=== PATIENT | male | born 1980 | race Caucasian/White ===

== ENCOUNTER 2016-12-14 15:22 | Emergency (ER) | payer OTHER ==
[2016-12-14 15:31] VITALS: BP 107/73; PULSE 65; RESP 18; TEMP 97.3
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
== END 2016-12-14 17:29 | disposition home or self-care (01) ==
LOC: EC 15:22
DX: L02.214 Cutaneous abscess of groin (principal); F17.200 Nicotine dependence, unspecified, uncomplicated; Z79.899 Other long term (current) drug therapy; Z79.891 Long term (current) use of opiate analgesic
CPT/HCPCS: 99282

== ENCOUNTER → 2018-01-09 | Outpatient (CLI) | payer OTHER ==
--- NOTE | 2018-01-09 15:40 | MR ---
EXAMINATION TYPE: MR lumbar spine wo con DATE OF EXAM: 01/09/2018 COMPARISON: NONE HISTORY: Low back pain x2 months TECHNIQUE: T1 and T2 axial and sagittal images of the lumbar spine are submitted. FINDINGS: There is no abnormal signal seen within the visualized spinal cord or paraspinal soft tissu es. Tiny gallstone suspected. Simple appearing tiny left renal cyst noted. At L1-2 there is no disc herniation, canal stenosis, or foraminal encroachment. No degenerative disc disease. At L2-3 there is no disc herniation, canal stenosis, or foraminal encroachment. No degenerative disc disease. At L3-4 there is no disc herniation, canal stenosis, or foraminal encroachment. No degenerative disc disease At L4-5 there is no disc herniation, canal stenosis, or foraminal encroachment. No degenerative disc disease At L5-S1 there is loss of disc signal. There is central disc bulging with mild effacement of thecal s ac. No canal stenosis. Mild hypertrophic change of the facets. Disc bulging greater laterally to the right with mild right foraminal encroachment. IMPRESSION: 1. Central disc bulging with mild effacement L5-S1 with mild right foraminal encroachment but no raj l stenosis.
== END | disposition home or self-care (01) ==
LOC: RADMRIMAIN 14:40
PROVIDERS: ATTEND Physical Medicine & Rehabilitation
DX: M51.17 Intervertebral disc disorders with radiculopathy, lumbosacral region (principal)
CPT/HCPCS: 72148

== ENCOUNTER 2018-02-14 15:56 | Inpatient (IN) | payer MEDICAID, OTHER ==
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
[2018-02-14] MEDS ORDERED: OXcarbazepine 150 MG TAB PO STA (16:51)
[2018-02-14 16:59] LABS: Amphetamine Screen,Urine Not Detected (NotDetected); Barbiturate Screen,Urine Not Detected (NotDetected); Benzodiazepines Screen,Urine Not Detected (NotDetected); Cocaine Screen,Urine Not Detected (NotDetected); Methadone Screen, Urine Not Detected (NotDetected); Opiate Screen,Urine Not Detected (NotDetected); Oxycodone Screen, Urine Not Detected (NotDetected); Phencyclidine Screen,Urine Not Detected (NotDetected); Tricyclic Antidepressant,Urine Not Detected (NotDetected); Urn Cannabinoid Scrn Detected (NotDetected)
[2018-02-14] MEDS ORDERED: ZIPRASIDONE 20 MG VIAL IM STA (17:14)
[2018-02-14 18:15] VITALS: RESP 16
[2018-02-14] MEDS ORDERED: ZIPRASIDONE 20 MG VIAL IM PRN (18:40)
[2018-02-14] MEDS ORDERED: ACETAMINOPHEN TAB 325 MG TAB PO PRN (18:40)
[2018-02-14] MEDS ORDERED: MAGNESIUM HYDROXIDE 2,400 MG/10 ML CUP PO PRN (18:40)
[2018-02-14] MEDS ORDERED: MAG HYDROX/AL HYDROX/SIMETH 30 ML CUP PO PRN (18:40)
[2018-02-14 19:00] LABS: Appearance,Urine Cloudy (Clear); Bilirubin,Urine Negative (Negative); Blood,Urine Negative (Negative); Color,Urine Yellow; Glucose,Urine (UA) Negative (Negative); Ketones,Urine Negative (Negative); Leukocyte Esterase,Urine Negative (Negative); Mucus,Urine Occasional /hpf; Nitrite,Urine Negative (Negative); Protein,Urine Negative (Negative); RBC,Urine 1 /hpf (0-5); Specific Gravity,Urine 1.018 (1.001-1.035); Squamous Epithelial Cell,Urine 1 /hpf (0-4); Urobilinogen,Urine <2.0 mg/dL (<2.0); WBC,Urine <1 /hpf (0-5)
[2018-02-14] MEDS: DIVALPROEX ER 500 MG TAB.ER.24H PO SCH (21:17)
[2018-02-14] MEDS: OXcarbazepine 150 MG TAB PO SCH (21:17)
[2018-02-15] MEDS: OXcarbazepine 150 MG TAB PO SCH ×2 (08:31→20:15)
[2018-02-15] MEDS: ZIPRASIDONE 80 MG CAP PO SCH (08:32)
[2018-02-15] MEDS: NICOTINE 21MG/24HR PATCH TRANSDERM SCH (08:59)
[2018-02-15] MEDS ORDERED: ESCITALOPRAM 10 MG TAB PO SCH (09:00)
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
[2018-02-15 10:23] LABS: ALT 23 U/L (21-72); AST 26 U/L (17-59); Albumin 4.8 g/dL (3.5-5.0); Alkaline Phosphatase 63 U/L (38-126); Anion Gap 15 mmol/L; Blood Urea Nitrogen 18 mg/dL (9-20); Calcium 10.8 mg/dL (8.4-10.2); Carbon Dioxide 24 mmol/L (22-30); Chloride 105 mmol/L (98-107); Cholesterol 223 mg/dL (<200); Glucose 98 mg/dL (74-99); HDL Cholesterol 60 mg/dL (40-60); LDL Cholesterol,Calculated 148 mg/dL (0-99); Potassium 4.7 mmol/L (3.5-5.1); Sodium 144 mmol/L (137-145); Total Bilirubin 2.3 mg/dL (0.2-1.3); Total Protein 7.6 g/dL (6.3-8.2); Triglycerides 77 mg/dL (<150)
[2018-02-15 10:29] LABS: Basophils % (A) 1 %; Eosinophils # (A) 0.2 k/uL (0-0.7); Eosinophils % (A) 3 %; HCT 52.3 % (39.0-53.0); HGB 17.8 gm/dL (13.0-17.5); Lymphocytes # (A) 1.1 k/uL (1.0-4.8); Lymphocytes % (A) 21 %; MCV 91.3 fL (80.0-100.0); Mean Platelet Volume 7.5; Monocytes # (A) 0.4 k/uL (0-1.0); Monocytes % (A) 7 %; Neutrophils # (A) 3.5 k/uL (1.3-7.7); Neutrophils % (A) 65 %; Platelet Count 266 k/uL (150-450); RBC 5.73 m/uL (4.30-5.90); RDW 13.9 % (11.5-15.5); WBC 5.3 k/uL (3.8-10.6)
--- NOTE | 2018-02-15 16:54 | CONS ---
CONSULTATION DATE OF CONSULTATION: 02/15/18. REASON FOR CONSULTATION: Medical management requested by Dr. Cook. CONSULTATION: This is a 37-year-old patient who follows with Dr. Jordan Márquez out of [facility]. The patient has a history of what appears to be bipolar disorder and questionable ADHD. The patient is unemployed, lives his girlfriend and her sister. The patient is brought in because patient is having homicidal ideation and he says he hates his sister's girlfriend and cannot get along with her at all. Apparently she was making fun of him. He really got mad, upset. The patient sometimes has trouble sleeping. The patient does smoke cigarettes. Does marijuana. Does odd jobs including working on roofs. The patient has some chronic low back pain. Otherwise, no trouble with bowel or urine. Occasional cough. REVIEW OF SYSTEMS: CONSTITUTIONAL: None. HEENT: None. RESPIRATORY: As above. CARDIOVASCULAR: None. GASTROINTESTINAL: Occasional heartburn. GENITOURINARY: None. MUSCULOSKELETAL: Chronic low back pain. DERMATOLOGICAL: Questionable right. HEMATOLOGIC, LYMPHATIC: None. PSYCHIATRY: Anxious, depression. NEUROLOGICAL: None. PAST MEDICAL HISTORY: Chronic shoulder pain, neck pain, back pain, possibly depression. PAST SURGICAL HISTORY: Left elbow reconstruction, right arm vascular repair, right rotator cuff repair, right ankle ORIF. History of sacral fracture. PSYCH HISTORY: Include bipolar disorder. SOCIAL HISTORY: Lives with his girlfriend and her sister. Smokes about a quarter pack a day and does smoke marijuana once to twice a day. Denies alcohol. FAMILY HISTORY: Reviewed, noncontributory to presentation. HOME MEDICATIONS: 1. Lexapro 10 mg a day. 2. Flexeril 10 mg b.i.d. 3. Xanax 1 mg p.o. t.i.d. p.r.n. 4. Geodon 80 mg p.o. daily. 5. Percocet 10 1 tab q.i.d. p.r.n. 6. Trileptal 450 mg p.o. b.i.d. 7. Depakote ER 1000 mg p.o. q.h.s. 8. Tylenol 650 mg q.4 p.r.n. ALLERGIES: None. PHYSICAL EXAMINATION: Temperature 98.4, pulse 70, respiration 16, blood pressure 100/60, pulse ox 97% on room air. GENERAL APPEARANCE: Average build, lying in bed, slightly disheveled. EYES: Pupils equal. Conjunctivae normal. HEENT: External nose and ears normal. Oral cavity normal. NECK: JVD not raised. Mass not palpable. RESPIRATORY: Effort slightly decreased, lungs fair entry. CARDIOVASCULAR: 1st and 2nd sounds normal. No edema. ABDOMEN: Soft, nontender. Liver and spleen not palpable. LYMPHATIC: No lymph node palpable in neck or axillae. PSYCHIATRY: Alert and oriented x3. Mood and affect slightly anxious-appearing. INVESTIGATIONS: White count 5.3, potassium 4.7, bilirubin 2.3. TSH 0.419. Urine drug screen positive for marijuana. ASSESSMENT: 1. Chronic nicotine dependence. Patient is a cigarette smoker. 2. Chronic marijuana recreational use. 3. Abnormal TSH. 4. 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 5. Bipolar disorder and antisocial personality disorder. PLAN: Patient given nicotine patch. Advised against use of marijuana. We will recheck patient's free T4 and TSH tomorrow. The patient should follow up with Dr. Jordan Márquez upon discharge. Thank you, Dr. Cook. MMODL / IJN: [id number] /
[2018-02-15 19:30] LABS: Hemoglobin A1C 5.1 % (4.0-6.0)
[2018-02-15] MEDS: DIVALPROEX ER 500 MG TAB.ER.24H PO SCH (20:15)
[2018-02-16] MEDS: OXcarbazepine 150 MG TAB PO SCH ×2 (08:35→20:10)
[2018-02-16] MEDS: ZIPRASIDONE 80 MG CAP PO SCH (08:36)
[2018-02-16] MEDS: NICOTINE 21MG/24HR PATCH TRANSDERM SCH (08:39)
--- NOTE | 2018-02-16 10:23 | P.PN ---
Progress Note - Text Progress Note Date: 02/16/18 Patient was seen for a routine follow-up examination. He said he did not sleep well last night and asked if I can give him something. After discussing his condition it was finally agreed to try him on melatonin. He did not have any adverse effects from Depakote and he agreed to get it increased to 1500 mg at bedtime since he weighs 75 kg. He attends groups, socializes with peers and interacts with staff members. He said he has an appointment with the doctor in pain clinic tomorrow and hopes he can leave tomorrow. It was explained to him that if everything goes well I won't have any problem in discharging him otherwise he may have to postpone his pain clinic appointment. He agreed with this. This is a white ambulatory male with adequate hygiene. But he looks somewhat unkempt with unkempt de anda mustache which cover his lips. He is friendly and cooperative. His speech is spontaneous and mildly pressured. His mood is cheerful and affect is appropriate. He insists that he is not homicidal anymore , never thought about hurting his girlfriend's sister, his girlfriend had talked to her sister not to make him upset and said everything is cool now. He also denies hallucinations and delusional thinking. He is well oriented with good memory concentration etc. Plan: Continue Trileptal Geodon increased Depakote and start on melatonin to help him sleep. Continue groups and other activities.
[2018-02-16] MEDS ORDERED: DIVALPROEX ER 500 MG TAB.ER.24H PO SCH (21:00)
[2018-02-16] MEDS ORDERED: MELATONIN 3 MG TABLET PO SCH (21:00)
[2018-02-17 03:29] VITALS: BP 135/79; PULSE 70; TEMP 97.7
--- NOTE | 2018-02-17 08:35 | P.DS ---
Providers Date of admission: 02/14/18 17:56 Expected date of discharge: 02/17/18 Attending physician: Nikole Cook Consults: 02/14/18 18:40 Consult Physician Routine Consulting Provider: Medardo Robbins Consult Reason/Comments: H&P for mental health admission Do you want consulting provider notified?: Yes Primary care physician: Rodrigo Elmore [facility] Course: Patient had his physical examination psychiatric evaluation and psychosocial evaluation. After physical examination his condition was discussed with him along with recommended treatment plan and his Trileptal Depakote and Geodon were continued Lexapro was discontinued because of his diagnosis. He did well on these without any adverse effects. His Depakote was increased to 1500 mg at night since he weighs 75.296 kg. He tolerated this without any adverse effects. He also was complaining of problems sleeping and was started on melatonin 3 mg at bedtime. He slept about 7 hours on melatonin. He continued to deny homicide and suicide thoughts, was keen on going home and in view of this it was agreed to discharge him. Condition on discharge: This is a white ambulatory male with adequate hygiene. But he looks somewhat unkempt with untrimmed de anda and mustache and poorly combed hair. He does not show any psychomotor agitation or retardation. His speech is spontaneous and goal-directed. His mood is cheerful and affect is appropriate to the thought content. He continues to deny hallucinations, delusional thinking, suicidal and homicidal thoughts. He is well oriented with adequate memory concentration general fund of knowledge etc. his insight and judgment have improved to a certain extent. Diagnosis on discharge: Unspecified bipolar and related disorder F 31.9. Cannabis use disorder severe F 12.20. Antisocial personality disorder F 60.20. Probable malingering Z 76.5. NKDA. History of chronic pain. Patient was advised and agreed to take his medications not to drink alcohol or use drugs, not to use narcotics, muscle relaxants or benzodiazepines on a long- term basis, learn better coping skills through therapy, not to drive or operate missionary if he feels sleepy, to call his psychiatrist or therapist if he develops any thoughts of hurting self or others and if he cannot get hold of them to go to nearest ER. Plan - Discharge Summary Discharge Rx Participant: Yes New Discharge Prescriptions: New Divalproex ER [Depakote ER] 1,500 mg PO HS 30 Days #90 tab.er.24h Melatonin 3 mg PO HS 30 Days #30 tablet Continue OXcarbazepine [Trileptal] 450 mg PO BID #90 tab Ziprasidone [Geodon] 80 mg PO DAILY 30 Days #30 cap Discontinued oxyCODONE-APAP 10-325MG [Percocet 10-325 mg] 1 tab PO QID PRN PRN Reason: Pain Acetaminophen Tab [Tylenol] 650 mg PO Q4HR PRN tab PRN Reason: Pain/Discomfort Divalproex ER [Depakote ER] 1,000 mg PO HS #60 tab.er.24h ALPRAZolam [Xanax] 1 mg PO TID PRN PRN Reason: Anxiety Escitalopram [Lexapro] 10 mg PO DAILY Cyclobenzaprine [Flexeril] 10 mg PO BID Discharge Medication List Divalproex ER [Depakote ER] 1,500 mg PO HS 30 Days #90 tab.er.24h 02/17/18 [Rx] Melatonin 3 mg PO HS 30 Days #30 tablet 02/17/18 [Rx] OXcarbazepine [Trileptal] 450 mg PO BID #90 tab 02/17/18 [Rx] Ziprasidone [Geodon] 80 mg PO DAILY 30 Days #30 cap 02/17/18 [Rx] Follow up Appointment(s)/Referral(s): intake, intake [Other] - 1 Week (02/21/18 at 1:00pm ) Rodrigo Márquez MD [Primary Care Provider] - 1-2 days Patient Instructions/Handouts: Bipolar Disorder (DC) Activity/Diet/Wound Care/Special Instructions: Activity and Diet as tolerated. Avoid the use of street drugs and alcohol. Take all medications as prescribed, when you are in need of refills contact your medical doctor or psychiatrist. Please go to all scheduled outpatient appointments for aftercare treatment. If symptoms return or worsen you can call the crisis line @ and/or return to the nearest emergency room for evaluation.
[2018-02-17] MEDS: NICOTINE 21MG/24HR PATCH TRANSDERM SCH (08:50)
[2018-02-17] MEDS: OXcarbazepine 150 MG TAB PO SCH (08:52)
[2018-02-17] MEDS: ZIPRASIDONE 80 MG CAP PO SCH (08:52)
== END 2018-02-17 09:30 | disposition home or self-care (01) | DRG 885 ==
LOC: EC 15:56 → 3MHU 17:56
PROVIDERS: ADMIT Psychiatry & Neurology Psychiatry; ATTEND Psychiatry & Neurology Psychiatry
DX: F31.9 Bipolar disorder, unspecified (principal); R17 Unspecified jaundice; F60.2 Antisocial personality disorder; F90.9 Attention-deficit hyperactivity disorder, unspecified type; F12.20 Cannabis dependence, uncomplicated; F17.210 Nicotine dependence, cigarettes, uncomplicated; Z76.5 Malingerer [conscious simulation]; G89.29 Other chronic pain; R45.850 Homicidal ideations; Z79.899 Other long term (current) drug therapy; Z80.6 Family history of leukemia; Z79.891 Long term (current) use of opiate analgesic
CPT/HCPCS: 80053; 80061; 80306; 81001; 82075; 83036; 84439; 84443; 85025; 99285

== ENCOUNTER → 2019-06-05 | Outpatient (CLI) | payer OTHER ==
[2019-06-05 12:31] LABS: Basophils % (A) 1 %; Eosinophils # (A) 0.3 k/uL (0-0.7); Eosinophils % (A) 4 %; HCT 46.1 % (39.0-53.0); HGB 15.1 gm/dL (13.0-17.5); Lymphocytes # (A) 1.2 k/uL (1.0-4.8); Lymphocytes % (A) 17 %; MCHC 32.7 g/dL (31.0-37.0); MCV 94.6 fL (80.0-100.0); Mean Platelet Volume 7.7; Monocytes # (A) 0.4 k/uL (0-1.0); Monocytes % (A) 6 %; Neutrophils # (A) 4.8 k/uL (1.3-7.7); Neutrophils % (A) 71 %; Platelet Count 212 k/uL (150-450); RBC 4.87 m/uL (4.30-5.90); RDW 15.6 % (11.5-15.5); WBC 6.8 k/uL (3.8-10.6)
[2019-06-05 13:59] LABS: Erythrocyte Sedimentation Rate 2 mm/hr (0-15)
[2019-06-05 19:18] LABS: Iron Saturation 13.67 (15.00-50.00)
[2019-06-05 19:28] LABS: HIV 1 AB Non-Reactive (Non-Reactive); HIV AB P24 Non-Reactive (Non-Reactive); HIV P24 AG Non-Reactive (Non-Reactive)
[2019-06-05 19:44] LABS: ALT 21 U/L (10-49); AST 35 U/L (14-35); African American GFR (CKD) 128.6 (60.0-200.0); Albumin/Globulin Ratio 2.73 (1.60-3.17); Alkaline Phosphatase 68 U/L (41-126); Amylase 54 U/L (23-121); BUN/Creat Ratio 13.75 Ratio (12.00-20.00); C Reactive Protein <0.4 mg/dL (0.0-0.8); Calcium 9.2 mg/dL (8.7-10.3); Carbon Dioxide 26.7 mmol/L (21.6-31.8); Chloride 113 mmol/L (96-109); Globulin 1.5 g/dL (1.6-3.3); Glucose 85 mg/dL (70-110); Potassium 4.3 mmol/L (3.5-5.5); Sodium 144 mmol/L (135-145); Total Bilirubin 0.6 mg/dL (0.3-1.2); Total Protein 5.6 g/dL (6.2-8.2)
[2019-06-05 21:45] LABS: Hemoglobin A1C 5.3 % (4.0-6.0)
[2019-06-06 12:14] LABS: Herpes simplex IgG I Ab 0.25 (< or = 0.90); Herpes simplex IgG II Ab 0.34 (< or = 0.90)
== END | disposition home or self-care (01) ==
LOC: LABWHC1 12:14
PROVIDERS: ATTEND Nurse Practitioner Family
DX: R63.4 Abnormal weight loss (principal); R10.9 Unspecified abdominal pain; Z11.3 Encounter for screening for infections with a predominantly sexual mode of transmission
CPT/HCPCS: 36415; 80053; 80074; 82150; 82728; 83036; 83540; 83550; 83690; 84439; 84443; 84481; 85025; 85652; 86140; 86694; 86695; 86696; 86780; 87390

== ENCOUNTER → 2019-06-27 | Outpatient (CLI) | payer OTHER ==
--- NOTE | 2019-06-27 11:22 | US ---
EXAMINATION TYPE: US abdomen complete DATE OF EXAM: 06/27/2019 COMPARISON: NONE CLINICAL HISTORY: R10.9 ABD PAIN. Pain. EXAM MEASUREMENTS: Liver Length: 13.7 cm Gallbladder Wall: 0.3 cm CBD: 0.5 cm Spleen: 11.8 cm Right Kidney: 10.1 x 4.7 x 4.3 cm Left Kidney: 10.0 x 5.0 x 4.5 cm Pancreas: wnl Liver: wnl Gallbladder: No stones seen Evidence for sonographic Tinoco's sign: No CBD: wnl Spleen: wnl Right Kidney: wnl Left Kidney: wnl Upper IVC: wnl Abd Aorta: wnl IMPRESSION: 1. Normal abdomen ultrasound
== END | disposition home or self-care (01) ==
LOC: RADUSWWP 09:17
PROVIDERS: ATTEND Family Medicine
DX: R10.9 Unspecified abdominal pain (principal)
CPT/HCPCS: 76700

== ENCOUNTER 2019-11-26 08:04 | Emergency (ER) | payer OTHER ==
[2019-11-26 08:24] VITALS: TEMP 97.4
[2019-11-26] MEDS ORDERED: PANTOPRAZOLE 40 MG/10 ML VIAL IVP STA (08:35)
[2019-11-26] MEDS ORDERED: MORPHINE SULFATE 4 MG/ML SYRINGE IV STA (08:35)
[2019-11-26] MEDS ORDERED: SODIUM CHLORIDE 0.9% 1,000 ML IV STA (08:35)
[2019-11-26] MEDS ORDERED: ONDANSETRON 4 MG/2 ML VIAL IVP STA (08:35)
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
[2019-11-26 08:54] LABS: Basophils % (A) 1 %; Eosinophils # (A) 0.3 k/uL (0-0.7); Eosinophils % (A) 4 %; Lymphocytes % (A) 18 %; MCH 30.4 pg (25.0-35.0); MCHC 32.6 g/dL (31.0-37.0); MCV 93.3 fL (80.0-100.0); Mean Platelet Volume 8.3; Monocytes # (A) 0.4 k/uL (0-1.0); Monocytes % (A) 7 %; Neutrophils # (A) 3.7 k/uL (1.3-7.7); Neutrophils % (A) 66 %; Platelet Count 199 k/uL (150-450); RBC 4.93 m/uL (4.30-5.90); RDW 14.2 % (11.5-15.5); WBC 5.7 k/uL (3.8-10.6)
[2019-11-26 09:06] LABS: Partial Thromboplastin Time 24.8 sec (22.0-30.0); Prothrombin Time 10.3 sec (9.0-12.0)
[2019-11-26 09:09] LABS: Anion Gap 6 mmol/L; Blood Urea Nitrogen 20 mg/dL (9-20); Carbon Dioxide 22 mmol/L (22-30); Chloride 114 mmol/L (98-107); Glucose 84 mg/dL (74-99); Sodium 142 mmol/L (137-145)
[2019-11-26 09:10] LABS: ALT 28 U/L (4-49); AST 64 U/L (17-59); African American GFR (CKD) >90 (>60 ml/min/1.73 sqM); Alkaline Phosphatase 58 U/L (38-126); Amylase 39 U/L (30-110); Calcium 9.6 mg/dL (8.4-10.2); Non-African American GFR(CKD) >90 (>60 ml/min/1.73 sqM); Total Bilirubin 2.7 mg/dL (0.2-1.3); Total Protein 6.6 g/dL (6.3-8.2)
--- NOTE | 2019-11-26 09:34 | CT ---
EXAMINATION TYPE: CT abdomen pelvis w con DATE OF EXAM: 11/26/2019 COMPARISON: Complete abdominal ultrasound June 27, 2019 HISTORY: Abdominal pain, RLQ abdominal pain CT DLP: 713.3 mGycm, Automated Exposure Control for Dose Reduction was Utilized. CONTRAST: CT scan of the abdomen and pelvis is performed without oral but with IV Contrast, patient injected wi th 100 ml mL of Isovue 300. FINDINGS: LUNG BASES: No significant abnormality is appreciated. LIVER/GB: No significant abnormality is appreciated. PANCREAS: No significant abnormality is seen. SPLEEN: Oval low dense 1.2 cm lesion spleen axial image 19 favor simple benign thin-walled cyst. ADRENALS: Calcification in small sized right adrenal gland may be product of old trauma. KIDNEYS: No significant abnormality is seen. BOWEL: Evaluation noted suboptimal secondary to lack of enteric contrast. No suspicious small or larg e bowel dilatation. Stomach poorly distended and is suboptimally evaluated. Few scattered air-fluid l evels small bowel loops right mid to lower abdomen. Mild to moderate wall thickening involving termin al ileum. Normal-appearing appendix seen extending inferiorly and medially from cecum in the right pe lvis. Mild wall thickening distal sigmoid rectal colon. PROSTATE/SEMINAL VESICLES: Mildly enlarged prostate gland especially for patient's age consistent wit h BPH. LYMPH NODES: No greater than 1cm abdominal or pelvic lymph nodes are appreciated. OSSEOUS STRUCTURES: Few scattered sclerotic foci throughout the pelvis favor benign bone islands with few lesions seen in the left proximal femur, left acetabulum, right acetabulum, and left pubic symph ysis noted. Mild facet arthropathy lower lumbar levels. OTHER: No significant additional abnormality is seen. IMPRESSION: Overall nonobstructive bowel gas pattern. Cannot exclude uncommon terminal ileitis and/or distal colitis. Correlate clinically for infectious and/or inflammatory etiologies. Crohn's disease should be considered in patient of this age. No CT evidence for acute appendicitis.
[2019-11-26 11:57] LABS: Appearance,Urine Clear (Clear); Bilirubin,Urine Negative (Negative); Blood,Urine Negative (Negative); Color,Urine Yellow; Glucose,Urine (UA) Negative (Negative); Ketones,Urine 1+ (Negative); Leukocyte Esterase,Urine Negative (Negative); Mucus,Urine Occasional /hpf; Nitrite,Urine Negative (Negative); Protein,Urine 1+ (Negative); RBC,Urine 3 /hpf (0-5); Squamous Epithelial Cell,Urine 2 /hpf (0-4); WBC,Urine 1 /hpf (0-5)
[2019-11-26 12:02] LABS: Specific Gravity,Urine >1.050 (1.001-1.035)
[2019-11-26] MEDS ORDERED: ACET/COD 300 MG/30 MG STARTER PACK 6 TAB BTL PO STA (12:04)
[2019-11-26 12:35] VITALS: BP 115/81; PULSE 82; RESP 20
== END 2019-11-26 12:35 | disposition home or self-care (01) ==
LOC: EC 08:04
DX: K52.9 Noninfective gastroenteritis and colitis, unspecified (principal); F17.200 Nicotine dependence, unspecified, uncomplicated
CPT/HCPCS: 36415; 93005; 86900; 86901; 80053; 82150; 83605; 83690; 85025; 85610; 85730; 86850; 82272; 81001; 74177; 99285; 96374; 96375 ×2; 96361 ×3; J2270; J2405; C9113; Q9967

== ENCOUNTER 2019-12-18 07:13 | Day surgery (SDC) | payer OTHER ==
[2019-12-14 09:04] VITALS: BMI 22.8
[~2019-12-18 07:13] MED LIST: LACTATED RINGERS 1,000 ML IV SCH
[2019-12-18 07:35] VITALS: TEMP 98
[2019-12-18] MEDS ORDERED: LIDOCAINE 1% INJ 10MG/ML (20 ML MDV) ONE (07:53)
[2019-12-18] MEDS ORDERED: PROPOFOL 10 MG/ML 20 ML VIAL IV ONE (07:53)
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
--- NOTE | 2019-12-18 08:20 | P.OP ---
Date of Procedure: 12/18/19 Preoperative Diagnosis: Colitis Postoperative Diagnosis: Sigmoid colon polyp Right colon biopsy pathology pending Procedure(s) Performed: Colonoscopy Anesthesia: MAC Surgeon: John Rodriguez Pathology: other (Sigmoid colon polyp, right colon biopsy) Condition: stable Disposition: PACU Description of Procedure: The patient's placed on the endoscopy table in the lateral position. He received IV sedation. Digital rectal exam was performed. This revealed no abnormalities. The prostate was symmetric without nodules. The flexible colonoscope was then placed patient anus and passed throughout the entire colon. The ileocecal valve sutures. Cecum appeared normal. A random biopsy the right colon was performed: Forcep. The scope was then brought back and the remainder the ascending colon transverse colon and descending colon appeared normal. The sigmoid: There was another polyp seen and this was removed with the snare. The rectum was normal. Scope was removed from the patient.
[2019-12-18 08:46] VITALS: BP 104/69; PULSE 65; RESP 14
== END 2019-12-18 09:22 | disposition home or self-care (01) ==
LOC: ORWHC2ENDO 07:13
PROVIDERS: ATTEND Surgery
DX: D12.5 Benign neoplasm of sigmoid colon (principal); K63.5 Polyp of colon; K52.9 Noninfective gastroenteritis and colitis, unspecified; M19.90 Unspecified osteoarthritis, unspecified site; G89.29 Other chronic pain; M25.519 Pain in unspecified shoulder; M54.2 Cervicalgia; F17.210 Nicotine dependence, cigarettes, uncomplicated; M54.9 Dorsalgia, unspecified; Z87.442 Personal history of urinary calculi; Z86.14 Personal history of Methicillin resistant Staphylococcus aureus infection; Z98.890 Other specified postprocedural states; Z80.6 Family history of leukemia; Z79.891 Long term (current) use of opiate analgesic
CPT/HCPCS: 88305; 45385; 45380; J2001; J2704

== ENCOUNTER 2020-01-04 16:38 | Observation (INO) | payer OTHER ==
[2020-01-04 17:29] LABS: Partial Thromboplastin Time 24.1 sec (22.0-30.0); Prothrombin Time 10.3 sec (9.0-12.0)
[2020-01-04 17:33] LABS: African American GFR (CKD) >90 (>60 ml/min/1.73 sqM); Anion Gap 8 mmol/L; Blood Urea Nitrogen 24 mg/dL (9-20); Calcium 9.9 mg/dL (8.4-10.2); Carbon Dioxide 25 mmol/L (22-30); Chloride 106 mmol/L (98-107); Glucose 97 mg/dL (74-99); Non-African American GFR(CKD) 80 (>60 ml/min/1.73 sqM); Potassium 4.4 mmol/L (3.5-5.1); Sodium 139 mmol/L (137-145)
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
[2020-01-04 17:40] LABS: HCT 47.1 % (39.0-53.0); HGB 15.7 gm/dL (13.0-17.5); MCH 30.8 pg (25.0-35.0); MCHC 33.5 g/dL (31.0-37.0); MCV 92.2 fL (80.0-100.0); Mean Platelet Volume 8.2; Platelet Count 240 k/uL (150-450); RBC 5.11 m/uL (4.30-5.90); RDW 14.2 % (11.5-15.5); WBC 4.2 k/uL (3.8-10.6)
[2020-01-04 18:03] LABS: Band Neutrophils % 1 %; Eosinophils # (M) 0.08 k/uL (0-0.7); Lymphocytes # (M) 1.43 k/uL (1.0-4.8); Monocytes # (M) 0.21 k/uL (0-1.0); Neutrophils % (M) 58 %; Nucleated Red Blood Cells 0 /100 WBC (0-0); Total Cells Counted 100
--- NOTE | 2020-01-04 18:17 | XR ---
EXAMINATION TYPE: XR abdomen 1V DATE OF EXAM: 01/04/2020 COMPARISON: 09/24/2014 HISTORY: 09/24/2014 TECHNIQUE: Right lower quadrant pain FINDINGS: 2 views upright IMPRESSION: There is no sign of intestinal obstruction or pneumoperitoneum. Fecal pattern is normal. There is no evidence of a mass. There are no pathologic calcifications over the kidneys. Lung bases a re clear. IMPRESSION: Nonacute abdomen. No change.
[2020-01-04] MEDS ORDERED: SODIUM CHLORIDE 0.9% 1,000 ML IV STA (18:49)
[2020-01-04] MEDS ORDERED: NALOXONE 0.4 MG/ML 1 ML VIAL IV PRN (19:09)
[2020-01-04] MEDS ORDERED: ACETAMINOPHEN TAB 325 MG TAB PO PRN (19:09)
[2020-01-04] MEDS: SODIUM CHLORIDE 0.9% 1,000 ML IV SCH (19:14)
[2020-01-04] MEDS ORDERED: ALPRAZolam 1 MG TAB PO STA (19:51)
[2020-01-05] MEDS: SODIUM CHLORIDE 0.9% 1,000 ML IV SCH (04:30)
[2020-01-05 06:45] LABS: HCT 44.8 % (39.0-53.0); HGB 14.7 gm/dL (13.0-17.5); MCHC 32.9 g/dL (31.0-37.0); MCV 94.2 fL (80.0-100.0); Mean Platelet Volume 7.8; Platelet Count 227 k/uL (150-450); RBC 4.75 m/uL (4.30-5.90); RDW 14.2 % (11.5-15.5); WBC 3.6 k/uL (3.8-10.6)
[2020-01-05 07:12] LABS: Eosinophils # (M) 0.18 k/uL (0-0.7); Lymphocytes # (M) 1.33 k/uL (1.0-4.8); Monocytes # (M) 0.32 k/uL (0-1.0); Neutrophils # (M) 1.76 k/uL (1.3-7.7); Neutrophils % (M) 49 %; Nucleated Red Blood Cells 0 /100 WBC (0-0); Total Cells Counted 100
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
[2020-01-05 14:43] VITALS: BP 116/76; PULSE 60; RESP 20; TEMP 97.6
== END 2020-01-05 15:00 | disposition home or self-care (01) ==
LOC: EC 16:38 → 3SCARD 19:13
PROVIDERS: ADMIT Surgery Plastic and Reconstructive Surgery; ATTEND Surgery Plastic and Reconstructive Surgery
DX: K92.1 Melena (principal); R10.11 Right upper quadrant pain; G89.4 Chronic pain syndrome; K21.9 Gastro-esophageal reflux disease without esophagitis; F17.210 Nicotine dependence, cigarettes, uncomplicated; M19.90 Unspecified osteoarthritis, unspecified site; M25.519 Pain in unspecified shoulder; M54.2 Cervicalgia; M54.9 Dorsalgia, unspecified; Z86.010 Personal history of colon polyps; F41.9 Anxiety disorder, unspecified; F20.9 Schizophrenia, unspecified; F31.9 Bipolar disorder, unspecified; Z86.14 Personal history of Methicillin resistant Staphylococcus aureus infection; Z87.442 Personal history of urinary calculi; Z80.6 Family history of leukemia; Z83.79 Family history of other diseases of the digestive system
CPT/HCPCS: 96360; 99285; 36415; 86900; 86901; 80048; 85025 ×2; 85610; 85730; 86850; 82272; 74018; G0378 ×2

== ENCOUNTER 2020-01-06 13:35 | Observation (INO) | payer OTHER ==
[2020-01-06] MEDS ORDERED: MORPHINE SULFATE 4 MG/ML SYRINGE IV STA (14:22)
[2020-01-06] MEDS ORDERED: ONDANSETRON 4 MG/2 ML VIAL IVP STA (14:22)
[2020-01-06] MEDS ORDERED: PANTOPRAZOLE 40 MG/10 ML VIAL IVP STA (14:22)
[2020-01-06] MEDS ORDERED: SODIUM CHLORIDE 0.9% 1,000 ML IV STA ×2 (14:22)
[2020-01-06 14:42] LABS: Basophils % (A) 0 %; Eosinophils # (A) 0.1 k/uL (0-0.7); Eosinophils % (A) 3 %; HCT 47.1 % (39.0-53.0); HGB 15.5 gm/dL (13.0-17.5); Lymphocytes % (A) 28 %; MCH 30.8 pg (25.0-35.0); MCHC 32.8 g/dL (31.0-37.0); MCV 93.8 fL (80.0-100.0); Mean Platelet Volume 8.3; Monocytes # (A) 0.2 k/uL (0-1.0); Monocytes % (A) 7 %; Neutrophils # (A) 2.2 k/uL (1.3-7.7); Neutrophils % (A) 58 %; Platelet Count 201 k/uL (150-450); RBC 5.02 m/uL (4.30-5.90); WBC 3.7 k/uL (3.8-10.6)
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
[2020-01-06 14:47] LABS: Prothrombin Time 10.4 sec (9.0-12.0)
[2020-01-06 14:51] LABS: ALT 16 U/L (4-49); AST 27 U/L (17-59); African American GFR (CKD) >90 (>60 ml/min/1.73 sqM); Albumin 4.3 g/dL (3.5-5.0); Alkaline Phosphatase 47 U/L (38-126); Amylase 46 U/L (30-110); Anion Gap 9 mmol/L; Blood Urea Nitrogen 16 mg/dL (9-20); Calcium 9.8 mg/dL (8.4-10.2); Carbon Dioxide 21 mmol/L (22-30); Chloride 108 mmol/L (98-107); Glucose 112 mg/dL (74-99); Non-African American GFR(CKD) >90 (>60 ml/min/1.73 sqM); Potassium 4.2 mmol/L (3.5-5.1); Sodium 138 mmol/L (137-145); Total Bilirubin 2.2 mg/dL (0.2-1.3); Total Protein 6.9 g/dL (6.3-8.2)
[2020-01-06] MEDS ORDERED: ACETAMINOPHEN TAB 325 MG TAB PO PRN (15:37)
[2020-01-06] MEDS ORDERED: KETOROLAC 30 MG/ML 1 ML VIAL IVP PRN (15:37)
[2020-01-06] MEDS ORDERED: ONDANSETRON 4 MG/2 ML VIAL IVP PRN (15:37)
[2020-01-06] MEDS ORDERED: NALOXONE 0.4 MG/ML 1 ML VIAL IV PRN (15:37)
[2020-01-06] MEDS ORDERED: ALPRAZolam 1 MG TAB PO PRN (16:01)
--- NOTE | 2020-01-06 16:03 | US ---
EXAMINATION TYPE: US gallbladder DATE OF EXAM: 01/06/2020 COMPARISON: CLINICAL HISTORY: ruq pain. Patient states his stomach feels like its burning. Rectal bleeding. EXAM MEASUREMENTS: Liver Length: 16.4 cm Gallbladder Wall: 0.2 cm CBD: 0.6 cm Right Kidney: 10.1 x 4.6 x 5.5 cm Pancreas: Appears echogenic in appearance. Main pancreatic duct = 1.9 mm Liver: wnl Gallbladder: wnl Evidence for sonographic Tinoco's sign: neg CBD: wnl Right Kidney: No hydronephrosis or masses seen IMPRESSION: Normal exam. No gallstones or dilated ducts.
[2020-01-06 16:20] LABS: Appearance,Urine Clear (Clear); Bilirubin,Urine Negative (Negative); Blood,Urine Negative (Negative); Color,Urine Light Yellow; Glucose,Urine (UA) Negative (Negative); Ketones,Urine Negative (Negative); Leukocyte Esterase,Urine Negative (Negative); Nitrite,Urine Negative (Negative); Protein,Urine Negative (Negative); Urobilinogen,Urine <2.0 mg/dL (<2.0)
[2020-01-06] MEDS ORDERED: oxyCODONE-APAP 10-325MG 1 EACH TAB PO PRN (19:01)
[2020-01-06] MEDS ORDERED: TEMAZEPAM 15 MG CAP PO PRN (19:02)
[2020-01-06] MEDS ORDERED: LORazepam 1 MG TAB PO PRN (19:03)
[2020-01-06] MEDS: SODIUM CHLORIDE 0.9% 1,000 ML IV SCH (19:13)
[2020-01-06] MEDS: PANTOPRAZOLE 40 MG/10 ML VIAL IV SCH (19:39)
--- NOTE | 2020-01-06 21:23 | HP ---
HISTORY AND PHYSICAL DATE OF SERVICE: 01/06/2020 CHIEF COMPLAINT: Abdominal pain, rectal bleeding. I am covering for Dr. Persaud. HISTORY OF PRESENT ILLNESS: This 39-year-old gentleman with a past medical history of multiple medical problems including GERD, DJD, history of chronic shoulder pain, history of irregular heart beat, anxiety, bipolar depression, schizophrenia, being followed by Dr. Kuldeep Persaud in the outpatient setting was recently admitted to [facility] by Dr. Mayorga for hematochezia. The patient had a history of recent colonoscopy with polypectomy about 3 weeks ago as an outpatient. Currently the patient went home and subsequently patient had recurrence of hematochezia. The patient came back to [facility] and was admitted for further evaluation and evaluation and treatment. The patient also had a burning sensation and occasions sharp stabbing sensations in the stomach also. The hemoglobin is found to be 15.5. WBC 3.7. The patient was admitted to the hospital for further evaluation and treatment. The patient had a pitcher of stool in the toilet There is no history of fever, rigors, chills at this time. PAST MEDICAL HISTORY: History of GERD, DJD, history of chronic shoulder pain, irregular heartbeat, history of DJD, history of anxiety, bipolar depression, history of schizophrenia. MEDICATIONS: Prior to admission include: 1. Narcan p.r.n. 2. Oxycodone 10 mg q.i.d. p.r.n. ALLERGIES: None. FAMILY HISTORY: History of cancer and leukemia in the family. SOCIAL HISTORY: History of smoking, continued ongoing. History of THC. REVIEW OF SYSTEMS: ENT: No diminished vision. No diminished hearing. CARDIOVASCULAR: No angina or palpitations. RESPIRATION: No cough. GI as mentioned earlier. no dysuria or hematuria. Nervous systems: No numbness or weakness. ALLERGY/IMMUNOLOGY: No asthma or hayfever. MUSCULOSKELETAL: As mentioned earlier. Hematology/Oncology: As mentioned earlier. ENDOCRINE: No history of diabetes or hypothyroidism. Constitutional: As mentioned earlier. DERMATOLOGY: Negative. RHEUMATOLOGY negative. PSYCHIATRY as mentioned earlier. PHYSICAL EXAMINATION: Alert and oriented times three. Pulse 82, blood pressure 139/60, respirations 18. Temperature 97.3, pulse ox 99% on room air. HEENT: Conjunctivae normal. NECK: No JVD. CARDIOVASCULAR: S1, S2 muffled. RESPIRATION: Breath sounds diminished in the bases. A few scattered rhonchi. No crackles. ABDOMEN: Soft. No guarding. No rigidity. No mass palpable. Mild diffuse discomfort on palpation. Bowel sounds present. LEGS: No edema. No swelling. Nervous system: Higher functions as mentioned earlier. Moves all 4 limbs. No focal motor or sensory deficits. LYMPHATICS: No lymph nodes palpable in the neck, axillae or groin. SKIN: No ulcers, rashes or bleeding. JOINTS: No active deforming arthropathy. LABS: WBC 3.2, hemoglobin 15.5, sodium 130, potassium 4.2. Glucose 112, total bilirubin is 2.2. ASSESSMENT: 1. Lower gastrointestinal bleeding for evaluation, rule out polypectomy site bleeding or diverticulosis. 2. History of recent colonoscopy and polypectomy. 3. Increased bilirubin. 4. Leukopenia, mild. 5. History of gastroesophageal reflux disease. 6. History of degenerative joint disease. 7. Chronic shoulder pain. 8. History irregular heartbeat. 9. History of degenerative joint disease. 10.History of anxiety, bipolar, depression and schizophrenia. 11.History of continued ongoing nicotine dependence. 12.History of THC. RECOMMENDATIONS AND DISCUSSION: In this 39-year-old gentleman who presented with multiple complex medical issues, we will monitor the patient closely, continue the current medications. Symptomatic treatment. I would recommend to avoid NSAIDs at this time because of history of gastrointestinal bleed. Proton pump inhibitors. Surgical evaluation. Prognosis guarded because of multiple complex medical issues. Further recommendations to follow. A copy of dictation being forwarded to Dr. Kuldeep Persaud who is the primary physician. JIMMIE / SIENNAN: [id number] / MTDD
[2020-01-07] MEDS: SODIUM CHLORIDE 0.9% 1,000 ML IV SCH ×3 (03:38→21:42)
[2020-01-07 08:20] LABS: HCT 45.3 % (39.0-53.0); HGB 14.7 gm/dL (13.0-17.5); MCH 31.1 pg (25.0-35.0); MCHC 32.5 g/dL (31.0-37.0); MCV 95.5 fL (80.0-100.0); Mean Platelet Volume 8.6; Platelet Count 182 k/uL (150-450); RBC 4.75 m/uL (4.30-5.90); RDW 14.1 % (11.5-15.5); WBC 3.6 k/uL (3.8-10.6)
[2020-01-07 08:23] LABS: African American GFR (CKD) >90 (>60 ml/min/1.73 sqM); Anion Gap 4 mmol/L; Blood Urea Nitrogen 14 mg/dL (9-20); Calcium 9.2 mg/dL (8.4-10.2); Carbon Dioxide 23 mmol/L (22-30); Chloride 112 mmol/L (98-107); Glucose 79 mg/dL (74-99); Non-African American GFR(CKD) >90 (>60 ml/min/1.73 sqM); Potassium 4.6 mmol/L (3.5-5.1); Sodium 139 mmol/L (137-145)
[2020-01-07] MEDS: PANTOPRAZOLE 40 MG/10 ML VIAL IV SCH ×2 (08:23→21:41)
[2020-01-07 09:34] LABS: Eosinophils # (M) 0.29 k/uL (0-0.7); Monocytes # (M) 0.32 k/uL (0-1.0); Neutrophils # (M) 1.69 k/uL (1.3-7.7); Neutrophils % (M) 47 %; Nucleated Red Blood Cells 0 /100 WBC (0-0); Total Cells Counted 100
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
--- NOTE | 2020-01-07 12:46 | P.PN ---
Subjective This 39-year-old pleasant male sitting up in bed after shower today he reports that he was seen in the emergency department and was admitted over the weekend for bloody stools and was sent home on Tuesday. He stated that he had had a recent polyp removal in December with Dr. Rodriguez stating that he has not had any side effects of the procedure until this past Tuesday12/31/2019 when he started having bloody stool. He states on Tuesday he started having bloody stools again and also right upper quadrant pain with symptoms of burning. Dr. Rodriguez has been consulted, HIDA scan scheduled for this afternoon. Objective - Vital Signs Vital signs: Vital Signs Temp 98.5 F 01/07/20 07:00 Pulse 57 L 01/07/20 07:00 Resp 16 01/07/20 07:00 BP 123/70 01/07/20 07:00 Pulse Ox 99 01/07/20 07:00 Intake & Output 01/06/20 01/07/20 01/07/20 18:59 06:59 18:59 Intake Total 0 Balance 0 Weight 76.204 kg Intake: Oral 0 Other: Voiding Method Toilet - Constitutional General appearance: Present: mild distress - EENT Eyes: Present: normal appearance - Neck Neck: Present: normal ROM - Respiratory Respiratory: bilateral: CTA - Cardiovascular Rhythm: regular Heart sounds: normal: S1, S2 - Gastrointestinal General gastrointestinal: Present: decreased bowel sounds, soft Localized gastrointestinal: tender: RUQ, guarding: RUQ - Integumentary Integumentary: Present: normal - Neurologic Neurologic: Present: CNII-XII intact - Psychiatric Psychiatric: Present: A&O x's 3, appropriate affect, intact judgment & insight - Labs CBC & Chem 7: 01/07/20 07:26 01/07/20 07:26 Labs: Abnormal Lab Results - Last 24 Hours (Table) 01/06/20 01/06/20 01/07/20 Range/Units 14:06 14:06 07:26 WBC 3.7 L 3.6 L (3.8-10.6) k/uL Chloride 108 H (98-107) mmol/L Carbon Dioxide 21 L (22-30) mmol/L Glucose 112 H (74-99) mg/dL Total Bilirubin 2.2 H (0.2-1.3) mg/dL 01/07/20 Range/Units 07:26 WBC (3.8-10.6) k/uL Chloride 112 H (98-107) mmol/L Carbon Dioxide (22-30) mmol/L Glucose (74-99) mg/dL Total Bilirubin (0.2-1.3) mg/dL - Imaging and Cardiology US - abdomen: report reviewed Assessment and Plan Plan: Assessment: Lower gastrointestinal bleeding after recent colonoscopy and polypectomy History of gastro-esophageal reflux disease History of current nicotine dependence ongoing History of anxiety bipolar, depression, and schizophrenia Mild leukopenia Elevated bilirubin Plan: HIDA scan schedule this afternoon awaiting results Continue Dr. Rodriguez consultation and will follow his recommendations
[2020-01-07 13:53] VITALS: BMI 21.4
--- NOTE | 2020-01-07 15:32 | NM ---
EXAMINATION TYPE: NM hepatobiliary w CCK DATE OF EXAM: 01/07/2020 COMPARISON: Ultrasound gallbladder 01/06/2020, CT 11/26/2019 HISTORY: Right upper quadrant pain and hype rbilirubinemia TECHNIQUE: After the intravenous administration of 4.93 mCi Tc 99m Mebrofenin hepatobiliary scintigra phy is performed. Immediate images post injection. FINDINGS: There is satisfactory initial accumulation of tracer by the liver. The gallbladder is visualized wit hin 24 minutes. The small bowel activity is noted within 26 minutes. At one hour CCK was administer ed, patient was injected with 1.53 mcg of Kinevac, and gallbladder ejection fraction is calculated at 88 %, likely above the upper limit of the normal range. Therefore there is no scintigraphic evidenc e of cystic or common bile duct obstruction to suggest acute cholecystitis or gallbladder dyskinesia. IMPRESSION: Findings could be indicative of hyper dynamic gallbladder.
[2020-01-08 07:44] VITALS: BP 122/74; PULSE 60; RESP 20; TEMP 98.2
[2020-01-08] MEDS: PANTOPRAZOLE 40 MG/10 ML VIAL IV SCH (08:03)
[2020-01-08] MEDS: SODIUM CHLORIDE 0.9% 1,000 ML IV SCH (08:04)
[2020-01-08 08:33] LABS: African American GFR (CKD) >90 (>60 ml/min/1.73 sqM); Anion Gap 5 mmol/L; Blood Urea Nitrogen 9 mg/dL (9-20); Calcium 9.2 mg/dL (8.4-10.2); Carbon Dioxide 26 mmol/L (22-30); Chloride 110 mmol/L (98-107); Glucose 88 mg/dL (74-99); Non-African American GFR(CKD) >90 (>60 ml/min/1.73 sqM); Potassium 4.3 mmol/L (3.5-5.1); Sodium 141 mmol/L (137-145)
[2020-01-08 08:41] LABS: HCT 43.7 % (39.0-53.0); HGB 14.3 gm/dL (13.0-17.5); MCH 30.8 pg (25.0-35.0); MCHC 32.6 g/dL (31.0-37.0); MCV 94.5 fL (80.0-100.0); Mean Platelet Volume 8.4; Platelet Count 166 k/uL (150-450); RBC 4.63 m/uL (4.30-5.90); RDW 13.9 % (11.5-15.5); WBC 3.1 k/uL (3.8-10.6)
[2020-01-08 10:41] LABS: Eosinophils # (M) 0.09 k/uL (0-0.7); Lymphocytes # (M) 0.87 k/uL (1.0-4.8); Monocytes # (M) 0.16 k/uL (0-1.0); Neutrophils # (M) 1.98 k/uL (1.3-7.7); Neutrophils % (M) 64 %; Nucleated Red Blood Cells 0 /100 WBC (0-0); Total Cells Counted 100
--- NOTE | 2020-01-08 11:34 | P.DS ---
Providers Date of admission: 01/06/20 15:29 Expected date of discharge: 01/08/20 Attending physician: Kuldeep Persaud Consults: 01/06/20 15:37 Consult Physician Stat Consulting Provider: John Rodriguez Consult Reason/Comments: gi bleed, ruq pain Do you want consulting provider notified?: Already Contacted Primary care physician: Kuldeep Persaud Hospital Course: He presented to the emergency room after having complaints of bloody stools after having a recent polypectomy, he reported right upper quadrant pain with burning sensation, Dr. Rodriguez was consulted, orders for ultrasound of gallbladder shows no gallstones or dilated ducts and HIDA scan shows indicative of hyperdynamic gallbladder. Clear to go home by Dr. Rodriguez and follow up outpatient, patient requested to go home. Assessment: Lower gastrointestinal bleeding after recent colonoscopy and polypectomy resolved Right upper quadrant pain resolved History of gastroesophageal reflux disease History of current nicotine dependence ongoing History of anxiety, bipolar, depression, and schizophrenia Plan: Discharge home Follow up with Dr. Kuldeep Persaud in the office 1-2 days Follow-up with Dr. Correa in one week Follow-up with Dr. Rodriguez in 1 week Patient Condition at Discharge: Stable Plan - Discharge Summary Discharge Rx Participant: Yes New Discharge Prescriptions: Continue oxyCODONE-APAP 10-325MG [Percocet 10-325 mg] 1 tab PO QID PRN PRN Reason: Pain Naloxone HCl [Narcan] 4 mg NASAL ONCE PRN PRN Reason: overdose Discharge Medication List oxyCODONE-APAP 10-325MG [Percocet 10-325 mg] 1 tab PO QID PRN 09/23/18 [History] Naloxone HCl [Narcan] 4 mg NASAL ONCE PRN 01/06/20 [History] Follow up Appointment(s)/Referral(s): Kuldeep Persaud MD [Primary Care Provider] - 1-2 days John Rodriguez MD [STAFF PHYSICIAN] - 1 Week
--- NOTE | 2020-01-08 13:53 | P.PN ---
Subjective Progress Note Date: 01/08/20 CHIEF COMPLAINT: GI bleed, abdominal pain HISTORY OF PRESENT ILLNESS: Patient examined this point the bedside. He reports improvement in his abdominal pain. Denies further episodes of bleeding from his rectum. Reports a brown bowel movement this morning. HIDA scan completed yesterday reveals ejection fraction of 88%. PHYSICAL EXAM: VITAL SIGNS: Reviewed. GENERAL: Well-developed in no acute distress. HEENT: No sclera icterus. Extraocular movements grossly intact. Moist buccal mucosa. Head is atraumatic, normocephalic. ABDOMEN: Soft. Nondistended. Nontender. NEUROLOGIC: Alert and oriented. Cranial nerves II through XII grossly intact. ASSESSMENT: 1. Bright red blood per rectum 2. Right upper quadrant abdominal pain PLAN: -Continue diet as tolerated -Stable for discharge from a surgical standpoint -Patient to follow-up with Dr. Rodriguez outpatient to discuss possible chol ecystectomy Nurse practitioner note has been reviewed by physician. Signing provider agrees with the documented findings, assessment, and plan of care. Objective - Vital Signs Vital signs: Vital Signs Temp 98.2 F 01/08/20 07:09 Pulse 60 01/08/20 07:09 Resp 20 01/08/20 07:09 BP 122/74 01/08/20 07:09 Pulse Ox 97 01/08/20 07:09 Intake & Output 01/07/20 01/08/20 01/08/20 18:59 06:59 18:59 Intake Total 200 210 Balance 200 210 Weight 71.849 kg Intake: Oral 200 210 Other: Voiding Method Toilet # Voids 1 1 # Bowel Movements 1 - Labs CBC & Chem 7: 01/08/20 07:09 01/08/20 07:09 Labs: Abnormal Lab Results - Last 24 Hours (Table) 01/08/20 01/08/20 Range/Units 07:09 07:09 WBC 3.1 L (3.8-10.6) k/uL Lymphocytes # (Manual) 0.87 L (1.0-4.8) k/uL Chloride 110 H (98-107) mmol/L
== END 2020-01-08 12:06 | disposition home or self-care (01) ==
LOC: EC 13:35 → 4SSUR 15:29
PROVIDERS: ADMIT Family Medicine; ATTEND Family Medicine
DX: K92.1 Melena (principal); R10.11 Right upper quadrant pain; D72.819 Decreased white blood cell count, unspecified; K21.9 Gastro-esophageal reflux disease without esophagitis; M19.90 Unspecified osteoarthritis, unspecified site; G89.29 Other chronic pain; M25.519 Pain in unspecified shoulder; M54.2 Cervicalgia; M54.9 Dorsalgia, unspecified; F41.9 Anxiety disorder, unspecified; F31.9 Bipolar disorder, unspecified; F20.9 Schizophrenia, unspecified; F17.200 Nicotine dependence, unspecified, uncomplicated; E80.6 Other disorders of bilirubin metabolism; Z86.14 Personal history of Methicillin resistant Staphylococcus aureus infection; Z87.442 Personal history of urinary calculi; Z86.010 Personal history of colon polyps; Z98.890 Other specified postprocedural states; Z80.6 Family history of leukemia; Z83.79 Family history of other diseases of the digestive system
CPT/HCPCS: 96361 ×3; 96375 ×2; 96374; 99285; 36415; 93005; 80053; 80048 ×2; 82150; 83690; 85025 ×3; 85610; 85730; 82272; 81003; 76705; 78227; G0378 ×3; A9537; J2270; J2405; J2805; J1885; C9113 ×3

== ENCOUNTER → 2020-03-12 | Day surgery (SDC) | payer OTHER ==
[~2020-03-12] MED LIST changes: +BUPIVACAIN-EPI 0.25%-1:200,000 30 ML VIAL SQ ONE; +DEXAMETHASONE SOD PHOSPHATE 10 MG/ML 1 ML VIAL IV ONE; +GLYCOPYRROLATE 0.2 MG/ML 2 ML VIAL ONE; +HEPARIN SODIUM,PORCINE 5,000 UNIT/ML 1 ML VIAL SQ ONE; +KETAMINE 10 MG/ML 20 ML VIAL ONE; +KETOROLAC 30 MG/ML 1 ML VIAL IVP SCH; +LACTATED RINGERS 1,000 ML IV ONE; +LIDOCAINE 1% (10MG/ML) FOR IV START INTRADERMA PRN; +LIDOCAINE 1% INJ 10MG/ML (20 ML MDV) ONE; +MIDAZOLAM 2 MG/2 ML VIAL ONE; +NEOSTIGMINE 1 MG/ML 10 ML VIAL ONE; +ONDANSETRON 4 MG/2 ML VIAL IVP ONE; +ONDANSETRON 4 MG/2 ML VIAL IVP PRN; +PROPOFOL 10 MG/ML 20 ML VIAL IV ONE; +ROCURONIUM BROMIDE 10 MG/ML 5 ML VIAL IV ONE; +SUCCINYLCHOLINE CHLORIDE 100 MG/5 ML SYR IV ONE; +fentaNYL (PF) 50 MCG/ML 2 ML AMP ONE
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
--- NOTE | 2020-03-12 14:55 | P.OP ---
Date of Procedure: 03/12/20 Preoperative Diagnosis: Chronic cholecystitis Postoperative Diagnosis: Chronic cholecystitis Procedure(s) Performed: Laparoscopic cholecystectomy Anesthesia: BERRY Surgeon: John Rodriguez Estimated Blood Loss (ml): 5 Pathology: other (Gallbladder) Condition: stable Disposition: PACU Description of Procedure: The patient was placed on the operating table. The patient received a general endotracheal tube anesthesia. The patients abdomen was prepped and draped in the usual sterile fashion. Through an infraumbilical stab incision, the fascia of the anterior abdominal wall was grasped with a pair of Kochers and then the Veress needle was placed in the peritoneal cavity. Position of the Veress needle was confirmed with positive drop test. The abdomen was then insufflated. After adequate insufflation, the 10 mm trocar was placed in the peritoneal cavity. Following this the laparoscope was placed in the peritoneal cavity. The patient was placed in the head-up, right side up position and then a 5 mm trocar was placed in the right lateral and right subcostal position under direct visualization. A 8 mm trocar was placed in the epigastric position. The gallbladder was grasped in the fundus and infundibulum. Traction on the gallbladder was placed in the lateral and the cephalad positions. The triangle of Calot was visualized.. The cystic duct was bluntly dissected until the union of the cystic duct and common bile duct was seen. A critical view of safety was achieved. The cystic duct was then divided and sealed with the Harmonic scissors. A PDS Endoloop was then placed throughout the cystic duct stump. The cystic artery divided and sealed with the Harmonic scissors. The gallbladder was then removed from the liver bed using Harmonic scissors. The gallbladder was then extracted through the epigastric port site. Operative field was checked for any bleeding spots and Harmonic scissors was used to coagulate the liver bed. The abdomen was irrigated. The trocars were removed. The skin was closed using interrupted 3-0 Vicryl suture. Dermabond dressing were applied. The patient tolerated the procedure well.
[2020-03-12] MEDS: HYDROmorphone 0.5 MG/0.5 ML SYRINGE IVP PRN ×2 (15:20→15:25)
[2020-03-12 15:23] VITALS: TEMP 97.4
[2020-03-12 16:05] VITALS: BP 148/93; PULSE 95; RESP 17
== END ==
LOC: OR 10:23
PROVIDERS: ATTEND Surgery
DX: K81.1 Chronic cholecystitis (principal); K21.9 Gastro-esophageal reflux disease without esophagitis; M19.90 Unspecified osteoarthritis, unspecified site; F41.9 Anxiety disorder, unspecified; F31.9 Bipolar disorder, unspecified; F20.9 Schizophrenia, unspecified; F17.210 Nicotine dependence, cigarettes, uncomplicated; G89.29 Other chronic pain; M54.2 Cervicalgia; M54.9 Dorsalgia, unspecified; M25.519 Pain in unspecified shoulder; Z86.14 Personal history of Methicillin resistant Staphylococcus aureus infection; Z87.442 Personal history of urinary calculi; Z98.890 Other specified postprocedural states; Z80.6 Family history of leukemia; Z79.899 Other long term (current) drug therapy; Z79.891 Long term (current) use of opiate analgesic
CPT/HCPCS: 47562; 88304; 87635; J2250; J1644; J1100; J2710; J0690; J2405; J2001; J3010; J0330; J2704; J1170

== ENCOUNTER 2020-04-18 10:09 | Emergency (ER) | payer OTHER ==
[2020-04-18 10:15] VITALS: RESP 18
[2020-04-18] MEDS ORDERED: PANTOPRAZOLE 40 MG/10 ML VIAL IVP STA (10:35)
[2020-04-18] MEDS ORDERED: SODIUM CHLORIDE 0.9% 500 ML 500 ML IV STA (10:35)
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
[2020-04-18 11:00] LABS: Basophils % (A) 1 %; Eosinophils # (A) 0.4 k/uL (0-0.7); Eosinophils % (A) 8 %; HCT 49.4 % (39.0-53.0); HGB 15.7 gm/dL (13.0-17.5); Lymphocytes % (A) 22 %; MCH 30.6 pg (25.0-35.0); MCHC 31.9 g/dL (31.0-37.0); MCV 95.9 fL (80.0-100.0); Mean Platelet Volume 7.6; Monocytes # (A) 0.3 k/uL (0-1.0); Monocytes % (A) 7 %; Neutrophils # (A) 2.7 k/uL (1.3-7.7); Neutrophils % (A) 59 %; Platelet Count 245 k/uL (150-450); RBC 5.15 m/uL (4.30-5.90); RDW 14.3 % (11.5-15.5); WBC 4.6 k/uL (3.8-10.6)
[2020-04-18 11:08] LABS: INR 0.9 (<1.2); Prothrombin Time 9.5 sec (9.0-12.0)
[2020-04-18 11:14] LABS: ALT 43 U/L (4-49); AST 49 U/L (17-59); African American GFR (CKD) >90 (>60 ml/min/1.73 sqM); Albumin 4.1 g/dL (3.5-5.0); Alkaline Phosphatase 60 U/L (38-126); Anion Gap 5 mmol/L; Blood Urea Nitrogen 15 mg/dL (9-20); Calcium 9.7 mg/dL (8.4-10.2); Carbon Dioxide 25 mmol/L (22-30); Chloride 111 mmol/L (98-107); Glucose 91 mg/dL (74-99); Non-African American GFR(CKD) >90 (>60 ml/min/1.73 sqM); Potassium 4.9 mmol/L (3.5-5.1); Sodium 141 mmol/L (137-145); Total Bilirubin 0.9 mg/dL (0.2-1.3); Total Protein 6.7 g/dL (6.3-8.2)
[2020-04-18 11:31] LABS: Appearance,Urine Clear (Clear); Bilirubin,Urine Negative (Negative); Blood,Urine Negative (Negative); Color,Urine Yellow; Glucose,Urine (UA) Negative (Negative); Ketones,Urine Negative (Negative); Leukocyte Esterase,Urine Negative (Negative); Nitrite,Urine Negative (Negative); PH, Urine 5.5 (5.0-8.0); Protein,Urine Negative (Negative); Specific Gravity,Urine 1.018 (1.001-1.035); Urobilinogen,Urine <2.0 mg/dL (<2.0)
[2020-04-18 11:59] VITALS: BP 125/78; PULSE 64; TEMP 97.6
== END 2020-04-18 12:09 | disposition home or self-care (01) ==
LOC: EC 10:09
DX: K64.4 Residual hemorrhoidal skin tags (principal); F41.9 Anxiety disorder, unspecified; F31.9 Bipolar disorder, unspecified; F20.9 Schizophrenia, unspecified; F17.200 Nicotine dependence, unspecified, uncomplicated; Z79.899 Other long term (current) drug therapy; Z90.49 Acquired absence of other specified parts of digestive tract; Z86.14 Personal history of Methicillin resistant Staphylococcus aureus infection
CPT/HCPCS: 36415; 80053; 85025; 85610; 85730; 82272; 81003; 99284; 96374; 96361; C9113

== ENCOUNTER → 2020-10-17 | Outpatient (CLI) | payer OTHER ==
[2020-10-17 15:44] LABS: Basophils % (A) 1 %; Eosinophils # (A) 0.3 k/uL (0-0.7); Eosinophils % (A) 5 %; HCT 50.8 % (39.0-53.0); HGB 16.2 gm/dL (13.0-17.5); Lymphocytes % (A) 22 %; Mean Platelet Volume 7.4; Monocytes # (A) 0.4 k/uL (0-1.0); Monocytes % (A) 8 %; Neutrophils # (A) 2.8 k/uL (1.3-7.7); Neutrophils % (A) 60 %; Platelet Count 260 k/uL (150-450); RBC 5.23 m/uL (4.30-5.90); RDW 14.1 % (11.5-15.5); WBC 4.6 k/uL (3.8-10.6)
--- NOTE | 2020-10-17 15:47 | XR ---
EXAMINATION TYPE: XR chest 2V DATE OF EXAM: 10/17/2020 COMPARISON: 09/28/2016 HISTORY: Chest pain TECHNIQUE: Frontal and lateral views of the chest are obtained. FINDINGS: There is no focal air space opacity. No evidence for pneumothorax. No pleural effusion. The cardiac silhouette size is within normal limits. The osseous structures are grossly intact. IMPRESSION: 1. No acute cardiopulmonary process.
[2020-10-18 00:23] LABS: African American GFR (CKD) 121.7 (60.0-200.0); Albumin 4.8 g/dL (3.80-4.90); Albumin/Globulin Ratio 2.67 (1.60-3.17); Anion Gap 5.9 mmol/L (4.00-12.00); BUN/Creat Ratio 18.89 Ratio (12.00-20.00); Carbon Dioxide 23.1 mmol/L (21.6-31.8); Globulin 1.8 g/dL (1.6-3.3); Potassium 4.3 mmol/L (3.5-5.5); Total Bilirubin 1.1 mg/dL (0.3-1.2); Total Protein 6.6 g/dL (6.2-8.2)
[2020-10-18 00:31] LABS: PSA Annual Screen 1.8 ng/mL (0.0-4.0)
== END | disposition home or self-care (01) ==
LOC: LABWHC1 14:41
PROVIDERS: ATTEND Family Medicine
DX: R63.4 Abnormal weight loss (principal); Z12.5 Encounter for screening for malignant neoplasm of prostate; Z11.59 Encounter for screening for other viral diseases
CPT/HCPCS: 86803; 80053; 84443; 85025; 71046; 36415; G0103

== ENCOUNTER 2020-11-03 08:30 | Day surgery (SDC) | payer OTHER ==
[~2020-11-03 08:30] MED LIST changes: -BUPIVACAIN-EPI 0.25%-1:200,000 30 ML VIAL SQ ONE; -DEXAMETHASONE SOD PHOSPHATE 10 MG/ML 1 ML VIAL IV ONE; -GLYCOPYRROLATE 0.2 MG/ML 2 ML VIAL ONE; -HEPARIN SODIUM,PORCINE 5,000 UNIT/ML 1 ML VIAL SQ ONE; -KETAMINE 10 MG/ML 20 ML VIAL ONE; -KETOROLAC 30 MG/ML 1 ML VIAL IVP SCH; -LACTATED RINGERS 1,000 ML IV ONE; -LIDOCAINE 1% INJ 10MG/ML (20 ML MDV) ONE; -MIDAZOLAM 2 MG/2 ML VIAL ONE; -NEOSTIGMINE 1 MG/ML 10 ML VIAL ONE; -ONDANSETRON 4 MG/2 ML VIAL IVP PRN; -PROPOFOL 10 MG/ML 20 ML VIAL IV ONE; -ROCURONIUM BROMIDE 10 MG/ML 5 ML VIAL IV ONE; -SUCCINYLCHOLINE CHLORIDE 100 MG/5 ML SYR IV ONE; -fentaNYL (PF) 50 MCG/ML 2 ML AMP ONE
[2020-11-03 08:59] VITALS: TEMP 99
[2020-11-03] MEDS ORDERED: LIDOCAINE 1% INJ 10MG/ML (20 ML MDV) ONE (10:24)
[2020-11-03] MEDS ORDERED: PROPOFOL 10 MG/ML 20 ML VIAL IV ONE (10:24)
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
--- NOTE | 2020-11-03 10:42 | P.OP ---
Date of Procedure: 11/03/20 Preoperative Diagnosis: GI bleed Postoperative Diagnosis: Constipation Procedure(s) Performed: Colonoscopy Anesthesia: BERRY Surgeon: John Rodriguez Pathology: none sent Condition: stable Disposition: PACU Description of Procedure: The patient's placed on the endoscopy table in the lateral position. He r eceived IV sedation. Digital rectal exam performed which revealed a few external hemorrhoids. Flexible colonoscope was then placed patient anus passed throughout the colon. The colon a large amount of stool within it. The prep was extremely poor. The colonoscope could not be passed beyond the transverse colon due to poor bowel prep. The scope was withdrawn. The transient colon descending colon and sigmoid colon and descending colon appeared normal. Scope was brought back the rectum this appeared normal. Scope withdrawn for patient.
[2020-11-03 11:15] VITALS: BP 125/83; PULSE 50; RESP 20
== END 2020-11-03 12:12 | disposition home or self-care (01) ==
LOC: ORWHC2ENDO 08:30
PROVIDERS: ATTEND Surgery
DX: K92.2 Gastrointestinal hemorrhage, unspecified (principal); K59.00 Constipation, unspecified; K64.4 Residual hemorrhoidal skin tags; K21.9 Gastro-esophageal reflux disease without esophagitis; M19.90 Unspecified osteoarthritis, unspecified site; M54.9 Dorsalgia, unspecified; M54.2 Cervicalgia; M25.519 Pain in unspecified shoulder; G89.29 Other chronic pain; F41.9 Anxiety disorder, unspecified; F31.9 Bipolar disorder, unspecified; F20.9 Schizophrenia, unspecified; F17.210 Nicotine dependence, cigarettes, uncomplicated; Z86.14 Personal history of Methicillin resistant Staphylococcus aureus infection; Z90.49 Acquired absence of other specified parts of digestive tract; Z98.890 Other specified postprocedural states; Z80.6 Family history of leukemia
CPT/HCPCS: 45330; J2001; J2704; 45378

== ENCOUNTER → 2022-05-20 | Outpatient (CLI) | payer OTHER ==
--- NOTE | 2022-05-20 10:11 | US ---
EXAMINATION TYPE: US gallbladder DATE OF EXAM: 05/20/2022 COMPARISON: 01/06/2020 CLINICAL HISTORY: 42-year-old male R10.11 RUQ ABD PAIN FOR 4 YEARS TECHNIQUE: Multiple sonographic images of the right upper quadrant are obtained. FINDINGS: EXAM MEASUREMENTS: Liver Length: 14.6 cm Gallbladder: Surgically absent. CBD: 1.2 cm Right Kidney: 10.6 x 4.6 x 3.9 cm Pancreas: Detail obscured by bowel gas shadowing. The main pancreatic duct measures 2.2mm, upper hui its of normal. Liver: No abnormalities seen Gallbladder: Surgically absent per patient medical record. Evidence for sonographic Tinoco's sign: No CBD: Dilatation noted Right Kidney: No hydronephrosis or masses seen Public Health Inspector notes: Gallbladder pictures attempted by two techs, Per patient's surgical notes from [employer] [facility] [employer] shows cholecystectomy on 11/03/2020. However, the patient is unaware. IMPRESSION: 1. Medical records indicate cholecystectomy on 11/03/2020. However, the patient is unaware. We were not able to visualize a gallbladder. 2. Dilated bile duct at 1.2 cm may be due to postcholecystectomy status. Correlate with alkaline phos phatase and bilirubin levels.
== END | disposition home or self-care (01) ==
LOC: RADUSWWP 08:37
PROVIDERS: ATTEND Surgery
DX: R10.11 Right upper quadrant pain (principal)
CPT/HCPCS: 76705

== ENCOUNTER → 2022-05-24 | Day surgery (SDC) | payer OTHER ==
[2022-05-20 15:44] VITALS: BMI 20.2
[~2022-05-24] MED LIST changes: -LIDOCAINE 1% (10MG/ML) FOR IV START INTRADERMA PRN; -ONDANSETRON 4 MG/2 ML VIAL IVP ONE; +PROPOFOL 10 MG/ML 20 ML VIAL IV ONE
[2022-05-24 11:55] VITALS: TEMP 97.4
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
--- NOTE | 2022-05-24 12:38 | P.OP ---
Date of Procedure: 05/24/22 Preoperative Diagnosis: GI bleed Postoperative Diagnosis: External hemorrhoids Procedure(s) Performed: Colonoscopy Anesthesia: MAC Surgeon: John Rodriguez Pathology: none sent Condition: stable Disposition: PACU Description of Procedure: The patient's placed on the endoscopy table in the lateral position. He received IV sedation. Digital rectal exam was performed. This revealed hemorrhoids. The flexible colonoscope was then placed patient anus and passed throughout the entire colon. Ileocecal valve was visualized. The cecum, ascending and transverse colon appeared normal. The descending and sigmoid colon appeared normal. Scope was withdrawn through the anus internal and external hemorrhoids were seen. Presumed patient had bleeding from hemorrhoids.
[2022-05-24 13:00] VITALS: BP 111/67; PULSE 60; RESP 18
== END | disposition home or self-care (01) ==
LOC: ORWHC2ENDO 11:01
PROVIDERS: ATTEND Surgery
DX: K64.8 Other hemorrhoids (principal); K64.4 Residual hemorrhoidal skin tags; K21.9 Gastro-esophageal reflux disease without esophagitis; M19.90 Unspecified osteoarthritis, unspecified site; G43.909 Migraine, unspecified, not intractable, without status migrainosus; F17.200 Nicotine dependence, unspecified, uncomplicated; Z86.14 Personal history of Methicillin resistant Staphylococcus aureus infection; Z98.890 Other specified postprocedural states; Z80.6 Family history of leukemia
CPT/HCPCS: 45378; J2704

== ENCOUNTER 2022-06-09 07:46 | Day surgery (SDC) | payer OTHER ==
[~2022-06-09 07:46] MED LIST changes: +ACETAMINOPHEN TAB 500 MG TAB PO PRN; +HEPARIN SODIUM,PORCINE/PF 5,000 UNIT/0.5 ML SYRINGE SQ PRN; -LACTATED RINGERS 1,000 ML IV SCH; -PROPOFOL 10 MG/ML 20 ML VIAL IV ONE; +Pre Op ABX Message 1 EACH MISC MISCELLANE ONE
[2022-06-09 08:09] VITALS: TEMP 98.3
[2022-06-09] MEDS ORDERED: LACTATED RINGERS 1,000 ML IV ONE (08:15)
[2022-06-09] MEDS ORDERED: ONDANSETRON 4 MG/2 ML VIAL ONE (08:20)
[2022-06-09] MEDS ORDERED: DEXAMETHASONE SOD PHOSPHATE 4 MG/ML 1 ML VIAL IV ONE (08:25)
[2022-06-09] MEDS ORDERED: NA PHOS,M-B/NA PHOS,DI-BA 133 ML ENEMA RECTAL ONE (08:30)
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
[2022-06-09] MEDS ORDERED: PROPOFOL 10 MG/ML 20 ML VIAL IV ONE (09:00)
[2022-06-09] MEDS ORDERED: LIDOCAINE 2% INJ 20 MG/ML (2 ML VIAL) ONE (09:00)
[2022-06-09] MEDS ORDERED: fentaNYL (PF) 50 MCG/ML 2 ML AMP ONE (09:00)
[2022-06-09] MEDS ORDERED: GLYCOPYRROLATE 0.2 MG/ML 2 ML VIAL ONE (09:00)
[2022-06-09] MEDS ORDERED: MIDAZOLAM 2 MG/2 ML VIAL ONE (09:00)
[2022-06-09] MEDS ORDERED: KETAMINE 10 MG/ML 20 ML VIAL ONE (09:00)
[2022-06-09] MEDS ORDERED: BUPIVACAIN-EPI 0.25%-1:200,000 30 ML VIAL SQ ONE (09:26)
[2022-06-09] MEDS ORDERED: GELATIN SPONGE,ABSORB (LARGE) 1 EACH SPONGE TOPICAL ONE (09:35)
--- NOTE | 2022-06-09 09:48 | P.OP ---
Date of Procedure: 06/09/22 Preoperative Diagnosis: Internal and external hemorrhoids Postoperative Diagnosis: Internal and external hemorrhoids Procedure(s) Performed: Internal and external hemorrhoidectomy Anesthesia: MAC, regional Surgeon: John Rodriguez Estimated Blood Loss (ml): 5 Pathology: other (Internal and external hemorrhoids) Condition: stable Disposition: PACU Description of Procedure: The patient's placed on the operating table in the prone position. She was he received IV sedation. His anus was prepped and draped usual sterile fashion. Patient was jackknifed. The anus was examined. Patient had a large left lateral hemorrhoidal column and right anterior and right posterior hemorrhoid column. The retractors placed in the anus. The anus had been anesthetized 1% local Xylocaine. The left lateral hemorrhoidal column was grasped with a pair of Allis clamps and then using the Harmonic scissors the hemorrhoidectomy is performed. Next the right anterior and right posterior hemorrhoidal columns were dissected in identical fashion. There is no bleeding seen. The wound was packed with Gelfoam. Patient top she will was sent to recovery room in stable condition.
[2022-06-09 10:00] VITALS: RESP 16
[2022-06-09 10:13] VITALS: BP 124/74; PULSE 74
== END 2022-06-09 11:12 | disposition home or self-care (01) ==
LOC: OR 07:46
PROVIDERS: ATTEND Surgery
DX: K64.4 Residual hemorrhoidal skin tags (principal); K64.8 Other hemorrhoids; K21.9 Gastro-esophageal reflux disease without esophagitis; M19.90 Unspecified osteoarthritis, unspecified site; G89.29 Other chronic pain; M25.519 Pain in unspecified shoulder; M54.2 Cervicalgia; M54.9 Dorsalgia, unspecified; I49.9 Cardiac arrhythmia, unspecified; Z86.14 Personal history of Methicillin resistant Staphylococcus aureus infection; Z90.49 Acquired absence of other specified parts of digestive tract; Z98.890 Other specified postprocedural states; F17.210 Nicotine dependence, cigarettes, uncomplicated; Z80.6 Family history of leukemia; Z80.9 Family history of malignant neoplasm, unspecified
CPT/HCPCS: 88304; 46260; J2250; J1100; J0690; J2405; J3010; J2704; J1644; J2001

== ENCOUNTER → 2022-09-20 | Outpatient (CLI) | payer OTHER ==
[2022-09-20 15:30] LABS: Basophils # (A) 0.02 X 10*3/uL (0.00-0.10); Basophils % (A) 0.3 %; Eosinophils # (A) 0.17 X 10*3/uL (0.04-0.35); Eosinophils % (A) 2.2 %; HCT 48.7 % (39.6-50.0); HGB 15.8 g/dL (13.0-17.0); Immature Grans, Automated 0.5 %; Lymphocytes # (A) 1.56 X 10*3/uL (0.90-5.00); Lymphocytes % (A) 20.6 %; MCH 30.5 pg (27.0-32.0); MCHC 32.4 g/dL (32.0-37.0); Mean Platelet Volume 10.5 fL (9.5-12.2); Monocytes # (A) 0.65 X 10*3/uL (0.20-1.00); Monocytes % (A) 8.6 %; NRBC Per 100 WBC 0 /100 WBCS (0.0-0.0); Neutrophils # (A) 5.14 X 10*3/uL (1.80-7.70); Neutrophils % (A) 67.8 %; Platelet Count 387 X 10*3/uL (140-440); RBC 5.18 X 10*6/uL (4.40-5.60); RDW 15.9 % (11.5-14.5); WBC 7.58 X 10*3/uL (4.50-10.00)
[2022-09-20 16:20] LABS: ALT 37 U/L (10-49); AST 34 U/L (14-35); African American GFR (CKD) 119.5 (60.0-200.0); Albumin 4.8 g/dL (3.8-4.9); Albumin/Globulin Ratio 2.03 (1.60-3.17); Alkaline Phosphatase 104 U/L (41-126); BUN/Creat Ratio 19.49 Ratio (12.00-20.00); Blood Urea Nitrogen 17.6 mg/dL (9.0-27.0); Calcium 10.7 mg/dL (8.7-10.3); Carbon Dioxide 24.9 mmol/L (20.0-27.5); Chloride 103 mmol/L (96-109); Chol/HDL Ratio 5.64 Ratio; Globulin 2.4 g/dL (1.6-3.3); Glucose 102 mg/dL (70-110); LDL Cholesterol,Calculated 177.7 mg/dL (0.0-131.0); Non-African American GFR(CKD) 103.1 (60.0-200.0); Potassium 4.7 mmol/L (3.5-5.5); Sodium 140 mmol/L (135-145); Total Protein 7.1 g/dL (6.2-8.2)
== END | disposition home or self-care (01) ==
LOC: LABWHC1 08:55
PROVIDERS: ATTEND Family Medicine
DX: Z00.00 Encounter for general adult medical examination without abnormal findings (principal)
CPT/HCPCS: 36415; 80053; 80061; 84439; 84443; 85025

== ENCOUNTER 2023-10-03 09:35 | Emergency (ER) | payer OTHER ==
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
[2023-10-03 10:27] VITALS: BP 129/87; PULSE 79; RESP 18; TEMP 97.9
== END 2023-10-03 11:44 | disposition home or self-care (01) ==
LOC: EC 09:35
DX: S40.812A Abrasion of left upper arm, initial encounter (principal); Z87.891 Personal history of nicotine dependence; X58.XXXA Exposure to other specified factors, initial encounter
CPT/HCPCS: 99282

== ENCOUNTER 2024-08-07 08:42 | Emergency (ER) | payer SELFPAY ==
[2024-08-07 08:53] VITALS: RESP 18; TEMP 98
[2024-08-07 09:10] LABS: Glucose,Whole Blood 116 mg/dL (70-110)
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
[2024-08-07 09:28] LABS: Basophils % (A) 0 %; Eosinophils # (A) 0.1 k/uL (0-0.7); Eosinophils % (A) 2 %; HCT 46.9 % (39.0-53.0); HGB 15.5 gm/dL (13.0-17.5); Lymphocytes # (A) 0.6 k/uL (1.0-4.8); Lymphocytes % (A) 10 %; MCH 30.6 pg (25.0-35.0); MCHC 33.1 g/dL (31.0-37.0); MCV 92.3 fL (80.0-100.0); Mean Platelet Volume 8.2; Monocytes # (A) 0.3 k/uL (0-1.0); Monocytes % (A) 5 %; Neutrophils # (A) 5.1 k/uL (1.3-7.7); Neutrophils % (A) 81 %; Platelet Count 261 k/uL (150-450); RBC 5.08 m/uL (4.30-5.90); RDW 15.2 % (11.5-15.5); WBC 6.3 k/uL (3.8-10.6)
--- NOTE | 2024-08-07 09:30 | CT ---
EXAMINATION TYPE: CT brain wo con DATE OF EXAM: 08/07/2024 COMPARISON: None HISTORY: AMS CT DLP: 1080.[address] of the brain was performed. The ventricles, basal cisterns and sulci overlying the cerebral convexities demonstrate a normal appe arance. There is no evidence for intracranial hemorrhage or sulcal effacement. No mass effects are seen. Osseous calvarium is intact. If symptoms persist consider MRI as clinically warranted. IMPRESSION: 1. No acute intracranial process is seen at this time. [facility], , 08/07/2024 9:28 AM
[2024-08-07 09:39] LABS: ALT 17 U/L (4-49); AST 28 U/L (17-59); African American GFR (CKD) >90 (>60 ml/min/1.73 sqM); Albumin 3.6 g/dL (3.5-5.0); Alcohol <10 mg/dL; Alkaline Phosphatase 70 U/L (38-126); Anion Gap 1 mmol/L; Blood Urea Nitrogen 10 mg/dL (9-20); Calcium 9.6 mg/dL (8.4-10.2); Carbon Dioxide 30 mmol/L (22-30); Chloride 108 mmol/L (98-107); Glucose 114 mg/dL (74-99); Magnesium 2.1 mg/dL (1.6-2.3); Non-African American GFR(CKD) >90 (>60 ml/min/1.73 sqM); Potassium 4.7 mmol/L (3.5-5.1); Sodium 139 mmol/L (137-145); Total Bilirubin 1.5 mg/dL (0.2-1.3); Total Protein 5.7 g/dL (6.3-8.2)
[2024-08-07] MEDS: SODIUM CHLORIDE 0.9% 1,000 ML IV ONE (09:40)
[2024-08-07 09:43] LABS: INR 0.9 (<1.2); Partial Thromboplastin Time 23.7 sec (22.0-30.0); Prothrombin Time 10.4 sec (10.0-12.5)
--- NOTE | 2024-08-07 10:49 | XR ---
EXAMINATION TYPE: XR chest 2V DATE OF EXAM: 08/07/2024 COMPARISON: 10/17/2020 HISTORY: 44-year-old male confusion, altered mental status TECHNIQUE: PA and lateral views FINDINGS: The cardiomediastinal silhouette, aorta, and pulmonary vasculature are within normal limits. Some mil d strandy atelectasis in the lower lungs. Otherwise, lungs and pleural spaces are clear. IMPRESSION: No acute process seen. [facility], , 08/07/2024 10:47 AM
[2024-08-07 11:34] LABS: Appearance,Urine Clear (Clear); Bilirubin,Urine Negative (Negative); Blood,Urine Negative (Negative); Color,Urine Yellow; Glucose,Urine (UA) Negative (Negative); Ketones,Urine Negative (Negative); Leukocyte Esterase,Urine Negative (Negative); Nitrite,Urine Negative (Negative); PH, Urine 6.5 (5.0-8.0); Protein,Urine Trace (Negative); Specific Gravity,Urine 1.021 (1.001-1.035)
[2024-08-07 11:40] LABS: Amphetamine Screen,Urine Not Detected (NotDetected); Barbiturate Screen,Urine Not Detected (NotDetected); Benzodiazepines Screen,Urine Not Detected (NotDetected); Cocaine Screen,Urine Not Detected (NotDetected); Methadone Screen, Urine Not Detected (NotDetected); Opiate Screen,Urine Not Detected (NotDetected); Oxycodone Screen, Urine Not Detected (NotDetected); Phencyclidine Screen,Urine Not Detected (NotDetected); Tricyclic Antidepressant,Urine Not Detected (NotDetected); Urn Cannabinoid Scrn Detected (NotDetected)
[2024-08-07 14:53] VITALS: BP 117/78; PULSE 65
== END 2024-08-07 14:53 | disposition home or self-care (01) ==
LOC: EC 08:42
CPT/HCPCS: 36415; 70450; 71046; 80053; 80306; 80320; 81003; 82140; 83735; 85025; 85610; 85730; 93005; 96360; 99285

== ENCOUNTER 2024-08-28 21:55 | Inpatient (IN) | payer OTHER ==
[2024-08-28] MEDS: ETOMIDATE 2 MG/ML 10 ML VIAL IVP STA (22:00)
[2024-08-28] MEDS: SUCCINYLCHOLINE CHLORIDE 200 MG/10 ML VIAL IV STA (22:01)
[2024-08-28] MEDS: LORazepam 2 MG/ML INJ IV STA ×3 (22:05→23:00)
[2024-08-28 22:14] LABS: Basophils % (A) 0 %; Eosinophils % (A) 0 %; HCT 48.9 % (39.0-53.0); HGB 15.7 gm/dL (13.0-17.5); Hypochromasia Slight; Lymphocytes % (A) 4 %; MCH 30.2 pg (25.0-35.0); MCHC 32.1 g/dL (31.0-37.0); MCV 94.2 fL (80.0-100.0); Mean Platelet Volume 7.8; Monocytes # (A) 1.3 k/uL (0-1.0); Monocytes % (A) 6 %; Neutrophils # (A) 19.7 k/uL (1.3-7.7); Neutrophils % (A) 89 %; Platelet Count 354 k/uL (150-450); RBC 5.19 m/uL (4.30-5.90); WBC 22.3 k/uL (3.8-10.6)
[2024-08-28 22:18] LABS: Glucose,Whole Blood 181 mg/dL (70-110)
[2024-08-28] MEDS: SODIUM CHLORIDE 0.9% 2,000 ML IV ONE (22:24)
--- NOTE | 2024-08-28 22:28 | ED ---
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 (Not Detectd) VZV DNA (PCR) Not detected (Not detected) Virus Source Enterovirus PCR Not detected (Not detected) Disposition Clinical Impression: Altered mental status, Fever, Leukocytosis, Acute respiratory failure Disposition: ADMITTED IP TO THIS HOSP Condition: Fair Is patient prescribed a controlled substance at d/c from ED?: No
[2024-08-28 22:30] LABS: AST 55 U/L (17-59); African American GFR (CKD) 75 (>60 ml/min/1.73 sqM); Alcohol <10 mg/dL; Alkaline Phosphatase 74 U/L (38-126); Anion Gap 13 mmol/L; Blood Urea Nitrogen 15 mg/dL (9-20); Calcium 9.1 mg/dL (8.4-10.2); Carbon Dioxide 15 mmol/L (22-30); Chloride 112 mmol/L (98-107); Glucose 198 mg/dL (74-99); Non-African American GFR(CKD) 65 (>60 ml/min/1.73 sqM); Potassium 4.3 mmol/L (3.5-5.1); Sodium 140 mmol/L (137-145); Total Protein 6.1 g/dL (6.3-8.2)
[2024-08-28 22:30] LABS: ABG Base Excess -5.9 mmol/L; ABG HCO3 22 mmol/L (21-25); ABG PCO2 49 mmHg (35-45); ABG PH 7.25 (7.35-7.45); ABG PO2 413 mmHg (83-108); ABG TCO2 23 mmol/L (19-24); Allen Test Performed? Yes
[2024-08-28 22:35] LABS: Partial Thromboplastin Time 22.6 sec (22.0-30.0); Prothrombin Time 10.7 sec (10.0-12.5)
--- NOTE | 2024-08-28 22:35 | XR ---
EXAMINATION TYPE: XR chest 1V portable DATE OF EXAM: 08/28/2024 COMPARISON: Chest x-ray August 07, 2024 HISTORY: Altered mental status. ETT and NGT placement. TECHNIQUE: Single frontal view of the chest is obtained. FINDINGS: There is new endotracheal tube terminating at the superior aortic knob level approximately 4 to 5 cm above the narayan. There is new orogastric tube projecting below diaphragm. There is no susp icious new peripheral focal air space opacity, pleural effusion, or pneumothorax seen. The cardiac s ilhouette size is is more prominent measuring upper limits of normal with perhaps mild central vascul ar congestion. The osseous structures are intact. IMPRESSION: 1. New endotracheal tube and orogastric tube are satisfactory in position. 2. More prominent cardiac silhouette with mild central vascular congestion, correlate for fluid overl oad state versus product of supine technique. [facility], , 08/28/2024 10:33 PM
[2024-08-28 22:36] LABS: ALT 32 U/L (4-49)
[2024-08-28 22:42] LABS: Appearance,Urine Clear (Clear); Bilirubin,Urine Negative (Negative); Blood,Urine Large (Negative); Color,Urine Colorless; Glucose,Urine (UA) 1+ (Negative); Hyaline Casts,Urine 38 /lpf (0-2); Ketones,Urine Trace (Negative); Leukocyte Esterase,Urine Negative (Negative); Mucus,Urine Rare /hpf; Nitrite,Urine Negative (Negative); Protein,Urine 1+ (Negative); RBC,Urine 2 /hpf (0-5); Specific Gravity,Urine 1.011 (1.001-1.035); Squamous Epithelial Cell,Urine 2 /hpf (0-4); Urobilinogen,Urine <2.0 mg/dL (<2.0); WBC,Urine 13 /hpf (0-5)
[2024-08-28 22:53] LABS: Amphetamine Screen,Urine Not Detected (NotDetected); Barbiturate Screen,Urine Not Detected (NotDetected); Benzodiazepines Screen,Urine Not Detected (NotDetected); Cocaine Screen,Urine Not Detected (NotDetected); Methadone Screen, Urine Not Detected (NotDetected); Opiate Screen,Urine Not Detected (NotDetected); Oxycodone Screen, Urine Not Detected (NotDetected); Phencyclidine Screen,Urine Not Detected (NotDetected); Tricyclic Antidepressant,Urine Not Detected (NotDetected); Urn Cannabinoid Scrn Detected (NotDetected)
--- NOTE | 2024-08-28 23:08 | CT ---
EXAMINATION TYPE: CT brain wo con DATE OF EXAM: 08/28/2024 COMPARISON: CT brain August 07, 2024 HISTORY: FOUND UNRESPONSIVE, H/O DRUG ABUSE. POSSIBLE SEIZURE. CT DLP: 1234.3 mGycm. Automated Exposure Control for Dose Reduction was Utilized. TECHNIQUE: CT scan of the head is performed without contrast. FINDINGS: Suboptimal study due to patient motion. There is no definitive new acute intracranial hemo rrhage or midline shift identified. Mild ventricular and sulcal prominence redemonstrated. The calvar ium is intact. The globes are intact bilaterally. A mucous retention cyst or polyp in the posterior l eft maxillary sinus is redemonstrated. An endotracheal and orogastric tube are partially imaged on th is study. IMPRESSION: Suboptimal study without acute intracranial hemorrhage or midline shift. [facility], , 08/28/2024 11:06 PM
[2024-08-28] MEDS: SODIUM CHLORIDE 0.9% 1,000 ML IV ONE (23:26)
[2024-08-28] MEDS: SODIUM CHLORIDE 0.9% 500 ML 500 ML IV STA (23:26)
[2024-08-29] MEDS: SODIUM CHLORIDE 0.9% 1,000 ML IV STA (00:17)
[2024-08-29 01:14] LABS: Appearance,CSF Clear; CSF Tube Number 4; Nucleated Cells, CSF 3 u/L (0-5); Red Blood Cell,CSF 15 u/L (0-10)
[2024-08-29 01:15] LABS: Red Blood Cell, CSF Crenated 0 %; Red Blood Cell, CSF Fresh 100 %
[2024-08-29 01:39] LABS: Glucose,CSF 124 mg/dL (40-70); Total Protein,CSF 68 mg/dL (12-60)
[2024-08-29] MEDS ORDERED: ACETAMINOPHEN SUPPOSITORY 650 MG SUPP RECTAL PRN (02:27)
[2024-08-29] MEDS ORDERED: NALOXONE 0.4 MG/ML 1 ML VIAL IV PRN (02:27)
[2024-08-29] MEDS ORDERED: ARTIFICIAL TEARS OINTMENT 3.5 GM TUBE BOTH EYES PRN (02:27)
[2024-08-29] MEDS: ACETAMINOPHEN SUPPOSITORY 650 MG SUPP RECTAL STA (02:38)
[2024-08-29 03:30] LABS: Glucose,Whole Blood 88 mg/dL (70-110)
[2024-08-29 04:43] LABS: ABG Base Excess -3.6 mmol/L; ABG HCO3 21 mmol/L (21-25); ABG PCO2 35 mmHg (35-45); ABG PH 7.39 (7.35-7.45); ABG PO2 83 mmHg (83-108); ABG TCO2 22 mmol/L (19-24); Allen Test Performed? Yes
[2024-08-29 05:04] LABS: Basophils % (A) 0 %; Eosinophils % (A) 0 %; HCT 41.3 % (39.0-53.0); HGB 13.7 gm/dL (13.0-17.5); Lymphocytes # (A) 0.8 k/uL (1.0-4.8); Lymphocytes % (A) 8 %; MCHC 33.2 g/dL (31.0-37.0); MCV 93.4 fL (80.0-100.0); Mean Platelet Volume 7.5; Monocytes # (A) 0.9 k/uL (0-1.0); Monocytes % (A) 8 %; Neutrophils % (A) 82 %; Platelet Count 207 k/uL (150-450); RBC 4.42 m/uL (4.30-5.90); RDW 14.9 % (11.5-15.5)
[2024-08-29 05:31] LABS: African American GFR (CKD) >90 (>60 ml/min/1.73 sqM); Anion Gap 3 mmol/L; Blood Urea Nitrogen 17 mg/dL (9-20); Calcium 7.9 mg/dL (8.4-10.2); Carbon Dioxide 19 mmol/L (22-30); Chloride 116 mmol/L (98-107); Glucose 88 mg/dL (74-99); Magnesium 2.3 mg/dL (1.6-2.3); Non-African American GFR(CKD) 90 (>60 ml/min/1.73 sqM); Sodium 138 mmol/L (137-145)
[2024-08-29] MEDS ORDERED: Potassium Replacement Protocol 1 EACH MISC MISCELLANE PRN (05:43)
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
[2024-08-29] MEDS: HEPARIN SOD,PORK IN 0.45% NACL 25,000 UNIT in 0.45% NACL 1 250ML.BAG IV SCH (06:45)
[2024-08-29] MEDS: POTASSIUM CHLORIDE 10 MEQ in WATER FOR INJECTION 1 100ML.BAG IVPB SCH (06:50)
[2024-08-29] MEDS: HEPARIN SODIUM 1,000 UN/ML (10ML VL) IV ONE (06:50)
[2024-08-29 06:55] LABS: VBG PH 7.36 (7.31-7.41)
[2024-08-29 06:56] LABS: INR 1.1 (<1.2); Partial Thromboplastin Time 24.7 sec (22.0-30.0); Prothrombin Time 12.2 sec (10.0-12.5)
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
--- NOTE | 2024-08-29 08:13 | XR ---
EXAMINATION TYPE: XR chest 1V portable DATE OF EXAM: 08/29/2024 5:13 AM COMPARISON: Chest radiograph from one day prior. CLINICAL INDICATION: Male, 44 years old with history of mechanical ventilation; [facility] TECHNIQUE: XR chest 1V portable Frontal view of the chest. FINDINGS: Lungs/Pleura: There is no evidence of pleural effusion, focal consolidation, or pneumothorax. Pulmonary vascularity: Unremarkable. Heart/mediastinum: Cardiomediastinal silhouette is unremarkable. Musculoskeletal: No acute osseous pathology. Other findings: None Lines/Tubes: Endotracheal tube with distal tip 6.8 cm above the narayan. Nasogastric tube with its distal tip and side-port projecting under the diaphragm. IMPRESSION: No acute cardiopulmonary disease/process. Support tubes in satisfactory position. [facility], , 08/29/2024 8:11 AM
[2024-08-29] MEDS ORDERED: HEPARIN SODIUM,PORCINE 5,000 UNIT/ML 1 ML VIAL SQ SCH (09:00)
[2024-08-29] MEDS: CHLORHEXIDINE GLUCONATE 15 ML CUP MUCOUS MEM SCH (09:20)
[2024-08-29] MEDS: ASPIRIN 81 MG PO SCH (09:20)
[2024-08-29] MEDS: ATORVASTATIN 40 MG TAB PO SCH (09:20)
[2024-08-29] MEDS: FAMOTIDINE 20 MG/2 ML VIAL IV SCH (09:20)
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
[2024-08-29] MEDS: LACTATED RINGERS 1,000 ML IV SCH (09:46)
[2024-08-29 11:59] LABS: Glucose,Whole Blood 81 mg/dL (70-110)
--- NOTE | 2024-08-29 11:59 | CA ---
Transthoracic Echo Report Name: John Romero Age: 44 Gender: M : 1980 Exam Date: 08/29/2024 07:57 Exam Location: [facility] Ht (in): 73 Wt (lb): 175 Ordering Physician: Fam Garcia MD ([id number]) Attending/Referring Phys: Applications Programmer Analyst Charlee Wiggins RDCS Procedure CPT: Indications: elevated troponin Cardiac Hx: Technical Quality: Fair Contrast 1: Total Dose (mL): Contrast 2: Total Dose (mL): MEASUREMENTS (Male / Female) Normal Values 2D ECHO LV Diastolic Diameter PLAX 5.6 cm 4.2 - 5.9 / 3.9 - 5.3 cm LV Systolic Diameter PLAX 4.2 cm IVS Diastolic Thickness 0.8 cm 0.6 - 1.0 / 0.6 - 0.9 cm LVPW Diastolic Thickness 0.8 cm 0.6 - 1.0 / 0.6 - 0.9 cm LV Relative Wall Thickness 0.3 RV Internal Dim ED PLAX 4.1 cm LV Diastolic Volume MOD BP 130.4 cm??? 67 - 155 / 56 - 104 cm??? LV Systolic Volume MOD BP 87.1 cm??? 22 - 58 / 19 - 49 cm??? LV Ejection Fraction MOD BP 33.2 % >= 55 % LV Cardiac Index MOD BP 1714.1 cm???/min???m??? LV Diastolic Volume MOD 4C 145.7 cm??? LV Systolic Volume MOD 4C 89.4 cm??? LV Ejection Fraction MOD 4C 38.7 % LV Cardiac Index MOD 4C 2230.8 cm???/min???m??? LV Diastolic Length 4C 9.4 cm LV Systolic Length 4C 8.7 cm LV Diastolic Volume MOD 2C 117.1 cm??? LV Systolic Volume MOD 2C 84.7 cm??? LV Ejection Fraction MOD 2C 27.6 % LV Cardiac Index MOD 2C 1279.7 cm???/min???m??? LV Diastolic Length 2C 9.3 cm LV Systolic Length 2C 8.5 cm LA Volume 54.4 cm??? 18 - 58 / 22 - 52 cm??? LA Volume Index 26.9 cm???/m??? 16 - 28 cm???/m??? M-MODE Aortic Root Diameter MM 2.8 cm LA Systolic Diameter MM 3.6 cm LA Ao Ratio MM 1.3 AV Cusp Separation MM 2.0 cm DOPPLER AV Peak Velocity 120.9 cm/s AV Peak Gradient 5.8 mmHg AV Mean Velocity 96.5 cm/s AV Mean Gradient 3.9 mmHg AV Velocity Time Integral 21.3 cm LVOT Peak Velocity 84.5 cm/s LVOT Peak Gradient 2.9 mmHg LVOT Velocity Time Integral 14.6 cm MV Area PHT 4.0 cm??? Mitral E Point Velocity 53.6 cm/s Mitral A Point Velocity 51.4 cm/s Mitral E to A Ratio 1.0 MV Deceleration Time 189.3 ms MV E' Velocity 5.8 cm/s Mitral E to MV E' Ratio 9.2 FINDINGS Left Ventricle Severely increased left ventricular systolic volume. Moderately decreased left ventricular ejection fraction. Hypokinetic anterior wall. Hypokinetic septum. Hypokinetic inferior wall. Left ventricular ejection fraction is estimated at 30-35 %. Grade 1 diastolic dysfunction. Right Ventricle Normal right ventricular function. Mild right ventricular dilatation. Right Atrium Normal right atrial size. Left Atrium Normal left atrial size. Mitral Valve Structurally normal mitral valve. No mitral stenosis. [id number] mitral regurgitation. Aortic Valve No aortic valve stenosis or regurgitation. Tricuspid Valve Structurally normal tricuspid valve. Mild tricuspid regurgitation. Pulmonic Valve Structurally normal pulmonic valve. Pericardium No pericardial effusion. Aorta Normal size aortic root and proximal ascending aorta. CONCLUSIONS Ischemic cardiomyopathy with severe LV systolic dysfunction with an ejection fraction of 30 to 35% Mild to moderate mitral regurgitation Previewed by: Dr. Catarino Barlow MD (Electronically Signed) Final Date: 29 August 2024 11:58
[2024-08-29] MEDS: IOPAMIDOL CONTRAST (ORAL USE) VIAL PO PRN (15:08)
[2024-08-29 18:27] LABS: Glucose,Whole Blood 78 mg/dL (70-110)
--- NOTE | 2024-08-29 20:20 | CT ---
EXAMINATION TYPE: CT abdomen pelvis w con DATE OF EXAM: 08/29/2024 COMPARISON: 11/26/2019 INDICATION: sepsis, unknown source DLP: 899.6 mGycm, Automated exposure control for dose reduction was used. CONTRAST: 100 mL of Isovue 370. Study performed with Oral Contrast TECHNIQUE: Axial images were obtained from above the diaphragm to the pubic rami in the axial plane a t 5 mm thick sections. Reconstructed images are reviewed on the computer in the coronal plane. FINDINGS: Limited CT sections are obtained the lung bases. Small bibasilar infiltrates and adjacent pleural fl uid collections are present. Correlate for atelectasis or minimal pneumonia.. CT ABDOMEN: Nasogastric tube is curled within the stomach. This could be pulled back approximately 8 cm. Liver: Normal Spleen: There may be a 1.1 cm cyst measuring 35 Hounsfield units and the spleen. This was present pre viously Pancreas: Normal Adrenal glands: The adrenal glands are normal. Gallbladder: Absent Kidneys: No masses are evident. No hydronephrosis is present. No cysts are present. Delayed images were obtained through the kidneys, which remain unremarkable. Aorta: Vascular calcification is within the aorta. Inferior vena cava: Normal. CT PELVIS: Loops of bowel within the abdomen and pelvis are normal. There are loops of bowel which are incom pletely distended or lack oral contrast limiting their evaluation. Appendix: Normal as visualized. Urinary bladder: Decompressed with Fernandes catheter. Small amount of air is within the urinary bladder Genitourinary structures: Prostate appears normal Osseous structures: No suspicious lytic or sclerotic lesions. IMPRESSION: 1. Small bilateral pleural effusions with adjacent infiltrates could be related to atelectasis. Pneu monia could be considered. 2. No additional suspicious areas for possible sources of sepsis identified within the [id number]. 3. Nasogastric tube coiled within the stomach. This could be pulled back approximately 8 cm. [facility], Workstation: [id number], 08/29/2024 8:18 PM
[2024-08-29] MEDS: levETIRAcetam IV 500 MG/5 ML VIAL IVP SCH (20:24)
--- NOTE | 2024-08-29 20:47 | CT ---
CTA CHEST EXAMINATION TYPE: CT chest angio for PE DATE OF EXAM: 08/29/2024 INDICATION: elevated d dimer CT DLP: 431.2 mGycm, Automated exposure control for dose reduction was used. CONTRAST: Patient injected with 100 mL of Isovue 370. COMPARISON: None TECHNIQUE: CT of the chest is performed on a spiral scan at 2 mm thick sections. Study is performed with intravenous contrast timed for evaluation for pulmonary embolism. This will limit additional po rtions of the evaluation. 3-D MIP images reconstructed by the technologist are reviewed on the compu ter in the coronal and sagittal planes. FINDINGS: Endotracheal tube tip is above the narayan. Nasogastric tube transverses the thorax is coile d within the stomach. Small filling defect is within the posterior tertiary right lower lobe pulmonary artery branch. Examp le image series 401 image 95. Small left lower lobe pulmonary emboli may be present. Report was call ed Jose the patient's nurse by Dr. Del Valle by telephone at the time of interpretation. No mediastinal or hilar adenopathy enlarged by CT criteria is evident. The ascending aorta diameter at the level of the main pulmonary artery is 3.3 cm. The main pulmonary artery diameter at the bifurcation is 3.1 cm. Small bilateral pleural effusions with adjacent infiltrate. Correlate for atelectasis or pneumonia. Limited CT sections were through the upper abdomen. See CT abdomen pelvis report same date. IMPRESSION: 1. Small tertiary branch pulmonary emboli bilateral lung bases. [facility], Workstation: [email or web address], 08/29/2024 8:45 PM
[2024-08-29] MEDS: POTASSIUM BICARBONATE/CIT AC 20 MEQ TABLET.EFF NG-TUBE SCH (22:43)
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
[2024-08-29 23:33] LABS: Glucose,Whole Blood 68 mg/dL (70-110)
--- NOTE | 2024-08-29 23:44 | EEG ---
ELECTROENCEPHALOGRAM REPORT PREAMBLE: This is a 44-year-old male, who was brought to the hospital ER unresponsive and was intubated. CURRENT MEDICATIONS: 1. Propofol. 2. Pepcid. EEG FINDINGS: This is a 21-channel digital EEG recorded with video component, utilizing 10/20 international system with referential and bipolar montages. Background consists of moderately well-developed, poorly regulated, mixed frequencies of low amplitude, 9 to 10 hertz alpha, intermixed with some low amplitude 2 to 3 hertz theta, with some intermittent suppressed background activity as well. Background does not seem to be reactive to manual eye opening or closing. Photic driving response was not clearly seen. Some intermittent low amplitude sharp appearing waves were seen in the right temporal region. No electrographic seizure was recorded. Different stages of sleep were not seen. IMPRESSION: This is an abnormal EEG due to background slowing of moderate to severe degree. This is suggestive of generalized cerebral dysfunction as can be seen with toxic metabolic encephalopathy or related to diffuse structural brain abnormality. The presence of intermittent, low amplitude sharp appearing waves seen over the right temporal region, may suggest underlying cortical irritability. No electrographic seizure was recorded. Followup EEG recommended, as clinically indicated. MMODL / IJN: [id number] / [facility]
[2024-08-30 03:09] LABS: HGB 12.5 gm/dL (13.0-17.5); Hypochromasia Slight; MCHC 32.1 g/dL (31.0-37.0); MCV 96.8 fL (80.0-100.0); Mean Platelet Volume 8.3; Platelet Count 175 k/uL (150-450); RBC 4.03 m/uL (4.30-5.90); RDW 15.5 % (11.5-15.5); WBC 7.8 k/uL (3.8-10.6)
[2024-08-30 04:29] LABS: Glucose,Whole Blood 69 mg/dL (70-110)
[2024-08-30 04:42] LABS: ABG Base Excess -4.9 mmol/L; ABG HCO3 20 mmol/L (21-25); ABG Oxygen Saturation 95.1 % (94-97); ABG PCO2 36 mmHg (35-45); ABG PH 7.36 (7.35-7.45); ABG PO2 71 mmHg (83-108); ABG TCO2 21 mmol/L (19-24); Allen Test Performed? Yes
[2024-08-30 06:45] LABS: Basophils % (A) 0 %; Eosinophils % (A) 0 %; HCT 44.5 % (39.0-53.0); HGB 13.8 gm/dL (13.0-17.5); Hypochromasia Marked; Lymphocytes % (A) 13 %; MCH 30.2 pg (25.0-35.0); MCHC 31.1 g/dL (31.0-37.0); Monocytes # (A) 0.6 k/uL (0-1.0); Monocytes % (A) 8 %; Neutrophils # (A) 5.8 k/uL (1.3-7.7); Neutrophils % (A) 76 %; Platelet Count 169 k/uL (150-450); RBC 4.58 m/uL (4.30-5.90); WBC 7.7 k/uL (3.8-10.6)
[2024-08-30 06:53] LABS: Partial Thromboplastin Time 36.5 sec (22.0-30.0); Prothrombin Time 11.4 sec (10.0-12.5)
[2024-08-30 07:00] LABS: African American GFR (CKD) >90 (>60 ml/min/1.73 sqM); Anion Gap 7 mmol/L; Blood Urea Nitrogen 16 mg/dL (9-20); Calcium 8.4 mg/dL (8.4-10.2); Carbon Dioxide 17 mmol/L (22-30); Chloride 112 mmol/L (98-107); Glucose 51 mg/dL (74-99); Non-African American GFR(CKD) >90 (>60 ml/min/1.73 sqM); Potassium 4.1 mmol/L (3.5-5.1); Sodium 136 mmol/L (137-145)
[2024-08-30 07:05] LABS: Glucose,Whole Blood 57 mg/dL (70-110)
[2024-08-30] MEDS: DEXTROSE 50% SYRINGE 50 ML IVP STA ×2 (07:11→13:33)
[2024-08-30] MEDS: HEPARIN SODIUM 1,000 UN/ML (10ML VL) IV PRN (07:18)
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
--- NOTE | 2024-08-30 08:21 | XR ---
EXAMINATION TYPE: XR chest 1V portable DATE OF EXAM: 08/30/2024 5:29 AM COMPARISON: Chest radiographs from CLINICAL INDICATION: Male, 44 years old with history of mechanical ventilation; [facility] TECHNIQUE: XR chest 1V portable Frontal view of the chest. FINDINGS: EXAMINATION TYPE: XR chest 1V portable DATE OF EXAM: 08/30/2024 5:29 AM COMPARISON: Chest radiograph from one day prior. CLINICAL INDICATION: Male, 44 years old with history of mechanical ventilation; [facility] TECHNIQUE: XR chest 1V portable Frontal view of the chest. FINDINGS: Lungs/Pleura: There is no evidence of pleural effusion, focal consolidation, or pneumothorax. Pulmonary vascularity: Unremarkable. Heart/mediastinum: Cardiomediastinal silhouette is unremarkable. Musculoskeletal: No acute osseous pathology. Other findings: None Lines/Tubes: Endotracheal tube with distal tip 4.5 cm above the narayan. Nasogastric tube with its distal tip and side-port projecting under the diaphragm. IMPRESSION: No acute cardiopulmonary disease/process. Support tubes in satisfactory position. r [facility], , 08/30/2024 8:19 AM
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
[2024-08-30] MEDS: ACYCLOVIR SODIUM 750 MG in SODIUM CHLORIDE 0.9% 100 ML IVPB SCH (11:09)
[2024-08-30] MEDS: HYDROmorphone 0.5 MG/0.5 ML SYRINGE IVP PRN (11:10)
[2024-08-30 12:10] LABS: Glucose,Whole Blood 65 mg/dL (70-110)
--- NOTE | 2024-08-30 12:22 | P.PN ---
Subjective Progress Note Date: 08/30/24 Principal diagnosis: Possible cardiac arrest. Patient is a 44-year-old male brought in by EMS unresponsive, required intubation by ED provider for airway protection. He is not able to provide any information for HPI. Found by EMS, unresponsive, lying on the bathroom floor next to the toilet. Unclear if the patient fell. He does have an abrasion to his right forehead. It looks like patient had a ER visit earlier this month for altered mental status. He was prescribed meclizine and discharged home. Not much for documented medical history. He does reportedly have a significant psychiatric history. Brain CT of the head without contrast did not show any acute intracranial hemorrhage or mass effect. Febrile on arrival with a Tmax of 102.2 F. No reports of aspiration. Postintubation chest x-ray showing endotracheal tube approximately 4.5 cm above the narayan. Orogastric tube coursing below the diaphragm. No obvious focal infiltrates, or evidence of pneumonia. There was mild central vascular congestion, no pleural effusions. Urinalysis unremarkable for UTI. Abdomen is soft and does not appear acute. Patient has acute febrile illness of unknown origin. The ER provider did perform a lumbar puncture. Total nucleated cells 3, glucose 124, total protein 68. CSF culture pending. He was given a dose of Rocephin in the ED, essentially empiric. CBC: WBC count 22.3, hemoglobin 15.7, hematocrit 48.9, platelets 354. CMP: Sodium 140, potassium 4.3, chloride 112, serum bicarb 15, BUN 15, creatinine 1.31, glucose 198. Lactic 1. CK 860. Urine toxicology screen negative except for marijuana. Serum alcohol less than 10. Negative for influenza, RSV, COVID. Troponin 0.633. EKG: Sinus tachycardia, rate 118 bpm, no obvious acute ischemic changes. Patient currently being evaluated in the intensive care unit. Remains intubated to mechanical ventilator with current ventilator settings assist- control, respiratory rate 18, tidal volume 450, FiO2 40%, PEEP of 5. Sedated on propofol which is infusing at 50 mcg/kg/min. Breathing slightly above set rate. Peak pressures low around 15. Some pink-colored secretions were noted in the ET tube and sent for culture. Follow-up ABG showing improvement in the patient's combined respiratory and metabolic acidosis. PaO2 of 83, pCO2 of 35, pH of 7.39. Blood pressure remains normotensive. He did receive a 2 L normal saline bolus in the ED, and continues receiving normal saline at 130 mL/h. Urine output around 30-50 cc/h. Continues to be sedated on propofol, currently unresponsive to even painful stimuli. No clinical seizure activity noted. Prognosis guarded. Progress note dated August 30, 2024. 44-year-old male seen yesterday in consultation. He was found in the bathroom, at home, unresponsive. The patient was intubated in the emergency department, for airway protection. There he also had a lumbar puncture performed by the ER physician. The patient was seen by cardiology. They are concerned about a primary cardiac event. He will eventually need a cardiac catheterization. The patient remains on the ventilator. He is on volume assist-control, rate 18, tidal volume 450, FiO2 40%, PEEP of 5. Blood gases show pO2 71, pCO2 36, pH of 7.36. The patient remains on IV heparin, lactated Ringer's at 100 cc an hour, propofol at 50 mcg/kg/min. The patient's procalcitonin level was 45.8. The patient continues on Rocephin. CT angiogram showed bilateral small pulmonary emboli. The patient will need tube feedings to be started. Eventually he will need a cardiac catheterization. White count is 7.7, hemoglobin 13.8, hematocrit 44.5, platelet count 169,000. PT 11.4. INR 1, PTT is 36.5. Sodium 136, potassium 4.1, chloride 112, CO2 17, BUN 16, creatinine 0.81. Glucose is 65. Calcium 8.4. Troponins were 0.633, 5.610, 4.050, and 2.780. Chest x-ray has been reviewed. Objective - Vital Signs Vital signs: Vital Signs Temp 98.3 F 08/30/24 08:00 Pulse 67 08/30/24 11:00 Resp 18 08/30/24 11:00 BP 100/59 08/30/24 11:00 Pulse Ox 97 08/30/24 11:00 FiO2 40 08/30/24 12:00 Intake & Output 08/29/24 08/30/24 08/30/24 18:59 06:59 18:59 Intake Total 0034.832 5837.475 612.7 Output Total 510 830 80 Balance 675.605 750.475 532.7 Weight 79.379 kg 76.6 kg 76.6 kg Intake: Intake, IV Titration 3684.470 4650.475 612.7 Amount Heparin Sod,Pork in 0.45% 220.663 12.7 NaCl 25,000 unit In 0.45 % NaCl 1 250ml.bag @ 12 UNITS/KG/HR 9.525 mls/hr IV .Q24H GINNA Rx#: [id number] Lactated Ringers 1,000 ml 900 1200 500 @ 100 mls/hr IV .Q10H GINNA Rx#:[id number] Sodium Chloride 0.9% 1, 130 000 ml @ 130 mls/hr IV . Q7H42M STA Rx#:[id number] propofoL 1,000 mg In 155.605 159.812 100 Empty Bag 1 bag @ 15 MCG/ KG/MIN 7.144 mls/hr IV . Q14H GINNA Rx#:[id number] Output: Urine 510 830 80 Other: Voiding Method Indwelling Catheter Indwelling Catheter - Exam No acute distress, sedated, with an orally placed endotracheal tube. HEENT examination is grossly unremarkable. Neck supple. Full range of motion. No adenopathy thyromegaly or neck vein distention. Cardiovascular examination reveals regular rhythm rate. S1-S2 normal. No S3 or S4. No discernible murmur noted. Heart sounds are distant. Lungs reveal mostly clear breath sounds. Scattered rhonchi are noted. No wheezes. No crackles. Breath sounds equal. Abdomen soft bowel sounds are heard. No masses or tenderness. Extremities are intact. No cyanosis clubbing or edema. Skin is without rash or lesion. Neurologic examination not be properly evaluated as the patient is currently on propofol, 50 mcg/kg/min. - Labs CBC & Chem 7: 08/30/24 05:42 08/30/24 05:42 Labs: Abnormal Lab Results - Last 24 Hours (Table) 08/29/24 08/30/24 08/30/24 Range/Units 23:31 02:37 04:28 RBC 4.03 L (4.30-5.90) m/uL Hgb 12.5 L (13.0-17.5) gm/dL APTT (22.0-30.0) sec ABG pO2 (83-108) mmHg ABG HCO3 (21-25) mmol/L Sodium (137-145) mmol/L Chloride (98-107) mmol/L Carbon Dioxide (22-30) mmol/L Glucose (74-99) mg/dL POC Glucose (mg/dL) 68 L 69 L (70-110) mg/dL 08/30/24 08/30/24 08/30/24 Range/Units 04:35 05:42 05:42 RBC (4.30-5.90) m/uL Hgb (13.0-17.5) gm/dL APTT 36.5 H (22.0-30.0) sec ABG pO2 71 L (83-108) mmHg ABG HCO3 20 L (21-25) mmol/L Sodium 136 L (137-145) mmol/L Chloride 112 H (98-107) mmol/L Carbon Dioxide 17 L (22-30) mmol/L Glucose 51 L (74-99) mg/dL POC Glucose (mg/dL) (70-110) mg/dL 08/30/24 08/30/24 Range/Units 07:03 12:08 RBC (4.30-5.90) m/uL Hgb (13.0-17.5) gm/dL APTT (22.0-30.0) sec ABG pO2 (83-108) mmHg ABG HCO3 (21-25) mmol/L Sodium (137-145) mmol/L Chloride (98-107) mmol/L Carbon Dioxide (22-30) mmol/L Glucose (74-99) mg/dL POC Glucose (mg/dL) 57 L 65 L (70-110) mg/dL Microbiology - Last 24 Hours (Table) 08/29/24 00:02 CSF Gram Stain - Preliminary Cerebral Spinal Fluid CSF Culture - Preliminary 08/28/24 22:12 Gram Stain - Preliminary Sputum 08/28/24 23:05 Blood Culture - Preliminary Blood Assessment and Plan Assessment: Routine mechanical ventilator management, patient was intubated for airway protection in the ED. Rule out primary cardiac event. Bilateral small pulmonary emboli. Combined respiratory and metabolic acidosis. Acute febrile illness, of unknown origin. Altered mental status, under investigation. Acute leukocytosis. Poor dentition. Elevated troponin, serial troponins trending. Marijuana use. History of anxiety/depression/bipolar. Plan: Plan dated August 30, 2024. The patient remains on IV heparin. CT angiogram revealed bilateral small pulmonary emboli. In addition, the patient continues on Rocephin. His procalc itonin level was 45.8. The patient will be started on tube feedings. In addition, the patient will eventually need a heart catheterization. He is on lactated Ringer's at 100 cc an hour. He is on propofol at 50 mcg/kg/min. Blood gases show pO2 71, pCO2 36, pH is 7.36. Additional recommendations and suggestions are forthcoming. Labs, x-rays, and all medications are reviewed. Prognosis is guarded. Time with Patient: Greater than 30
--- NOTE | 2024-08-30 13:09 | P.PN ---
Subjective Progress Note Date: 08/30/24 Principal diagnosis: Reason for follow-up is fever and leukocytosis Patient is a 44-year-old male with a past medical history significant for reflux osteoarthritis chronic shoulder pain patient has been brought into the ER by EMS after pending the patient was found to be unresponsive by his brother, patient did have elevated white count and fever prompted this consul tation workup to include CT angiogram of the chest with evidence of PE. On today's evaluation that is 08/30/2024 patient did have resolution of his fever and is afebrile this morning patient remains to be intubated on the vent FiO2 is currently stable at 40% no significant purulent secretion through the ET diarrhea in the change reported by nursing staff. Patient white count normalized to 7.7, creatinine 0.81 blood cultures currently pending sputum culture currently pending Objective - Vital Signs Vital signs: Vital Signs Temp 98.3 F 08/30/24 08:00 Pulse 67 08/30/24 11:00 Resp 18 08/30/24 11:00 BP 100/59 08/30/24 11:00 Pulse Ox 97 08/30/24 11:00 FiO2 40 08/30/24 12:00 Intake & Output 08/29/24 08/30/24 08/30/24 18:59 06:59 18:59 Intake Total 7499.938 7114.475 612.7 Output Total 510 830 80 Balance 675.605 750.475 532.7 Weight 79.379 kg 76.6 kg 76.6 kg Intake: Intake, IV Titration 5720.245 2698.475 612.7 Amount Heparin Sod,Pork in 0.45% 220.663 12.7 NaCl 25,000 unit In 0.45 % NaCl 1 250ml.bag @ 12 UNITS/KG/HR 9.525 mls/hr IV .Q24H [facility] Rx#: [id number] Lactated Ringers 1,000 ml 900 1200 500 @ 100 mls/hr IV .Q10H [facility] Rx#:[id number] Sodium Chloride 0.9% 1, 130 000 ml @ 130 mls/hr IV . Q7H42M [facility] Rx#:[id number] propofoL 1,000 mg In 155.605 159.812 100 Empty Bag 1 bag @ 15 MCG/ KG/MIN 7.144 mls/hr IV . Q14H [facility] Rx#:[id number] Output: Urine 510 830 80 Other: Voiding Method Indwelling Catheter Indwelling Catheter Indwelling Catheter - Exam GENERAL DESCRIPTION: Middle-age male intubated on the vent RESPIRATORY SYSTEM: Unlabored breathing , decreased breath sounds at bases HEART: S1 S2 regular rate and rhythm , ABDOMEN: Soft , no tenderness EXTREMITIES: No edema feet - Labs CBC & Chem 7: 08/30/24 05:42 08/30/24 05:42 Labs: Abnormal Lab Results - Last 24 Hours (Table) 08/29/24 08/30/24 08/30/24 Range/Units 23:31 02:37 04:28 RBC 4.03 L (4.30-5.90) m/uL Hgb 12.5 L (13.0-17.5) gm/dL APTT (22.0-30.0) sec ABG pO2 (83-108) mmHg ABG HCO3 (21-25) mmol/L Sodium (137-145) mmol/L Chloride (98-107) mmol/L Carbon Dioxide (22-30) mmol/L Glucose (74-99) mg/dL POC Glucose (mg/dL) 68 L 69 L (70-110) mg/dL 08/30/24 08/30/24 08/30/24 Range/Units 04:35 05:42 05:42 RBC (4.30-5.90) m/uL Hgb (13.0-17.5) gm/dL APTT 36.5 H (22.0-30.0) sec ABG pO2 71 L (83-108) mmHg ABG HCO3 20 L (21-25) mmol/L Sodium 136 L (137-145) mmol/L Chloride 112 H (98-107) mmol/L Carbon Dioxide 17 L (22-30) mmol/L Glucose 51 L (74-99) mg/dL POC Glucose (mg/dL) (70-110) mg/dL 08/30/24 08/30/24 Range/Units 07:03 12:08 RBC (4.30-5.90) m/uL Hgb (13.0-17.5) gm/dL APTT (22.0-30.0) sec ABG pO2 (83-108) mmHg ABG HCO3 (21-25) mmol/L Sodium (137-145) mmol/L Chloride (98-107) mmol/L Carbon Dioxide (22-30) mmol/L Glucose (74-99) mg/dL POC Glucose (mg/dL) 57 L 65 L (70-110) mg/dL Microbiology - Last 24 Hours (Table) 08/29/24 00:02 CSF Gram Stain - Preliminary Cerebral Spinal Fluid CSF Culture - Preliminary 08/28/24 22:12 Gram Stain - Preliminary Sputum 08/28/24 23:05 Blood Culture - Preliminary Blood Assessment and Plan (1) SIRS (systemic inflammatory response syndrome) Current Visit: Yes Status: Acute Code(s): R65.10 - SIRS OF NON-INFECTIOUS ORIGIN W/O ACUTE ORGAN DYSFUNCTION SNOMED Code(s): 320968653 (2) Fever Current Visit: Yes Status: Acute Code(s): R50.9 - FEVER, UNSPECIFIED SNOMED Code(s): 424478419 (3) Leukocytosis Current Visit: Yes Status: Acute Code(s): D72.829 - ELEVATED WHITE BLOOD CELL COUNT, UNSPECIFIED SNOMED Code(s): 780002040 Plan: 1patient presented to hospital with an episode of unresponsiveness requiring intubation in this patient who did have fever and high white count tachycardia meeting criteria for SIRS however the patient did not have very clear focus of infection on the initial investigation urine is significantly positive chest x- ray was negative for acute infiltrate did have a C7 examination not suggestive of encephalitis or meningitis patient did have elevated D-dimer with a question of possible PE or abdominal source not entirely excluded 2-patient did have a CT angiogram of the chest with evidence of PE patient has been started on heparin 3-patient did have resolution of his fever and white normalized we will continue patient on Rocephin while waiting for the blood and sputum culture to finalize Dictation was produced using [employer] dictation software. please excuse any grammatical, word or spelling errors. Time with Patient: Less than 30
[2024-08-30 13:27] LABS: Glucose,Whole Blood 65 mg/dL (70-110)
--- NOTE | 2024-08-30 14:26 | P.PN ---
Subjective Progress Note Date: 08/30/24 Patient is one 44-year-old male was brought in unresponsive by his friends found in the bathroom. Patient has abrasion on the forehead. Patient is in respiratory failure because of which patient was intubated patient's ABG is showing 7.2 pH and pCO2 of 46 essentially metabolic acidosis with anion gap alt [facility] lactic acid was not obtained. Unknown whether patient is a smoker urine patient's urine drug screen is positive for marijuana. Patient also had a high- grade fever of 102. Other source of infection is not clear patient urine analysis is not consistent with UTI chest x-ray did not show any pneumonic infiltrate chest x-ray also showed mild pulmonary venous congestion. Patient is presently not on any pressor support patient urine output is going down because of which I will start him on lactated Ringer's as his repeat lactic acid came down to 1. Patient serum bicarbonate was low with anion gap probably secondary to lactic acidosis which resolved at this time. Patient's abdomen is soft without any evidence of acute abdomen at this time. Patient had a lumbar puncture which showed mild increase in protein, WBCs only 3. Glucose is elevated. Patient is on empiric antibiotic that is Rocephin infectious disease was consulted along with neurology. Patient also found to have elevated troponin without any significant acute ST-T wave changes in the EKG although there was sinus tachycardia secondary to possible sepsis unknown source which improved at this time. Cardiology evaluate the patient patient was started on IV heparin and considering cardiac catheterization. Patient is presently on propofol sedation. Patient is on ventilator support with FiO2 of 40% PEEP of 4.5 tidal volume of 450 set up respiratory of 18 and patient is breathing over the ventilator. 08/30/2024 Patient eval today in follow-up in the intensive care unit. He is on the mechanical ventilator. Procalcitonin level was significantly elevated at 45. He is continued on IV Rocephin/IV acyclovir. Additionally patient had troponin elevation he is continued on IV heparin with plans for cardiac catheterization. He is undergoing neurological evaluation to rule out an anoxic brain injury he will get an EEG and brain CT today. CT angiography did reveal bilateral small pulmonary embolism in the lung bases as well as small bilateral pleural effusions. His ejection fraction was found to be 30 to 35%. Able to complete a review of systems as patient is currently intubated and sedated in the intensive care unit. PHYSICAL EXAMINATION: GENERAL: Patient is intubated sedated not in any acute distress. Well developed, well nourished. HEENT: Pupils are round and equally reacting to light. EOMI. No scleral icterus. No conjunctival pallor. Normocephalic, atraumatic. No pharyngeal erythema. No thyromegaly. CARDIOVASCULAR: S1 and S2 present. No murmurs, rubs, or gallops. PULMONARY: Chest is clear to auscultation, no wheezing or crackles. ABDOMEN: Soft, nontender, nondistended, normoactive bowel sounds. No palpable organomegaly. MUSCULOSKELETAL: No joint swelling or deformity. EXTREMITIES: No cyanosis, clubbing, or pedal edema. NEUROLOGICAL: Patient is intubated and sedated SKIN: No rashes. Assessment and plan -Decreased responsiveness patient is intubated for airway protection patient is on above-mentioned ventilator settings -Metabolic acidosis anion gap secondary to lactic acidosis which improved at this time -Bilateral pulmonary embolism -Fever and sepsis source of sepsis is not clear at this time -Acute non-ST elevation myocardial infarction type I MS cannot be ruled out, with troponin elevation. -Marijuana use -Bipolar depression and schizophrenia presently these medications are being held as patient is sedated. DVT prophylaxis: On IV heparin Full Code Patient remains in the ICU on the mechanical ventilator. He is on IV heparin. Neurology following and patient will go for EEG and brain CT today. Plans for cardiac catheterization when he is neurologically clear. On empiric antibiotics IV ceftriaxone, as well as IV acyclovir. and blood culture pending. ID following closely. Prognosis remains guarded. Repeat blood work in the AM. The impression and plan of care has been dictated by Danielle Montague, Nurse Practitioner as directed. Dr. Pratibha MD I have performed a history and physical examination and medical decision making of this patient, discussed the same with the dictator, and agree with the dictators assessment and plan as written, documented as a scribe. Based on total visit time, I have performed more than 50% of this visit. Objective - Vital Signs Vital signs: Vital Signs Temp 97.7 F 08/30/24 04:00 Pulse 62 08/30/24 07:00 Resp 21 08/30/24 07:00 BP 108/73 08/30/24 07:00 Pulse Ox 97 08/30/24 07:00 FiO2 40 08/30/24 07:58 Intake & Output 08/29/24 08/30/24 08/30/24 18:59 06:59 18:59 Intake Total 9592.380 2128.475 112.7 Output Total 510 830 20 Balance 675.605 750.475 92.7 Weight 79.379 kg 76.6 kg Intake: Intake, IV Titration 1796.004 5827.475 112.7 Amount Heparin Sod,Pork in 0.45% 220.663 12.7 NaCl 25,000 unit In 0.45 % NaCl 1 250ml.bag @ 12 UNITS/KG/HR 9.525 mls/hr IV .Q24H [facility] Rx#: [id number] Lactated Ringers 1,000 ml 900 1200 100 @ 100 mls/hr IV .Q10H [facility] Rx#:[id number] Sodium Chloride 0.9% 1, 130 000 ml @ 130 mls/hr IV . Q7H42M [facility] Rx#:[id number] propofoL 1,000 mg In 155.605 159.812 Empty Bag 1 bag @ 15 MCG/ KG/MIN 7.144 mls/hr IV . Q14H [facility] Rx#:[id number] Output: Urine 510 830 20 Other: Voiding Method Indwelling Catheter Indwelling Catheter - Labs CBC & Chem 7: 08/30/24 05:42 08/30/24 05:42 Labs: Abnormal Lab Results - Last 24 Hours (Table) 08/29/24 08/29/24 08/29/24 Range/Units 11:10 11:10 23:31 RBC (4.30-5.90) m/uL Hgb (13.0-17.5) gm/dL APTT 45.3 H (22.0-30.0) sec ABG pO2 (83-108) mmHg ABG HCO3 (21-25) mmol/L Sodium (137-145) mmol/L Chloride (98-107) mmol/L Carbon Dioxide (22-30) mmol/L Glucose (74-99) mg/dL POC Glucose (mg/dL) 68 L (70-110) mg/dL Troponin I 2.780 H* (0.000-0.034) ng/mL 08/30/24 08/30/24 08/30/24 Range/Units 02:37 04:28 04:35 RBC 4.03 L (4.30-5.90) m/uL Hgb 12.5 L (13.0-17.5) gm/dL APTT (22.0-30.0) sec ABG pO2 71 L (83-108) mmHg ABG HCO3 20 L (21-25) mmol/L Sodium (137-145) mmol/L Chloride (98-107) mmol/L Carbon Dioxide (22-30) mmol/L Glucose (74-99) mg/dL POC Glucose (mg/dL) 69 L (70-110) mg/dL Troponin I (0.000-0.034) ng/mL 08/30/24 08/30/24 08/30/24 Range/Units 05:42 05:42 07:03 RBC (4.30-5.90) m/uL Hgb (13.0-17.5) gm/dL APTT 36.5 H (22.0-30.0) sec ABG pO2 (83-108) mmHg ABG HCO3 (21-25) mmol/L Sodium 136 L (137-145) mmol/L Chloride 112 H (98-107) mmol/L Carbon Dioxide 17 L (22-30) mmol/L Glucose 51 L (74-99) mg/dL POC Glucose (mg/dL) 57 L (70-110) mg/dL Troponin I (0.000-0.034) ng/mL Microbiology - Last 24 Hours (Table) 08/29/24 00:02 CSF Gram Stain - Preliminary Cerebral Spinal Fluid CSF Culture - Preliminary 08/28/24 22:12 Gram Stain - Preliminary Sputum 08/28/24 23:05 Blood Culture - Preliminary Blood Assessment and Plan Time with Patient: Less than 30
--- NOTE | 2024-08-30 14:30 | CT ---
EXAMINATION TYPE: CT brain wo con CT DLP: 1095.4 mGycm, Automated exposure control for dose reduction was used. DATE OF EXAM: 08/30/2024 2:21 PM COMPARISON: Prior CT Brain from 08/28/2024, 08/07/2024. CLINICAL INDICATION:Male, 44 years old with history of altered mental status, altered mental status TECHNIQUE: Brain: Multiple axial CT images of the brain were obtained without IV contrast. . Coronal and sagitta l reformats reviewed. FINDINGS: Brain: Extra-axial spaces: No abnormal extra-axial fluid collections. Ventricular system: Within normal limits Cerebral parenchyma: Mild similar cerebral atrophy. No acute intraparenchymal hemorrhage or mass effe ct. The stevens-white junction is well differentiated. Cerebellum: Unremarkable. Mass effect: No evidence of midline shift. Intracranial vasculature: unremarkable Soft tissues: Normal. Calvarium/osseous structures: No depressed skull fracture. Paranasal sinuses and mastoid air cells: Clear Visualized orbits: Orbital contents are intact. IMPRESSION: No acute intracranial process. [facility], , 08/30/2024 2:27 PM
[2024-08-30] MEDS ORDERED: ALPRAZolam 0.5 MG TAB PO PRN (14:35)
[2024-08-30] MEDS ORDERED: ALPRAZolam 0.25 MG TAB PO PRN (14:35)
[2024-08-30] MEDS ORDERED: NITROGLYCERIN SL TABS 0.4 MG TAB SUBLINGUAL PRN (14:35)
[2024-08-30 14:40] LABS: Glucose,Whole Blood 114 mg/dL (70-110)
[2024-08-30 17:46] LABS: Glucose,Whole Blood 82 mg/dL (70-110)
[2024-08-30] MEDS: SODIUM CHLORIDE 0.9% 1,000 ML in EMPTY BAG 1 BAG IV SCH (22:40)
--- NOTE | 2024-08-30 23:59 | EEG ---
ELECTROENCEPHALOGRAM REPORT PREAMBLE: This is a 44-year-old male with episode of unresponsiveness and comatose state. This study is performed to evaluate for any epileptiform activity. The patient had a previous abnormal EEG yesterday. CURRENT MEDICATIONS: Keppra. EEG FINDINGS: This is a 21-channel digital EEG recorded with video component, utilizing 10/20 international system with referential and bipolar montages. This is a prolonged study performed for 1 hour. Recording start time 11:21 a.m. on 08/30/2024 and recording end time is 12:29 p.m. on 08/30/2024. The recording starts with presence of diffuse [id number] amplitude 2 to 3 hertz delta slowing seen diffusely in bihemispheric region. Background does not seem to be reactive to eye opening or closing. Photic driving response was not seen. In the middle and later part of the study, there were some periods, in which quite well-formed 8 to 9 hertz of a posterior dominant alpha background was seen, intermixed with some theta and some delta activity. No definitive focal or generalized epileptiform activity was seen. No electrographic seizure was recorded. Different stages of sleep were not clearly seen. IMPRESSION: This is an abnormal EEG due to background slowing, suggestive of [id number] encephalopathy. There were periods of relatively well-formed posterior dominant alpha rhythm seen, which was not seen in the EEG yesterday. No epileptiform activity was seen. Overall, there is improvement in the background on today's EEG as compared to yesterday. Clinical correlation is recommended. No electrographic seizure was seen. MMODL / IJN: [id number] /
[2024-08-31 00:10] LABS: Glucose,Whole Blood 77 mg/dL (70-110)
[2024-08-31] MEDS: ASPIRIN 325 MG TAB OG-TUBE ONE (04:45)
[2024-08-31] MEDS: ATORVASTATIN 80 MG TAB OG-TUBE ONE (04:45)
[2024-08-31 05:33] LABS: ABG Base Excess -2.4 mmol/L; ABG HCO3 22 mmol/L (21-25); ABG Oxygen Saturation 97.9 % (94-97); ABG PCO2 37 mmHg (35-45); ABG PH 7.39 (7.35-7.45); ABG PO2 92 mmHg (83-108); ABG TCO2 23 mmol/L (19-24); Allen Test Performed? Yes
[2024-08-31 05:47] LABS: Basophils % (A) 0 %; Eosinophils # (A) 0.1 k/uL (0-0.7); Eosinophils % (A) 2 %; HCT 39.1 % (39.0-53.0); HGB 12.9 gm/dL (13.0-17.5); Hypochromasia Slight; Lymphocytes # (A) 0.6 k/uL (1.0-4.8); Lymphocytes % (A) 10 %; MCH 31.1 pg (25.0-35.0); MCHC 32.9 g/dL (31.0-37.0); MCV 94.6 fL (80.0-100.0); Mean Platelet Volume 7.6; Monocytes # (A) 0.3 k/uL (0-1.0); Monocytes % (A) 5 %; Neutrophils # (A) 4.8 k/uL (1.3-7.7); Neutrophils % (A) 80 %; Platelet Count 183 k/uL (150-450); RBC 4.14 m/uL (4.30-5.90); RDW 15.2 % (11.5-15.5); WBC 5.9 k/uL (3.8-10.6)
[2024-08-31 06:19] LABS: Glucose,Whole Blood 69 mg/dL (70-110)
[2024-08-31 06:33] LABS: African American GFR (CKD) >90 (>60 ml/min/1.73 sqM); Anion Gap 1 mmol/L; Blood Urea Nitrogen 11 mg/dL (9-20); Calcium 8.1 mg/dL (8.4-10.2); Carbon Dioxide 22 mmol/L (22-30); Chloride 114 mmol/L (98-107); Glucose 77 mg/dL (74-99); Non-African American GFR(CKD) >90 (>60 ml/min/1.73 sqM); Potassium 3.8 mmol/L (3.5-5.1); Sodium 137 mmol/L (137-145)
[2024-08-31] MEDS ORDERED: HEPARIN SODIUM,PORCINE 10,000 UNIT in SODIUM CHLORIDE 0.9% 1,000 ML IRRIGATION PRN (07:00)
[2024-08-31] MEDS ORDERED: HEPARIN SODIUM,PORCINE (1 ML) 2,500 UNIT in SODIUM CHLORIDE 0.9% 250 ML IRRIGATION PRN (07:00)
--- NOTE | 2024-08-31 07:33 | P.PN ---
Subjective Progress Note Date: 08/31/24 The patient is a 44-year-old gentleman who we requested to see in the intensive care unit for further evaluation of abnormal cardiac enzymes. The patient currently is intubated and he is on mechanical ventilation. The history was taken from the chart as well as from the nurse taking care of the patient. Apparently patient was brought to the hospital by friends who found the patient unresponsive at home by the bathroom with some bruises on the right side of the face. No indication that the patient was experiencing any symptoms of chest pain or chest discomfort or any other cardiovascular symptoms. No drug screen was performed. Currently patient is intubated on mechanical ventilation and he is not on any vasopressors at this point. He underwent further evaluation including troponin came in to be elevated at 5 and also EKG showed sinus mechanism and initially sinus tachycardia but subsequently only sinus mechanism with no significant ST or T wave abnormalities. Chest x-ray did not show any acute abnormalities. No prior cardiovascular history of CAD or heart failure or cardiac arrhythmia but the details on the past medical history is not available at this point giving that the patient is intubated on mechanical ventilation. The chest x-ray did not show any acute abnormalities. The rest of the blood work came in to be unremarkable except that there is no drug screen ordered. T he physical examination is remarkable for regular rhythm with a systolic murmur at the right upper sternal border with clear breathing sounds bilaterally and no carotid bruit and no edema was noted. Please note that the CT scan of the brain did not show any acute abnormalities as well. August 29, 2024 The patient was seen and evaluated this morning. He continues to be intubated on mechanical ventilation. Hemodynamically he is stable. His heart rate has been in the 60s. Neurology was consulted and CT scan of the head to be performed later on today to rule out any anoxic encephalopathy. If that ruled out he need to undergo a heart catheterization but the echo showed cardiomyopathy with EF between 30 to 35% with wall motion abnormalities concerning for severe underlying coronary artery disease. Examination is remarkable for regular rhythm with a soft systolic murmur and clear breathing sounds bilaterally and no edema was noted in the lower extremities. CT scan of the chest was performed and showed possible small bilateral pulmonary embolism and elevated patient is on heparin IV Past 2023 The patient was seen and evaluated this morning. He continues to be intubated on mechanical ventilation but he is following commands. He is on aspirin and statin and he continues to be on heparin IV. The examination is remarkable for regular rhythm with a soft systolic murmur and clear breathing sounds bilaterally and no edema was noted in the lower extremities. The plan is to pu rsue with a heart catheterization later on today. Assessment Acute coronary syndrome Cardiomyopathy Acute hypoxic respiratory failure Cardiac arrest Plan Continue the current medical regimen Continue aspirin and statin Proceed with coronary angiogram Objective - Vital Signs Vital signs: Vital Signs Temp 99.3 F 08/31/24 04:00 Pulse 75 08/31/24 07:00 Resp 21 08/31/24 07:00 BP 118/76 08/31/24 07:00 Pulse Ox 98 08/31/24 07:00 FiO2 40 08/31/24 04:15 Intake & Output 08/30/24 08/31/24 08/31/24 18:59 06:59 18:59 Intake Total 1412.7 2430.512 176.6 Output Total 615 785 30 Balance 797.7 1645.512 146.6 Weight 76.6 kg Intake: Intake, IV Titration 1412.7 2320.512 176.6 Amount Acyclovir Sodium 750 mg 100 In Sodium Chloride 0.9% 100 ml @ 115 mls/hr IVPB Q8H [facility] Rx#:[id number] Heparin Sod,Pork in 0.45% 12.7 262.702 NaCl 25,000 unit In 0.45 % NaCl 1 250ml.bag @ 12 UNITS/KG/HR 9.525 mls/hr IV .Q24H [facility] Rx#: [id number] Lactated Ringers 1,000 ml 1200 1200 100 @ 100 mls/hr IV .Q10H [facility] Rx#:[id number] Sodium Chloride 0.9% 1, 536.2 76.6 000 ml In Empty Bag 1 bag @ 1 ML/KG/HR 76.6 mls/hr IV .Q13H4M [facility] Rx#: [id number] propofoL 1,000 mg In 200 221.610 Empty Bag 1 bag @ 15 MCG/ KG/MIN 7.144 mls/hr IV . Q14H [facility] Rx#:[id number] Tube Feeding 80 Other 30 Output: Urine 615 785 30 Other: Voiding Method Indwelling Catheter Indwelling Catheter - Labs CBC & Chem 7: 08/31/24 05:37 08/31/24 05:26 Labs: Abnormal Lab Results - Last 24 Hours (Table) 08/30/24 08/30/24 08/30/24 Range/Units 12:08 13:26 14:37 RBC (4.30-5.90) m/uL Hgb (13.0-17.5) gm/dL Lymphocytes # (1.0-4.8) k/uL APTT (22.0-30.0) sec ABG O2 Saturation (94-97) % Hemoglobin (13.0-17.5) gm/dL Chloride (98-107) mmol/L POC Glucose (mg/dL) 65 L 65 L 114 H (70-110) mg/dL Calcium (8.4-10.2) mg/dL 08/31/24 08/31/24 08/31/24 Range/Units 00:54 05:26 05:30 RBC (4.30-5.90) m/uL Hgb (13.0-17.5) gm/dL Lymphocytes # (1.0-4.8) k/uL APTT 37.8 H (22.0-30.0) sec ABG O2 Saturation 97.9 H (94-97) % Hemoglobin 12.2 L (13.0-17.5) gm/dL Chloride 114 H (98-107) mmol/L POC Glucose (mg/dL) (70-110) mg/dL Calcium 8.1 L (8.4-10.2) mg/dL 08/31/24 08/31/24 08/31/24 Range/Units 05:37 05:37 06:17 RBC 4.14 L (4.30-5.90) m/uL Hgb 12.9 L (13.0-17.5) gm/dL Lymphocytes # 0.6 L (1.0-4.8) k/uL APTT 85.0 H (22.0-30.0) sec ABG O2 Saturation (94-97) % Hemoglobin (13.0-17.5) gm/dL Chloride (98-107) mmol/L POC Glucose (mg/dL) 69 L (70-110) mg/dL Calcium (8.4-10.2) mg/dL Microbiology - Last 24 Hours (Table) 08/28/24 23:05 Blood Culture - Preliminary Blood 08/28/24 22:12 Gram Stain - Preliminary Sputum Sputum Culture - Preliminary 08/29/24 00:02 CSF Gram Stain - Preliminary Cerebral Spinal Fluid CSF Culture - Preliminary
[2024-08-31] MEDS: POTASSIUM BICARBONATE/CIT AC 20 MEQ TABLET.EFF NG-TUBE SCH (08:02)
--- NOTE | 2024-08-31 08:14 | XR ---
EXAMINATION TYPE: XR chest 1V portable DATE OF EXAM: 08/31/2024 5:35 AM COMPARISON: Chest radiograph from one day prior. CLINICAL INDICATION: Male, 44 years old with history of mechanical ventilation; [facility] TECHNIQUE: XR chest 1V portable Frontal view of the chest. FINDINGS: Lungs/Pleura: There is no evidence of pleural effusion, focal consolidation, or pneumothorax. Pulmonary vascularity: Unremarkable. Heart/mediastinum: Cardiomediastinal silhouette is unremarkable. Musculoskeletal: No acute osseous pathology. Other findings: None Lines/Tubes: Endotracheal tube with distal tip 6.7 cm above the narayan. Nasogastric tube with its distal tip and side-port projecting under the diaphragm. IMPRESSION: No acute cardiopulmonary disease/process. Support tubes in satisfactory position. r [facility], , 08/31/2024 8:12 AM
--- NOTE | 2024-08-31 12:02 | P.PN ---
Subjective Progress Note Date: 08/31/24 Principal diagnosis: Possible cardiac arrest. Patient is a 44-year-old male brought in by EMS unresponsive, required intubation by ED provider for airway protection. He is not able to provide any information for HPI. Found by EMS, unresponsive, lying on the bathroom floor next to the toilet. Unclear if the patient fell. He does have an abrasion to his right forehead. It looks like patient had a ER visit earlier this month for altered mental status. He was prescribed meclizine and discharged home. Not much for documented medical history. He does reportedly have a significant psychiatric history. Brain CT of the head without contrast did not show any acute intracranial hemorrhage or mass effect. Febrile on arrival with a Tmax of 102.2 F. No reports of aspiration. Postintubation chest x-ray showing endotracheal tube approximately 4.5 cm above the narayan. Orogastric tube coursing below the diaphragm. No obvious focal infiltrates, or evidence of pneumonia. There was mild central vascular congestion, no pleural effusions. Urinalysis unremarkable for UTI. Abdomen is soft and does not appear acute. Patient has acute febrile illness of unknown origin. The ER provider did perform a lumbar puncture. Total nucleated cells 3, glucose 124, total protein 68. CSF culture pending. He was given a dose of Rocephin in the ED, essentially empiric. CBC: WBC count 22.3, hemoglobin 15.7, hematocrit 48.9, platelets 354. CMP: Sodium 140, potassium 4.3, chloride 112, serum bicarb 15, BUN 15, creatinine 1.31, glucose 198. Lactic 1. CK 860. Urine toxicology screen negative except for marijuana. Serum alcohol less than 10. Negative for influenza, RSV, COVID. Troponin 0.633. EKG: Sinus tachycardia, rate 118 bpm, no obvious acute ischemic changes. Patient currently being evaluated in the intensive care unit. Remains intubated to mechanical ventilator with current ventilator settings assist- control, respiratory rate 18, tidal volume 450, FiO2 40%, PEEP of 5. Sedated on propofol which is infusing at 50 mcg/kg/min. Breathing slightly above set rate. Peak pressures low around 15. Some pink-colored secretions were noted in the ET tube and sent for culture. Follow-up ABG showing improvement in the patient's combined respiratory and metabolic acidosis. PaO2 of 83, pCO2 of 35, pH of 7.39. Blood pressure remains normotensive. He did receive a 2 L normal saline bolus in the ED, and continues receiving normal saline at 130 mL/h. Urine output around 30-50 cc/h. Continues to be sedated on propofol, currently unresponsive to even painful stimuli. No clinical seizure activity noted. Prognosis guarded. Progress note dated August 30, 2024. 44-year-old male seen yesterday in consultation. He was found in the bathroom, at home, unresponsive. The patient was intubated in the emergency department, for airway protection. There he also had a lumbar puncture performed by the ER physician. The patient was seen by cardiology. They are concerned about a primary cardiac event. He will eventually need a cardiac catheterization. The patient remains on the ventilator. He is on volume assist-control, rate 18, tidal volume 450, FiO2 40%, PEEP of 5. Blood gases show pO2 71, pCO2 36, pH of 7.36. The patient remains on IV heparin, lactated Ringer's at 100 cc an hour, propofol at 50 mcg/kg/min. The patient's procalcitonin level was 45.8. The patient continues on Rocephin. CT angiogram showed bilateral small pulmonary emboli. The patient will need tube feedings to be started. Eventually he will need a cardiac catheterization. White count is 7.7, hemoglobin 13.8, hematocrit 44.5, platelet count 169,000. PT 11.4. INR 1, PTT is 36.5. Sodium 136, potassium 4.1, chloride 112, CO2 17, BUN 16, creatinine 0.81. Glucose is 65. Calcium 8.4. Troponins were 0.633, 5.610, 4.050, and 2.780. Chest x-ray has been reviewed. Progress note dated August 31, 2024. 44-year-old male seen in room 256. The patient remains on the mechanical ventilator. He is on volume assist-control, rate 18, tidal volume 450, FiO2 40%, PEEP of 5. Blood gases show pO2 of 92, pCO2 37, pH is 7.39. The patient is scheduled to have a heart catheterization today. The patient is getting propofol at 50 mcg/kg/min, and IV heparin. The patient is also on saline at 76 cc an hour. The patient continues on Rocephin, and acyclovir as per infectious diseases. He was also started on tube feeds with vital AF at 20 cc an hour. White count is 5.9, hemoglobin 12.9, hematocrit 39.1, platelet count is normal. Sodium 137, potassium 3.8, chlorides 114, CO2 22, BUN 11, creatinine 0.74. Glucose of 69. Calcium 8.1. Chest x-ray is unremarkable. Objective - Vital Signs Vital signs: Vital Signs Temp 99.3 F 08/31/24 04:00 Pulse 75 08/31/24 07:00 Resp 21 08/31/24 07:00 BP 118/76 08/31/24 07:00 Pulse Ox 98 08/31/24 07:00 FiO2 40 08/31/24 07:57 Intake & Output 08/30/24 08/31/24 08/31/24 18:59 06:59 18:59 Intake Total 1412.7 2430.512 250.82 Output Total 615 785 30 Balance 797.7 1645.512 220.82 Weight 76.6 kg Intake: Intake, IV Titration 1412.7 2320.512 250.82 Amount Acyclovir Sodium 750 mg 100 In Sodium Chloride 0.9% 100 ml @ 115 mls/hr IVPB Q8H [facility] Rx#:[id number] Heparin Sod,Pork in 0.45% 12.7 262.702 NaCl 25,000 unit In 0.45 % NaCl 1 250ml.bag @ 12 UNITS/KG/HR 9.525 mls/hr IV .Q24H [facility] Rx#: [id number] Lactated Ringers 1,000 ml 1200 1200 100 @ 100 mls/hr IV .Q10H [facility] Rx#:[id number] Sodium Chloride 0.9% 1, 536.2 76.6 000 ml In Empty Bag 1 bag @ 1 ML/KG/HR 76.6 mls/hr IV .Q13H4M [facility] Rx#: [id number] propofoL 1,000 mg In 200 221.610 74.22 Empty Bag 1 bag @ 15 MCG/ KG/MIN 7.144 mls/hr IV . Q14H [facility] Rx#:[id number] Tube Feeding 80 Other 30 Output: Urine 615 785 30 Other: Voiding Method Indwelling Catheter Indwelling Catheter - Exam No acute distress, sedated, with an orally placed endotracheal tube. HEENT examination is grossly unremarkable. Neck supple. Full range of motion. No adenopathy thyromegaly or neck vein distention. Cardiovascular examination reveals regular rhythm rate. S1-S2 normal. No S3 or S4. No discernible murmur noted. Heart sounds are distant. Lungs reveal mostly clear breath sounds. Scattered rhonchi are noted. No wheezes. No crackles. Breath sounds equal. Abdomen soft bowel sounds are heard. No masses or tenderness. Extremities are intact. No cyanosis clubbing or edema. Skin is without rash or lesion. Neurologic examination not be properly evaluated as the patient is currently on propofol, 50 mcg/kg/min. - Labs CBC & Chem 7: 08/31/24 05:37 08/31/24 05:26 Labs: Abnormal Lab Results - Last 24 Hours (Table) 08/30/24 08/30/24 08/30/24 Range/Units 12:08 13:26 14:37 RBC (4.30-5.90) m/uL Hgb (13.0-17.5) gm/dL Lymphocytes # (1.0-4.8) k/uL APTT (22.0-30.0) sec ABG O2 Saturation (94-97) % Hemoglobin (13.0-17.5) gm/dL Chloride (98-107) mmol/L POC Glucose (mg/dL) 65 L 65 L 114 H (70-110) mg/dL Calcium (8.4-10.2) mg/dL 08/31/24 08/31/24 08/31/24 Range/Units 00:54 05:26 05:30 RBC (4.30-5.90) m/uL Hgb (13.0-17.5) gm/dL Lymphocytes # (1.0-4.8) k/uL APTT 37.8 H (22.0-30.0) sec ABG O2 Saturation 97.9 H (94-97) % Hemoglobin 12.2 L (13.0-17.5) gm/dL Chloride 114 H (98-107) mmol/L POC Glucose (mg/dL) (70-110) mg/dL Calcium 8.1 L (8.4-10.2) mg/dL 08/31/24 08/31/24 08/31/24 Range/Units 05:37 05:37 06:17 RBC 4.14 L (4.30-5.90) m/uL Hgb 12.9 L (13.0-17.5) gm/dL Lymphocytes # 0.6 L (1.0-4.8) k/uL APTT 85.0 H (22.0-30.0) sec ABG O2 Saturation (94-97) % Hemoglobin (13.0-17.5) gm/dL Chloride (98-107) mmol/L POC Glucose (mg/dL) 69 L (70-110) mg/dL Calcium (8.4-10.2) mg/dL Microbiology - Last 24 Hours (Table) 08/29/24 00:02 CSF Gram Stain - Preliminary Cerebral Spinal Fluid CSF Culture - Preliminary 08/28/24 22:12 Gram Stain - Final Sputum Sputum Culture - Final 08/28/24 23:05 Blood Culture - Preliminary Blood Assessment and Plan Assessment: Routine mechanical ventilator management, patient was intubated for airway protection in the ED. Rule out anoxic brain injury. Rule out primary cardiac event. Bilateral small pulmonary emboli. Combined respiratory and metabolic acidosis. Acute febrile illness, of unknown origin. Altered mental status, under investigation. Acute leukocytosis. Poor dentition. Elevated troponin, serial troponins trending. Marijuana use. History of anxiety/depression/bipolar. Plan: Plan dated August 30, 2024. The patient remains on IV heparin. CT angiogram revealed bilateral small pulmonary emboli. In addition, the patient continues on Rocephin. His procalcitonin level was 45.8. The patient will be started on tube feedings. In addition, the patient will eventually need a heart catheterization. He is on lactated Ringer's at 100 cc an hour. He is on propofol at 50 mcg/kg/min. Blood gases show pO2 71, pCO2 36, pH is 7.36. Additional recommendations and suggestions are forthcoming. Labs, x-rays, and all medications are reviewed. Prognosis is guarded. Plan dated August 31, 2024. The patient is seen today in the intensive care unit, room 256. He remains on mechanical ventilator. The patient is apparently scheduled to have a cardiac catheterization today. The patient continues on propofol at 50 mcg/kg/min. He is receiving IV heparin. Blood gases show pO2 of 92, pCO2 of 37, pH is 7.39. The patient is getting saline at 76 cc an hour. The patient continues on antibiotics in the form of Rocephin, and acyclovir. The patient is on tube feedings, with vital AF, at 20 cc an hour. Labs, x-rays, and all medications are reviewed. The EEG showed evidence of metabolic encephalopathy. We will continue to follow make recommendations. Time with Patient: Greater than 30
[2024-08-31] MEDS: IV FLUID CONTINUATION 1,000 ML IV ONE (12:54)
[2024-08-31] MEDS: LIDOCAINE 1% INJ 10MG/ML (20 ML MDV) SQ ONE (12:58)
[2024-08-31] MEDS: HEPARIN SODIUM 1,000 UN/ML (10ML VL) IV ONE (13:03)
[2024-08-31] MEDS ORDERED: RX INFO: IV CONTRAST WAS GIVEN 1 EACH MISC MISCELLANE PRN (13:08)
[2024-08-31] MEDS: IOPAMIDOL-370 100ML BTL INJ ONE (13:09)
--- NOTE | 2024-08-31 13:10 | P.PCN ---
Date of Procedure: 08/31/24 Operative Findings: CARDIAC CATHETERIZATION PERFORMING PHYSICIAN: Fam Garcia MD, RPVI PROCEDURE PERFORMED: 1. Selective right and left coronary angiogram 2. Left heart catheterization 3. Ultrasound-guided access of the right radial artery INDICATION: Send COMPLICATION: None APPROACH: Right radial artery LEVEL OF SEDATION: Moderate with a sedation length of 8 minutes PROCEDURE DESCRIPTION: After obtaining an informed consent, the patient was brought to cardiac blood bank laboratory technician. Local anesthesia was performed using lidocaine subcutaneously. The right radial artery was cannulated using Seldinger technique, the guidewire passed easily, following that we advanced a 5-Burkinan sheath dilator assembly, the wire and dilator were removed and sheath was flushed. Following that, 2 mg of verapamil along with 5000 unit heparin were given. Selective right and left coronary angiogram using a 6-Burkinan JR4 and JL 3.5 catheters. Following that we did left heart catheterization using 6-Burkinan pigtail catheter. The procedure was completed there was no complication. SELECTIVE CORONARY ANGIOGRAM: The right coronary artery: Large-caliber vessel and a dominant vessel with mild disease only Left main: Is angiographically normal The left circumflex: Large-caliber vessel nondominant vessel with no evidence of high-grade stenosis The left anterior descending artery: Large-caliber vessel with no evidence of high-grade stenosis and gives rise into a large diagonal branch which seems to be normal HEMODYNAMICS: LVEDP was 24 mmHg with no significant across aortic valve CONCLUSION: 1. Mild CAD 2. Elevated left-sided filling pressure POSTPROCEDURE MANAGEMENT: Medical treatment
[2024-08-31 13:45] LABS: Glucose,Whole Blood 65 mg/dL (70-110)
[2024-08-31 13:58] LABS: Glucose,Whole Blood 66 mg/dL (70-110)
[2024-08-31] MEDS: SODIUM CHLORIDE 0.9% 1,000 ML IV SCH (14:15)
[2024-08-31 14:47] LABS: Glucose,Whole Blood 110 mg/dL (70-110)
--- NOTE | 2024-08-31 15:23 | P.PN ---
Subjective Progress Note Date: 08/31/24 Patient is one 44-year-old male was brought in unresponsive by his friends found in the bathroom. Patient has abrasion on the forehead. Patient is in respiratory failure because of which patient was intubated patient's ABG is showing 7.2 pH and pCO2 of 46 essentially metabolic acidosis with anion gap [facility] lactic acid was not obtained. Unknown whether patient is a smoker urine patient's urine drug screen is positive for marijuana. Patient also had a high- grade fever of 102. Other source of infection is not clear patient urine analysis is not consistent with UTI chest x-ray did not show any pneumonic infiltrate chest x-ray also showed mild pulmonary venous congestion. Patient is presently not on any pressor support patient urine output is going down because of which I will start him on lactated Ringer's as his repeat lactic acid came down to 1. Patient serum bicarbonate was low with anion gap probably secondary to lactic acidosis which resolved at this time. Patient's abdomen is soft without any evidence of acute abdomen at this time. Patient had a lumbar puncture which showed mild increase in protein, WBCs only 3. Glucose is elevated. Patient is on empiric antibiotic that is Rocephin infectious disease was consulted along with neurology. Patient also found to have elevated troponin without any significant acute ST-T wave changes in the EKG although there was sinus tachycardia secondary to possible sepsis unknown source which improved at this time. Cardiology evaluate the patient patient was started on IV heparin and considering cardiac catheterization. Patient is presently on propofol sedation. Patient is on ventilator support with FiO2 of 40% PEEP of 4.5 tidal volume of 450 set up respiratory of 18 and patient is breathing over the ventilator. 08/30/2024 Patient eval today in follow-up in the intensive care unit. He is on the mechanical ventilator. Procalcitonin level was significantly elevated at 45. He is continued on IV Rocephin/IV acyclovir. Additionally patient had troponin elevation he is continued on IV heparin with plans for cardiac catheterization. He is undergoing neurological evaluation to rule out an anoxic brain injury he will get an EEG and brain CT today. CT angiography did reveal bilateral small pulmonary embolism in the lung bases as well as small bilateral pleural effusions. His ejection fraction was found to be 30 to 35%. 08/31/2024 Patient is eval today in the intensive care unit. He remains intubated and sedated on mechanical ventilator he is receiving propofol. He remains on IV heparin with plans to undergo cardiac catheterization today. Patient continues on IV ceftriaxone as well as IV acyclovir. ID and neurology are following closely. Patient had a brain CT completed which shows no acute intracranial process. He was EEG done which shows mild to moderate encephalopathy periods of relatively well-formed posterior dominant alpha rhythm seen which was not seen in the EEG yesterday overall felt there was improvement in the background of today's EEG as compared to yesterday. Reveals a white blood cell count of 5.9, hemoglobin 12.9, level of 137, potassium 3.8, BUN of 11, creatinine of 0.74. Calcium of 8.1. Sputum Culture showing Shante tropicalis. Able to complete a review of systems as patient is currently intubated and sedated in the intensive care unit. PHYSICAL EXAMINATION: GENERAL: Patient is intubated sedated not in any acute distress. Well developed, well nourished. HEENT: Pupils are round and equally reacting to light. EOMI. No scleral icterus. No conjunctival pallor. Normocephalic, atraumatic. No pharyngeal erythema. No thyromegaly. CARDIOVASCULAR: S1 and S2 present. No murmurs, rubs, or gallops. PULMONARY: Chest is clear to auscultation, no wheezing or crackles. ABDOMEN: Soft, nontender, nondistended, normoactive bowel sounds. No palpable organomegaly. MUSCULOSKELETAL: No joint swelling or deformity. EXTREMITIES: No cyanosis, clubbing, or pedal edema. NEUROLOGICAL: Patient is intubated and sedated SKIN: No rashes. Assessment and plan -Decreased responsiveness patient is intubated for airway protection patient is on above-mentioned ventilator settings -Metabolic acidosis anion gap secondary to lactic acidosis which improved at this time -Bilateral pulmonary embolism -Fever and sepsis source of sepsis is not clear at this time -Acute non-ST elevation myocardial infarction type I AL cannot be ruled out, with troponin elevation. -Marijuana use -Bipolar depression and schizophrenia presently these medications are being held as patient is sedated. DVT prophylaxis: On IV heparin Full Code Patient remains in the ICU on the mechanical ventilator. He is on IV heparin. Plans for cardiac catheterization today. On empiric antibiotics IV ceftriaxone, as well as IV acyclovir. and blood culture pending. ID following closely. Prognosis remains guarded. Repeat blood work in the AM. The impression and plan of care has been dictated by Danielle Montague Nurse Practitioner as directed. Dr. Pratibha MD I have performed a history and physical examination and medical decision making of this patient, discussed the same with the dictator, and agree with the dictators assessment and plan as written, documented as a scribe. Based on total visit time, I have performed more than 50% of this visit. Objective - Vital Signs Vital signs: Vital Signs Temp 99.3 F 08/31/24 04:00 Pulse 75 08/31/24 07:00 Resp 21 08/31/24 07:00 BP 118/76 08/31/24 07:00 Pulse Ox 98 08/31/24 07:00 FiO2 30 08/31/24 15:18 Intake & Output 08/30/24 08/31/24 08/31/24 18:59 06:59 18:59 Intake Total 1412.7 2430.512 400.82 Output Total 615 785 30 Balance 797.7 1645.512 370.82 Weight 76.6 kg 76.6 kg Intake: IV 50 Intake, IV Titration 1412.7 2320.512 350.82 Amount Acyclovir Sodium 750 mg 100 In Sodium Chloride 0.9% 100 ml @ 115 mls/hr IVPB Q8H [facility] Rx#:[id number] Heparin Sod,Pork in 0.45% 12.7 262.702 NaCl 25,000 unit In 0.45 % NaCl 1 250ml.bag @ 12 UNITS/KG/HR 9.525 mls/hr IV .Q24H [facility] Rx#: [id number] Lactated Ringers 1,000 ml 1200 1200 100 @ 100 mls/hr IV .Q10H [facility] Rx#:[id number] Sodium Chloride 0.9% 1, 536.2 76.6 000 ml In Empty Bag 1 bag @ 1 ML/KG/HR 76.6 mls/hr IV .Q13H4M [facility] Rx#: [id number] propofoL 1,000 mg In 200 221.610 174.22 Empty Bag 1 bag @ 15 MCG/ KG/MIN 7.144 mls/hr IV . Q14H [facility] Rx#:[id number] Tube Feeding 80 Other 30 Output: Urine 615 785 30 Other: Voiding Method Indwelling Catheter Indwelling Catheter - Labs CBC & Chem 7: 08/31/24 05:37 08/31/24 05:26 Labs: Abnormal Lab Results - Last 24 Hours (Table) 08/31/24 08/31/24 08/31/24 Range/Units 00:54 05:26 05:30 RBC (4.30-5.90) m/uL Hgb (13.0-17.5) gm/dL Lymphocytes # (1.0-4.8) k/uL APTT 37.8 H (22.0-30.0) sec ABG O2 Saturation 97.9 H (94-97) % Hemoglobin 12.2 L (13.0-17.5) gm/dL Chloride 114 H (98-107) mmol/L POC Glucose (mg/dL) (70-110) mg/dL Calcium 8.1 L (8.4-10.2) mg/dL 08/31/24 08/31/24 08/31/24 Range/Units 05:37 05:37 06:17 RBC 4.14 L (4.30-5.90) m/uL Hgb 12.9 L (13.0-17.5) gm/dL Lymphocytes # 0.6 L (1.0-4.8) k/uL APTT 85.0 H (22.0-30.0) sec ABG O2 Saturation (94-97) % Hemoglobin (13.0-17.5) gm/dL Chloride (98-107) mmol/L POC Glucose (mg/dL) 69 L (70-110) mg/dL Calcium (8.4-10.2) mg/dL 08/31/24 08/31/24 Range/Units 13:42 13:56 RBC (4.30-5.90) m/uL Hgb (13.0-17.5) gm/dL Lymphocytes # (1.0-4.8) k/uL APTT (22.0-30.0) sec ABG O2 Saturation (94-97) % Hemoglobin (13.0-17.5) gm/dL Chloride (98-107) mmol/L POC Glucose (mg/dL) 65 L 66 L (70-110) mg/dL Calcium (8.4-10.2) mg/dL Microbiology - Last 24 Hours (Table) 08/30/24 05:54 Gram Stain - Preliminary Sputum Sputum Culture - Preliminary Shante tropicalis 08/29/24 00:02 CSF Gram Stain - Preliminary Cerebral Spinal Fluid CSF Culture - Preliminary 08/28/24 22:12 Gram Stain - Final Sputum Sputum Culture - Final 08/28/24 23:05 Blood Culture - Preliminary Blood Assessment and Plan Time with Patient: Less than 30
--- NOTE | 2024-08-31 15:24 | P.PN ---
Subjective Progress Note Date: 08/31/24 Principal diagnosis: Reason for follow-up is fever and leukocytosis Patient is a 44-year-old male with a past medical history significant for reflux osteoarthritis chronic shoulder pain patient has been brought into the ER by EMS after pending the patient was found to be unresponsive by his brother, patient did have elevated white count and fever prompted this consul tation workup to include CT angiogram of the chest with evidence of PE. On today's evaluation that is 08/31/2024, the patient did have a low-grade fever of 99.8 F at noon patient remains to be intubated on the vent FiO2 is currently stable at 30% is hemodynamically stable not requiring any pressor support no other changes reported by nursing staff. Patient white count is 5.9 creatinine 0.74 sputum is growing Shante tropicalis blood cultures are pending he did have a cardiac cath mild CAD Objective - Vital Signs Vital signs: Vital Signs Temp 99.3 F 08/31/24 04:00 Pulse 75 08/31/24 07:00 Resp 21 08/31/24 07:00 BP 118/76 08/31/24 07:00 Pulse Ox 98 08/31/24 07:00 FiO2 40 08/31/24 07:57 Intake & Output 08/30/24 08/31/24 08/31/24 18:59 06:59 18:59 Intake Total 1412.7 2430.512 250.82 Output Total 615 785 30 Balance 797.7 1645.512 220.82 Weight 76.6 kg Intake: Intake, IV Titration 1412.7 2320.512 250.82 Amount Acyclovir Sodium 750 mg 100 In Sodium Chloride 0.9% 100 ml @ 115 mls/hr IVPB Q8H [facility] Rx#:[id number] Heparin Sod,Pork in 0.45% 12.7 262.702 NaCl 25,000 unit In 0.45 % NaCl 1 250ml.bag @ 12 UNITS/KG/HR 9.525 mls/hr IV .Q24H [facility] Rx#: [id number] Lactated Ringers 1,000 ml 1200 1200 100 @ 100 mls/hr IV .Q10H [facility] Rx#:[id number] Sodium Chloride 0.9% 1, 536.2 76.6 000 ml In Empty Bag 1 bag @ 1 ML/KG/HR 76.6 mls/hr IV .Q13H4M [facility] Rx#: [id number] propofoL 1,000 mg In 200 221.610 74.22 Empty Bag 1 bag @ 15 MCG/ KG/MIN 7.144 mls/hr IV . Q14H [facility] Rx#:[id number] Tube Feeding 80 Other 30 Output: Urine 615 785 30 Other: Voiding Method Indwelling Catheter Indwelling Catheter - Exam GENERAL DESCRIPTION: Middle-age male intubated on the vent RESPIRATORY SYSTEM: Unlabored breathing , decreased breath sounds at bases HEART: S1 S2 regular rate and rhythm , ABDOMEN: Soft , no tenderness EXTREMITIES: No edema feet - Labs CBC & Chem 7: 08/31/24 05:37 08/31/24 05:26 Labs: Abnormal Lab Results - Last 24 Hours (Table) 08/30/24 08/30/24 08/30/24 Range/Units 12:08 13:26 14:37 RBC (4.30-5.90) m/uL Hgb (13.0-17.5) gm/dL Lymphocytes # (1.0-4.8) k/uL APTT (22.0-30.0) sec ABG O2 Saturation (94-97) % Hemoglobin (13.0-17.5) gm/dL Chloride (98-107) mmol/L POC Glucose (mg/dL) 65 L 65 L 114 H (70-110) mg/dL Calcium (8.4-10.2) mg/dL 08/31/24 08/31/24 08/31/24 Range/Units 00:54 05:26 05:30 RBC (4.30-5.90) m/uL Hgb (13.0-17.5) gm/dL Lymphocytes # (1.0-4.8) k/uL APTT 37.8 H (22.0-30.0) sec ABG O2 Saturation 97.9 H (94-97) % Hemoglobin 12.2 L (13.0-17.5) gm/dL Chloride 114 H (98-107) mmol/L POC Glucose (mg/dL) (70-110) mg/dL Calcium 8.1 L (8.4-10.2) mg/dL 08/31/24 08/31/24 08/31/24 Range/Units 05:37 05:37 06:17 RBC 4.14 L (4.30-5.90) m/uL Hgb 12.9 L (13.0-17.5) gm/dL Lymphocytes # 0.6 L (1.0-4.8) k/uL APTT 85.0 H (22.0-30.0) sec ABG O2 Saturation (94-97) % Hemoglobin (13.0-17.5) gm/dL Chloride (98-107) mmol/L POC Glucose (mg/dL) 69 L (70-110) mg/dL Calcium (8.4-10.2) mg/dL Microbiology - Last 24 Hours (Table) 08/29/24 00:02 CSF Gram Stain - Preliminary Cerebral Spinal Fluid CSF Culture - Preliminary 08/28/24 22:12 Gram Stain - Final Sputum Sputum Culture - Final 08/28/24 23:05 Blood Culture - Preliminary Blood Assessment and Plan (1) SIRS (systemic inflammatory response syndrome) Current Visit: Yes Status: Acute Code(s): R65.10 - SIRS OF NON-INFECTIOUS ORIGIN W/O ACUTE ORGAN DYSFUNCTION SNOMED Code(s): 149849221 (2) Fever Current Visit: Yes Status: Acute Code(s): R50.9 - FEVER, UNSPECIFIED SNOMED Code(s): 949998605 (3) Leukocytosis Current Visit: Yes Status: Acute Code(s): D72.829 - ELEVATED WHITE BLOOD CELL COUNT, UNSPECIFIED SNOMED Code(s): 245051509 Plan: 1patient presented to hospital with an episode of unresponsiveness requiring intubation in this patient who did have fever and high white count tachycardia meeting criteria for SIRS however the patient did not have very clear focus of infection on the initial investigation urine is significantly positive chest x- ray was negative for acute infiltrate did have a C7 examination not suggestive of encephalitis or meningitis patient did have elevated D-dimer with a question of possible PE or abdominal source not entirely excluded 2-patient did have a CT angiogram of the chest with evidence of PE patient has been started on heparin patient is status post cardiac cath with mild CAD 3-patient did have resolution of his fever and cultures currently pending, patient to continue Rocephin while waiting for the blood and sputum culture to finalize and monitor clinical course closely Dictation was produced using [employer] software. please excuse any grammatical, word or spelling errors. Time with Patient: Less than 30
[2024-08-31 17:59] LABS: Glucose,Whole Blood 71 mg/dL (70-110)
[2024-09-01 00:22] LABS: Glucose,Whole Blood 85 mg/dL (70-110)
[2024-09-01 05:10] LABS: Basophils % (A) 0 %; Eosinophils # (A) 0.1 k/uL (0-0.7); Eosinophils % (A) 2 %; HCT 34.6 % (39.0-53.0); HGB 11.3 gm/dL (13.0-17.5); Lymphocytes # (A) 0.6 k/uL (1.0-4.8); Lymphocytes % (A) 10 %; MCH 30.4 pg (25.0-35.0); MCHC 32.6 g/dL (31.0-37.0); MCV 93.1 fL (80.0-100.0); Mean Platelet Volume 8.1; Monocytes # (A) 0.4 k/uL (0-1.0); Monocytes % (A) 7 %; Neutrophils # (A) 4.5 k/uL (1.3-7.7); Neutrophils % (A) 78 %; Platelet Count 216 k/uL (150-450); RBC 3.71 m/uL (4.30-5.90); RDW 15.5 % (11.5-15.5); WBC 5.8 k/uL (3.8-10.6)
[2024-09-01 06:17] LABS: ABG Base Excess -1.6 mmol/L; ABG HCO3 23 mmol/L (21-25); ABG Oxygen Saturation 98.3 % (94-97); ABG PCO2 38 mmHg (35-45); ABG PH 7.39 (7.35-7.45); ABG PO2 97 mmHg (83-108); ABG TCO2 24 mmol/L (19-24); Allen Test Performed? Yes
[2024-09-01 06:36] LABS: Glucose,Whole Blood 88 mg/dL (70-110)
[2024-09-01 06:42] LABS: African American GFR (CKD) >90 (>60 ml/min/1.73 sqM); Anion Gap 2 mmol/L; Blood Urea Nitrogen 7 mg/dL (9-20); Carbon Dioxide 20 mmol/L (22-30); Chloride 115 mmol/L (98-107); Glucose 82 mg/dL (74-99); Non-African American GFR(CKD) >90 (>60 ml/min/1.73 sqM); Potassium 3.5 mmol/L (3.5-5.1); Sodium 137 mmol/L (137-145)
--- NOTE | 2024-09-01 07:11 | XR ---
EXAMINATION TYPE: XR chest 1V portable DATE OF EXAM: 09/01/2024 5:27 AM COMPARISON: Chest radiograph from one day prior. CLINICAL INDICATION: Male, 44 years old with history of Pt. intubated; [facility] TECHNIQUE: XR chest 1V portable Frontal view of the chest. FINDINGS: Lungs/Pleura: There may be a small left layering pleural effusion There is no evidence of right pleur al effusion, focal consolidation, or pneumothorax. Pulmonary vascularity: Unremarkable. Heart/mediastinum: Cardiomediastinal silhouette is unremarkable. Musculoskeletal: No acute osseous pathology. Other findings: None Lines/Tubes: Endotracheal tube with distal tip 6.4 cm above the narayan. Nasogastric tube with its distal tip and side-port projecting under the diaphragm. IMPRESSION: * Support tubes in satisfactory position. * There may be a small left layering pleural effusion. [facility], , 09/01/2024 7:09 AM
--- NOTE | 2024-09-01 07:47 | P.PN ---
Subjective Progress Note Date: 09/01/24 The patient is a 44-year-old gentleman who we requested to see in the intensive care unit for further evaluation of abnormal cardiac enzymes. The patient currently is intubated and he is on mechanical ventilation. The history was taken from the chart as well as from the nurse taking care of the patient. Apparently patient was brought to the hospital by friends who found the patient unresponsive at home by the bathroom with some bruises on the right side of the face. No indication that the patient was experiencing any symptoms of chest pain or chest discomfort or any other cardiovascular symptoms. No drug screen was performed. Currently patient is intubated on mechanical ventilation and he is not on any vasopressors at this point. He underwent further evaluation including troponin came in to be elevated at 5 and also EKG showed sinus mechanism and initially sinus tachycardia but subsequently only sinus mechanism with no significant ST or T wave abnormalities. Chest x-ray did not show any acute abnormalities. No prior cardiovascular history of CAD or heart failure or cardiac arrhythmia but the details on the past medical history is not available at this point giving that the patient is intubated on mechanical ventilation. The chest x-ray did not show any acute abnormalities. The rest of the blood work came in to be unremarkable except that there is no drug screen ordered. T he physical examination is remarkable for regular rhythm with a systolic murmur at the right upper sternal border with clear breathing sounds bilaterally and no carotid bruit and no edema was noted. Please note that the CT scan of the brain did not show any acute abnormalities as well. August 29, 2024 The patient was seen and evaluated this morning. He continues to be intubated on mechanical ventilation. Hemodynamically he is stable. His heart rate has been in the 60s. Neurology was consulted and CT scan of the head to be performed later on today to rule out any anoxic encephalopathy. If that ruled out he need to undergo a heart catheterization but the echo showed cardiomyopathy with EF between 30 to 35% with wall motion abnormalities concerning for severe underlying coronary artery disease. Examination is remarkable for regular rhythm with a soft systolic murmur and clear breathing sounds bilaterally and no edema was noted in the lower extremities. CT scan of the chest was performed and showed possible small bilateral pulmonary embolism and elevated patient is on heparin IV August 2024 The patient was seen and evaluated this morning. He continues to be intubated on mechanical ventilation but he is following commands. He is on aspirin and statin and he continues to be on heparin IV. The examination is remarkable for regular rhythm with a soft systolic murmur and clear breathing sounds bilaterally and no edema was noted in the lower extremities. The plan is to pursue with a heart catheterization later on today. September 01, 2024 The patient was seen and evaluated this morning. He underwent a heart catheterization yesterday which showed less of occlusive CAD. He was seen and evaluated this morning. He is hemodynamically stable and he is in normal sinus mechanism. He is slightly agitated. He is on heparin for possible pulmonary embolism and that need to be addressed by the critical care team. From a cardiovascular standpoint of view he does not to be on any IV heparin at this point. He is on beta-jaime and aspirin and statin and I am going to add lisinopril to the current medical regimen. Examination is remarkable for regular rhythm with clear breathing sounds bilaterally and no edema was noted Assessment Acute coronary syndrome Cardiomyopathy Acute hypoxic respiratory failure Cardiac arrest Possible pulmonary embolism Plan Continue the current medical regimen Continue aspirin and statin Add lisinopril to the current medical regimen No need for heparin from the cardiovascular standpoint of view Objective - Vital Signs Vital signs: Vital Signs Temp 98.0 F 09/01/24 04:00 Pulse 82 09/01/24 07:00 Resp 18 09/01/24 07:00 BP 121/76 09/01/24 07:00 Pulse Ox 96 09/01/24 07:00 FiO2 40 09/01/24 04:00 Intake & Output 08/31/24 09/01/24 09/01/24 18:59 06:59 18:59 Intake Total 4748.700 4112.630 130 Output Total 755 1140 75 Balance 772.955 531.630 55 Weight 76.6 kg Intake: IV 50 Intake, IV Titration 0208.376 1297.630 100 Amount Heparin Sod,Pork in 0.45% 55.935 44.082 NaCl 25,000 unit In 0.45 % NaCl 1 250ml.bag @ 12 UNITS/KG/HR 9.525 mls/hr IV .Q24H [facility] Rx#: [id number] Lactated Ringers 1,000 ml 100 800 100 @ 100 mls/hr IV .Q10H [facility] Rx#:[id number] Sodium Chloride 0.9% 1, 375 225 000 ml @ 75 mls/hr IV . [id number] [facility] Rx#:[id number] Sodium Chloride 0.9% 1, 612.8 000 ml In Empty Bag 1 bag @ 1 ML/KG/HR 76.6 mls/hr IV .Q13H4M [facility] Rx#: [id number] propofoL 1,000 mg In 274.22 262.548 Empty Bag 1 bag @ 15 MCG/ KG/MIN 7.144 mls/hr IV . Q14H [facility] Rx#:[id number] Tube Feeding 60 250 30 Other 90 Output: Urine 755 1140 75 Other: Voiding Method Indwelling Catheter Indwelling Catheter - Labs CBC & Chem 7: 09/01/24 04:34 09/01/24 04:34 Labs: Abnormal Lab Results - Last 24 Hours (Table) 08/31/24 08/31/24 08/31/24 Range/Units 13:42 13:56 18:56 RBC (4.30-5.90) m/uL Hgb (13.0-17.5) gm/dL Hct (39.0-53.0) % Lymphocytes # (1.0-4.8) k/uL APTT 33.1 H (22.0-30.0) sec ABG O2 Saturation (94-97) % Hemoglobin (13.0-17.5) gm/dL Chloride (98-107) mmol/L Carbon Dioxide (22-30) mmol/L BUN (9-20) mg/dL Creatinine (0.66-1.25) mg/dL POC Glucose (mg/dL) 65 L 66 L (70-110) mg/dL Calcium (8.4-10.2) mg/dL 09/01/24 09/01/24 09/01/24 Range/Units 04:34 04:34 04:34 RBC 3.71 L (4.30-5.90) m/uL Hgb 11.3 L (13.0-17.5) gm/dL Hct 34.6 L (39.0-53.0) % Lymphocytes # 0.6 L (1.0-4.8) k/uL APTT 46.1 H (22.0-30.0) sec ABG O2 Saturation (94-97) % Hemoglobin (13.0-17.5) gm/dL Chloride 115 H (98-107) mmol/L Carbon Dioxide 20 L (22-30) mmol/L BUN 7 L (9-20) mg/dL Creatinine 0.61 L (0.66-1.25) mg/dL POC Glucose (mg/dL) (70-110) mg/dL Calcium 8.0 L (8.4-10.2) mg/dL 09/01/24 Range/Units 06:16 RBC (4.30-5.90) m/uL Hgb (13.0-17.5) gm/dL Hct (39.0-53.0) % Lymphocytes # (1.0-4.8) k/uL APTT (22.0-30.0) sec ABG O2 Saturation 98.3 H (94-97) % Hemoglobin 12.1 L (13.0-17.5) gm/dL Chloride (98-107) mmol/L Carbon Dioxide (22-30) mmol/L BUN (9-20) mg/dL Creatinine (0.66-1.25) mg/dL POC Glucose (mg/dL) (70-110) mg/dL Calcium (8.4-10.2) mg/dL Microbiology - Last 24 Hours (Table) 08/28/24 23:05 Blood Culture - Preliminary Blood 08/30/24 05:54 Gram Stain - Preliminary Sputum Sputum Culture - Preliminary Shante tropicalis 08/29/24 00:02 CSF Gram Stain - Preliminary Cerebral Spinal Fluid CSF Culture - Preliminary 08/28/24 22:12 Gram Stain - Final Sputum Sputum Culture - Final
[2024-09-01] MEDS: POTASSIUM BICARBONATE/CIT AC 20 MEQ TABLET.EFF NG-TUBE SCH (08:50)
--- NOTE | 2024-09-01 09:44 | P.PN ---
Subjective Progress Note Date: 08/30/24 Patient was seen for a follow-up. Patient currently on propofol 50 mcg/g/min. Patient was slightly hypoglycemic today at 65, but now it is 114. Patient is breathing over the ventilator. No seizure-like activity noted. Objective - Vital Signs Vital signs: Vital Signs Temp 97.4 F L 09/01/24 08:00 Pulse 71 09/01/24 09:00 Resp 24 09/01/24 09:00 BP 144/81 09/01/24 09:00 Pulse Ox 96 09/01/24 09:00 FiO2 40 09/01/24 08:00 Intake & Output 08/31/24 09/01/24 09/01/24 18:59 06:59 18:59 Intake Total 0687.190 6665.630 362.154 Output Total 755 1140 75 Balance 772.955 531.630 287.154 Weight 76.6 kg Intake: IV 50 Intake, IV Titration 5857.253 7374.630 332.154 Amount Heparin Sod,Pork in 0.45% 55.935 44.082 150.908 NaCl 25,000 unit In 0.45 % NaCl 1 250ml.bag @ 12 UNITS/KG/HR 9.525 mls/hr IV .Q24H [facility] Rx#: [id number] Lactated Ringers 1,000 ml 100 800 100 @ 100 mls/hr IV .Q10H [facility] Rx#:[id number] Sodium Chloride 0.9% 1, 375 225 000 ml @ 75 mls/hr IV . [id number] [facility] Rx#:[id number] Sodium Chloride 0.9% 1, 612.8 000 ml In Empty Bag 1 bag @ 1 ML/KG/HR 76.6 mls/hr IV .Q13H4M [facility] Rx#: [id number] propofoL 1,000 mg In 274.22 262.548 81.246 Empty Bag 1 bag @ 15 MCG/ KG/MIN 7.144 mls/hr IV . Q14H [facility] Rx#:[id number] Tube Feeding 60 250 30 Other 90 Output: Urine 755 1140 75 Other: Voiding Method Indwelling Catheter Indwelling Catheter - Exam Patient's pupils are equal, round and reacting, oculocephalics are present. Patient is intubated, sedated with propofol 50 mcg/kg/min. Also has heparin running. Corneals are present. Patient does have a gag and cough reflex. Patient is breathing over the ventilator. Patient does not respond to painful stimuli. Reflexes are diminished and plantars are upgoing bilaterally. No obvious seizure-like activity noted. - Labs CBC & Chem 7: 09/01/24 04:34 09/01/24 04:34 Labs: Abnormal Lab Results - Last 24 Hours (Table) 08/31/24 08/31/24 08/31/24 Range/Units 13:42 13:56 18:56 RBC (4.30-5.90) m/uL Hgb (13.0-17.5) gm/dL Hct (39.0-53.0) % Lymphocytes # (1.0-4.8) k/uL APTT 33.1 H (22.0-30.0) sec ABG O2 Saturation (94-97) % Hemoglobin (13.0-17.5) gm/dL Chloride (98-107) mmol/L Carbon Dioxide (22-30) mmol/L BUN (9-20) mg/dL Creatinine (0.66-1.25) mg/dL POC Glucose (mg/dL) 65 L 66 L (70-110) mg/dL Calcium (8.4-10.2) mg/dL 09/01/24 09/01/24 09/01/24 Range/Units 04:34 04:34 04:34 RBC 3.71 L (4.30-5.90) m/uL Hgb 11.3 L (13.0-17.5) gm/dL Hct 34.6 L (39.0-53.0) % Lymphocytes # 0.6 L (1.0-4.8) k/uL APTT 46.1 H (22.0-30.0) sec ABG O2 Saturation (94-97) % Hemoglobin (13.0-17.5) gm/dL Chloride 115 H (98-107) mmol/L Carbon Dioxide 20 L (22-30) mmol/L BUN 7 L (9-20) mg/dL Creatinine 0.61 L (0.66-1.25) mg/dL POC Glucose (mg/dL) (70-110) mg/dL Calcium 8.0 L (8.4-10.2) mg/dL 09/01/24 Range/Units 06:16 RBC (4.30-5.90) m/uL Hgb (13.0-17.5) gm/dL Hct (39.0-53.0) % Lymphocytes # (1.0-4.8) k/uL APTT (22.0-30.0) sec ABG O2 Saturation 98.3 H (94-97) % Hemoglobin 12.1 L (13.0-17.5) gm/dL Chloride (98-107) mmol/L Carbon Dioxide (22-30) mmol/L BUN (9-20) mg/dL Creatinine (0.66-1.25) mg/dL POC Glucose (mg/dL) (70-110) mg/dL Calcium (8.4-10.2) mg/dL Microbiology - Last 24 Hours (Table) 08/29/24 00:02 CSF Gram Stain - Preliminary Cerebral Spinal Fluid CSF Culture - Preliminary 08/28/24 23:05 Blood Culture - Preliminary Blood 08/30/24 05:54 Gram Stain - Preliminary Sputum Sputum Culture - Preliminary Shante tropicalis 08/28/24 22:12 Gram Stain - Final Sputum Sputum Culture - Final Assessment and Plan Assessment: * Acute episode of unresponsiveness, unclear cause. Rule out seizure, CVA, arrhythmia. Rule out drug overdose. * Altered mental status, possible metabolic encephalopathy. Rule out seizures. * Acute febrile illness * Mechanical ventilation due to respiratory failure * Bilateral small pulmonary emboli * Elevated troponin, on heparin drip * Marijuana use * History of anxiety/depression/bipolar Plan: * Patient continues to be significantly encephalopathic. Exact cause remains uncertain. * Lumbar puncture, with CSF WBCs are 3, RBC 15, glucose 124 and protein 68/60. Gram stain showed no polymorphonuclear leukocytes, no organisms seen. Await comprehensive viral panel to the CSF. * Infectious disease on board, suspecting source. Patient currently on ceftriaxone. We will add acyclovir pending HSV PCR results. * Initial EEG was performed 08/29/2024, which was abnormal due to background slowing of moderate to severe degree. This is suggestive of generalized cerebral dysfunction as can be seen with toxic metabolic encephalopathy r elated to diffuse structural brain abnormality. Clinical correlation is recommended. There is presence of intermittent, low amplitude sharp appearing waves seen over the right temporal region, suggestive of focal cortical neuronal dysfunction with underlying cortical irritability. No electrographic seizure was recorded. Follow-up EEG recommended as clinically indicated. * Continue Keppra 1000 mg IV twice daily * Repeat prolonged EEG for 1 hour 08/30/2024 was abnormal due to background slowing, suggestive of mild to moderate encephalopathy. There were periods of relatively well-formed posterior dominant alpha rhythm seen, which was not seen in the EEG yesterday. No epileptiform activity was seen. Overall there is improvement in the background on today's EEG as compared to yesterday. C linical correlation recommended. No electrographic seizure was recorded. * Repeat CT head 08/30/2024 revealed no acute intracranial process. I personally reviewed CT head, agree with the findings. * Patient has elevated cardiac enzymes, currently on heparin IV drip. * CT chest abdomen pelvis showed small bilateral pleural effusions with adjacent infiltrates could be related to atelectasis versus pneumonia. CT of the chest revealed small tertiary branch pulmonary emboli bilateral lung bases. * Other medical management as per IM, critical care team and other specialties on board. * Discussed with patient's nurse in detail.
--- NOTE | 2024-09-01 09:55 | P.PN ---
Subjective Progress Note Date: 08/31/24 Patient was seen for a follow-up. Patient currently on propofol 50 mcg/g/min. Also on heparin drip. Patient underwent cardiac catheterization today. Patient is breathing over the ventilator. No seizure-like activity noted. Patient is showing some meaningful response as examination below. Objective - Vital Signs Vital signs: Vital Signs Temp 99.8 F H 08/31/24 12:00 Pulse 58 L 08/31/24 15:00 Resp 18 08/31/24 15:00 BP 116/72 08/31/24 15:00 Pulse Ox 96 08/31/24 15:00 FiO2 40 08/31/24 15:18 Intake & Output 08/30/24 08/31/24 08/31/24 18:59 06:59 18:59 Intake Total 1412.7 2430.512 1012.02 Output Total 615 785 605 Balance 797.7 1645.512 407.02 Weight 76.6 kg 76.6 kg Intake: IV 50 Intake, IV Titration 1412.7 2320.512 962.02 Amount Acyclovir Sodium 750 mg 100 In Sodium Chloride 0.9% 100 ml @ 115 mls/hr IVPB Q8H [facility] Rx#:[id number] Heparin Sod,Pork in 0.45% 12.7 262.702 NaCl 25,000 unit In 0.45 % NaCl 1 250ml.bag @ 12 UNITS/KG/HR 9.525 mls/hr IV .Q24H [facility] Rx#: [id number] Lactated Ringers 1,000 ml 1200 1200 100 @ 100 mls/hr IV .Q10H [facility] Rx#:[id number] Sodium Chloride 0.9% 1, 75 000 ml @ 75 mls/hr IV . [id number] [facility] Rx#:[id number] Sodium Chloride 0.9% 1, 536.2 612.8 000 ml In Empty Bag 1 bag @ 1 ML/KG/HR 76.6 mls/hr IV .Q13H4M [facility] Rx#: [id number] propofoL 1,000 mg In 200 221.610 174.22 Empty Bag 1 bag @ 15 MCG/ KG/MIN 7.144 mls/hr IV . Q14H [facility] Rx#:[id number] Tube Feeding 80 Other 30 Output: Urine 615 785 605 Other: Voiding Method Indwelling Catheter Indwelling Catheter Indwelling Catheter - Exam Patient is a middle aged male, who is intubated, sedated with propofol 50 mcg/kg/min. Also on heparin drip. Patient's pupils are equal, round and reacting, oculocephalics are present. Corneals are present. Patient does have a gag and cough reflex. Patient is breathing over the ventilator. Patient is apparently turning his head towards the side of the examiner. He is slightly trying to move his eyes towards the examiner as well. Patient is trying to open eyes, with some painful stimuli. No obvious seizure-like activity noted. Reflexes are trace in the upper limbs, 1 at the knees and plantars are upgoing bilaterally. - Labs CBC & Chem 7: 09/01/24 04:34 09/01/24 04:34 Labs: Abnormal Lab Results - Last 24 Hours (Table) 08/31/24 08/31/24 08/31/24 Range/Units 00:54 05:26 05:30 RBC (4.30-5.90) m/uL Hgb (13.0-17.5) gm/dL Lymphocytes # (1.0-4.8) k/uL APTT 37.8 H (22.0-30.0) sec ABG O2 Saturation 97.9 H (94-97) % Hemoglobin 12.2 L (13.0-17.5) gm/dL Chloride 114 H (98-107) mmol/L POC Glucose (mg/dL) (70-110) mg/dL Calcium 8.1 L (8.4-10.2) mg/dL 08/31/24 08/31/24 08/31/24 Range/Units 05:37 05:37 06:17 RBC 4.14 L (4.30-5.90) m/uL Hgb 12.9 L (13.0-17.5) gm/dL Lymphocytes # 0.6 L (1.0-4.8) k/uL APTT 85.0 H (22.0-30.0) sec ABG O2 Saturation (94-97) % Hemoglobin (13.0-17.5) gm/dL Chloride (98-107) mmol/L POC Glucose (mg/dL) 69 L (70-110) mg/dL Calcium (8.4-10.2) mg/dL 08/31/24 08/31/24 Range/Units 13:42 13:56 RBC (4.30-5.90) m/uL Hgb (13.0-17.5) gm/dL Lymphocytes # (1.0-4.8) k/uL APTT (22.0-30.0) sec ABG O2 Saturation (94-97) % Hemoglobin (13.0-17.5) gm/dL Chloride (98-107) mmol/L POC Glucose (mg/dL) 65 L 66 L (70-110) mg/dL Calcium (8.4-10.2) mg/dL Microbiology - Last 24 Hours (Table) 08/30/24 05:54 Gram Stain - Preliminary Sputum Sputum Culture - Preliminary Shante tropicalis 08/29/24 00:02 CSF Gram Stain - Preliminary Cerebral Spinal Fluid CSF Culture - Preliminary 08/28/24 22:12 Gram Stain - Final Sputum Sputum Culture - Final 08/28/24 23:05 Blood Culture - Preliminary Blood Assessment and Plan Assessment: * Acute episode of unresponsiveness, unclear cause. Rule out hypoxic enceph alopathy. Rule out seizure, versus arrhythmia, rule out drug overdose. CVA less likely, with normal CT head x 2. * Altered mental status, possible metabolic encephalopathy. Rule out seizures. * Acute febrile illness * Mechanical ventilation due to respiratory failure * Bilateral small pulmonary emboli * Elevated troponin, on heparin drip * Marijuana use * History of anxiety/depression/bipolar Plan: * Patient today's examination shows better response. He was trying to move his head to the side of the examiner. He is trying to open his eyes. Still not following commands like squeezing hands. * Lumbar puncture, with CSF WBCs are 3, RBC 15, glucose 124 and protein 68/60. Gram stain showed no polymorphonuclear leukocytes, no organisms seen. Await comprehensive viral panel to the CSF. * Infectious disease on board, suspecting source. Patient currently on ceftriaxone. We will add acyclovir pending HSV PCR results. * Initial EEG was performed 08/29/2024, which was abnormal due to background slowing of moderate to severe degree. This is suggestive of generalized cerebral dysfunction as can be seen with toxic metabolic encephalopathy related to diffuse structural brain abnormality. Clinical correlation is recommended. There is presence of intermittent, low amplitude sharp appearing waves seen over the right temporal region, suggestive of focal cortical ne uronal dysfunction with underlying cortical irritability. No electrographic seizure was recorded. Follow-up EEG recommended as clinically indicated. * Continue Keppra 1000 mg IV twice daily * Repeat prolonged EEG for 1 hour 08/30/2024 was abnormal due to background slowing, suggestive of mild to moderate encephalopathy. There were periods of relatively well-formed posterior dominant alpha rhythm seen, which was not seen in the EEG yesterday. No epileptiform activity was seen. Overall there is improvement in the background on today's EEG as compared to yesterday. Clinical correlation recommended. No electrographic seizure was recorded. * Repeat CT head 08/30/2024 revealed no acute intracranial process. I personally reviewed CT head, agree with the findings. * Patient has elevated cardiac enzymes, currently on heparin IV drip. * CT chest abdomen pelvis showed small bilateral pleural effusions with adjacent infiltrates could be related to atelectasis versus pneumonia. CT of the chest revealed small tertiary branch pulmonary emboli bilateral lung bases. * Other medical management as per IM, critical care team and other specialties on board. * Discussed with patient's nurse in detail.
--- NOTE | 2024-09-01 11:10 | P.PN ---
Subjective Progress Note Date: 09/01/24 Principal diagnosis: Possible cardiac arrest. Patient is a 44-year-old male brought in by EMS unresponsive, required intubation by ED provider for airway protection. He is not able to provide any information for HPI. Found by EMS, unresponsive, lying on the bathroom floor next to the toilet. Unclear if the patient fell. He does have an abrasion to his right forehead. It looks like patient had a ER visit earlier this month for altered mental status. He was prescribed meclizine and discharged home. Not much for documented medical history. He does reportedly have a significant psychiatric history. Brain CT of the head without contrast did not show any acute intracranial hemorrhage or mass effect. Febrile on arrival with a Tmax of 102.2 F. No reports of aspiration. Postintubation chest x-ray showing endotracheal tube approximately 4.5 cm above the narayan. Orogastric tube coursing below the diaphragm. No obvious focal infiltrates, or evidence of pneumonia. There was mild central vascular congestion, no pleural effusions. Urinalysis unremarkable for UTI. Abdomen is soft and does not appear acute. Patient has acute febrile illness of unknown origin. The ER provider did perform a lumbar puncture. Total nucleated cells 3, glucose 124, total protein 68. CSF culture pending. He was given a dose of Rocephin in the ED, essentially empiric. CBC: WBC count 22.3, hemoglobin 15.7, hematocrit 48.9, platelets 354. CMP: Sodium 140, potassium 4.3, chloride 112, serum bicarb 15, BUN 15, creatinine 1.31, glucose 198. Lactic 1. CK 860. Urine toxicology screen negative except for marijuana. Serum alcohol less than 10. Negative for influenza, RSV, COVID. Troponin 0.633. EKG: Sinus tachycardia, rate 118 bpm, no obvious acute ischemic changes. Patient currently being evaluated in the intensive care unit. Remains intubated to mechanical ventilator with current ventilator settings assist- control, respiratory rate 18, tidal volume 450, FiO2 40%, PEEP of 5. Sedated on propofol which is infusing at 50 mcg/kg/min. Breathing slightly above set rate. Peak pressures low around 15. Some pink-colored secretions were noted in the ET tube and sent for culture. Follow-up ABG showing improvement in the patient's combined respiratory and metabolic acidosis. PaO2 of 83, pCO2 of 35, pH of 7.39. Blood pressure remains normotensive. He did receive a 2 L normal saline bolus in the ED, and continues receiving normal saline at 130 mL/h. Urine output around 30-50 cc/h. Continues to be sedated on propofol, currently unresponsive to even painful stimuli. No clinical seizure activity noted. Prognosis guarded. Progress note dated August 30, 2024. 44-year-old male seen yesterday in consultation. He was found in the bathroom, at home, unresponsive. The patient was intubated in the emergency department, for airway protection. There he also had a lumbar puncture performed by the ER physician. The patient was seen by cardiology. They are concerned about a primary cardiac event. He will eventually need a cardiac catheterization. The patient remains on the ventilator. He is on volume assist-control, rate 18, tidal volume 450, FiO2 40%, PEEP of 5. Blood gases show pO2 71, pCO2 36, pH of 7.36. The patient remains on IV heparin, lactated Ringer's at 100 cc an hour, propofol at 50 mcg/kg/min. The patient's procalcitonin level was 45.8. The patient continues on Rocephin. CT angiogram showed bilateral small pulmonary emboli. The patient will need tube feedings to be started. Eventually he will need a cardiac catheterization. White count is 7.7, hemoglobin 13.8, hematocrit 44.5, platelet count 169,000. PT 11.4. INR 1, PTT is 36.5. Sodium 136, potassium 4.1, chloride 112, CO2 17, BUN 16, creatinine 0.81. Glucose is 65. Calcium 8.4. Troponins were 0.633, 5.610, 4.050, and 2.780. Chest x-ray has been reviewed. Progress note dated August 31, 2024. 44-year-old male seen in room 256. The patient remains on the mechanical ventilator. He is on volume assist-control, rate 18, tidal volume 450, FiO2 40%, PEEP of 5. Blood gases show pO2 of 92, pCO2 37, pH is 7.39. The patient is scheduled to have a heart catheterization today. The patient is getting propofol at 50 mcg/kg/min, and IV heparin. The patient is also on saline at 76 cc an hour. The patient continues on Rocephin, and acyclovir as per infectious diseases. He was also started on tube feeds with vital AF at 20 cc an hour. White count is 5.9, hemoglobin 12.9, hematocrit 39.1, platelet count is normal. Sodium 137, potassium 3.8, chlorides 114, CO2 22, BUN 11, creatinine 0.74. Glucose of 69. Calcium 8.1. Chest x-ray is unremarkable. Progress note dated September 01, 2024. 44-year-old male seen in room 256. The patient remains on mechanical ventilator. He is on volume assist-control, rate 18, tidal volume 450, FiO2 40%, PEEP of 5. Blood gases show pO2 of 97, pCO2 of 38, pH of 7.39. The patient had a cardiac catheterization yesterday, and the catheterization was relatively normal. The patient's heparin can be discontinued. He is on lactated Ringer's at 100 cc an hour. He is on propofol at 50 mcg/kg/min. Today, we will do a daily interruption of sedation on a spontaneous breathing trial, with pressure support of 5 and CPAP of 5. The patient is only on Rocephin. Acyclovir was discontinued. White count 5.8, hemoglobin 9.3, hematocrit 34.6, and a normal platelet count. Sodium 137, potassium 3.5, chlorides 115, CO2 20, BUN 7, creatinine 0.61. Calcium is 8. Sputum showed evidence of Shante tropicalis. Chest x-ray looks relatively normal save for a small pleural effusion, on the right. Objective - Vital Signs Vital signs: Vital Signs Temp 97.4 F L 09/01/24 08:00 Pulse 71 09/01/24 10:00 Resp 16 09/01/24 10:00 BP 118/71 09/01/24 10:00 Pulse Ox 97 09/01/24 10:00 FiO2 40 09/01/24 08:00 Intake & Output 08/31/24 09/01/24 09/01/24 18:59 06:59 18:59 Intake Total 3280.821 2181.630 880.908 Output Total 755 1140 575 Balance 772.955 531.630 305.908 Weight 76.6 kg 82.27 kg Intake: IV 50 350 Lactated Ringers 1,000 ml 300 @ 100 mls/hr IV .Q10H [facility] Rx#:[id number] cefTRIAXone 2 gm In 50 Sodium Chloride 0.9% 50 ml @ 100 mls/hr IVPB Q24HR [facility] Rx#:[id number] Intake, IV Titration 5327.415 7624.630 350.908 Amount Heparin Sod,Pork in 0.45% 55.935 44.082 150.908 NaCl 25,000 unit In 0.45 % NaCl 1 250ml.bag @ 12 UNITS/KG/HR 9.525 mls/hr IV .Q24H [facility] Rx#: [id number] Lactated Ringers 1,000 ml 100 800 100 @ 100 mls/hr IV .Q10H [facility] Rx#:[id number] Sodium Chloride 0.9% 1, 375 225 000 ml @ 75 mls/hr IV . [id number] [facility] Rx#:[id number] Sodium Chloride 0.9% 1, 612.8 000 ml In Empty Bag 1 bag @ 1 ML/KG/HR 76.6 mls/hr IV .Q13H4M [facility] Rx#: [id number] propofoL 1,000 mg In 274.22 262.548 100.000 Empty Bag 1 bag @ 15 MCG/ KG/MIN 7.144 mls/hr IV . Q14H [facility] Rx#:[id number] Tube Feeding 60 250 120 Other 90 60 Output: Urine 755 1140 575 Other: Voiding Method Indwelling Catheter Indwelling Catheter Indwelling Catheter - Exam No acute distress, sedated, with an orally placed endotracheal tube. HEENT examination is grossly unremarkable. Neck supple. Full range of motion. No adenopathy thyromegaly or neck vein dist ention. Cardiovascular examination reveals regular rhythm rate. S1-S2 normal. No S3 or S4. No discernible murmur noted. Heart sounds are distant. Lungs reveal mostly clear breath sounds. Scattered rhonchi are noted. No wheezes. No crackles. Breath sounds equal. Abdomen soft bowel sounds are heard. No masses or tenderness. Extremities are intact. No cyanosis clubbing or edema. Skin is without rash or lesion. Neurologic examination not be properly evaluated as the patient is currently on propofol, 50 mcg/kg/min. - Labs CBC & Chem 7: 09/01/24 04:34 09/01/24 04:34 Labs: Abnormal Lab Results - Last 24 Hours (Table) 08/31/24 08/31/24 08/31/24 Range/Units 13:42 13:56 18:56 RBC (4.30-5.90) m/uL Hgb (13.0-17.5) gm/dL Hct (39.0-53.0) % Lymphocytes # (1.0-4.8) k/uL APTT 33.1 H (22.0-30.0) sec ABG O2 Saturation (94-97) % Hemoglobin (13.0-17.5) gm/dL Chloride (98-107) mmol/L Carbon Dioxide (22-30) mmol/L BUN (9-20) mg/dL Creatinine (0.66-1.25) mg/dL POC Glucose (mg/dL) 65 L 66 L (70-110) mg/dL Calcium (8.4-10.2) mg/dL 09/01/24 09/01/24 09/01/24 Range/Units 04:34 04:34 04:34 RBC 3.71 L (4.30-5.90) m/uL Hgb 11.3 L (13.0-17.5) gm/dL Hct 34.6 L (39.0-53.0) % Lymphocytes # 0.6 L (1.0-4.8) k/uL APTT 46.1 H (22.0-30.0) sec ABG O2 Saturation (94-97) % Hemoglobin (13.0-17.5) gm/dL Chloride 115 H (98-107) mmol/L Carbon Dioxide 20 L (22-30) mmol/L BUN 7 L (9-20) mg/dL Creatinine 0.61 L (0.66-1.25) mg/dL POC Glucose (mg/dL) (70-110) mg/dL Calcium 8.0 L (8.4-10.2) mg/dL 09/01/24 Range/Units 06:16 RBC (4.30-5.90) m/uL Hgb (13.0-17.5) gm/dL Hct (39.0-53.0) % Lymphocytes # (1.0-4.8) k/uL APTT (22.0-30.0) sec ABG O2 Saturation 98.3 H (94-97) % Hemoglobin 12.1 L (13.0-17.5) gm/dL Chloride (98-107) mmol/L Carbon Dioxide (22-30) mmol/L BUN (9-20) mg/dL Creatinine (0.66-1.25) mg/dL POC Glucose (mg/dL) (70-110) mg/dL Calcium (8.4-10.2) mg/dL Microbiology - Last 24 Hours (Table) 08/29/24 00:02 CSF Gram Stain - Preliminary Cerebral Spinal Fluid CSF Culture - Preliminary 08/28/24 23:05 Blood Culture - Preliminary Blood 08/30/24 05:54 Gram Stain - Preliminary Sputum Sputum Culture - Preliminary Shante tropicalis 08/28/24 22:12 Gram Stain - Final Sputum Sputum Culture - Final Assessment and Plan Assessment: Routine mechanical ventilator management, patient was intubated for airway protection in the ED. Rule out anoxic brain injury. Cardiac catheterization, August 31, showed only mild CAD. Bilateral small pulmonary emboli. Combined respiratory and metabolic acidosis. Acute febrile illness, of unknown origin. Altered mental status, under investigation. Acute leukocytosis. Poor dentition. Elevated troponin, serial troponins trending. Marijuana use. History of anxiety/depression/bipolar. Plan: Plan dated August 30, 2024. The patient remains on IV heparin. CT angiogram revealed bilateral small pulmonary emboli. In addition, the patient continues on Rocephin. His procalcitonin level was 45.8. The patient will be started on tube feedings. In addition, the patient will eventually need a heart catheterization. He is on lactated Ringer's at 100 cc an hour. He is on propofol at 50 mcg/kg/min. Blood gases show pO2 71, pCO2 36, pH is 7.36. Additional recommendations and suggestions are forthcoming. Labs, x-rays, and all medications are reviewed. Prognosis is guarded. Plan dated August 31, 2024. The patient is seen today in the intensive care unit, room 256. He remains on mechanical ventilator. The patient is apparently scheduled to have a cardiac catheterization today. The patient continues on propofol at 50 mcg/kg/min. He is receiving IV heparin. Blood gases show pO2 of 92, pCO2 of 37, pH is 7.39. The patient is getting saline at 76 cc an hour. The patient continues on antibiotics in the form of Rocephin, and acyclovir. The patient is on tube feedings, with vital AF, at 20 cc an hour. Labs, x-rays, and all medications are reviewed. The EEG showed evidence of metabolic encephalopathy. We will continue to follow make recommendations. Plan dated September 01, 2024. The patient had an uneventful night. The patient does open his eyes. He does seem to respond somewhat. Anyway, the patient will have a daily interruption of sedation, and spontaneous breathing trial today, pressure support of 5, CPAP of 5. His cardiac catheterization, August 31, only showed mild CAD. The patient is getting lactated Ringer's at 100 cc an hour, propofol at 50 mcg/kg/min. He continues on Rocephin. Blood gases show pO2 of 97, pCO2 of 38, pH of 7.39. Labs, x-rays, and all medications are reviewed. Prognosis is guarded. Time with Patient: Greater than 30
[2024-09-01 11:46] LABS: Glucose,Whole Blood 123 mg/dL (70-110)
--- NOTE | 2024-09-01 12:25 | P.PN ---
Subjective Progress Note Date: 09/01/24 Patient is one 44-year-old male was brought in unresponsive by his friends found in the bathroom. Patient has abrasion on the forehead. Patient is in respiratory failure because of which patient was intubated patient's ABG is showing 7.2 pH and pCO2 of 46 essentially metabolic acidosis with anion gap [facility] lactic acid was not obtained. Unknown whether patient is a smoker urine patient's urine drug screen is positive for marijuana. Patient also had a high- grade fever of 102. Other source of infection is not clear patient urine analysis is not consistent with UTI chest x-ray did not show any pneumonic infiltrate chest x-ray also showed mild pulmonary venous congestion. Patient is presently not on any pressor support patient urine output is going down because of which I will start him on lactated Ringer's as his repeat lactic acid came down to 1. Patient serum bicarbonate was low with anion gap probably secondary to lactic acidosis which resolved at this time. Patient's abdomen is soft without any evidence of acute abdomen at this time. Patient had a lumbar puncture which showed mild increase in protein, WBCs only 3. Glucose is elevated. Patient is on empiric antibiotic that is Rocephin infectious disease was consulted along with neurology. Patient also found to have elevated troponin without any significant acute ST-T wave changes in the EKG although there was sinus tachycardia secondary to possible sepsis unknown source which improved at this time. Cardiology evaluate the patient patient was started on IV heparin and considering cardiac catheterization. Patient is presently on propofol sedation. Patient is on ventilator support with FiO2 of 40% PEEP of 4.5 tidal volume of 450 set up respiratory of 18 and patient is breathing over the ventilator. 08/30/2024 Patient eval today in follow-up in the intensive care unit. He is on the mechanical ventilator. Procalcitonin level was significantly elevated at 45. He is continued on IV Rocephin/IV acyclovir. Additionally patient had troponin elevation he is continued on IV heparin with plans for cardiac catheterization. He is undergoing neurological evaluation to rule out an anoxic brain injury he will get an EEG and brain CT today. CT angiography did reveal bilateral small pulmonary embolism in the lung bases as well as small bilateral pleural effusions. His ejection fraction was found to be 30 to 35%. 08/31/2024 Patient is eval today in the intensive care unit. He remains intubated and sedated on mechanical ventilator he is receiving propofol. He remains on IV heparin with plans to undergo cardiac catheterization today. Patient continues on IV ceftriaxone as well as IV acyclovir. ID and neurology are following closely. Patient had a brain CT completed which shows no acute intracranial process. He was EEG done which shows mild to moderate encephalopathy periods of relatively well-formed posterior dominant alpha rhythm seen which was not seen in the EEG yesterday overall felt there was improvement in the background of today's EEG as compared to yesterday. Reveals a white blood cell count of 5.9, hemoglobin 12.9, level of 137, potassium 3.8, BUN of 11, creatinine of 0.74. Calcium of 8.1. Sputum Culture showing Shante tropicalis. 09/01/2024 Patient to the intensive care unit he has been extubated and currently on 5l of oxygen via nasal cannula. Patient is tearful today crying out. He is awake alert he is talking he states that he does not remember what happened leading up to him being hospitalized. He went for cardiac catheterization with no significant obstructive coronary artery disease found. Blood cell count today is 5.8, hemoglobin 11.3, sodium 137, potassium 3.5, BUN of 7, creatinine 0.61, glucose of 123. Sputum culture showing Shante tropicalis. Continues on IV ceftriaxone. IV heparin and IV acyclovir were discontinued. Review of Systems Constitutional: Denied any fatigue denied any fever. Cardio vascular: denied any chest pain, palpitations Gastrointestinal: denied any nausea, vomiting, diarrhea Pulmonary: Denied any shortness of breath cough Neurologic denied any new focal deficits All inpatient medications were reviewed and appropriate changes in these medications as dictated in the interval history and assessment and plan. PHYSICAL EXAMINATION: GENERAL: The patient is alert and oriented x3, not in any acute distress. Well developed, well nourished. HEENT: Pupils are round and equally reacting to light. EOMI. No scleral icterus. No conjunctival pallor. Normocephalic, atraumatic. No pharyngeal erythema. No thyromegaly. CARDIOVASCULAR: S1 and S2 present. No murmurs, rubs, or gallops. PULMONARY: Chest is clear to auscultation, no wheezing or crackles. ABDOMEN: Soft, nontender, nondistended, normoactive bowel sounds. No palpable organomegaly. MUSCULOSKELETAL: No joint swelling or deformity. EXTREMITIES: No cyanosis, clubbing, or pedal edema. NEUROLOGICAL: Gross neurological examination did not reveal any focal deficits. SKIN: No rashes. Assessment and plan -Decreased responsiveness patient was intubated for airway protection he is currently extubated 1045 this am and saturating well on 5L of oxygen. -Metabolic acidosis anion gap secondary to lactic acidosis which improved at this time -Bilateral pulmonary embolism, IV heparin drip was stopped postcardiac catheterizatio. Continue on subcu heparin for now. -Fever and sepsis source of sepsis is not clear at this time -Coronary syndrome and ischemic cardiomyopathy with an EF of 30 to 35% felt due to a cardiac arrest with no significant occlusive coronary artery disease found on cardiac catheterization -Marijuana use -Bipolar depression and schizophrenia psychiatry was consulted. DVT prophylaxis: On subcu heparin Full Code patient remains in ICU he was extubated today. He has been taken off IV heparin. He is tearful today and confused. Psychiatry was consulted. He will continue on IV ceftriaxone. The impression and plan of care has been dictated by Danielle Montague, Nurse Practitioner as directed. Dr. Pratibha MD I have performed a history and physical examination and medical decision making of this patient, discussed the same with the dictator, and agree with the dictators assessment and plan as written, documented as a scribe. Based on total visit time, I have performed more than 50% of this visit. Objective - Vital Signs Vital signs: Vital Signs Temp 97.7 F 09/01/24 12:00 Pulse 78 09/01/24 12:00 Resp 20 09/01/24 12:00 BP 152/92 09/01/24 12:00 Pulse Ox 98 09/01/24 12:00 FiO2 40 09/01/24 08:00 Intake & Output 08/31/24 09/01/24 09/01/24 18:59 06:59 18:59 Intake Total 8129.626 7792.630 1080.908 Output Total 755 1140 845 Balance 772.955 531.630 235.908 Weight 76.6 kg 82.27 kg Intake: IV 50 550 Lactated Ringers 1,000 ml 500 @ 100 mls/hr IV .Q10H [facility] Rx#:[id number] cefTRIAXone 2 gm In 50 Sodium Chloride 0.9% 50 ml @ 100 mls/hr IVPB Q24HR [facility] Rx#:[id number] Intake, IV Titration 4308.338 7966.630 350.908 Amount Heparin Sod,Pork in 0.45% 55.935 44.082 150.908 NaCl 25,000 unit In 0.45 % NaCl 1 250ml.bag @ 12 UNITS/KG/HR 9.525 mls/hr IV .Q24H [facility] Rx#: [id number] Lactated Ringers 1,000 ml 100 800 100 @ 100 mls/hr IV .Q10H [facility] Rx#:[id number] Sodium Chloride 0.9% 1, 375 225 000 ml @ 75 mls/hr IV . [id number] [facility] Rx#:[id number] Sodium Chloride 0.9% 1, 612.8 000 ml In Empty Bag 1 bag @ 1 ML/KG/HR 76.6 mls/hr IV .Q13H4M [facility] Rx#: [id number] propofoL 1,000 mg In 274.22 262.548 100.000 Empty Bag 1 bag @ 15 MCG/ KG/MIN 7.144 mls/hr IV . Q14H [facility] Rx#:[id number] Tube Feeding 60 250 120 Other 90 60 Output: Urine 755 1140 845 Other: Voiding Method Indwelling Catheter Indwelling Catheter Indwelling Catheter - Labs CBC & Chem 7: 09/01/24 04:34 09/01/24 04:34 Labs: Abnormal Lab Results - Last 24 Hours (Table) 08/31/24 08/31/24 08/31/24 Range/Units 13:42 13:56 18:56 RBC (4.30-5.90) m/uL Hgb (13.0-17.5) gm/dL Hct (39.0-53.0) % Lymphocytes # (1.0-4.8) k/uL APTT 33.1 H (22.0-30.0) sec ABG O2 Saturation (94-97) % Hemoglobin (13.0-17.5) gm/dL Chloride (98-107) mmol/L Carbon Dioxide (22-30) mmol/L BUN (9-20) mg/dL Creatinine (0.66-1.25) mg/dL POC Glucose (mg/dL) 65 L 66 L (70-110) mg/dL Calcium (8.4-10.2) mg/dL 09/01/24 09/01/24 09/01/24 Range/Units 04:34 04:34 04:34 RBC 3.71 L (4.30-5.90) m/uL Hgb 11.3 L (13.0-17.5) gm/dL Hct 34.6 L (39.0-53.0) % Lymphocytes # 0.6 L (1.0-4.8) k/uL APTT 46.1 H (22.0-30.0) sec ABG O2 Saturation (94-97) % Hemoglobin (13.0-17.5) gm/dL Chloride 115 H (98-107) mmol/L Carbon Dioxide 20 L (22-30) mmol/L BUN 7 L (9-20) mg/dL Creatinine 0.61 L (0.66-1.25) mg/dL POC Glucose (mg/dL) (70-110) mg/dL Calcium 8.0 L (8.4-10.2) mg/dL 09/01/24 09/01/24 Range/Units 06:16 11:44 RBC (4.30-5.90) m/uL Hgb (13.0-17.5) gm/dL Hct (39.0-53.0) % Lymphocytes # (1.0-4.8) k/uL APTT (22.0-30.0) sec ABG O2 Saturation 98.3 H (94-97) % Hemoglobin 12.1 L (13.0-17.5) gm/dL Chloride (98-107) mmol/L Carbon Dioxide (22-30) mmol/L BUN (9-20) mg/dL Creatinine (0.66-1.25) mg/dL POC Glucose (mg/dL) 123 H (70-110) mg/dL Calcium (8.4-10.2) mg/dL Microbiology - Last 24 Hours (Table) 08/30/24 05:54 Gram Stain - Final Sputum Sputum Culture - Final Shante tropicalis 08/29/24 00:02 CSF Gram Stain - Preliminary Cerebral Spinal Fluid CSF Culture - Preliminary 08/28/24 23:05 Blood Culture - Preliminary Blood 08/28/24 22:12 Gram Stain - Final Sputum Sputum Culture - Final Assessment and Plan Time with Patient: Less than 30
--- NOTE | 2024-09-01 13:09 | P.PN ---
Subjective Progress Note Date: 09/01/24 Principal diagnosis: Reason for follow-up is fever and leukocytosis Patient is a 44-year-old male with a past medical history significant for reflux osteoarthritis chronic shoulder pain patient has been brought into the ER by EMS after pending the patient was found to be unresponsive by his brother, patient did have elevated white count and fever prompted this consul tation workup to include CT angiogram of the chest with evidence of PE. On today's evaluation that is 09/01/2024, Patient is afebrile patient has been extubated and is breathing comfortably on 5 L nasal cannula oxygen P denies having chest pain he did have some cough no nausea no vomiting no abdominal pain or diarrhea. Patient white count is 5.8, creatinine 0.61 chest x-ray last evening on left ef fusion Objective - Vital Signs Vital signs: Vital Signs Temp 97.4 F L 09/01/24 08:00 Pulse 81 09/01/24 11:00 Resp 12 09/01/24 11:00 BP 138/86 09/01/24 11:00 Pulse Ox 95 09/01/24 11:07 FiO2 40 09/01/24 08:00 Intake & Output 08/31/24 09/01/24 09/01/24 18:59 06:59 18:59 Intake Total 2225.546 8051.630 880.908 Output Total 755 1140 575 Balance 772.955 531.630 305.908 Weight 76.6 kg 82.27 kg Intake: IV 50 350 Lactated Ringers 1,000 ml 300 @ 100 mls/hr IV .Q10H [facility] Rx#:[id number] cefTRIAXone 2 gm In 50 Sodium Chloride 0.9% 50 ml @ 100 mls/hr IVPB Q24HR [facility] Rx#:[id number] Intake, IV Titration 5860.061 4533.630 350.908 Amount Heparin Sod,Pork in 0.45% 55.935 44.082 150.908 NaCl 25,000 unit In 0.45 % NaCl 1 250ml.bag @ 12 UNITS/KG/HR 9.525 mls/hr IV .Q24H [facility] Rx#: [id number] Lactated Ringers 1,000 ml 100 800 100 @ 100 mls/hr IV .Q10H [facility] Rx#:[id number] Sodium Chloride 0.9% 1, 375 225 000 ml @ 75 mls/hr IV . Q98C28H [facility] Rx#:[id number] Sodium Chloride 0.9% 1, 612.8 000 ml In Empty Bag 1 bag @ 1 ML/KG/HR 76.6 mls/hr IV .Q13H4M [facility] Rx#: [id number] propofoL 1,000 mg In 274.22 262.548 100.000 Empty Bag 1 bag @ 15 MCG/ KG/MIN 7.144 mls/hr IV . Q14H [facility] Rx#:[id number] Tube Feeding 60 250 120 Other 90 60 Output: Urine 755 1140 575 Other: Voiding Method Indwelling Catheter Indwelling Catheter Indwelling Catheter - Exam GENERAL DESCRIPTION: Middle-age male lying in bed in no distress RESPIRATORY SYSTEM: Unlabored breathing , decreased breath sounds at bases HEART: S1 S2 regular rate and rhythm , ABDOMEN: Soft , no tenderness EXTREMITIES: No edema feet - Labs CBC & Chem 7: 09/01/24 04:34 09/01/24 04:34 Labs: Abnormal Lab Results - Last 24 Hours (Table) 08/31/24 08/31/24 08/31/24 Range/Units 13:42 13:56 18:56 RBC (4.30-5.90) m/uL Hgb (13.0-17.5) gm/dL Hct (39.0-53.0) % Lymphocytes # (1.0-4.8) k/uL APTT 33.1 H (22.0-30.0) sec ABG O2 Saturation (94-97) % Hemoglobin (13.0-17.5) gm/dL Chloride (98-107) mmol/L Carbon Dioxide (22-30) mmol/L BUN (9-20) mg/dL Creatinine (0.66-1.25) mg/dL POC Glucose (mg/dL) 65 L 66 L (70-110) mg/dL Calcium (8.4-10.2) mg/dL 09/01/24 09/01/24 09/01/24 Range/Units 04:34 04:34 04:34 RBC 3.71 L (4.30-5.90) m/uL Hgb 11.3 L (13.0-17.5) gm/dL Hct 34.6 L (39.0-53.0) % Lymphocytes # 0.6 L (1.0-4.8) k/uL APTT 46.1 H (22.0-30.0) sec ABG O2 Saturation (94-97) % Hemoglobin (13.0-17.5) gm/dL Chloride 115 H (98-107) mmol/L Carbon Dioxide 20 L (22-30) mmol/L BUN 7 L (9-20) mg/dL Creatinine 0.61 L (0.66-1.25) mg/dL POC Glucose (mg/dL) (70-110) mg/dL Calcium 8.0 L (8.4-10.2) mg/dL 09/01/24 Range/Units 06:16 RBC (4.30-5.90) m/uL Hgb (13.0-17.5) gm/dL Hct (39.0-53.0) % Lymphocytes # (1.0-4.8) k/uL APTT (22.0-30.0) sec ABG O2 Saturation 98.3 H (94-97) % Hemoglobin 12.1 L (13.0-17.5) gm/dL Chloride (98-107) mmol/L Carbon Dioxide (22-30) mmol/L BUN (9-20) mg/dL Creatinine (0.66-1.25) mg/dL POC Glucose (mg/dL) (70-110) mg/dL Calcium (8.4-10.2) mg/dL Microbiology - Last 24 Hours (Table) 08/29/24 00:02 CSF Gram Stain - Preliminary Cerebral Spinal Fluid CSF Culture - Preliminary 08/28/24 23:05 Blood Culture - Preliminary Blood 08/30/24 05:54 Gram Stain - Preliminary Sputum Sputum Culture - Preliminary Shante tropicalis 08/28/24 22:12 Gram Stain - Final Sputum Sputum Culture - Final Assessment and Plan (1) SIRS (systemic inflammatory response syndrome) Current Visit: Yes Status: Acute Code(s): R65.10 - SIRS OF NON-INFECTIOUS ORIGIN W/O ACUTE ORGAN DYSFUNCTION SNOMED Code(s): 971071307 (2) Fever Current Visit: Yes Status: Acute Code(s): R50.9 - FEVER, UNSPECIFIED SNOMED Code(s): 821374692 (3) Leukocytosis Current Visit: Yes Status: Acute Code(s): D72.829 - ELEVATED WHITE BLOOD CELL COUNT, UNSPECIFIED SNOMED Code(s): 919377317 Plan: 1patient presented to hospital with an episode of unresponsiveness requiring intubation in this patient who did have fever and high white count tachycardia meeting criteria for SIRS however the patient did not have very clear focus of infection on the initial investigation urine is significantly positive chest x- ray was negative for acute infiltrate did have a C7 examination not suggestive of encephalitis or meningitis patient did have elevated D-dimer with a question of possible PE or abdominal source not entirely excluded 2-patient did have a CT angiogram of the chest with evidence of PE patient has been started on heparin patient is status post cardiac cath with mild CAD 3-patient did have resolution of his fever and patient has been extubated continue with Rocephin to complete a short course as he did have significant elevated procalcitonin antibiotic and course closely Dictation was produced using [employer]. dictation software. please excuse any grammatical, word or spelling errors. Time with Patient: Less than 30
[2024-09-01] MEDS ORDERED: HALOPERIDOL LACTATE 5 MG/ML 1 ML VIAL IVP PRN (14:54)
[2024-09-01] MEDS: VALPROIC ACID ORAL SOLN 250 MG/5 ML CUP PO SCH (17:50)
[2024-09-01 17:56] LABS: Glucose,Whole Blood 99 mg/dL (70-110)
[2024-09-01] MEDS: HEPARIN SODIUM,PORCINE 5,000 UNIT/ML 1 ML VIAL SQ SCH (21:13)
[2024-09-01] MEDS: levETIRAcetam IV 500 MG/5 ML VIAL IVP SCH (21:13)
[2024-09-02 05:57] LABS: Basophils % (A) 0 %; Eosinophils # (A) 0.1 k/uL (0-0.7); Eosinophils % (A) 2 %; HCT 38.5 % (39.0-53.0); HGB 12.9 gm/dL (13.0-17.5); Lymphocytes # (A) 0.6 k/uL (1.0-4.8); Lymphocytes % (A) 11 %; MCH 30.1 pg (25.0-35.0); MCHC 33.4 g/dL (31.0-37.0); MCV 90.1 fL (80.0-100.0); Mean Platelet Volume 8.3; Monocytes # (A) 0.3 k/uL (0-1.0); Monocytes % (A) 6 %; Neutrophils # (A) 4.1 k/uL (1.3-7.7); Neutrophils % (A) 78 %; Platelet Count 221 k/uL (150-450); RBC 4.27 m/uL (4.30-5.90); RDW 15.1 % (11.5-15.5); WBC 5.3 k/uL (3.8-10.6)
[2024-09-02 06:12] LABS: African American GFR (CKD) >90 (>60 ml/min/1.73 sqM); Anion Gap 3 mmol/L; Blood Urea Nitrogen 7 mg/dL (9-20); Calcium 8.7 mg/dL (8.4-10.2); Carbon Dioxide 24 mmol/L (22-30); Chloride 108 mmol/L (98-107); Glucose 91 mg/dL (74-99); Non-African American GFR(CKD) >90 (>60 ml/min/1.73 sqM); Sodium 135 mmol/L (137-145)
--- NOTE | 2024-09-02 09:08 | P.PN ---
Subjective Progress Note Date: 09/02/24 The patient is a 44-year-old gentleman who we requested to see in the intensive care unit for further evaluation of abnormal cardiac enzymes. The patient currently is intubated and he is on mechanical ventilation. The history was taken from the chart as well as from the nurse taking care of the patient. Apparently patient was brought to the hospital by friends who found the patient unresponsive at home by the bathroom with some bruises on the right side of the face. No indication that the patient was experiencing any symptoms of chest pain or chest discomfort or any other cardiovascular symptoms. No drug screen was performed. Currently patient is intubated on mechanical ventilation and he is not on any vasopressors at this point. He underwent further evaluation including troponin came in to be elevated at 5 and also EKG showed sinus mechanism and initially sinus tachycardia but subsequently only sinus mechanism with no significant ST or T wave abnormalities. Chest x-ray did not show any acute abnormalities. No prior cardiovascular history of CAD or heart failure or cardiac arrhythmia but the details on the past medical history is not available at this point giving that the patient is intubated on mechanical ventilation. The chest x-ray did not show any acute abnormalities. The rest of the blood work came in to be unremarkable except that there is no drug screen ordered. T he physical examination is remarkable for regular rhythm with a systolic murmur at the right upper sternal border with clear breathing sounds bilaterally and no carotid bruit and no edema was noted. Please note that the CT scan of the brain did not show any acute abnormalities as well. August 29, 2024 The patient was seen and evaluated this morning. He continues to be intubated on mechanical ventilation. Hemodynamically he is stable. His heart rate has been in the 60s. Neurology was consulted and CT scan of the head to be performed later on today to rule out any anoxic encephalopathy. If that ruled out he need to undergo a heart catheterization but the echo showed cardiomyopathy with EF between 30 to 35% with wall motion abnormalities concerning for severe underlying coronary artery disease. Examination is remarkable for regular rhythm with a soft systolic murmur and clear breathing sounds bilaterally and no edema was noted in the lower extremities. CT scan of the chest was performed and showed possible small bilateral pulmonary embolism and elevated patient is on heparin IV August 2024 The patient was seen and evaluated this morning. He continues to be intubated on mechanical ventilation but he is following commands. He is on aspirin and statin and he continues to be on heparin IV. The examination is remarkable for regular rhythm with a soft systolic murmur and clear breathing sounds bilaterally and no edema was noted in the lower extremities. The plan is to pursue with a heart catheterization later on today. September 01, 2024 The patient was seen and evaluated this morning. He underwent a heart catheterization yesterday which showed less of occlusive CAD. He was seen and evaluated this morning. He is hemodynamically stable and he is in normal sinus mechanism. He is slightly agitated. He is on heparin for possible pulmonary embolism and that need to be addressed by the critical care team. From a cardiovascular standpoint of view he does not to be on any IV heparin at this point. He is on beta-jaime and aspirin and statin and I am going to add lisinopril to the current medical regimen. Examination is remarkable for regular rhythm with clear breathing sounds bilaterally and no edema was noted September 29, 2024 The patient was seen and evaluated this morning. He was extubated. The pressure remains elevated and consistent with stage II hypertension. I am going to increase the dose of lisinopril and also add Aldactone to the current medical regimen. Also I am going to add P2 Y12 inhibitor including Plavix to current medical regimen since he was diagnosed with non-STEMI. We are going to obtain a limited echo tomorrow morning to assess for improvement in the ejection fraction. The physical examination is remarkable for regular rhythm with a clear breathing sounds bilaterally and no edema was noted in the lower extremiti es Assessment Acute coronary syndrome Cardiomyopathy likely stress related cardiomyopathy in the light of absence of any obstructive CAD Acute hypoxic respiratory failure Cardiac arrest Plan Continue current medical regimen Increase dose of lisinopril for better blood pressure control Add Aldactone to the current medical regimen in the light of cardiomyopathy Add P2-Y12 inhibitor including Plavix in the diagnosis of non-STEMI Obtain limited echo tomorrow morning The patient can be transferred out of the ICU Objective - Vital Signs Vital signs: Vital Signs Temp 98 F 09/02/24 08:00 Pulse 57 L 09/02/24 09:00 Resp 23 09/02/24 09:00 BP 159/91 09/02/24 09:00 Pulse Ox 95 09/02/24 09:00 FiO2 40 09/01/24 08:00 Intake & Output 11/02/24 11/03/24 11/03/24 19:59 06:59 18:59 Intake Total 200 Output Total 150 Balance 50 Weight Intake: IV 200 Lactated Ringers 1,000 ml 200 @ 100 mls/hr IV .Q10H [facility] Rx#:[id number] cefTRIAXone 2 gm In Sodium Chloride 0.9% 50 ml @ 100 mls/hr IVPB Q24HR [facility] Rx#:[id number] Intake, IV Titration Amount Heparin Sod,Pork in 0.45% NaCl 25,000 unit In 0.45 % NaCl 1 250ml.bag @ 12 UNITS/KG/HR 9.525 mls/hr IV .Q24H [facility] Rx#: [id number] propofoL 1,000 mg In Empty Bag 1 bag @ 15 MCG/ KG/MIN 7.144 mls/hr IV . Q14H [facility] Rx#:[id number] Oral Tube Feeding Other Output: Urine 150 Other: Voiding Method # Bowel Movements 1 - Labs CBC & Chem 7: 09/02/24 05:48 09/02/24 05:48 Labs: Abnormal Lab Results - Last 24 Hours (Table) 09/01/24 09/02/24 09/02/24 Range/Units 11:44 05:48 05:48 RBC 4.27 L (4.30-5.90) m/uL Hgb 12.9 L (13.0-17.5) gm/dL Hct 38.5 L (39.0-53.0) % Lymphocytes # 0.6 L (1.0-4.8) k/uL Sodium 135 L (137-145) mmol/L Chloride 108 H (98-107) mmol/L BUN 7 L (9-20) mg/dL Creatinine 0.54 L (0.66-1.25) mg/dL POC Glucose (mg/dL) 123 H (70-110) mg/dL Microbiology - Last 24 Hours (Table) 08/29/24 00:02 CSF Gram Stain - Final Cerebral Spinal Fluid CSF Culture - Final 08/30/24 05:54 Gram Stain - Final Sputum Sputum Culture - Final Shante tropicalis
[2024-09-02] MEDS: CLOPIDOGREL 75 MG TAB PO SCH (10:06)
[2024-09-02] MEDS: SPIRONOLACTONE 25 MG TAB PO SCH (10:07)
--- NOTE | 2024-09-02 11:08 | P.PN ---
Subjective Progress Note Date: 09/02/24 Principal diagnosis: Possible cardiac arrest. Patient is a 44-year-old male brought in by EMS unresponsive, required intubation by ED provider for airway protection. He is not able to provide any information for HPI. Found by EMS, unresponsive, lying on the bathroom floor next to the toilet. Unclear if the patient fell. He does have an abrasion to his right forehead. It looks like patient had a ER visit earlier this month for altered mental status. He was prescribed meclizine and discharged home. Not much for documented medical history. He does reportedly have a significant psychiatric history. Brain CT of the head without contrast did not show any acute intracranial hemorrhage or mass effect. Febrile on arrival with a Tmax of 102.2 F. No reports of aspiration. Postintubation chest x-ray showing endotracheal tube approximately 4.5 cm above the narayan. Orogastric tube coursing below the diaphragm. No obvious focal infiltrates, or evidence of pneumonia. There was mild central vascular congestion, no pleural effusions. Urinalysis unremarkable for UTI. Abdomen is soft and does not appear acute. Patient has acute febrile illness of unknown origin. The ER provider did perform a lumbar puncture. Total nucleated cells 3, glucose 124, total protein 68. CSF culture pending. He was given a dose of Rocephin in the ED, essentially empiric. CBC: WBC count 22.3, hemoglobin 15.7, hematocrit 48.9, platelets 354. CMP: Sodium 140, potassium 4.3, chloride 112, serum bicarb 15, BUN 15, creatinine 1.31, glucose 198. Lactic 1. CK 860. Urine toxicology screen negative except for marijuana. Serum alcohol less than 10. Negative for influenza, RSV, COVID. Troponin 0.633. EKG: Sinus tachycardia, rate 118 bpm, no obvious acute ischemic changes. Patient currently being evaluated in the intensive care unit. Remains intubated to mechanical ventilator with current ventilator settings assist- control, respiratory rate 18, tidal volume 450, FiO2 40%, PEEP of 5. Sedated on propofol which is infusing at 50 mcg/kg/min. Breathing slightly above set rate. Peak pressures low around 15. Some pink-colored secretions were noted in the ET tube and sent for culture. Follow-up ABG showing improvement in the patient's combined respiratory and metabolic acidosis. PaO2 of 83, pCO2 of 35, pH of 7.39. Blood pressure remains normotensive. He did receive a 2 L normal saline bolus in the ED, and continues receiving normal saline at 130 mL/h. Urine output around 30-50 cc/h. Continues to be sedated on propofol, currently unresponsive to even painful stimuli. No clinical seizure activity noted. Prognosis guarded. Progress note dated August 30, 2024. 44-year-old male seen yesterday in consultation. He was found in the bathroom, at home, unresponsive. The patient was intubated in the emergency department, for airway protection. There he also had a lumbar puncture performed by the ER physician. The patient was seen by cardiology. They are concerned about a primary cardiac event. He will eventually need a cardiac catheterization. The patient remains on the ventilator. He is on volume assist-control, rate 18, tidal volume 450, FiO2 40%, PEEP of 5. Blood gases show pO2 71, pCO2 36, pH of 7.36. The patient remains on IV heparin, lactated Ringer's at 100 cc an hour, propofol at 50 mcg/kg/min. The patient's procalcitonin level was 45.8. The patient continues on Rocephin. CT angiogram showed bilateral small pulmonary emboli. The patient will need tube feedings to be started. Eventually he will need a cardiac catheterization. White count is 7.7, hemoglobin 13.8, hematocrit 44.5, platelet count 169,000. PT 11.4. INR 1, PTT is 36.5. Sodium 136, potassium 4.1, chloride 112, CO2 17, BUN 16, creatinine 0.81. Glucose is 65. Calcium 8.4. Troponins were 0.633, 5.610, 4.050, and 2.780. Chest x-ray has been reviewed. Progress note dated August 31, 2024. 44-year-old male seen in room 256. The patient remains on the mechanical ventilator. He is on volume assist-control, rate 18, tidal volume 450, FiO2 40%, PEEP of 5. Blood gases show pO2 of 92, pCO2 37, pH is 7.39. The patient is scheduled to have a heart catheterization today. The patient is getting propofol at 50 mcg/kg/min, and IV heparin. The patient is also on saline at 76 cc an hour. The patient continues on Rocephin, and acyclovir as per infectious diseases. He was also started on tube feeds with vital AF at 20 cc an hour. White count is 5.9, hemoglobin 12.9, hematocrit 39.1, platelet count is normal. Sodium 137, potassium 3.8, chlorides 114, CO2 22, BUN 11, creatinine 0.74. Glucose of 69. Calcium 8.1. Chest x-ray is unremarkable. Progress note dated September 01, 2024. 44-year-old male seen in room 256. The patient remains on mechanical ventilator. He is on volume assist-control, rate 18, tidal volume 450, FiO2 40%, PEEP of 5. Blood gases show pO2 of 97, pCO2 of 38, pH of 7.39. The patient had a cardiac catheterization yesterday, and the catheterization was relatively normal. The patient's heparin can be discontinued. He is on lactated Ringer's at 100 cc an hour. He is on propofol at 50 mcg/kg/min. Today, we will do a daily interruption of sedation on a spontaneous breathing trial, with pressure support of 5 and CPAP of 5. The patient is only on Rocephin. Acyclovir was discontinued. White count 5.8, hemoglobin 9.3, hematocrit 34.6, and a normal platelet count. Sodium 137, potassium 3.5, chlorides 115, CO2 20, BUN 7, creatinine 0.61. Calcium is 8. Sputum showed evidence of Shante tropicalis. Chest x-ray looks relatively normal save for a small pleural effusion, on the right. Progress note dated September 02, 2024. 44-year-old male seen again in room 256. I am happy to report that the patient was successfully extubated yesterday. The patient continues on room air. He is getting LR to 100 cc an hour. He has no memory of what happened before being found unresponsive, on the bathroom floor. White count 5.3, hemoglobin 12.9, hematocrit 38.5, platelet count 221,000. Sodium 135, potassium 4, chlorides 108, CO2 24, anion gap 3, BUN 7, creatinine 0.54. Glucose is 91. Objective - Vital Signs Vital signs: Vital Signs Temp 98 F 09/02/24 08:00 Pulse 50 L 09/02/24 10:00 Resp 19 09/02/24 10:00 BP 158/105 09/02/24 10:00 Pulse Ox 97 09/02/24 10:00 FiO2 40 09/01/24 08:00 Intake & Output 09/01/24 09/02/24 09/02/24 19:59 06:59 18:59 Intake Total 250 Output Total 230 Balance 20 Weight Intake: IV 250 Lactated Ringers 1,000 ml 200 @ 100 mls/hr IV .Q10H [facility] Rx#:[id number] cefTRIAXone 2 gm In 50 Sodium Chloride 0.9% 50 ml @ 100 mls/hr IVPB Q24HR [facility] Rx#:[id number] Intake, IV Titration Amount Heparin Sod,Pork in 0.45% NaCl 25,000 unit In 0.45 % NaCl 1 250ml.bag @ 12 UNITS/KG/HR 9.525 mls/hr IV .Q24H [facility] Rx#: [id number] propofoL 1,000 mg In Empty Bag 1 bag @ 15 MCG/ KG/MIN 7.144 mls/hr IV . Q14H [facility] Rx#:[id number] Oral Tube Feeding Other Output: Urine 230 Other: Voiding Method Indwelling Catheter # Bowel Movements 1 - Exam No acute distress, awake and alert, currently on room air. HEENT examination is grossly unremarkable. Neck supple. Full range of motion. No adenopathy thyromegaly or neck vein distention. Cardiovascular examination reveals regular rhythm rate. S1-S2 normal. No S3 or S4. No discernible murmur noted. Heart sounds are distant. Lungs reveal mostly clear breath sounds. Scattered rhonchi are noted. No wheezes. No crackles. Breath sounds equal. Abdomen soft bowel sounds are heard. No masses or tenderness. Extremities are intact. No cyanosis clubbing or edema. Skin is without rash or lesion. Neurologic examination is brief but nonfocal. - Labs CBC & Chem 7: 09/02/24 05:48 09/02/24 05:48 Labs: Abnormal Lab Results - Last 24 Hours (Table) 09/02/24 09/02/24 Range/Units 05:48 05:48 RBC 4.27 L (4.30-5.90) m/uL Hgb 12.9 L (13.0-17.5) gm/dL Hct 38.5 L (39.0-53.0) % Lymphocytes # 0.6 L (1.0-4.8) k/uL Sodium 135 L (137-145) mmol/L Chloride 108 H (98-107) mmol/L BUN 7 L (9-20) mg/dL Creatinine 0.54 L (0.66-1.25) mg/dL Microbiology - Last 24 Hours (Table) 08/29/24 00:02 CSF Gram Stain - Final Cerebral Spinal Fluid CSF Culture - Final 08/30/24 05:54 Gram Stain - Final Sputum Sputum Culture - Final Shante tropicalis Assessment and Plan Assessment: Acute unresponsiveness, of unclear etiology. Routine mechanical ventilator management, patient was intubated for airway protection in the ED, and extubated on September 01, 2024. Rule out anoxic brain injury. Cardiac catheterization, August 31, showed only mild CAD. Bilateral small pulmonary emboli. Combined respiratory and metabolic acidosis. Acute febrile illness, of unknown origin. Altered mental status, under investigation. Acute leukocytosis. Poor dentition. Elevated troponin, serial troponins trending. Marijuana use. History of anxiety/depression/bipolar. Plan: Plan dated August 30, 2024. The patient remains on IV heparin. CT angiogram revealed bilateral small pulmonary emboli. In addition, the patient continues on Rocephin. His procalcitonin level was 45.8. The patient will be started on tube feedings. In addition, the patient will eventually need a heart catheterization. He is on lactated Ringer's at 100 cc an hour. He is on propofol at 50 mcg/kg/min. Blood gases show pO2 71, pCO2 36, pH is 7.36. Additional recommendations and suggestions are forthcoming. Labs, x-rays, and all medications are reviewed. Prognosis is guarded. Plan dated August 31, 2024. The patient is seen today in the intensive care unit, room 256. He remains on mechanical ventilator. The patient is apparently scheduled to have a cardiac catheterization today. The patient continues on propofol at 50 mcg/kg/min. He is receiving IV heparin. Blood gases show pO2 of 92, pCO2 of 37, pH is 7.39. The patient is getting saline at 76 cc an hour. The patient continues on antibiotics in the form of Rocephin, and acyclovir. The patient is on tube feedings, with vital AF, at 20 cc an hour. Labs, x-rays, and all medications are reviewed. The EEG showed evidence of metabolic encephalopathy. We will continue to follow make recommendations. Plan dated September 01, 2024. The patient had an uneventful night. The patient does open his eyes. He does seem to respond somewhat. Anyway, the patient will have a daily interruption of sedation, and spontaneous breathing trial today, pressure support of 5, CPAP of 5. His cardiac catheterization, August 31, only showed mild CAD. The patient is getting lactated Ringer's at 100 cc an hour, propofol at 50 mcg/kg/min. He continues on Rocephin. Blood gases show pO2 of 97, pCO2 of 38, pH of 7.39. Labs, x-rays, and all medications are reviewed. Prognosis is guarded. Plan dated September 02, 2024. The patient appears to be doing relatively well. He is currently on room air. He is not having any shortness of breath, cough, wheezing, chest tightness, or phlegm production. He is getting LR at 100 cc an hour. He was successfully extubated yesterday, September 01. The patient could be transferred to the general medical floor, with telemetry. Cardiac catheterization showed only mild disease. Labs, x-rays, and all medications are reviewed. We will continue to follow make recommendations along the way. Time with Patient: Less than 30
--- NOTE | 2024-09-02 11:10 | P.PN ---
Subjective Progress Note Date: 09/01/24 Patient was seen for a follow-up. Patient now has been extubated today at 10:45 AM. Patient is alert and awake in no acute distress. Please refer to examination below. Patient on asking if he overdose, states "maybe". He denies any history of head injury. No history of seizures. Nurse reports that she spoke to the patient's brother, who mentioned that patient is slightly slow, but he is interactive, has full orientation, and engaging conversation very well. Objective - Vital Signs Vital signs: Vital Signs Temp 97.7 F 09/01/24 12:00 Pulse 60 09/01/24 14:00 Resp 12 09/01/24 14:00 BP 150/94 09/01/24 14:00 Pulse Ox 100 09/01/24 14:00 FiO2 40 09/01/24 08:00 Intake & Output 08/31/24 09/01/24 09/01/24 18:59 06:59 18:59 Intake Total 7166.094 4766.630 1330.908 Output Total 755 1140 1290 Balance 772.955 531.630 40.908 Weight 76.6 kg 82.27 kg Intake: IV 50 800 Lactated Ringers 1,000 ml 700 @ 100 mls/hr IV .Q10H [facility] Rx#:[id number] cefTRIAXone 2 gm In 100 Sodium Chloride 0.9% 50 ml @ 100 mls/hr IVPB Q24HR [facility] Rx#:[id number] Intake, IV Titration 1681.546 7181.630 350.908 Amount Heparin Sod,Pork in 0.45% 55.935 44.082 150.908 NaCl 25,000 unit In 0.45 % NaCl 1 250ml.bag @ 12 UNITS/KG/HR 9.525 mls/hr IV .Q24H [facility] Rx#: [id number] Lactated Ringers 1,000 ml 100 800 100 @ 100 mls/hr IV .Q10H [facility] Rx#:[id number] Sodium Chloride 0.9% 1, 375 225 000 ml @ 75 mls/hr IV . [id number] [facility] Rx#:[id number] Sodium Chloride 0.9% 1, 612.8 000 ml In Empty Bag 1 bag @ 1 ML/KG/HR 76.6 mls/hr IV .Q13H4M [facility] Rx#: [id number] propofoL 1,000 mg In 274.22 262.548 100.000 Empty Bag 1 bag @ 15 MCG/ KG/MIN 7.144 mls/hr IV . Q14H [facility] Rx#:[id number] Tube Feeding 60 250 120 Other 90 60 Output: Urine 755 1140 1290 Other: Voiding Method Indwelling Catheter Indwelling Catheter Indwelling Catheter - Exam Patient is a middle aged male, is now extubated. Patient is quite alert and awake. Speech is somewhat slurred, slightly hoarse. He knows that he is in [place] in [place], but could not tell the month but says it is 1993. He has slow mentation, prolonged latency time to answer questions. Patient's pupils are equal, round and reacting. Visual monroe are full with no neglect. Extraocular muscles are intact. Face is symmetric and tongue protrudes to midline. On muscle strength testing, there is no pronator drift. The strength appears normal in the arms and legs distally and proximally. Patient is ataxic in the upper extremities bilaterally. Reflexes are trace in the upper limbs, 1 at the knees and plantars are possible upgoing bilaterally. - Labs CBC & Chem 7: 09/02/24 05:48 09/02/24 05:48 Labs: Abnormal Lab Results - Last 24 Hours (Table) 08/31/24 09/01/24 09/01/24 Range/Units 18:56 04:34 04:34 RBC 3.71 L (4.30-5.90) m/uL Hgb 11.3 L (13.0-17.5) gm/dL Hct 34.6 L (39.0-53.0) % Lymphocytes # 0.6 L (1.0-4.8) k/uL APTT 33.1 H (22.0-30.0) sec ABG O2 Saturation (94-97) % Hemoglobin (13.0-17.5) gm/dL Chloride 115 H (98-107) mmol/L Carbon Dioxide 20 L (22-30) mmol/L BUN 7 L (9-20) mg/dL Creatinine 0.61 L (0.66-1.25) mg/dL POC Glucose (mg/dL) (70-110) mg/dL Calcium 8.0 L (8.4-10.2) mg/dL 09/01/24 09/01/24 09/01/24 Range/Units 04:34 06:16 11:44 RBC (4.30-5.90) m/uL Hgb (13.0-17.5) gm/dL Hct (39.0-53.0) % Lymphocytes # (1.0-4.8) k/uL APTT 46.1 H (22.0-30.0) sec ABG O2 Saturation 98.3 H (94-97) % Hemoglobin 12.1 L (13.0-17.5) gm/dL Chloride (98-107) mmol/L Carbon Dioxide (22-30) mmol/L BUN (9-20) mg/dL Creatinine (0.66-1.25) mg/dL POC Glucose (mg/dL) 123 H (70-110) mg/dL Calcium (8.4-10.2) mg/dL Microbiology - Last 24 Hours (Table) 08/30/24 05:54 Gram Stain - Final Sputum Sputum Culture - Final Shante tropicalis 08/29/24 00:02 CSF Gram Stain - Preliminary Cerebral Spinal Fluid CSF Culture - Preliminary 08/28/24 23:05 Blood Culture - Preliminary Blood Assessment and Plan Assessment: * Acute episode of unresponsiveness, unclear cause. Rule out hypoxic encephalopathy. Rule out seizure, versus arrhythmia, rule out drug overdose. CVA less likely, with normal CT head x 2. Current examination is nonfocal * Status post extubation 09/01/2024 * Altered mental status, possible metabolic encephalopathy. Rule out seizures. * Acute febrile illness * Bilateral small pulmonary emboli * Elevated troponin, on heparin drip * Marijuana use * History of anxiety/depression/bipolar Plan: * Patient has been extubated, doing much better. Examination is nonfocal. Patient's speech is slightly slurred, which could be from recent extubation. We will follow clinically. * Lumbar puncture, with CSF WBCs are 3, RBC 15, glucose 124 and protein 68/60. Gram stain showed no polymorphonuclear leukocytes, no organisms seen. Comprehensive viral panel came negative for HSV-1, HSV-2 and other viruses check. We will discontinue acyclovir. * Infectious disease on board suspecting SIRS. Patient currently on ceftriaxone. ID following. * Initial EEG was performed 08/29/2024, which was abnormal due to background slowing of moderate to severe degree. This is suggestive of generalized cerebral dysfunction as can be seen with toxic metabolic encephalopathy related to diffuse structural brain abnormality. Clinical correlation is recommended. There is presence of intermittent, low amplitude sharp appearing waves seen over the right temporal region, suggestive of focal cortical neuronal dysfunction with underlying cortical irritability. No electrographic seizure was recorded. Follow-up EEG recommended as clinically indicated. * Repeat prolonged EEG for 1 hour 08/30/2024 was abnormal due to background slowing, suggestive of mild to moderate encephalopathy. There were periods of relatively well-formed posterior dominant alpha rhythm seen, which was not seen in the EEG yesterday. No epileptiform activity was seen. Overall there is improvement in the background on today's EEG as compared to yesterday. Clinical correlation recommended. No electrographic seizure was recorded. * As patient is extubated, never had any history of seizures, we will decrease Keppra to 500 mg twice daily. * Repeat CT head 08/30/2024 revealed no acute intracranial process. I personally reviewed CT head, agree with the findings. * Patient has elevated cardiac enzymes. Patient underwent cardiac cath, which revealed mild CAD. Recommend medical management. Patient off heparin and to be started on aspirin and Plavix. * CT chest abdomen pelvis showed small bilateral pleural effusions with adjacent infiltrates could be related to atelectasis versus pneumonia. CT of the chest revealed small tertiary branch pulmonary emboli bilateral lung bases. * Other medical management as per IM, critical care team and other specialties on board. * Discussed with patient's nurse in detail.
[2024-09-02 11:55] LABS: Glucose,Whole Blood 101 mg/dL (70-110)
--- NOTE | 2024-09-02 13:28 | P.PN ---
Subjective Progress Note Date: 09/02/24 Patient is one 44-year-old male was brought in unresponsive by his friends found in the bathroom. Patient has abrasion on the forehead. Patient is in respiratory failure because of which patient was intubated patient's ABG is showing 7.2 pH and pCO2 of 46 essentially metabolic acidosis with anion gap [facility] lactic acid was not obtained. Unknown whether patient is a smoker urine patient's urine drug screen is positive for marijuana. Patient also had a high- grade fever of 102. Other source of infection is not clear patient urine analysis is not consistent with UTI chest x-ray did not show any pneumonic infiltrate chest x-ray also showed mild pulmonary venous congestion. Patient is presently not on any pressor support patient urine output is going down because of which I will start him on lactated Ringer's as his repeat lactic acid came down to 1. Patient serum bicarbonate was low with anion gap probably secondary to lactic acidosis which resolved at this time. Patient's abdomen is soft without any evidence of acute abdomen at this time. Patient had a lumbar puncture which showed mild increase in protein, WBCs only 3. Glucose is elevated. Patient is on empiric antibiotic that is Rocephin infectious disease was consulted along with neurology. Patient also found to have elevated troponin without any significant acute ST-T wave changes in the EKG although there was sinus tachycardia secondary to possible sepsis unknown source which improved at this time. Cardiology evaluate the patient patient was started on IV heparin and considering cardiac catheterization. Patient is presently on propofol sedation. Patient is on ventilator support with FiO2 of 40% PEEP of 4.5 tidal volume of 450 set up respiratory of 18 and patient is breathing over the ventilator. 08/30/2024 Patient eval today in follow-up in the intensive care unit. He is on the mechanical ventilator. Procalcitonin level was significantly elevated at 45. He is continued on IV Rocephin/IV acyclovir. Additionally patient had troponin elevation he is continued on IV heparin with plans for cardiac catheterization. He is undergoing neurological evaluation to rule out an anoxic brain injury he will get an EEG and brain CT today. CT angiography did reveal bilateral small pulmonary embolism in the lung bases as well as small bilateral pleural effusions. His ejection fraction was found to be 30 to 35%. 08/31/2024 Patient is eval today in the intensive care unit. He remains intubated and sedated on mechanical ventilator he is receiving propofol. He remains on IV heparin with plans to undergo cardiac catheterization today. Patient continues on IV ceftriaxone as well as IV acyclovir. ID and neurology are following closely. Patient had a brain CT completed which shows no acute intracranial process. He was EEG done which shows mild to moderate encephalopathy periods of relatively well-formed posterior dominant alpha rhythm seen which was not seen in the EEG yesterday overall felt there was improvement in the background of today's EEG as compared to yesterday. Reveals a white blood cell count of 5.9, hemoglobin 12.9, level of 137, potassium 3.8, BUN of 11, creatinine of 0.74. Calcium of 8.1. Sputum Culture showing Shante tropicalis. 09/01/2024 Patient to the intensive care unit he has been extubated and currently on 5l of oxygen via nasal cannula. Patient is tearful today crying out. He is awake alert he is talking he states that he does not remember what happened leading up to him being hospitalized. He went for cardiac catheterization with no significant obstructive coronary artery disease found. Blood cell count today is 5.8, hemoglobin 11.3, sodium 137, potassium 3.5, BUN of 7, creatinine 0.61, glucose of 123. Sputum culture showing Shante tropicalis. Continues on IV ceftriaxone. IV heparin and IV acyclovir were discontinued. 09/02/2024 Patient is evaluated in follow-up in the intensive care unit. Patient was extubated yesterday and his been weaned to room air. He is awake alert oriented. He is off IV heparin at this time. Is also off of IV antibiotics. He was resumed on his valproic acid which is a home medication. His blood work today reveals a white blood cell count of 5.3, hemoglobin 12.9, sodium 135, chloride 108, BUN of 7, creatinine of 0.54, calcium of 8.7. He is afebrile, heart rate of 49, blood pressure 163/89 and he is 94% on room air. Review of Systems Constitutional: Denied any fatigue denied any fever. Cardio vascular: denied any chest pain, palpitations Gastrointestinal: denied any nausea, vomiting, diarrhea Pulmonary: Denied any shortness of breath cough Neurologic denied any new focal deficits All inpatient medications were reviewed and appropriate changes in these medications as dictated in the interval history and assessment and plan. PHYSICAL EXAMINATION: GENERAL: The patient is alert and oriented x3, not in any acute distress. Well developed, well nourished. HEENT: Pupils are round and equally reacting to light. EOMI. No scleral icterus. No conjunctival pallor. Normocephalic, atraumatic. No pharyngeal erythema. No thyromegaly. CARDIOVASCULAR: S1 and S2 present. No murmurs, rubs, or gallops. PULMONARY: Chest is clear to auscultation, no wheezing or crackles. ABDOMEN: Soft, nontender, nondistended, normoactive bowel sounds. No palpable organomegaly. MUSCULOSKELETAL: No joint swelling or deformity. EXTREMITIES: No cyanosis, clubbing, or pedal edema. NEUROLOGICAL: Gross neurological examination did not reveal any focal deficits. SKIN: No rashes. Assessment and plan -Decreased responsiveness patient was intubated for airway protection he is currently extubated -Metabolic acidosis anion gap secondary to lactic acidosis which improved at this time -Bilateral pulmonary embolism, IV heparin drip was stopped postcardiac catheterization. Continue on subcu heparin for now. -Fever and sepsis source of sepsis is not clear at this time -Acute coronary syndrome and ischemic cardiomyopathy with an EF of 30 to 35% felt due to a cardiac arrest with no significant occlusive coronary artery disease found on cardiac catheterization -Marijuana use -Bipolar depression and schizophrenia psychiatry was consulted. Resumed on valproic acid. DVT prophylaxis: On subcu heparin Full Code patient remains in ICU he was extubated and weaned to room air. He has been taken off IV heparin. He has been taken off IV ceftriaxone. He is awake alert and oriented. Repeat labs tommorrow and PT/OT evaluation. The impression and plan of care has been dictated by Danielle Montague, Nurse Practitioner as directed. Dr. Pratibha MD I have performed a history and physical examination and medical decision making of this patient, discussed the same with the dictator, and agree with the dictators assessment and plan as written, documented as a scribe. Based on total visit time, I have performed more than 50% of this visit. Objective - Vital Signs Vital signs: Vital Signs Temp 97.4 F L 09/02/24 12:00 Pulse 49 L 09/02/24 12:00 Resp 15 09/02/24 12:00 BP 163/89 09/02/24 12:00 Pulse Ox 94 L 09/02/24 12:00 FiO2 40 09/01/24 08:00 Intake & Output 09/01/24 09/02/24 09/02/24 19:59 06:59 18:59 Intake Total 250 Output Total 230 Balance 20 Weight Intake: IV 250 Lactated Ringers 1,000 ml 200 @ 100 mls/hr IV .Q10H G[facility] Rx#:[id number] cefTRIAXone 2 gm In 50 Sodium Chloride 0.9% 50 ml @ 100 mls/hr IVPB Q24HR G[facility]NA Rx#:[id number] Intake, IV Titration Amount Heparin Sod,Pork in 0.45% NaCl 25,000 unit In 0.45 % NaCl 1 250ml.bag @ 12 UNITS/KG/HR 9.525 mls/hr IV .Q24H GINNA Rx#: [id number] propofoL 1,000 mg In Empty Bag 1 bag @ 15 MCG/ KG/MIN 7.144 mls/hr IV . Q14H GINNA Rx#:[id number] Oral Tube Feeding Other Output: Urine 230 Other: Voiding Method Indwelling Catheter # Bowel Movements 1 - Labs CBC & Chem 7: 09/02/24 05:48 09/02/24 05:48 Labs: Abnormal Lab Results - Last 24 Hours (Table) 09/02/24 09/02/24 Range/Units 05:48 05:48 RBC 4.27 L (4.30-5.90) m/uL Hgb 12.9 L (13.0-17.5) gm/dL Hct 38.5 L (39.0-53.0) % Lymphocytes # 0.6 L (1.0-4.8) k/uL Sodium 135 L (137-145) mmol/L Chloride 108 H (98-107) mmol/L BUN 7 L (9-20) mg/dL Creatinine 0.54 L (0.66-1.25) mg/dL Microbiology - Last 24 Hours (Table) 08/29/24 00:02 CSF Gram Stain - Final Cerebral Spinal Fluid CSF Culture - Final 08/30/24 05:54 Gram Stain - Final Sputum Sputum Culture - Final Shante tropicalis Assessment and Plan Time with Patient: Less than 30
--- NOTE | 2024-09-02 15:16 | P.PN ---
Subjective Progress Note Date: 09/02/24 Principal diagnosis: Reason for follow-up is fever and leukocytosis Patient is a 44-year-old male with a past medical history significant for reflux osteoarthritis chronic shoulder pain patient has been brought into the ER by EMS after pending the patient was found to be unresponsive by his brother, patient did have elevated white count and fever prompted this consul tation workup to include CT angiogram of the chest with evidence of PE. On today's evaluation that is 09/02/2024, patient has been afebrile, patient is breathing comfortably and is currently on room air, patient denies having any significant cough no chest pain, patient denies nausea vomiting or diarrhea and no abdominal pain. White count is 5.3, creatinine 0.54 culture have been negative so far Objective - Vital Signs Vital signs: Vital Signs Temp 97.4 F L 09/02/24 12:00 Pulse 49 L 09/02/24 12:00 Resp 15 09/02/24 12:00 BP 163/89 09/02/24 12:00 Pulse Ox 94 L 09/02/24 12:00 FiO2 40 09/01/24 08:00 Intake & Output 09/01/24 09/02/24 09/02/24 19:59 06:59 18:59 Intake Total 250 Output Total 230 Balance 20 Weight Intake: IV 250 Lactated Ringers 1,000 ml 200 @ 100 mls/hr IV .Q10H GINNA Rx#:[id number] cefTRIAXone 2 gm In 50 Sodium Chloride 0.9% 50 ml @ 100 mls/hr IVPB Q24HR GINNA Rx#:[id number] Intake, IV Titration Amount Heparin Sod,Pork in 0.45% NaCl 25,000 unit In 0.45 % NaCl 1 250ml.bag @ 12 UNITS/KG/HR 9.525 mls/hr IV .Q24H GINNA Rx#: [id number] propofoL 1,000 mg In Empty Bag 1 bag @ 15 MCG/ KG/MIN 7.144 mls/hr IV . Q14H GINNA Rx#:[id number] Oral Tube Feeding Other Output: Urine 230 Other: Voiding Method Indwelling Catheter # Bowel Movements 1 - Exam GENERAL DESCRIPTION: Middle-age male lying in bed in no distress RESPIRATORY SYSTEM: Unlabored breathing , decreased breath sounds at bases HEART: S1 S2 regular rate and rhythm , ABDOMEN: Soft , no tenderness EXTREMITIES: No edema feet - Labs CBC & Chem 7: 09/02/24 05:48 09/02/24 05:48 Labs: Abnormal Lab Results - Last 24 Hours (Table) 09/02/24 09/02/24 Range/Units 05:48 05:48 RBC 4.27 L (4.30-5.90) m/uL Hgb 12.9 L (13.0-17.5) gm/dL Hct 38.5 L (39.0-53.0) % Lymphocytes # 0.6 L (1.0-4.8) k/uL Sodium 135 L (137-145) mmol/L Chloride 108 H (98-107) mmol/L BUN 7 L (9-20) mg/dL Creatinine 0.54 L (0.66-1.25) mg/dL Microbiology - Last 24 Hours (Table) 08/29/24 00:02 CSF Gram Stain - Final Cerebral Spinal Fluid CSF Culture - Final Assessment and Plan (1) SIRS (systemic inflammatory response syndrome) Current Visit: Yes Status: Acute Code(s): R65.10 - SIRS OF NON-INFECTIOUS ORIGIN W/O ACUTE ORGAN DYSFUNCTION SNOMED Code(s): 454072879 (2) Fever Current Visit: Yes Status: Acute Code(s): R50.9 - FEVER, UNSPECIFIED SNOMED Code(s): 213777299 (3) Leukocytosis Current Visit: Yes Status: Acute Code(s): D72.829 - ELEVATED WHITE BLOOD CELL COUNT, UNSPECIFIED SNOMED Code(s): 371496283 Plan: 1patient presented to hospital with an episode of unresponsiveness requiring intubation in this patient who did have fever and high white count tachycardia meeting criteria for SIRS however the patient did not have very clear focus of infection on the initial investigation urine is significantly positive chest x- ray was negative for acute infiltrate did have a C7 examination not suggestive of encephalitis or meningitis patient did have elevated D-dimer with a question of possible PE or abdominal source not entirely excluded 2-patient did have a CT angiogram of the chest with evidence of PE patient has been started on heparin patient is status post cardiac cath with mild CAD 3-patient did have resolution of his fever, has received 6 doses of Rocephin and has been discontinued by pulm this morning patient will monitor closely off antibiotic therapy Dictation was produced using Peek[employer] dictation software. please excuse any grammatical, word or spelling errors. Time with Patient: Less than 30
[2024-09-02] MEDS: LOPERAMIDE 2 MG CAP PO PRN (16:29)
[2024-09-02] MEDS: QUEtiapine 50 MG TAB PO SCH (21:30)
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
--- NOTE | 2024-09-03 01:35 | P.PN ---
Subjective Progress Note Date: 09/02/24 Patient was seen for a follow-up. Patient was seen in [facility] room #481. He states he is doing much better. Patient is alert and awake in no acute distress. Please refer to examination below. Patient on asking if he overdose, states "maybe". He denies any history of head injury. No history of seizures. Nurse reports that she spoke to the patient's brother, who mentioned that patient is slightly slow, but he is interactive, has full orientation, and engaging conversation very well. Objective - Vital Signs Vital signs: Vital Signs Temp 98.2 F 09/02/24 16:00 Pulse 50 L 09/02/24 16:00 Resp 10 L 09/02/24 16:00 BP 138/91 09/02/24 16:00 Pulse Ox 94 L 09/02/24 16:00 FiO2 40 09/01/24 08:00 Intake & Output 09/01/24 09/02/24 09/02/24 19:59 06:59 18:59 Intake Total 250 Output Total 1230 Balance -980 Weight Intake: IV 250 Lactated Ringers 1,000 ml 200 @ 100 mls/hr IV .Q10H GINNA Rx#:[id number] cefTRIAXone 2 gm In 50 Sodium Chloride 0.9% 50 ml @ 100 mls/hr IVPB Q24HR GINNA Rx#:[id number] Intake, IV Titration Amount Heparin Sod,Pork in 0.45% NaCl 25,000 unit In 0.45 % NaCl 1 250ml.bag @ 12 UNITS/KG/HR 9.525 mls/hr IV .Q24H GINNA Rx#: [id number] propofoL 1,000 mg In Empty Bag 1 bag @ 15 MCG/ KG/MIN 7.144 mls/hr IV . Q14H GINNA Rx#:[id number] Oral Tube Feeding Other Output: Urine 1230 Uretheral (Fernandes) 350 Other: Voiding Method Indwelling Catheter # Bowel Movements 1 - Exam Patient is a middle aged male, and is fully alert and awake. He knows that he is in [place] in [place]. He could not tell the month, although he says the year is 2424 and then said was 2525. His latency time to answer questions have improved. Patient's pupils are equal, round and reacting. Visual monroe are full with no neglect. Extraocular muscles are intact. Face is symmetric and tongue protrudes to midline. On muscle strength testing, there is no pronator drift. The strength appears normal in the arms and legs distally and proximally. Patient is still ataxic in the upper extremities bilaterally. Reflexes are trace in the upper limbs, 1 at the knees and plantars are possible upgoing bilaterally. - Labs CBC & Chem 7: 09/02/24 05:48 09/02/24 05:48 Labs: Abnormal Lab Results - Last 24 Hours (Table) 09/02/24 09/02/24 Range/Units 05:48 05:48 RBC 4.27 L (4.30-5.90) m/uL Hgb 12.9 L (13.0-17.5) gm/dL Hct 38.5 L (39.0-53.0) % Lymphocytes # 0.6 L (1.0-4.8) k/uL Sodium 135 L (137-145) mmol/L Chloride 108 H (98-107) mmol/L BUN 7 L (9-20) mg/dL Creatinine 0.54 L (0.66-1.25) mg/dL Microbiology - Last 24 Hours (Table) 08/29/24 00:02 CSF Gram Stain - Final Cerebral Spinal Fluid CSF Culture - Final Assessment and Plan Assessment: * Acute episode of unresponsiveness, unclear cause. Rule out hypoxic encephalopathy. Rule out seizure, versus arrhythmia, rule out drug overdose. CVA less likely, with normal CT head x 2. Current examination is nonfocal * Status post extubation 09/01/2024 * Altered mental status, possible metabolic encephalopathy. Rule out seizures. * Acute febrile illness * Bilateral small pulmonary emboli * Elevated troponin, on heparin drip * Marijuana use * History of anxiety/depression/bipolar Plan: * Patient has been extubated, doing much better. Examination is nonfocal. Patient's speech is slightly slurred, which could be from recent extubation. We will follow clinically. * Repeat EEG in the morning. Consider weaning off Keppra. Patient currently on Keppra 500 mg twice a day. (Previously was on 1000 mg twice a day). * Check MRI of the brain, rule out any structural abnormality. * Lumbar puncture, with CSF WBCs are 3, RBC 15, glucose 124 and protein 68/60. Gram stain showed no polymorphonuclear leukocytes, no organisms seen. Comprehensive viral panel came negative for HSV-1, HSV-2 and other viruses checked. We will discontinue acyclovir. * Infectious disease on board suspecting SIRS. Patient currently on ceftriaxone. ID following. * Initial EEG was performed 08/29/2024, which was abnormal due to background slowing of moderate to severe degree. This is suggestive of generalized cerebral dysfunction as can be seen with toxic metabolic encephalopathy related to diffuse structural brain abnormality. Clinical correlation is recommended. There is presence of intermittent, low amplitude sharp appearing waves seen over the right temporal region, suggestive of focal cortical neuronal dysfunction with underlying cortical irritability. No electrographic seizure was recorded. Follow-up EEG recommended as clinically indicated. * Repeat prolonged EEG for 1 hour 08/30/2024 was abnormal due to background slowing, suggestive of mild to moderate encephalopathy. There were periods of relatively well-formed posterior dominant alpha rhythm seen, which was not seen in the EEG yesterday. No epileptiform activity was seen. Overall there is improvement in the background on today's EEG as compared to yesterday. Clinical correlation recommended. No electrographic seizure was recorded. * Repeat CT head 08/30/2024 revealed no acute intracranial process. I personally reviewed CT head, agree with the findings. * Patient has elevated cardiac enzymes. Patient underwent cardiac cath, which revealed mild CAD. Recommend medical management. Patient off heparin and to be started on aspirin and Plavix. * CT chest abdomen pelvis showed small bilateral pleural effusions with adjacent infiltrates could be related to atelectasis versus pneumonia. CT of the chest revealed small tertiary branch pulmonary emboli bilateral lung bases. * 2-D echo revealed ischemic cardiomyopathy with severe LV systolic dysfunction with EF 30-35%. Mild to moderate MR. Normal left atrial size. * Other medical management as per IM, critical care team and other specialties on board. * Dr. Humberto Antunez to resume neurology service in the morning.
[2024-09-03] MEDS: lisinopriL 10 MG TAB PO SCH (08:04)
[2024-09-03 08:27] LABS: Basophils # (A) 0.02 X 10*3/uL (0.00-0.10); Basophils % (A) 0.4 %; Eosinophils # (A) 0.15 X 10*3/uL (0.04-0.35); Eosinophils % (A) 2.8 %; HCT 37.3 % (39.6-50.0); HGB 12.3 g/dL (13.0-17.0); Lymphocytes # (A) 0.85 X 10*3/uL (0.90-5.00); Lymphocytes % (A) 15.7 %; MCH 30.1 pg (27.0-32.0); MCV 91.2 FL (80.0-97.0); Monocytes # (A) 0.48 X 10*3/uL (0.20-1.00); Monocytes % (A) 8.9 %; NRBC Per 100 WBC 0 X 10*3/uL (0.00-0.01); Neutrophils # (A) 3.87 X 10*3/uL (1.80-7.70); Neutrophils % (A) 71.5 %; Platelet Count 246 X 10*3/uL (140-440); RBC 4.09 X 10*6/uL (4.40-5.60); RDW 14.7 % (11.5-14.5); WBC 5.41 X 10*3/uL (4.50-10.00)
[2024-09-03 08:38] LABS: Blood Urea Nitrogen 8.4 mg/dL (9.0-27.0); Calcium 9.2 mg/dL (8.7-10.3); Carbon Dioxide 25.6 mmol/L (21.6-31.8); Chloride 108 mmol/L (96-109); Glucose 89 mg/dL (70-110); Potassium 4.1 mmol/L (3.5-5.5); Sodium 143 mmol/L (135-145)
--- NOTE | 2024-09-03 11:59 | P.PN ---
Subjective Progress Note Date: 09/03/24 Principal diagnosis: Reason for follow-up is fever and leukocytosis Patient is a 44-year-old male with a past medical history significant for reflux osteoarthritis chronic shoulder pain patient has been brought into the ER by EMS after pending the patient was found to be unresponsive by his brother, patient did have elevated white count and fever prompted this consul tation workup to include CT angiogram of the chest with evidence of PE. On today's evaluation that is 09/03/2024, Patient is afebrile this morning patient denies having any chest pain shortness of breath or cough, the patient is currently on room air, patient denies any abdominal pain, nausea vomiting has been complaining of diarrhea. Patient white count is 5.41, creatinine 0.6 Objective - Vital Signs Vital signs: Vital Signs Temp 97.5 F L 09/03/24 07:13 Pulse 71 09/03/24 07:13 Resp 16 09/03/24 07:13 BP 124/69 09/03/24 07:13 Pulse Ox 96 09/03/24 07:13 FiO2 40 09/01/24 08:00 Intake & Output 09/02/24 09/03/24 09/03/24 18:59 06:59 18:59 Intake Total 250 2160 Output Total 1230 950 Balance -980 1210 Intake: IV 250 Lactated Ringers 1,000 ml 200 @ 100 mls/hr IV .Q10H GINNA Rx#:[id number] cefTRIAXone 2 gm In 50 Sodium Chloride 0.9% 50 ml @ 100 mls/hr IVPB Q24HR GINNA Rx#:[id number] Oral 2160 Output: Urine 1230 950 Uretheral (Fernandes) 350 Other: Voiding Method Indwelling Catheter Toilet Toilet # Voids 3 3 # Bowel Movements 2 6 - Exam Middle-age male up in the chair In no distress Unlabored breathing - Labs CBC & Chem 7: 09/03/24 02:44 09/03/24 02:44 Labs: Abnormal Lab Results - Last 24 Hours (Table) 09/03/24 09/03/24 Range/Units 02:44 02:44 RBC 4.09 L (4.40-5.60) X 10*6/uL Hgb 12.3 L (13.0-17.0) g/dL Hct 37.3 L (39.6-50.0) % RDW 14.7 H (11.5-14.5) % Lymphocytes # 0.85 L (0.90-5.00) X 10*3/uL BUN 8.4 L (9.0-27.0) mg/dL C-Reactive Protein 3.90 H (0.00-0.80) mg/dL Microbiology - Last 24 Hours (Table) 08/28/24 23:05 Blood Culture - Final Blood 08/29/24 00:02 CSF Gram Stain - Final Cerebral Spinal Fluid CSF Culture - Final Assessment and Plan (1) SIRS (systemic inflammatory response syndrome) Current Visit: Yes Status: Acute Code(s): R65.10 - SIRS OF NON-INFECTIOUS ORIGIN W/O ACUTE ORGAN DYSFUNCTION SNOMED Code(s): 718525297 (2) Fever Current Visit: Yes Status: Acute Code(s): R50.9 - FEVER, UNSPECIFIED SNOMED Code(s): 165483521 (3) Leukocytosis Current Visit: Yes Status: Acute Code(s): D72.829 - ELEVATED WHITE BLOOD CELL COUNT, UNSPECIFIED SNOMED Code(s): 114011509 Plan: 1patient presented to hospital with an episode of unresponsiveness requiring intubation in this patient who did have fever and high white count tachycardia meeting criteria for SIRS however the patient did not have very clear focus of infection on the initial investigation urine is significantly positive chest x- ray was negative for acute infiltrate did have a C7 examination not suggestive of encephalitis or meningitis patient did have elevated D-dimer with a question of possible PE or abdominal source not entirely excluded 2-patient did have a CT angiogram of the chest with evidence of PE patient has been started on heparin patient is status post cardiac cath with mild CAD 3-patient did have resolution of his fever, has received 6 doses of Rocephin subsequently Rocephin has been discontinued as of 09/02/2024 4patient has been complaining of diarrhea possible antibiotic associated hopefully will improve with discontinuation of antibiotic will add Questran for symptomatic relief Dictation was produced using Partender[employer] software. please excuse any grammatical, word or spelling errors.
--- NOTE | 2024-09-03 12:03 | P.PN ---
Subjective HISTORY OF PRESENT ILLNESS: The patient is a 44-year-old gentleman who we requested to see in the intensive care unit for further evaluation of abnormal cardiac enzymes. The patient currently is intubated and he is on mechanical ventilation. The history was taken from the chart as well as from the nurse taking care of the patient. Apparently patient was brought to the hospital by friends who found the patient unresponsive at home by the bathroom with some bruises on the right side of the face. No indication that the patient was experiencing any symptoms of chest pain or chest discomfort or any other cardiovascular symptoms. No drug screen was performed. Currently patient is intubated on mechanical ventilation and he is not on any vasopressors at this point. He underwent further evaluation including troponin came in to be elevated at 5 and also EKG showed sinus mechanism and initially sinus tachycardia but subsequently only sinus mechanism with no significant ST or T wave abnormalities. Chest x-ray did not show any acute abnormalities. No prior cardiovascular history of CAD or heart failure or cardiac arrhythmia but the details on the past medical history is not available at this point giving that the patient is intubated on mechanical ventilation. The chest x-ray did not show any acute abnormalities. The rest of the blood work came in to be unremarkable except that there is no drug screen ordered. The physical examination is remarkable for regular rhythm with a systolic murmur at the right upper sternal border with clear breathing sounds bilaterally and no carotid bruit and no edema was noted. Please note that the CT scan of the brain did not show any acute abnormalities as well. August 29, 2024 The patient was seen and evaluated this morning. He continues to be intubated on mechanical ventilation. Hemodynamically he is stable. His heart rate has been in the 60s. Neurology was consulted and CT scan of the head to be performed later on today to rule out any anoxic encephalopathy. If that ruled out he need to undergo a heart catheterization but the echo showed cardiomyopathy with EF between 30 to 35% with wall motion abnormalities concerning for severe underlying coronary artery disease. Examination is remarkable for regular rhythm with a soft systolic murmur and clear breathing sounds bilaterally and no edema was noted in the lower extremities. CT scan of the chest was performed and showed possible small bilateral pulmonary embolism and elevated patient is on heparin IV August 2024 The patient was seen and evaluated this morning. He continues to be intubated on mechanical ventilation but he is following commands. He is on aspirin and statin and he continues to be on heparin IV. The examination is remarkable for regular rhythm with a soft systolic murmur and clear breathing sounds bilaterally and no edema was noted in the lower extremities. The plan is to pursue with a heart catheterization later on today. September 01, 2024 The patient was seen and evaluated this morning. He underwent a heart catheterization yesterday which showed less of occlusive CAD. He was seen and evaluated this morning. He is hemodynamically stable and he is in normal sinus mechanism. He is slightly agitated. He is on heparin for possible pulmonary embolism and that need to be addressed by the critical care team. From a cardiovascular standpoint of view he does not to be on any IV heparin at this point. He is on beta-jaime and aspirin and statin and I am going to add lisin opril to the current medical regimen. Examination is remarkable for regular rhythm with clear breathing sounds bilaterally and no edema was noted September 02, 2024 The patient was seen and evaluated this morning. He was extubated. The pressure remains elevated and consistent with stage II hypertension. I am going to increase the dose of lisinopril and also add Aldactone to the current medical regimen. Also I am going to add P2 Y12 inhibitor including Plavix to current medical regimen since he was diagnosed with non-STEMI. We are going to obtain a limited echo tomorrow morning to assess for improvement in the ejection fraction. The physical examination is remarkable for regular rhythm with a clear breathing sounds bilaterally and no edema was noted in the lower extremities 09/03/2024 Patient examined this morning at the bedside. Patient currently denies chest pain or pressure. He denies shortness of breath. Patient has been up ambulating and took a shower this morning. Vital signs are stable. PHYSICAL EXAM: VITAL SIGNS: Reviewed. GENERAL: Well-developed in no acute distress. NECK: Supple. No JVD or thyromegaly LUNGS: Respirations even and unlabored. Lungs essentially clear to auscultation bilaterally. HEART: Regular rate and rhythm. S1 and S2 heard. EXTREMITIES: Normal range of motion. No clubbing or cyanosis. Peripheral pulses intact. No lower extremity edema ASSESSMENT: Episode of unresponsiveness Acute coronary syndrome, status post cardiac catheterization revealing mild CAD Cardiomyopathy, likely stress related/nonischemic Acute hypoxic respiratory failure requiring mechanical ventilation, since extubated Small bilateral pulmonary embolism Hypertension PLAN: Continue current cardiac medications Continue telemetry monitoring Limited echo ordered. Await results Defer need for anticoagulation for small bilateral PE to pulmonary service Increase activity as tolerated Further recommendations pending patient course Nurse practitioner note has been reviewed by physician. Signing provider agrees with the documented findings, assessment, and plan of care documented by ELECTRONIC DATA PROCESSING [employer]UDITOR as a scribe. Objective - Vital Signs Vital signs: Vital Signs Temp 97.5 F L 09/03/24 07:13 Pulse 71 09/03/24 07:13 Resp 16 09/03/24 07:13 BP 124/69 09/03/24 07:13 Pulse Ox 96 09/03/24 07:13 FiO2 40 09/01/24 08:00 Intake & Output 09/02/24 09/03/24 09/03/24 18:59 06:59 18:59 Intake Total 250 2160 Output Total 1230 950 Balance -980 1210 Intake: IV 250 Lactated Ringers 1,000 ml 200 @ 100 mls/hr IV .Q10H [facility]NA Rx#:[id number] cefTRIAXone 2 gm In 50 Sodium Chloride 0.9% 50 ml @ 100 mls/hr IVPB Q24HR [facility]INNA Rx#:[id number] Oral 2160 Output: Urine 1230 950 Uretheral (Fernandes) 350 Other: Voiding Method Indwelling Catheter Toilet Toilet # Voids 3 3 # Bowel Movements 2 6 - Labs CBC & Chem 7: 09/03/24 02:44 09/03/24 02:44 Labs: Abnormal Lab Results - Last 24 Hours (Table) 09/03/24 09/03/24 Range/Units 02:44 02:44 RBC 4.09 L (4.40-5.60) X 10*6/uL Hgb 12.3 L (13.0-17.0) g/dL Hct 37.3 L (39.6-50.0) % RDW 14.7 H (11.5-14.5) % Lymphocytes # 0.85 L (0.90-5.00) X 10*3/uL BUN 8.4 L (9.0-27.0) mg/dL C-Reactive Protein 3.90 H (0.00-0.80) mg/dL Microbiology - Last 24 Hours (Table) 08/28/24 23:05 Blood Culture - Final Blood 08/29/24 00:02 CSF Gram Stain - Final Cerebral Spinal Fluid CSF Culture - Final
[2024-09-03] MEDS: CHOLESTYRAMINE (WITH SUGAR) 4 GM PACKET PO SCH (13:07)
--- NOTE | 2024-09-03 13:18 | US ---
EXAMINATION TYPE: US venous doppler duplex LE BI DATE OF EXAM: 09/03/2024 1:12 PM COMPARISON: NONE CLINICAL INDICATION: Male, 44 years old with history of ruke out blood clot; r/o DVT, Pain, Swelling TECHNIQUE: The lower extremity deep venous system is examined utilizing real time linear array sonog brenda with graded compression, color doppler sonography, and spectral doppler. SIDE PERFORMED: Bilateral FINDINGS: VESSELS IMAGED: Common Femoral Vein Deep Femoral Vein Greater Saphenous Vein * Femoral Vein Popliteal Vein Small Saphenous Vein * Proximal Calf Veins (* superficial vessels) Right Leg: Negative for DVT Left Leg: Negative for DVT IMPRESSION: No ultrasound evidence for deep venous thrombosis. [facility], , 09/03/2024 1:16 PM
--- NOTE | 2024-09-03 16:18 | P.PN ---
Subjective Progress Note Date: 09/03/24 I am seeing the patient for the first time during this admission. Please refer to Dr. Pompa's note for further details. It seems to the patient had episode of unresponsiveness of unclear cause. Patient had an EEG there were negative for any seizure or discharges. Patient was started on Keppra by Dr. Pompa. Objective - Vital Signs Vital signs: Vital Signs Temp 97.9 F 09/03/24 14:00 Pulse 68 09/03/24 14:00 Resp 16 09/03/24 14:00 BP 139/77 09/03/24 14:00 Pulse Ox 95 09/03/24 14:00 FiO2 40 09/01/24 08:00 Intake & Output 09/02/24 09/03/24 09/03/24 18:59 06:59 18:59 Intake Total 250 2160 Output Total 1230 950 Balance -980 1210 Weight 74.5 kg Intake: IV 250 Lactated Ringers 1,000 ml 200 @ 100 mls/hr IV .Q10H GINNA Rx#:[id number] cefTRIAXone 2 gm In 50 Sodium Chloride 0.9% 50 ml @ 100 mls/hr IVPB Q24HR GINNA Rx#:[id number] Oral 2160 Output: Urine 1230 950 Uretheral (Fernandes) 350 Other: Voiding Method Indwelling Catheter Toilet Toilet # Voids 3 3 # Bowel Movements 2 6 - Exam General: Lying in bed and is not in acute distress. Neuro: Awake alert oriented to self place and time. Is following simple commands. No aphasia no neglect. Pupils are round equal reactive to light. Visual monroe are full to confrontation. No facial weakness no dysarthria Motor: Lifting all extremities above gravity equally. - Labs CBC & Chem 7: 09/03/24 02:44 09/03/24 02:44 Labs: Abnormal Lab Results - Last 24 Hours (Table) 09/03/24 09/03/24 Range/Units 02:44 02:44 RBC 4.09 L (4.40-5.60) X 10*6/uL Hgb 12.3 L (13.0-17.0) g/dL Hct 37.3 L (39.6-50.0) % RDW 14.7 H (11.5-14.5) % Lymphocytes # 0.85 L (0.90-5.00) X 10*3/uL BUN 8.4 L (9.0-27.0) mg/dL C-Reactive Protein 3.90 H (0.00-0.80) mg/dL Microbiology - Last 24 Hours (Table) 08/28/24 23:05 Blood Culture - Final Blood Assessment and Plan Assessment: * Acute episode of unresponsiveness, unclear cause. Rule out hypoxic encephalopathy. Rule out seizure, versus arrhythmia, rule out drug overdose. Had two EEG which were negative for seizures CVA less likely, with normal CT head x 2. Current examination is nonfocal * Status post extubation 09/01/2024 * Altered mental status, possible metabolic encephalopathy. Rule out seizures. * Acute febrile illness * Bilateral small pulmonary emboli * Elevated troponin, on heparin drip * Marijuana use * History of anxiety/depression/bipolar Plan: * Repeat EEG preliminary read: Is negative for seizure. Per Dr. Pompa Consider weaning off Keppra. Patient currently on Keppra 500 mg twice a day. (Previously was on 1000 mg twice a day). * Check MRI of the brain, rule out any structural abnormality. * Lumbar puncture, with CSF WBCs are 3, RBC 15, glucose 124 and protein 68/60. Gram stain showed no polymorphonuclear leukocytes, no organisms seen. Comprehensive viral panel came negative for HSV-1, HSV-2 and other viruses checked. We will discontinue acyclovir. * Infectious disease on board suspecting SIRS. Patient currently on c eftriaxone. ID following. * Initial EEG was performed 08/29/2024, which was abnormal due to background slowing of moderate to severe degree. This is suggestive of generalized cerebral dysfunction as can be seen with toxic metabolic encephalopathy related to diffuse structural brain abnormality. Clinical correlation is recommended. There is presence of intermittent, low amplitude sharp appearing waves seen over the right temporal region, suggestive of focal cortical neuronal dysfunction with underlying cortical irritability. No electrographic seizure was recorded. Follow-up EEG recommended as clinically indicated. * Repeat prolonged EEG for 1 hour 08/30/2024 was abnormal due to background slowing, suggestive of mild to moderate encephalopathy. There were periods of relatively well-formed posterior dominant alpha rhythm seen, which was not seen in the EEG yesterday. No epileptiform activity was seen. Overall there is improvement in the background on today's EEG as compared to yesterday. Clinical correlation recommended. No electrographic seizure was recorded. * Repeat CT head 08/30/2024 revealed no acute intracranial process. I personally reviewed CT head, agree with the findings. * Patient has elevated cardiac enzymes. Patient underwent cardiac cath, which revealed mild CAD. Recommend medical management. Patient off heparin and to be started on aspirin and Plavix. * CT chest abdomen pelvis showed small bilateral pleural effusions with adjacent infiltrates could be related to atelectasis versus pneumonia. CT of the chest revealed small tertiary branch pulmonary emboli bilateral lung bases. * 2-D echo revealed ischemic cardiomyopathy with severe LV systolic dysfunction with EF 30-35%. Mild to moderate MR. Normal left atrial size. * Other medical management as per IM, critical care team and other specialties on board. Time with Patient: Less than 30
[2024-09-03 16:22] VITALS: BMI 21.7
--- NOTE | 2024-09-03 16:51 | P.PN ---
Subjective Progress Note Date: 09/03/24 Patient is a 44-year-old male brought in by EMS unresponsive, required intubation by ED provider for airway protection. He is not able to provide any information for HPI. Found by EMS, unresponsive, lying on the bathroom floor next to the toilet. Unclear if the patient fell. He does have an abrasion to his right forehead. It looks like patient had a ER visit earlier this month for altered mental status. He was prescribed meclizine and discharged home. Not much for documented medical history. He does reportedly have a significant psychiatric history. Brain CT of the head without contrast did not show any acute intracranial hemorrhage or mass effect. Febrile on arrival with a Tmax of 102.2 F. No reports of aspiration. Postintubation chest x-ray showing endotracheal tube approximately 4.5 cm above the narayan. Orogastric tube coursing below the diaphragm. No obvious focal infiltrates, or evidence of pneumonia. There was mild central vascular congestion, no pleural effusions. Urinalysis unremarkable for UTI. Abdomen is soft and does not appear acute. Patient has acute febrile illness of unknown origin. The ER provider did perform a lumbar puncture. Total nucleated cells 3, glucose 124, total protein 68. CSF culture pending. He was given a dose of Rocephin in the ED, essentially empiric. CBC: WBC count 22.3, hemoglobin 15.7, hematocrit 48.9, platelets 354. CMP: Sodium 140, potassium 4.3, chloride 112, serum bicarb 15, BUN 15, creatinine 1.31, glucose 198. Lactic 1. CK 860. Urine toxicology screen negative except for marijuana. Serum alcohol less than 10. Negative for influenza, RSV, COVID. Troponin 0.633. EKG: Sinus tachycardia, rate 118 bpm, no obvious acute ischemic changes. Patient currently being evaluated in the intensive care unit. Remains intubated to mechanical ventilator with current ventilator settings assist- control, respiratory rate 18, tidal volume 450, FiO2 40%, PEEP of 5. Sedated on propofol which is infusing at 50 mcg/kg/min. Breathing slightly above set rate. Peak pressures low around 15. Some pink-colored secretions were noted in the ET tube and sent for culture. Follow-up ABG showing improvement in the patient's combined respiratory and metabolic acidosis. PaO2 of 83, pCO2 of 35, pH of 7.39. Blood pressure remains normotensive. He did receive a 2 L normal saline bolus in the ED, and continues receiving normal saline at 130 mL/h. Urine output around 30-50 cc/h. Continues to be sedated on propofol, currently unresponsive to even painful stimuli. No clinical seizure activity noted. Prognosis guarded. Progress note dated August 30, 2024. 44-year-old male seen yesterday in consultation. He was found in the bathroom, at home, unresponsive. The patient was intubated in the emergency department, for airway protection. There he also had a lumbar puncture performed by the ER physician. The patient was seen by cardiology. They are concerned about a primary cardiac event. He will eventually need a cardiac catheterization. The patient remains on the ventilator. He is on volume assist-control, rate 18, tidal volume 450, FiO2 40%, PEEP of 5. Blood gases show pO2 71, pCO2 36, pH of 7.36. The patient remains on IV heparin, lactated Ringer's at 100 cc an hour, propofol at 50 mcg/kg/min. The patient's procalcitonin level was 45.8. The patient continues on Rocephin. CT angiogram showed bilateral small pulmonary emboli. The patient will need tube feedings to be started. Eventually he will need a cardiac catheterization. White count is 7.7, hemoglobin 13.8, hematocrit 44.5, platelet count 169,000. PT 11.4. INR 1, PTT is 36.5. Sodium 136, potassium 4.1, chloride 112, CO2 17, BUN 16, creatinine 0.81. Glucose is 65. Calcium 8.4. Troponins were 0.633, 5.610, 4.050, and 2.780. Chest x-ray has been reviewed. Progress note dated August 31, 2024. 44-year-old male seen in room 256. The patient remains on the mechanical ventilator. He is on volume assist-control, rate 18, tidal volume 450, FiO2 40%, PEEP of 5. Blood gases show pO2 of 92, pCO2 37, pH is 7.39. The patient is scheduled to have a heart catheterization today. The patient is getting propofol at 50 mcg/kg/min, and IV heparin. The patient is also on saline at 76 cc an hour. The patient continues on Rocephin, and acyclovir as per infectious diseases. He was also started on tube feeds with vital AF at 20 cc an hour. White count is 5.9, hemoglobin 12.9, hematocrit 39.1, platelet count is normal. Sodium 137, potassium 3.8, chlorides 114, CO2 22, BUN 11, creatinine 0.74. Glucose of 69. Calcium 8.1. Chest x-ray is unremarkable. Progress note dated September 01, 2024. 44-year-old male seen in room 256. The patient remains on mechanical ventilator. He is on volume assist-control, rate 18, tidal volume 450, FiO2 40%, PEEP of 5. Blood gases show pO2 of 97, pCO2 of 38, pH of 7.39. The patient had a cardiac catheterization yesterday, and the catheterization was relatively normal. The patient's heparin can be discontinued. He is on lactated Ringer's at 100 cc an hour. He is on propofol at 50 mcg/kg/min. Today, we will do a daily interruption of sedation on a spontaneous breathing trial, with pressure support of 5 and CPAP of 5. The patient is only on Rocephin. Acyclovir was discontinued. White count 5.8, hemoglobin 9.3, hematocrit 34.6, and a normal platelet count. Sodium 137, potassium 3.5, chlorides 115, CO2 20, BUN 7, creatinine 0.61. Calcium is 8. Sputum showed evidence of Shante tropicalis. Chest x-ray looks relatively normal save for a small pleural effusion, on the right. Progress note dated September 02, 2024. 44-year-old male seen again in room 256. I am happy to report that the patient was successfully extubated yesterday. The patient continues on room air. He is getting LR to 100 cc an hour. He has no memory of what happened before being found unresponsive, on the bathroom floor. White count 5.3, hemoglobin 12.9, hematocrit 38.5, platelet count 221,000. Sodium 135, potassium 4, chlorides 108, CO2 24, anion gap 3, BUN 7, creatinine 0.54. Glucose is 91. On 09/13/2024, the patient is being seen for a follow-up. The patient is awake and alert and communicating. He is status post respiratory failure and the patient was extubated on 09/01/2024. He presented to us unresponsive and his cardiac catheterization that was done on 08/31/2024 showed mild nonocclusive disease. Subsequently patient underwent a CT of the chest and the patient was found to have subsegmental pulmonary emboli in the tertiary branches of pulmonary arteries in the lung bases bilaterally. Based on that, the patient was started on anticoagulation and the patient is currently on Eliquis 5 mg p.o. twice a day. Doppler of the lower extremity was also done today that showed no evidence of any DVT in lower extremities. D-dimer was elevated at 2.55 at the time of admission. In any rate, the patient is doing well. The patient is currently on room air oxygen with a pulse ox of 95%. The hemoglobin is currently at 12.3 with a white cell count of 5.4 and a platelet count of 246. Sodium is at 143, bicarb is at 25, BUN is 8.4 with a creatinine of 0.6. The patient's sputum sample was positive for Shante. Rest of the medications were reviewed. Remains on aspirin. Remains on Keppra. Seen by neurology. EEG showed no evidence of any seizure activity. Objective - Vital Signs Vital signs: Vital Signs Temp 97.5 F L 09/03/24 07:13 Pulse 71 09/03/24 07:13 Resp 16 09/03/24 07:13 BP 124/69 09/03/24 07:13 Pulse Ox 96 09/03/24 07:13 FiO2 40 09/01/24 08:00 Intake & Output 09/02/24 09/03/24 09/03/24 18:59 06:59 18:59 Intake Total 250 2160 Output Total 1230 950 Balance -980 1210 Intake: IV 250 Lactated Ringers 1,000 ml 200 @ 100 mls/hr IV .Q10H GINNA Rx#:[id number] cefTRIAXone 2 gm In 50 Sodium Chloride 0.9% 50 ml @ 100 mls/hr IVPB Q24HR GINNA Rx#:[id number] Oral 2160 Output: Urine 1230 950 Uretheral (Fernandes) 350 Other: Voiding Method Indwelling Catheter Toilet Toilet # Voids 3 3 # Bowel Movements 2 6 - Exam No acute distress, awake and alert, currently on room air. HEENT examination is grossly unremarkable. Neck supple. Full range of motion. No adenopathy thyromegaly or neck vein distention. Cardiovascular examination reveals regular rhythm rate. S1-S2 normal. No S3 or S4. No discernible murmur noted. Heart sounds are distant. Lungs reveal mostly clear breath sounds. Scattered rhonchi are noted. No wheezes. No crackles. Breath sounds equal. Abdomen soft bowel sounds are heard. No masses or tenderness. Extremities are intact. No cyanosis clubbing or edema. Skin is without rash or lesion. Neurologic examination is brief but nonfocal. - Labs CBC & Chem 7: 09/03/24 02:44 09/03/24 02:44 Labs: Abnormal Lab Results - Last 24 Hours (Table) 09/03/24 09/03/24 Range/Units 02:44 02:44 RBC 4.09 L (4.40-5.60) X 10*6/uL Hgb 12.3 L (13.0-17.0) g/dL Hct 37.3 L (39.6-50.0) % RDW 14.7 H (11.5-14.5) % Lymphocytes # 0.85 L (0.90-5.00) X 10*3/uL BUN 8.4 L (9.0-27.0) mg/dL C-Reactive Protein 3.90 H (0.00-0.80) mg/dL Microbiology - Last 24 Hours (Table) 08/28/24 23:05 Blood Culture - Final Blood 08/29/24 00:02 CSF Gram Stain - Final Cerebral Spinal Fluid CSF Culture - Final Assessment and Plan Plan: Acute unresponsiveness, of unclear etiology. Routine mechanical ventilator management, patient was intubated for airway protection in the ED, and extubated on September 01, 2024. Rule out anoxic brain injury. Cardiac catheterization, August 31, showed only mild CAD. Bilateral small pulmonary emboli. Combined respiratory and metabolic acidosis. Acute febrile illness, of unknown origin. Altered mental status, under investigation. Acute leukocytosis. Poor dentition. Elevated troponin, serial troponins trending. Marijuana use. History of anxiety/depression/bipolar. Plan: Patient on room air oxygen Doppler of the lower extremities were negative Recommend 6 months of anticoagulation with Eliquis. I am not sure if the pulmonary embolism was the main reason for his unresponsiveness or respiratory failure. I believe this was an incidental finding and we will treat this patient with 6 months of anticoagulation with Eliquis. Hemodynamically stable Neurology follow-up Medication reviewed Labs are stable Will follow
--- NOTE | 2024-09-03 18:33 | P.PN ---
Subjective Progress Note Date: 09/03/24 Patient is one 44-year-old male was brought in unresponsive by his friends found in the bathroom. Patient has abrasion on the forehead. Patient is in respiratory failure because of which patient was intubated patient's ABG is showing 7.2 pH and pCO2 of 46 essentially metabolic acidosis with anion gap [facility] lactic acid was not obtained. Unknown whether patient is a smoker urine patient's urine drug screen is positive for marijuana. Patient also had a high- grade fever of 102. Other source of infection is not clear patient urine analysis is not consistent with UTI chest x-ray did not show any pneumonic infiltrate chest x-ray also showed mild pulmonary venous congestion. Patient is presently not on any pressor support patient urine output is going down because of which I will start him on lactated Ringer's as his repeat lactic acid came down to 1. Patient serum bicarbonate was low with anion gap probably secondary to lactic acidosis which resolved at this time. Patient's abdomen is soft without any evidence of acute abdomen at this time. Patient had a lumbar puncture which showed mild increase in protein, WBCs only 3. Glucose is elevated. Patient is on empiric antibiotic that is Rocephin infectious disease was consulted along with neurology. Patient also found to have elevated troponin without any significant acute ST-T wave changes in the EKG although there was sinus tachycardia secondary to possible sepsis unknown source which improved at this time. Cardiology evaluate the patient patient was started on IV heparin and considering cardiac catheterization. Patient is presently on propofol sedation. Patient is on ventilator support with FiO2 of 40% PEEP of 4.5 tidal volume of 450 set up respiratory of 18 and patient is breathing over the ventilator. 08/30/2024 Patient eval today in follow-up in the intensive care unit. He is on the mechanical ventilator. Procalcitonin level was significantly elevated at 45. He is continued on IV Rocephin/IV acyclovir. Additionally patient had troponin elevation he is continued on IV heparin with plans for cardiac catheterization. He is undergoing neurological evaluation to rule out an anoxic brain injury he will get an EEG and brain CT today. CT angiography did reveal bilateral small pulmonary embolism in the lung bases as well as small bilateral pleural effusions. His ejection fraction was found to be 30 to 35%. 08/31/2024 Patient is eval today in the intensive care unit. He remains intubated and sedated on mechanical ventilator he is receiving propofol. He remains on IV heparin with plans to undergo cardiac catheterization today. Patient continues on IV ceftriaxone as well as IV acyclovir. ID and neurology are following closely. Patient had a brain CT completed which shows no acute intracranial process. He was EEG done which shows mild to moderate encephalopathy periods of relatively well-formed posterior dominant alpha rhythm seen which was not seen in the EEG yesterday overall felt there was improvement in the background of today's EEG as compared to yesterday. Reveals a white blood cell count of 5.9, hemoglobin 12.9, level of 137, potassium 3.8, BUN of 11, creatinine of 0.74. Calcium of 8.1. Sputum Culture showing Shante tropicalis. 09/01/2024 Patient to the intensive care unit he has been extubated and currently on 5l of oxygen via nasal cannula. Patient is tearful today crying out. He is awake alert he is talking he states that he does not remember what happened leading up to him being hospitalized. He went for cardiac catheterization with no significant obstructive coronary artery disease found. Blood cell count today is 5.8, hemoglobin 11.3, sodium 137, potassium 3.5, BUN of 7, creatinine 0.61, glucose of 123. Sputum culture showing Shante tropicalis. Continues on IV ceftriaxone. IV heparin and IV acyclovir were discontinued. 09/02/2024 Patient is evaluated in follow-up in the intensive care unit. Patient was extubated yesterday and his been weaned to room air. He is awake alert oriented. He is off IV heparin at this time. Is also off of IV antibiotics. He was resumed on his valproic acid which is a home medication. His blood work today reveals a white blood cell count of 5.3, hemoglobin 12.9, sodium 135, chloride 108, BUN of 7, creatinine of 0.54, calcium of 8.7. He is afebrile, heart rate of 49, blood pressure 163/89 and he is 94% on room air. 09/03/2024 Patient is evaluated today in follow up on the medical floor. Patient remains on room air. Not having any shortness of breath today. Started on eliquis for the bilateral pulmonary embolism. venous doppler is negative. He is monitored off antibiotics. Got up and ambulated with physical therapy. Review of Systems Constitutional: Denied any fatigue denied any fever. Cardio vascular: denied any chest pain, palpitations Gastrointestinal: denied any nausea, vomiting, diarrhea Pulmonary: Denied any shortness of breath cough Neurologic denied any new focal deficits All inpatient medications were reviewed and appropriate changes in these medications as dictated in the interval history and assessment and plan. PHYSICAL EXAMINATION: GENERAL: The patient is alert and oriented x3, not in any acute distress. Well developed, well nourished. HEENT: Pupils are round and equally reacting to light. EOMI. No scleral icterus. No conjunctival pallor. Normocephalic, atraumatic. No pharyngeal erythema. No thyromegaly. CARDIOVASCULAR: S1 and S2 present. No murmurs, rubs, or gallops. PULMONARY: Chest is clear to auscultation, no wheezing or crackles. ABDOMEN: Soft, nontender, nondistended, normoactive bowel sounds. No palpable organomegaly. MUSCULOSKELETAL: No joint swelling or deformity. EXTREMITIES: No cyanosis, clubbing, or pedal edema. NEUROLOGICAL: Gross neurological examination did not reveal any focal deficits. SKIN: No rashes. Assessment and plan -Decreased responsiveness patient was intubated for airway protection he is currently extubated -Metabolic acidosis anion gap secondary to lactic acidosis which improved at this time -Bilateral pulmonary embolism, IV heparin drip was stopped postcardiac catheterization. Started on oral eliquis. -Fever and sepsis source of sepsis is not clear at this time -Acute coronary syndrome and ischemic cardiomyopathy with an EF of 30 to 35% felt due to a cardiac arrest with no significant occlusive coronary artery disease found on cardiac catheterization -Marijuana use -Bipolar depression and schizophrenia psychiatry was consulted. Resumed on valproic acid. DVT prophylaxis: On subcu heparin Full Code patient remains in ICU he was extubated and weaned to room air. He has been taken off IV heparin. He has been taken off IV ceftriaxone. He is awake alert and oriented. Repeat labs tommorrow and PT/OT evaluation. The impression and plan of care has been dictated by Danielle Montague, Nurse Practitioner as directed. Dr. Pratibha MD I have performed a history and physical examination and medical decision making of this patient, discussed the same with the dictator, and agree with the dictators assessment and plan as written, documented as a scribe. Based on total visit time, I have performed more than 50% of this visit. Objective - Vital Signs Vital signs: Vital Signs Temp 97.9 F 09/03/24 14:00 Pulse 68 09/03/24 14:00 Resp 16 09/03/24 14:00 BP 139/77 09/03/24 14:00 Pulse Ox 95 09/03/24 14:00 FiO2 40 09/01/24 08:00 Intake & Output 09/02/24 09/03/24 09/03/24 18:59 06:59 18:59 Intake Total 250 2160 Output Total 1230 950 Balance -980 1210 Weight 74.5 kg Intake: IV 250 Lactated Ringers 1,000 ml 200 @ 100 mls/hr IV .Q10H [facility]NA Rx#:[id number] cefTRIAXone 2 gm In 50 Sodium Chloride 0.9% 50 ml @ 100 mls/hr IVPB Q24HR [facility]INNA Rx#:[id number] Oral 2160 Output: Urine 1230 950 Uretheral (Fernandes) 350 Other: Voiding Method Indwelling Catheter Toilet Toilet # Voids 3 3 6 # Bowel Movements 2 6 4 - Labs CBC & Chem 7: 09/03/24 02:44 09/03/24 02:44 Labs: Abnormal Lab Results - Last 24 Hours (Table) 09/03/24 09/03/24 Range/Units 02:44 02:44 RBC 4.09 L (4.40-5.60) X 10*6/uL Hgb 12.3 L (13.0-17.0) g/dL Hct 37.3 L (39.6-50.0) % RDW 14.7 H (11.5-14.5) % Lymphocytes # 0.85 L (0.90-5.00) X 10*3/uL BUN 8.4 L (9.0-27.0) mg/dL C-Reactive Protein 3.90 H (0.00-0.80) mg/dL Microbiology - Last 24 Hours (Table) 08/28/24 23:05 Blood Culture - Final Blood Assessment and Plan Time with Patient: Less than 30
[2024-09-03] MEDS: APIXABAN 5 MG TAB PO SCH (20:54)
--- NOTE | 2024-09-03 23:53 | EEG ---
ELECTROENCEPHALOGRAM REPORT CLINICAL HISTORY: This is a 44-year-old gentleman with episode of unresponsiveness. The video EEG is obtained to evaluate for seizure epileptiform activity. RELEVANT MEDICATION: Keppra. EEG TYPE: This is a routine 21-channel EEG with video using the 10/20 electrode placement system. DESCRIPTION: Wakefulness is only obtained. During awake state, it was hard to assess the background because of the low voltage, even with going down on the sensitivity, it was hard to assess, especially with decreasing the sensitivity, there was a lot of myogenic artifact. There is no physiological stage 2 sleep architecture. There is no focal slowing that is appreciable. Interictal and ictal is none. ACTIVATION PROCEDURE: No photic stimulation was noted and no abnormality noted during photic stimulation. Hyperventilation is not performed. CLINICAL INTERPRETATION: It was hard to assess the background, but otherwise the study was normal. There is no epileptiform discharges or seizure noted during the study. Clinical correlation is recommended. JIMMIE / MICHELLE: [id number] / [id number]
--- NOTE | 2024-09-04 12:17 | P.PN ---
Subjective Progress Note Date: 09/04/24 Patient is one 44-year-old male was brought in unresponsive by his friends found in the bathroom. Patient has abrasion on the forehead. Patient is in respiratory failure because of which patient was intubated patient's ABG is showing 7.2 pH and pCO2 of 46 essentially metabolic acidosis with anion gap [facility] lactic acid was not obtained. Unknown whether patient is a smoker urine patient's urine drug screen is positive for marijuana. Patient also had a high- grade fever of 102. Other source of infection is not clear patient urine analysis is not consistent with UTI chest x-ray did not show any pneumonic infiltrate chest x-ray also showed mild pulmonary venous congestion. Patient is presently not on any pressor support patient urine output is going down because of which I will start him on lactated Ringer's as his repeat lactic acid came down to 1. Patient serum bicarbonate was low with anion gap probably secondary to lactic acidosis which resolved at this time. Patient's abdomen is soft without any evidence of acute abdomen at this time. Patient had a lumbar puncture which showed mild increase in protein, WBCs only 3. Glucose is elevated. Patient is on empiric antibiotic that is Rocephin infectious disease was consulted along with neurology. Patient also found to have elevated troponin without any significant acute ST-T wave changes in the EKG although there was sinus tachycardia secondary to possible sepsis unknown source which improved at this time. Cardiology evaluate the patient patient was started on IV heparin and considering cardiac catheterization. Patient is presently on propofol sedation. Patient is on ventilator support with FiO2 of 40% PEEP of 4.5 tidal volume of 450 set up respiratory of 18 and patient is breathing over the ventilator. 08/30/2024 Patient eval today in follow-up in the intensive care unit. He is on the mechanical ventilator. Procalcitonin level was significantly elevated at 45. He is continued on IV Rocephin/IV acyclovir. Additionally patient had troponin elevation he is continued on IV heparin with plans for cardiac catheterization. He is undergoing neurological evaluation to rule out an anoxic brain injury he will get an EEG and brain CT today. CT angiography did reveal bilateral small pulmonary embolism in the lung bases as well as small bilateral pleural effusions. His ejection fraction was found to be 30 to 35%. 08/31/2024 Patient is eval today in the intensive care unit. He remains intubated and sedated on mechanical ventilator he is receiving propofol. He remains on IV heparin with plans to undergo cardiac catheterization today. Patient continues on IV ceftriaxone as well as IV acyclovir. ID and neurology are following closely. Patient had a brain CT completed which shows no acute intracranial process. He was EEG done which shows mild to moderate encephalopathy periods of relatively well-formed posterior dominant alpha rhythm seen which was not seen in the EEG yesterday overall felt there was improvement in the background of today's EEG as compared to yesterday. Reveals a white blood cell count of 5.9, hemoglobin 12.9, level of 137, potassium 3.8, BUN of 11, creatinine of 0.74. Calcium of 8.1. Sputum Culture showing Shante tropicalis. 09/01/2024 Patient to the intensive care unit he has been extubated and currently on 5l of oxygen via nasal cannula. Patient is tearful today crying out. He is awake alert he is talking he states that he does not remember what happened leading up to him being hospitalized. He went for cardiac catheterization with no significant obstructive coronary artery disease found. Blood cell count today is 5.8, hemoglobin 11.3, sodium 137, potassium 3.5, BUN of 7, creatinine 0.61, glucose of 123. Sputum culture showing Shante tropicalis. Continues on IV ceftriaxone. IV heparin and IV acyclovir were discontinued. 09/02/2024 Patient is evaluated in follow-up in the intensive care unit. Patient was extubated yesterday and his been weaned to room air. He is awake alert oriented. He is off IV heparin at this time. Is also off of IV antibiotics. He was resumed on his valproic acid which is a home medication. His blood work today reveals a white blood cell count of 5.3, hemoglobin 12.9, sodium 135, chloride 108, BUN of 7, creatinine of 0.54, calcium of 8.7. He is afebrile, heart rate of 49, blood pressure 163/89 and he is 94% on room air. 09/03/2024 Patient is evaluated today in follow up on the medical floor. Patient remains on room air. Not having any shortness of breath today. Started on eliquis for the bilateral pulmonary embolism. venous doppler is negative. He is monitored off antibiotics. Got up and ambulated with physical therapy. 09/04/2024 Patient is evaluated in follow-up on the medical floor he is currently sitting up in the chair with no acute complaints overnight. He is not having any shortness of breath. His venous Doppler was negative for acute DVT and he has been started on Eliquis. His repeat echocardiogram is currently pending at this time. Cardiology to discuss a LifeVest with this patient secondary to his decreased ejection fraction. Will continue to advance diet as tolerated. Review of Systems Constitutional: Denied any fatigue denied any fever. Cardio vascular: denied any chest pain, palpitations Gastrointestinal: denied any nausea, vomiting, diarrhea Pulmonary: Denied any shortness of breath cough Neurologic denied any new focal deficits All inpatient medications were reviewed and appropriate changes in these medications as dictated in the interval history and assessment and plan. PHYSICAL EXAMINATION: GENERAL: The patient is alert and oriented x3, not in any acute distress. Well developed, well nourished. HEENT: Pupils are round and equally reacting to light. EOMI. No scleral icterus. No conjunctival pallor. Normocephalic, atraumatic. No pharyngeal erythema. No thyromegaly. CARDIOVASCULAR: S1 and S2 present. No murmurs, rubs, or gallops. PULMONARY: Chest is clear to auscultation, no wheezing or crackles. ABDOMEN: Soft, nontender, nondistended, normoactive bowel sounds. No palpable organomegaly. MUSCULOSKELETAL: No joint swelling or deformity. EXTREMITIES: No cyanosis, clubbing, or pedal edema. NEUROLOGICAL: Gross neurological examination did not reveal any focal deficits. SKIN: No rashes. Assessment and plan -Decreased responsiveness patient was intubated for airway protection he is currently extubated -Metabolic acidosis anion gap secondary to lactic acidosis which improved at this time -Bilateral pulmonary embolism, IV heparin drip was stopped postcardiac catheterization. Started on oral eliquis. -Fever and sepsis source of sepsis is not clear at this time -Acute coronary syndrome and ischemic cardiomyopathy with an EF of 30 to 35% felt due to a cardiac arrest with no significant occlusive coronary artery disease found on cardiac catheterization -Marijuana use -Bipolar depression and schizophrenia psychiatry was consulted. Resumed on valproic acid. DVT prophylaxis: On subcu heparin Full Code Was monitored closely in the medical floor. He is currently pending brain MRI to complete a neurological evaluation. Additionally he will have a repeat echocardiogram completed to monitor for improvement in his ejection fraction. Cardiology to discuss LifeVest with this patient. Plan is for discharge home with home care services and home PT when medically clear. Possibly in the next 24 hours. The impression and plan of care has been dictated by Danielle Montague, Nurse Practitioner as directed. Dr. Pratibha MD I have performed a history and physical examination and medical decision making of this patient, discussed the same with the dictator, and agree with the dictators assessment and plan as written, documented as a scribe. Based on total visit time, I have performed more than 50% of this visit. Objective - Vital Signs Vital signs: Vital Signs Temp 98.1 F 09/04/24 07:09 Pulse 70 09/04/24 07:09 Resp 16 09/04/24 08:55 BP 161/81 09/04/24 07:09 Pulse Ox 96 09/04/24 07:09 FiO2 40 09/01/24 08:00 Intake & Output 09/03/24 09/04/24 09/04/24 18:59 06:59 18:59 Intake Total 300 Balance 300 Weight 74.5 kg 60.5 kg Intake: Oral 300 Other: Voiding Method Toilet Toilet Toilet # Voids 6 4 # Bowel Movements 4 1 - Labs CBC & Chem 7: 09/03/24 02:44 09/03/24 02:44 Assessment and Plan Time with Patient: Less than 30
--- NOTE | 2024-09-04 12:17 | CA ---
Transthoracic Echo Report Name: John Romero Age: 44 Gender: M : 1980 Exam Date: 09/04/2024 10:26 Exam Location: [place] [facility] Ht (in): 73 Wt (lb): 181 Ordering Physician: Fam Garcia MD ([id number]) Attending/Referring Phys: Shutdown Coordinator Nicole Lo RDCS Procedure CPT: Indications: EF Cardiac Hx: EF only Technical Quality: Good Contrast 1: Total Dose (mL): Contrast 2: Total Dose (mL): MEASUREMENTS (Male / Female) Normal Values 2D ECHO LV Diastolic Diameter PLAX 5.4 cm 4.2 - 5.9 / 3.9 - 5.3 cm LV Systolic Diameter PLAX 4.5 cm IVS Diastolic Thickness 1.0 cm 0.6 - 1.0 / 0.6 - 0.9 cm LVPW Diastolic Thickness 0.9 cm 0.6 - 1.0 / 0.6 - 0.9 cm LV Relative Wall Thickness 0.4 LV Diastolic Volume MOD BP 160.3 cm??? 67 - 155 / 56 - 104 cm??? LV Systolic Volume MOD BP 105.0 cm??? 22 - 58 / 19 - 49 cm??? LV Ejection Fraction MOD BP 34.5 % >= 55 % LV Cardiac Index MOD BP 2040.6 cm???/min???m??? LV Diastolic Volume MOD 4C 159.1 cm??? LV Systolic Volume MOD 4C 99.0 cm??? LV Ejection Fraction MOD 4C 37.8 % LV Cardiac Index MOD 4C 2219.9 cm???/min???m??? LV Diastolic Length 4C 9.8 cm LV Systolic Length 4C 8.1 cm LV Diastolic Volume MOD 2C 153.7 cm??? LV Systolic Volume MOD 2C 106.3 cm??? LV Ejection Fraction MOD 2C 30.8 % LV Cardiac Index MOD 2C 1749.3 cm???/min???m??? LV Diastolic Length 2C 9.2 cm LV Systolic Length 2C 8.5 cm FINDINGS Left Ventricle Left ventricular ejection fraction is estimated at 30-35 %. Mildly increased left ventricular diastolic volume. Severely increased left ventricular systolic volume. Moderately decreased left ventricular ejection fraction. Right Ventricle Right Atrium Left Atrium Mitral Valve Aortic Valve Tricuspid Valve Pulmonic Valve Pericardium No pericardial effusion. Aorta CONCLUSIONS Ischemic cardiomyopathy with an ejection fraction of 30-35% Previewed by: Dr. Catarino Barlow MD (Electronically Signed) Final Date: 04 September 2024 12:16
--- NOTE | 2024-09-04 12:20 | P.PN ---
Subjective Progress Note Date: 09/04/24 Principal diagnosis: Reason for follow-up is fever and leukocytosis Patient is a 44-year-old male with a past medical history significant for reflux osteoarthritis chronic shoulder pain patient has been brought into the ER by EMS after pending the patient was found to be unresponsive by his brother, patient did have elevated white count and fever prompted this consul tation workup to include CT angiogram of the chest with evidence of PE. On today's evaluation that is 09/04/2024,the patient denies any fever or any chills, patient is breathing comfortably on room air, the patient denies chest pain shortness of breath and no significant cough, patient denies abdominal pain, no nausea vomiting still complaining of some diarrhea but thought it may be just a gas. Patient white count is 5.41, creatinine 0.6 Objective - Vital Signs Vital signs: Vital Signs Temp 98.1 F 09/04/24 07:09 Pulse 70 09/04/24 07:09 Resp 16 09/04/24 08:55 BP 161/81 09/04/24 07:09 Pulse Ox 96 09/04/24 07:09 FiO2 40 09/01/24 08:00 Intake & Output 09/03/24 09/04/24 09/04/24 18:59 06:59 18:59 Intake Total 300 Balance 300 Weight 74.5 kg 60.5 kg Intake: Oral 300 Other: Voiding Method Toilet Toilet Toilet # Voids 6 4 # Bowel Movements 4 1 - Exam GENERAL DESCRIPTION: Middle-age male up in the chair in no distress RESPIRATORY SYSTEM: Unlabored breathing , decreased breath sounds at bases HEART: S1 S2 regular rate and rhythm , ABDOMEN: Soft , no tenderness - Labs CBC & Chem 7: 09/03/24 02:44 09/03/24 02:44 Assessment and Plan (1) SIRS (systemic inflammatory response syndrome) Current Visit: Yes Status: Acute Code(s): R65.10 - SIRS OF NON-INFECTIOUS ORIGIN W/O ACUTE ORGAN DYSFUNCTION SNOMED Code(s): 242486249 (2) Fever Current Visit: Yes Status: Acute Code(s): R50.9 - FEVER, UNSPECIFIED SNOMED Code(s): 712248541 (3) Leukocytosis Current Visit: Yes Status: Acute Code(s): D72.829 - ELEVATED WHITE BLOOD CELL COUNT, UNSPECIFIED SNOMED Code(s): 025355971 Plan: 1patient presented to hospital with an episode of unresponsiveness requiring intubation in this patient who did have fever and high white count tachycardia meeting criteria for SIRS however the patient did not have very clear focus of infection on the initial investigation urine is significantly positive chest x- ray was negative for acute infiltrate did have a C7 examination not suggestive of encephalitis or meningitis patient did have elevated D-dimer with a question of possible PE or abdominal source not entirely excluded 2-patient did have a CT angiogram of the chest with evidence of PE patient is status post cardiac cath with mild CAD 3-patient did have resolution of his fever, has received 6 doses of Rocephin subsequently Rocephin has been discontinued as of 09/02/2024 and seems to be doing well off antibiotics 4patient has been complaining of diarrhea possible antibiotic associated mention some improvement continue with the Questran for symptomatic relief Dictation was produced using [employer] dictation software. please excuse any grammatical, word or spelling errors. Time with Patient: Less than 30
--- NOTE | 2024-09-04 13:08 | P.PN ---
Subjective HISTORY OF PRESENT ILLNESS: The patient is a 44-year-old gentleman who we requested to see in the intensive care unit for further evaluation of abnormal cardiac enzymes. The patient currently is intubated and he is on mechanical ventilation. The history was taken from the chart as well as from the nurse taking care of the patient. Apparently patient was brought to the hospital by friends who found the patient unresponsive at home by the bathroom with some bruises on the right side of the face. No indication that the patient was experiencing any symptoms of chest pain or chest discomfort or any other cardiovascular symptoms. No drug screen was performed. Currently patient is intubated on mechanical ventilation and he is not on any vasopressors at this point. He underwent further evaluation including troponin came in to be elevated at 5 and also EKG showed sinus mechanism and initially sinus tachycardia but subsequently only sinus mechanism with no significant ST or T wave abnormalities. Chest x-ray did not show any acute abnormalities. No prior cardiovascular history of CAD or heart failure or cardiac arrhythmia but the details on the past medical history is not available at this point giving that the patient is intubated on mechanical ventilation. The chest x-ray did not show any acute abnormalities. The rest of the blood work came in to be unremarkable except that there is no drug screen ordered. The physical examination is remarkable for regular rhythm with a systolic murmur at the right upper sternal border with clear breathing sounds bilaterally and no carotid bruit and no edema was noted. Please note that the CT scan of the brain did not show any acute abnormalities as well. August 29, 2024 The patient was seen and evaluated this morning. He continues to be intubated on mechanical ventilation. Hemodynamically he is stable. His heart rate has been in the 60s. Neurology was consulted and CT scan of the head to be performed later on today to rule out any anoxic encephalopathy. If that ruled out he need to undergo a heart catheterization but the echo showed cardiomyopathy with EF between 30 to 35% with wall motion abnormalities concerning for severe underlying coronary artery disease. Examination is remarkable for regular rhythm with a soft systolic murmur and clear breathing sounds bilaterally and no edema was noted in the lower extremities. CT scan of the chest was performed and showed possible small bilateral pulmonary embolism and elevated patient is on heparin IV August 2024 The patient was seen and evaluated this morning. He continues to be intubated on mechanical ventilation but he is following commands. He is on aspirin and statin and he continues to be on heparin IV. The examination is remarkable for regular rhythm with a soft systolic murmur and clear breathing sounds bilaterally and no edema was noted in the lower extremities. The plan is to pursue with a heart catheterization later on today. September 01, 2024 The patient was seen and evaluated this morning. He underwent a heart catheterization yesterday which showed less of occlusive CAD. He was seen and evaluated this morning. He is hemodynamically stable and he is in normal sinus mechanism. He is slightly agitated. He is on heparin for possible pulmonary embolism and that need to be addressed by the critical care team. From a cardiovascular standpoint of view he does not to be on any IV heparin at this point. He is on beta-jaime and aspirin and statin and I am going to add lisin opril to the current medical regimen. Examination is remarkable for regular rhythm with clear breathing sounds bilaterally and no edema was noted September 02, 2024 The patient was seen and evaluated this morning. He was extubated. The pressure remains elevated and consistent with stage II hypertension. I am going to increase the dose of lisinopril and also add Aldactone to the current medical regimen. Also I am going to add P2 Y12 inhibitor including Plavix to current medical regimen since he was diagnosed with non-STEMI. We are going to obtain a limited echo tomorrow morning to assess for improvement in the ejection fraction. The physical examination is remarkable for regular rhythm with a clear breathing sounds bilaterally and no edema was noted in the lower extremities 09/03/2024 Patient examined this morning at the bedside. Patient currently denies chest pain or pressure. He denies shortness of breath. Patient has been up ambulating and took a shower this morning. Vital signs are stable. 09/04/2024 Patient examined this morning at the bedside. He is sitting up in the chair. He denies chest pain or pressure. He denies shortness of breath. He is scheduled for MRI today. Vital signs are stable. Most recent blood pressures on the higher side with systolics in the [id number]. Repeat echocardiogram continues to reveal ejection fraction 3035%. PHYSICAL EXAM: VITAL SIGNS: Reviewed. GENERAL: Well-developed in no acute distress. NECK: Supple. No JVD or thyromegaly LUNGS: Respirations even and unlabored. Lungs essentially clear to auscultation bilaterally. HEART: Regular rate and rhythm. S1 and S2 heard. EXTREMITIES: Normal range of motion. No clubbing or cyanosis. Peripheral pulses intact. No lower extremity edema ASSESSMENT: Episode of unresponsiveness Acute coronary syndrome, status post cardiac catheterization revealing mild CAD Cardiomyopathy, likely stress related/nonischemic Acute hypoxic respiratory failure requiring mechanical ventilation, since extubated Small bilateral pulmonary embolism Hypertension PLAN: Continue current cardiac medications No beta-jaime at this time secondary to bradycardia with heart rates down into the 50s Patient has been started on Eliquis for PE. Continue Plavix. Discontinue aspirin Increase lisinopril to 10 mg twice a day Continue telemetry monitoring Recommend LifeVest at the time of discharge secondary to cardiomyopathy to prevent sudden cardiac Stable for discharge from a cardiac standpoint Further recommendations pending patient course Nurse practitioner note has been reviewed by physician. Signing provider agrees with the documented findings, assessment, and plan of care documented by SPECIAL CERTIFICATE DICTATOR as a scribe. Objective - Vital Signs Vital signs: Vital Signs Temp 98.1 F 09/04/24 07:09 Pulse 70 09/04/24 07:09 Resp 16 09/04/24 08:55 BP 161/81 09/04/24 07:09 Pulse Ox 96 09/04/24 07:09 FiO2 40 09/01/24 08:00 Intake & Output 09/03/24 09/04/24 09/04/24 18:59 06:59 18:59 Intake Total 300 Balance 300 Weight 74.5 kg 60.5 kg Intake: Oral 300 Other: Voiding Method Toilet Toilet Toilet # Voids 6 4 # Bowel Movements 4 1 - Labs CBC & Chem 7: 09/03/24 02:44 09/03/24 02:44
--- NOTE | 2024-09-04 14:08 | P.PN ---
Subjective Progress Note Date: 09/04/24 Patient is a 44-year-old male brought in by EMS unresponsive, required intubation by ED provider for airway protection. He is not able to provide any information for HPI. Found by EMS, unresponsive, lying on the bathroom floor next to the toilet. Unclear if the patient fell. He does have an abrasion to his right forehead. It looks like patient had a ER visit earlier this month for altered mental status. He was prescribed meclizine and discharged home. Not much for documented medical history. He does reportedly have a significant psychiatric history. Brain CT of the head without contrast did not show any acute intracranial hemorrhage or mass effect. Febrile on arrival with a Tmax of 102.2 F. No reports of aspiration. Postintubation chest x-ray showing endotracheal tube approximately 4.5 cm above the narayan. Orogastric tube coursing below the diaphragm. No obvious focal infiltrates, or evidence of pneumonia. There was mild central vascular congestion, no pleural effusions. Urinalysis unremarkable for UTI. Abdomen is soft and does not appear acute. Patient has acute febrile illness of unknown origin. The ER provider did perform a lumbar puncture. Total nucleated cells 3, glucose 124, total protein 68. CSF culture pending. He was given a dose of Rocephin in the ED, essentially empiric. CBC: WBC count 22.3, hemoglobin 15.7, hematocrit 48.9, platelets 354. CMP: Sodium 140, potassium 4.3, chloride 112, serum bicarb 15, BUN 15, creatinine 1.31, glucose 198. Lactic 1. CK 860. Urine toxicology screen negative except for marijuana. Serum alcohol less than 10. Negative for influenza, RSV, COVID. Troponin 0.633. EKG: Sinus tachycardia, rate 118 bpm, no obvious acute ischemic changes. Patient currently being evaluated in the intensive care unit. Remains intubated to mechanical ventilator with current ventilator settings assist- control, respiratory rate 18, tidal volume 450, FiO2 40%, PEEP of 5. Sedated on propofol which is infusing at 50 mcg/kg/min. Breathing slightly above set rate. Peak pressures low around 15. Some pink-colored secretions were noted in the ET tube and sent for culture. Follow-up ABG showing improvement in the patient's combined respiratory and metabolic acidosis. PaO2 of 83, pCO2 of 35, pH of 7.39. Blood pressure remains normotensive. He did receive a 2 L normal saline bolus in the ED, and continues receiving normal saline at 130 mL/h. Urine output around 30-50 cc/h. Continues to be sedated on propofol, currently unresponsive to even painful stimuli. No clinical seizure activity noted. Prognosis guarded. Progress note dated August 30, 2024. 44-year-old male seen yesterday in consultation. He was found in the bathroom, at home, unresponsive. The patient was intubated in the emergency department, for airway protection. There he also had a lumbar puncture performed by the ER physician. The patient was seen by cardiology. They are concerned about a primary cardiac event. He will eventually need a cardiac catheterization. The patient remains on the ventilator. He is on volume assist-control, rate 18, tidal volume 450, FiO2 40%, PEEP of 5. Blood gases show pO2 71, pCO2 36, pH of 7.36. The patient remains on IV heparin, lactated Ringer's at 100 cc an hour, propofol at 50 mcg/kg/min. The patient's procalcitonin level was 45.8. The patient continues on Rocephin. CT angiogram showed bilateral small pulmonary emboli. The patient will need tube feedings to be started. Eventually he will need a cardiac catheterization. White count is 7.7, hemoglobin 13.8, hematocrit 44.5, platelet count 169,000. PT 11.4. INR 1, PTT is 36.5. Sodium 136, potassium 4.1, chloride 112, CO2 17, BUN 16, creatinine 0.81. Glucose is 65. Calcium 8.4. Troponins were 0.633, 5.610, 4.050, and 2.780. Chest x-ray has been reviewed. Progress note dated August 31, 2024. 44-year-old male seen in room 256. The patient remains on the mechanical ventilator. He is on volume assist-control, rate 18, tidal volume 450, FiO2 40%, PEEP of 5. Blood gases show pO2 of 92, pCO2 37, pH is 7.39. The patient is scheduled to have a heart catheterization today. The patient is getting propofol at 50 mcg/kg/min, and IV heparin. The patient is also on saline at 76 cc an hour. The patient continues on Rocephin, and acyclovir as per infectious diseases. He was also started on tube feeds with vital AF at 20 cc an hour. White count is 5.9, hemoglobin 12.9, hematocrit 39.1, platelet count is normal. Sodium 137, potassium 3.8, chlorides 114, CO2 22, BUN 11, creatinine 0.74. Glucose of 69. Calcium 8.1. Chest x-ray is unremarkable. Progress note dated September 01, 2024. 44-year-old male seen in room 256. The patient remains on mechanical ventilator. He is on volume assist-control, rate 18, tidal volume 450, FiO2 40%, PEEP of 5. Blood gases show pO2 of 97, pCO2 of 38, pH of 7.39. The patient had a cardiac catheterization yesterday, and the catheterization was relatively normal. The patient's heparin can be discontinued. He is on lactated Ringer's at 100 cc an hour. He is on propofol at 50 mcg/kg/min. Today, we will do a daily interruption of sedation on a spontaneous breathing trial, with pressure support of 5 and CPAP of 5. The patient is only on Rocephin. Acyclovir was discontinued. White count 5.8, hemoglobin 9.3, hematocrit 34.6, and a normal platelet count. Sodium 137, potassium 3.5, chlorides 115, CO2 20, BUN 7, creatinine 0.61. Calcium is 8. Sputum showed evidence of Shante tropicalis. Chest x-ray looks relatively normal save for a small pleural effusion, on the right. Progress note dated September 02, 2024. 44-year-old male seen again in room 256. I am happy to report that the patient was successfully extubated yesterday. The patient continues on room air. He is getting LR to 100 cc an hour. He has no memory of what happened before being found unresponsive, on the bathroom floor. White count 5.3, hemoglobin 12.9, hematocrit 38.5, platelet count 221,000. Sodium 135, potassium 4, chlorides 108, CO2 24, anion gap 3, BUN 7, creatinine 0.54. Glucose is 91. On 09/13/2024, the patient is being seen for a follow-up. The patient is awake and alert and communicating. He is status post respiratory failure and the patient was extubated on 09/01/2024. He presented to us unresponsive and his cardiac catheterization that was done on 08/31/2024 showed mild nonocclusive disease. Subsequently patient underwent a CT of the chest and the patient was found to have subsegmental pulmonary emboli in the tertiary branches of pulmonary arteries in the lung bases bilaterally. Based on that, the patient was started on anticoagulation and the patient is currently on Eliquis 5 mg p.o. twice a day. Doppler of the lower extremity was also done today that showed no evidence of any DVT in lower extremities. D-dimer was elevated at 2.55 at the time of admission. In any rate, the patient is doing well. The patient is currently on room air oxygen with a pulse ox of 95%. The hemoglobin is currently at 12.3 with a white cell count of 5.4 and a platelet count of 246. Sodium is at 143, bicarb is at 25, BUN is 8.4 with a creatinine of 0.6. The patient's sputum sample was positive for Shante. Rest of the medications were reviewed. Remains on aspirin. Remains on Keppra. Seen by neurology. EEG showed no evidence of any seizure activity. 09/04/2024, patient is being seen for a follow-up. He is, comfortable and the patient remains on room air oxygen with a pulse ox of 96%. No new labs are available from today. Remains on anticoagulation with Eliquis that was started yesterday and Doppler lower extremities were essentially negative. Rest of the medications remain unchanged. The patient has no specific complaints. No fever. No chills. No nausea vomiting or abdominal pain. The white cell count is at 5.4 with a creatinine of 0.6. Cardiology is considering the possibility of a LifeVest due to his reduced left-ventricular ejection fraction as the patient has an ejection fraction of 30 to 35% postcardiac arrest. He was not found to have any significant abnormalities on his cardiac catheterization. Objective - Vital Signs Vital signs: Vital Signs Temp 98.1 F 09/04/24 07:09 Pulse 70 09/04/24 07:09 Resp 16 09/04/24 08:55 BP 161/81 09/04/24 07:09 Pulse Ox 96 09/04/24 07:09 FiO2 40 09/01/24 08:00 Intake & Output 09/03/24 09/04/24 09/04/24 18:59 06:59 18:59 Intake Total 300 Balance 300 Weight 74.5 kg 60.5 kg Intake: Oral 300 Other: Voiding Method Toilet Toilet Toilet # Voids 6 4 # Bowel Movements 4 1 - Exam No acute distress, awake and alert, currently on room air. HEENT examination is grossly unremarkable. Neck supple. Full range of motion. No adenopathy thyromegaly or neck vein distention. Cardiovascular examination reveals regular rhythm rate. S1-S2 normal. No S3 or S4. No discernible murmur noted. Heart sounds are distant. Lungs reveal mostly clear breath sounds. Scattered rhonchi are noted. No wheezes. No crackles. Breath sounds equal. Abdomen soft bowel sounds are heard. No masses or tenderness. Extremities are intact. No cyanosis clubbing or edema. Skin is without rash or lesion. Neurologic examination is brief but nonfocal. - Labs CBC & Chem 7: 09/03/24 02:44 09/03/24 02:44 Assessment and Plan Plan: Acute unresponsiveness, of unclear etiology. Consider possibility of cardiac arrest. The patient has impaired LV function with an ejection fraction of 30 to 35%. No cardiac arrhythmias have been noted. Routine mechanical ventilator management, patient was intubated for airway protection in the ED, and extubated on September 01, 2024. Cardiac catheterization, August 31, showed only mild CAD. Bilateral small pulmonary emboli, unlikely to be cause of his unresponsiveness or arrest. Patient is currently on anticoagulation with Eliquis. Doppler of lower extremities been negative. Combined respiratory and metabolic acidosis. Acute febrile illness, of unknown origin. Altered mental status, under investigation. Acute leukocytosis. Poor dentition. Elevated troponin, serial troponins trending. Marijuana use. History of anxiety/depression/bipolar. Plan: Patient on room air oxygen Doppler of the lower extremities were negative Recommend 6 months of anticoagulation with Eliquis. I am not sure if the pulmonary embolism was the main reason for his unresponsiveness or respiratory failure. I believe this was an incidental finding and we will treat this patient with 6 months of anticoagulation with Eliquis. Hemodynamically stable consider LifeVest, awaiting final recommendations from cardiology Neurology follow-up Medication reviewed Labs are stable Will follow
--- NOTE | 2024-09-04 16:04 | P.PN ---
Subjective Progress Note Date: 09/04/24 I am following-up with patient and he feels he is doing better. Denies any further episodes of unresponsiveness/syncopal spells. Objective - Vital Signs Vital signs: Vital Signs Temp 97.6 F 09/04/24 14:14 Pulse 99 09/04/24 14:14 Resp 16 09/04/24 14:14 BP 150/93 09/04/24 14:14 Pulse Ox 97 09/04/24 14:14 FiO2 40 09/01/24 08:00 Intake & Output 09/03/24 09/04/24 09/04/24 18:59 06:59 18:59 Intake Total 550 Balance 550 Weight 74.5 kg 60.5 kg Intake: Oral 550 Other: Voiding Method Toilet Toilet Toilet # Voids 6 4 # Bowel Movements 4 1 - Exam General: Sitting up in a recliner chair and is not in acute distress. Neuro: Awake alert oriented to self place and time. Is following simple commands. No aphasia no neglect. Pupils are round equal reactive to light. Visual monroe are full to confrontation. No facial weakness no dysarthria Motor: Lifting all extremities above gravity equally. - Labs CBC & Chem 7: 09/03/24 02:44 09/03/24 02:44 Assessment and Plan Assessment: * Acute episode of unresponsiveness, probable due hypoxic encephalopathy from pulmonary embolism and ischemic cardiomyopathy. Rule out seizure, versus arrhythmia, rule out drug overdose. Had three EEG which were negative for seizures CVA less likely, with normal CT head x 2. Current examination is nonfocal * Status post extubation 09/01/2024 * Acute febrile illness * Bilateral small pulmonary emboli * Elevated troponin, on heparin drip * Marijuana use * History of anxiety/depression/bipolar Plan: * Repeat EEG on 09/03/2024 is negative for seizure or discharges. Patient currently on Keppra 500 mg twice a day (Previously was on 1000 mg twice a day during this admission). I agree with Dr. Pompa of weaning the Keppra to 250mg bid since no clear seizure and by tomorrow stope. * MRI of the brain: Pending * Lumbar puncture, with CSF WBCs are 3, RBC 15, glucose 124 and protein 68/60. Gram stain showed no polymorphonuclear leukocytes, no organisms seen. Comprehensive viral panel came negative for HSV-1, HSV-2 and other viruses checked. We will discontinue acyclovir. * Infectious disease on board suspecting SIRS. Patient currently on ceftriaxone. ID following. * Initial EEG was performed 08/29/2024, which was abnormal due to background slowing of moderate to severe degree. This is suggestive of generalized cerebral dysfunction as can be seen with toxic metabolic encephalopathy related to diffuse structural brain abnormality. Clinical correlation is recommended. There is presence of intermittent, low amplitude sharp appearing waves seen over the right temporal region, suggestive of focal cortical neuronal dysfunction with underlying cortical irritability. No electrographic seizure was recorded. Follow-up EEG recommended as clinically indicated. * Repeat prolonged EEG for 1 hour 08/30/2024 was abnormal due to background slowing, suggestive of mild to moderate encephalopathy. There were periods of relatively well-formed posterior dominant alpha rhythm seen, which was not seen in the EEG yesterday. No epileptiform activity was seen. Overall there is improvement in the background on today's EEG as compared to yesterday. Clinical correlation recommended. No electrographic seizure was recorded. * Repeat CT head 08/30/2024 revealed no acute intracranial process. I personally reviewed CT head, agree with the findings. * Patient has elevated cardiac enzymes. Patient underwent cardiac cath, which revealed mild CAD. Recommend medical management. Patient off heparin and to be started on aspirin and Plavix. * CT chest abdomen pelvis showed small bilateral pleural effusions with adjacent infiltrates could be related to atelectasis versus pneumonia. CT of the chest revealed small tertiary branch pulmonary emboli bilateral lung bases. * 2-D echo revealed ischemic cardiomyopathy with severe LV systolic dysfunction with EF 30-35%. Mild to moderate MR. Normal left atrial size. * Other medical management as per IM, critical care team and other specialties on board. * Recommend the patient to follow-up with neurologist as outpatient within 2 weeks. The plan is discussed with patient and primary team N.P. If MRI Brain is negative and further neurological issues then clear from neurological perspective. Time with Patient: Less than 30
--- NOTE | 2024-09-04 17:23 | MR ---
EXAMINATION TYPE: MR brain wo con DATE OF EXAM: 09/04/2024 COMPARISON: CT brain 08/30/2024 HISTORY: ams, seizure. CONTRAST: Performed utilizing 0 mL intravenous Gadavist gadolinium contrast. TECHNIQUE: Multiplanar, multiecho imaging on a 3.0 Shelli magnet is performed through the brain. Stud y is performed within 24 hours of arrival to the hospital. The craniovertebral junction is normal. The pituitary is normal. Optic chiasm as visualized is norm al. Diffusion-weighted imaging is performed. No abnormal hyperintensity is present to suggest an acute i ntracranial infarct or acute ischemic change. No signal abnormality within the visualized brain Ventricles and sulci are appropriate for the patient age. Retention cysts are within the maxillary sinuses. Paranasal sinuses and mastoid air cells are otherwi se clear IMPRESSION: 1. No acute intracranial process. Follow-up can be performed as clinically indicated. [facility], Workstation: [facility], 09/04/2024 5:21 PM
[2024-09-04] MEDS: levETIRAcetam 250 MG TAB PO SCH (21:11)
[2024-09-04] MEDS: lisinopriL 10 MG TAB PO SCH (21:11)
[2024-09-05 08:37] LABS: BUN/Creat Ratio 12.14 Ratio (12.00-20.00); Blood Urea Nitrogen 8.5 mg/dL (9.0-27.0); Calcium 9.4 mg/dL (8.7-10.3); Carbon Dioxide 24.7 mmol/L (21.6-31.8); Chloride 106 mmol/L (96-109); Glucose 95 mg/dL (70-110); Potassium 3.4 mmol/L (3.5-5.5); Sodium 143 mmol/L (135-145)
[2024-09-05] MEDS: POTASSIUM CHLORIDE ER 20 MEQ TAB.ER PO SCH (11:10)
--- NOTE | 2024-09-05 11:13 | P.PN ---
Subjective Progress Note Date: 09/05/24 Principal diagnosis: Reason for follow-up is fever and leukocytosis Patient is a 44-year-old male with a past medical history significant for reflux osteoarthritis chronic shoulder pain patient has been brought into the ER by EMS after pending the patient was found to be unresponsive by his brother, patient did have elevated white count and fever prompted this consul tation workup to include CT angiogram of the chest with evidence of PE. On today's evaluation that is 09/05/2024,the patient remains to be afebrile, patient is on room air not requiring supplemental oxygen and denies any shortness of breath no chest pain or cough.Patient denies having any nausea or vomiting, no abdominal pain and mention improvement in diarrhea stools are forming up. Patient did have a creatinine 0.7 no CBC was done today Objective - Vital Signs Vital signs: Vital Signs Temp 97.5 F L 09/05/24 08:00 Pulse 98 09/05/24 08:00 Resp 17 09/05/24 01:25 BP 148/88 09/05/24 08:00 Pulse Ox 99 09/05/24 08:00 FiO2 40 09/01/24 08:00 Intake & Output 09/04/24 09/05/24 09/05/24 18:59 06:59 18:59 Intake Total 850 Output Total 3 Balance 847 Weight 60 kg Intake: Oral 850 Output: Stool 3 Other: Voiding Method Toilet Toilet # Voids 3 - Exam GENERAL DESCRIPTION: Middle-age male up in the chair in no distress RESPIRATORY SYSTEM: Unlabored breathing , decreased breath sounds at bases HEART: S1 S2 regular rate and rhythm , ABDOMEN: Soft , no tenderness - Labs CBC & Chem 7: 09/03/24 02:44 09/05/24 03:00 Labs: Abnormal Lab Results - Last 24 Hours (Table) 09/05/24 Range/Units 03:00 Potassium 3.4 L (3.5-5.5) mmol/L Anion Gap 12.30 H (4.00-12.00) mmol/L BUN 8.5 L (9.0-27.0) mg/dL Assessment and Plan (1) SIRS (systemic inflammatory response syndrome) Current Visit: Yes Status: Acute Code(s): R65.10 - SIRS OF NON-INFECTIOUS ORIGIN W/O ACUTE ORGAN DYSFUNCTION SNOMED Code(s): 769691749 (2) Fever Current Visit: Yes Status: Acute Code(s): R50.9 - FEVER, UNSPECIFIED SNOMED Code(s): 595693897 (3) Leukocytosis Current Visit: Yes Status: Acute Code(s): D72.829 - ELEVATED WHITE BLOOD CELL COUNT, UNSPECIFIED SNOMED Code(s): 633051183 Plan: 1patient presented to hospital with an episode of unresponsiveness requiring intubation in this patient who did have fever and high white count tachycardia meeting criteria for SIRS however the patient did not have very clear focus of infection on the initial investigation urine is significantly positive chest x- ray was negative for acute infiltrate did have a C7 examination not suggestive of encephalitis or meningitis patient did have elevated D-dimer with a question of possible PE or abdominal source not entirely excluded 2-patient did have a CT angiogram of the chest with evidence of PE patient is status post cardiac cath with mild CAD 3-patient did have resolution of his fever, has received 6 doses of Rocephin subsequently Rocephin has been discontinued as of 09/02/2024 and seems to be doing well off antibiotics, no need for antibiotic on discharge 4patient did have improvement in diarrhea with the Questran to continue as needed and hold if no bowel movement for more than 24 hours Dictation was produced using [employer] dictation software. please excuse any grammatical, word or spelling errors. Time with Patient: Less than 30
--- NOTE | 2024-09-05 12:01 | P.PN ---
Subjective HISTORY OF PRESENT ILLNESS: The patient is a 44-year-old gentleman who we requested to see in the intensive care unit for further evaluation of abnormal cardiac enzymes. The patient currently is intubated and he is on mechanical ventilation. The history was taken from the chart as well as from the nurse taking care of the patient. Apparently patient was brought to the hospital by friends who found the patient unresponsive at home by the bathroom with some bruises on the right side of the face. No indication that the patient was experiencing any symptoms of chest pain or chest discomfort or any other cardiovascular symptoms. No drug screen was performed. Currently patient is intubated on mechanical ventilation and he is not on any vasopressors at this point. He underwent further evaluation including troponin came in to be elevated at 5 and also EKG showed sinus mechanism and initially sinus tachycardia but subsequently only sinus mechanism with no significant ST or T wave abnormalities. Chest x-ray did not show any acute abnormalities. No prior cardiovascular history of CAD or heart failure or cardiac arrhythmia but the details on the past medical history is not available at this point giving that the patient is intubated on mechanical ventilation. The chest x-ray did not show any acute abnormalities. The rest of the blood work came in to be unremarkable except that there is no drug screen ordered. The physical examination is remarkable for regular rhythm with a systolic murmur at the right upper sternal border with clear breathing sounds bilaterally and no carotid bruit and no edema was noted. Please note that the CT scan of the brain did not show any acute abnormalities as well. August 29, 2024 The patient was seen and evaluated this morning. He continues to be intubated on mechanical ventilation. Hemodynamically he is stable. His heart rate has been in the 60s. Neurology was consulted and CT scan of the head to be performed later on today to rule out any anoxic encephalopathy. If that ruled out he need to undergo a heart catheterization but the echo showed cardiomyopathy with EF between 30 to 35% with wall motion abnormalities concerning for severe underlying coronary artery disease. Examination is remarkable for regular rhythm with a soft systolic murmur and clear breathing sounds bilaterally and no edema was noted in the lower extremities. CT scan of the chest was performed and showed possible small bilateral pulmonary embolism and elevated patient is on heparin IV August 2024 The patient was seen and evaluated this morning. He continues to be intubated on mechanical ventilation but he is following commands. He is on aspirin and statin and he continues to be on heparin IV. The examination is remarkable for regular rhythm with a soft systolic murmur and clear breathing sounds bilaterally and no edema was noted in the lower extremities. The plan is to pursue with a heart catheterization later on today. September 01, 2024 The patient was seen and evaluated this morning. He underwent a heart catheterization yesterday which showed less of occlusive CAD. He was seen and evaluated this morning. He is hemodynamically stable and he is in normal sinus mechanism. He is slightly agitated. He is on heparin for possible pulmonary embolism and that need to be addressed by the critical care team. From a cardiovascular standpoint of view he does not to be on any IV heparin at this point. He is on beta-jaime and aspirin and statin and I am going to add lisin opril to the current medical regimen. Examination is remarkable for regular rhythm with clear breathing sounds bilaterally and no edema was noted September 02, 2024 The patient was seen and evaluated this morning. He was extubated. The pressure remains elevated and consistent with stage II hypertension. I am going to increase the dose of lisinopril and also add Aldactone to the current medical regimen. Also I am going to add P2 Y12 inhibitor including Plavix to current medical regimen since he was diagnosed with non-STEMI. We are going to obtain a limited echo tomorrow morning to assess for improvement in the ejection fraction. The physical examination is remarkable for regular rhythm with a clear breathing sounds bilaterally and no edema was noted in the lower extremities 09/03/2024 Patient examined this morning at the bedside. Patient currently denies chest pain or pressure. He denies shortness of breath. Patient has been up ambulating and took a shower this morning. Vital signs are stable. 09/04/2024 Patient examined this morning at the bedside. He is sitting up in the chair. He denies chest pain or pressure. He denies shortness of breath. He is scheduled for MRI today. Vital signs are stable. Most recent blood pressures on the higher side with systolics in the [id number]. Repeat echocardiogram continues to reveal ejection fraction 3035%. 09/05/2024 Patient examined this morning at the bedside. Patient had his LifeVest delivered yesterday. Patient is very anxious this morning. He began to cry upon examination and states that he cannot take off his LifeVest to take a shower because he will . Explained to patient that he cannot shower with the LifeVest and that it needs to come off when showering and he can wear it at all other times during the day. Patient also expressing concerns that he does not know what to do with the LifeVest despite having the rep out yesterday who did a training session with the patient when his LifeVest was delivered. [employer] was contacted this morning and a entry level marketing representative came out this morning to do another training session with the patient. The patient is hallucinating and seeing water or Gel coming out of the LifeVest and apparently keeps telling the [employer] rep, "Its coming out of the vest. Cant you see it?". However, nothing is coming out of his Lifevest and is working appropriately. Patient was not having hallucinations yesterday. Additionally, patient's anxiety appears to be significantly increased today compared to yesterday. PHYSICAL EXAM: VITAL SIGNS: Reviewed. GENERAL: Well-developed in no acute distress. NECK: Supple. No JVD or thyromegaly LUNGS: Respirations even and unlabored. Lungs essentially clear to auscultation bilaterally. HEART: Regular rate and rhythm. S1 and S2 heard. EXTREMITIES: Normal range of motion. No clubbing or cyanosis. Peripheral pulses intact. No lower extremity edema ASSESSMENT: Episode of unresponsiveness Acute coronary syndrome, status post cardiac catheterization revealing mild CAD Cardiomyopathy, likely stress related/nonischemic Acute hypoxic respiratory failure requiring mechanical ventilation, since extubated Small bilateral pulmonary embolism Hypertension Hallucinations Anxiety PLAN: Continue current cardiac medications No beta-jaime at this time secondary to bradycardia with heart rates down into the 50s Continue Eliquis and Plavix Yesterday, patient was lucid and unable to comprehend need for LifeVest and was agreeable to wearing it. This morning the patient is extremely anxious and having hallucinations of water/gel coming out of the lifevest. However, lifevest is functioning appropiarely Recommend having psychiatry reevaluate patient. If patient's anxiety can be improved and hallucinations resolved, will recommend to continue with LifeVest. However if patient's symptoms continue, patient may not be able to proceed with LifeVest. Further recommendations pending patient course Nurse practitioner note has been reviewed by physician. Signing provider agrees with the documented findings, assessment, and plan of care documented by PROCESS SAFETY MANAGEMENT ENGINEER as a scribe. Objective - Vital Signs Vital signs: Vital Signs Temp 97.5 F L 09/05/24 08:00 Pulse 98 09/05/24 08:00 Resp 17 09/05/24 01:25 BP 148/88 09/05/24 08:00 Pulse Ox 99 09/05/24 08:00 FiO2 40 09/01/24 08:00 Intake & Output 09/04/24 09/05/24 09/05/24 18:59 06:59 18:59 Intake Total 850 Output Total 3 Balance 847 Weight 60 kg Intake: Oral 850 Output: Stool 3 Other: Voiding Method Toilet Toilet Toilet # Voids 3 - Labs CBC & Chem 7: 09/03/24 02:44 09/05/24 03:00 Labs: Abnormal Lab Results - Last 24 Hours (Table) 09/05/24 Range/Units 03:00 Potassium 3.4 L (3.5-5.5) mmol/L Anion Gap 12.30 H (4.00-12.00) mmol/L BUN 8.5 L (9.0-27.0) mg/dL
--- NOTE | 2024-09-05 12:18 | PN ---
PROGRESS NOTE SUBJECTIVE: A 44-year-old gentleman, has ischemic cardiomyopathy with an ejection fraction of 30% to 35% and had recent cardiac arrest. Repeat echocardiogram showed an ejection fraction of 30% to 35%. He had a LifeVest done and is ready to go home. This morning, he is free of symptoms. OBJECTIVE: VITAL SIGNS: Afebrile, heart rate is 90 beats per minute, blood pressure is 148/88, respiratory rate is 18. CHEST: Reveals good air entry bilaterally. HEART: Reveals first and second heart sounds. No gallop. EXTREMITIES: Did not reveal any edema. Peripheral pulses are palpable. ASSESSMENT: 1. Cardiomyopathy. 2. Respiratory failure. 3. Status post cardiac arrest. 4. Small bilateral pulmonary embolism. PLAN: The patient will continue current medications and will be discharged home on LifeVest. He will follow up with Dr. Garcia. JIMMIE / MICHELLE: [id number] /
--- NOTE | 2024-09-05 13:39 | P.PN ---
Subjective Progress Note Date: 09/05/24 Patient is a 44-year-old male brought in by EMS unresponsive, required intubation by ED provider for airway protection. He is not able to provide any information for HPI. Found by EMS, unresponsive, lying on the bathroom floor next to the toilet. Unclear if the patient fell. He does have an abrasion to his right forehead. It looks like patient had a ER visit earlier this month for altered mental status. He was prescribed meclizine and discharged home. Not much for documented medical history. He does reportedly have a significant psychiatric history. Brain CT of the head without contrast did not show any acute intracranial hemorrhage or mass effect. Febrile on arrival with a Tmax of 102.2 F. No reports of aspiration. Postintubation chest x-ray showing endotracheal tube approximately 4.5 cm above the narayan. Orogastric tube coursing below the diaphragm. No obvious focal infiltrates, or evidence of pneumonia. There was mild central vascular congestion, no pleural effusions. Urinalysis unremarkable for UTI. Abdomen is soft and does not appear acute. Patient has acute febrile illness of unknown origin. The ER provider did perform a lumbar puncture. Total nucleated cells 3, glucose 124, total protein 68. CSF culture pending. He was given a dose of Rocephin in the ED, essentially empiric. CBC: WBC count 22.3, hemoglobin 15.7, hematocrit 48.9, platelets 354. CMP: Sodium 140, potassium 4.3, chloride 112, serum bicarb 15, BUN 15, creatinine 1.31, glucose 198. Lactic 1. CK 860. Urine toxicology screen negative except for marijuana. Serum alcohol less than 10. Negative for influenza, RSV, COVID. Troponin 0.633. EKG: Sinus tachycardia, rate 118 bpm, no obvious acute ischemic changes. Patient currently being evaluated in the intensive care unit. Remains intubated to mechanical ventilator with current ventilator settings assist- control, respiratory rate 18, tidal volume 450, FiO2 40%, PEEP of 5. Sedated on propofol which is infusing at 50 mcg/kg/min. Breathing slightly above set rate. Peak pressures low around 15. Some pink-colored secretions were noted in the ET tube and sent for culture. Follow-up ABG showing improvement in the patient's combined respiratory and metabolic acidosis. PaO2 of 83, pCO2 of 35, pH of 7.39. Blood pressure remains normotensive. He did receive a 2 L normal saline bolus in the ED, and continues receiving normal saline at 130 mL/h. Urine output around 30-50 cc/h. Continues to be sedated on propofol, currently unresponsive to even painful stimuli. No clinical seizure activity noted. Prognosis guarded. Progress note dated August 30, 2024. 44-year-old male seen yesterday in consultation. He was found in the bathroom, at home, unresponsive. The patient was intubated in the emergency department, for airway protection. There he also had a lumbar puncture performed by the ER physician. The patient was seen by cardiology. They are concerned about a primary cardiac event. He will eventually need a cardiac catheterization. The patient remains on the ventilator. He is on volume assist-control, rate 18, tidal volume 450, FiO2 40%, PEEP of 5. Blood gases show pO2 71, pCO2 36, pH of 7.36. The patient remains on IV heparin, lactated Ringer's at 100 cc an hour, propofol at 50 mcg/kg/min. The patient's procalcitonin level was 45.8. The patient continues on Rocephin. CT angiogram showed bilateral small pulmonary emboli. The patient will need tube feedings to be started. Eventually he will need a cardiac catheterization. White count is 7.7, hemoglobin 13.8, hematocrit 44.5, platelet count 169,000. PT 11.4. INR 1, PTT is 36.5. Sodium 136, potassium 4.1, chloride 112, CO2 17, BUN 16, creatinine 0.81. Glucose is 65. Calcium 8.4. Troponins were 0.633, 5.610, 4.050, and 2.780. Chest x-ray has been reviewed. Progress note dated August 31, 2024. 44-year-old male seen in room 256. The patient remains on the mechanical ventilator. He is on volume assist-control, rate 18, tidal volume 450, FiO2 40%, PEEP of 5. Blood gases show pO2 of 92, pCO2 37, pH is 7.39. The patient is scheduled to have a heart catheterization today. The patient is getting propofol at 50 mcg/kg/min, and IV heparin. The patient is also on saline at 76 cc an hour. The patient continues on Rocephin, and acyclovir as per infectious diseases. He was also started on tube feeds with vital AF at 20 cc an hour. White count is 5.9, hemoglobin 12.9, hematocrit 39.1, platelet count is normal. Sodium 137, potassium 3.8, chlorides 114, CO2 22, BUN 11, creatinine 0.74. Glucose of 69. Calcium 8.1. Chest x-ray is unremarkable. Progress note dated September 01, 2024. 44-year-old male seen in room 256. The patient remains on mechanical ventilator. He is on volume assist-control, rate 18, tidal volume 450, FiO2 40%, PEEP of 5. Blood gases show pO2 of 97, pCO2 of 38, pH of 7.39. The patient had a cardiac catheterization yesterday, and the catheterization was relatively normal. The patient's heparin can be discontinued. He is on lactated Ringer's at 100 cc an hour. He is on propofol at 50 mcg/kg/min. Today, we will do a daily interruption of sedation on a spontaneous breathing trial, with pressure support of 5 and CPAP of 5. The patient is only on Rocephin. Acyclovir was discontinued. White count 5.8, hemoglobin 9.3, hematocrit 34.6, and a normal platelet count. Sodium 137, potassium 3.5, chlorides 115, CO2 20, BUN 7, creatinine 0.61. Calcium is 8. Sputum showed evidence of Shante tropicalis. Chest x-ray looks relatively normal save for a small pleural effusion, on the right. Progress note dated September 02, 2024. 44-year-old male seen again in room 256. I am happy to report that the patient was successfully extubated yesterday. The patient continues on room air. He is getting LR to 100 cc an hour. He has no memory of what happened before being found unresponsive, on the bathroom floor. White count 5.3, hemoglobin 12.9, hematocrit 38.5, platelet count 221,000. Sodium 135, potassium 4, chlorides 108, CO2 24, anion gap 3, BUN 7, creatinine 0.54. Glucose is 91. On 09/13/2024, the patient is being seen for a follow-up. The patient is awake and alert and communicating. He is status post respiratory failure and the patient was extubated on 09/01/2024. He presented to us unresponsive and his cardiac catheterization that was done on 08/31/2024 showed mild nonocclusive disease. Subsequently patient underwent a CT of the chest and the patient was found to have subsegmental pulmonary emboli in the tertiary branches of pulmonary arteries in the lung bases bilaterally. Based on that, the patient was started on anticoagulation and the patient is currently on Eliquis 5 mg p.o. twice a day. Doppler of the lower extremity was also done today that showed no evidence of any DVT in lower extremities. D-dimer was elevated at 2.55 at the time of admission. In any rate, the patient is doing well. The patient is currently on room air oxygen with a pulse ox of 95%. The hemoglobin is currently at 12.3 with a white cell count of 5.4 and a platelet count of 246. Sodium is at 143, bicarb is at 25, BUN is 8.4 with a creatinine of 0.6. The patient's sputum sample was positive for Shante. Rest of the medications were reviewed. Remains on aspirin. Remains on Keppra. Seen by neurology. EEG showed no evidence of any seizure activity. 09/04/2024, patient is being seen for a follow-up. He is, comfortable and the patient remains on room air oxygen with a pulse ox of 96%. No new labs are available from today. Remains on anticoagulation with Eliquis that was started yesterday and Doppler lower extremities were essentially negative. Rest of the medications remain unchanged. The patient has no specific complaints. No fever. No chills. No nausea vomiting or abdominal pain. The white cell count is at 5.4 with a creatinine of 0.6. Cardiology is considering the possibility of a LifeVest due to his reduced left-ventricular ejection fraction as the patient has an ejection fraction of 30 to 35% postcardiac arrest. He was not found to have any significant abnormalities on his cardiac catheterization. On 09/05/2024, the patient is being seen for a follow-up. The patient currently has a LifeVest. No chest pain. No syncope. No respite difficulties. He is on anticoagulation with Eliquis 5 mg p.o. twice a day. He is also on a combination of aspirin 75 mg p.o. daily, Aldactone 25 mg p.o. daily, lisinopril 10 mg p.o. twice daily. Cardiology is on the case. The LifeVest was provided to this patient yesterday. He is slightly anxious. Appropriate education will be done regarding the use of the LifeVest. The BUN is 8.5 with a creatinine of 0.7. Sodium levels at 143, potassium level is at 3.4. No respiratory difficulties for now. Objective - Vital Signs Vital signs: Vital Signs Temp 97.5 F L 09/05/24 08:00 Pulse 98 09/05/24 08:00 Resp 17 09/05/24 01:25 BP 148/88 09/05/24 08:00 Pulse Ox 99 09/05/24 08:00 FiO2 40 09/01/24 08:00 Intake & Output 09/04/24 09/05/24 09/05/24 18:59 06:59 18:59 Intake Total 850 Output Total 3 Balance 847 Weight 60 kg Intake: Oral 850 Output: Stool 3 Other: Voiding Method Toilet Toilet # Voids 3 - Exam No acute distress, awake and alert, currently on room air. HEENT examination is grossly unremarkable. Neck supple. Full range of motion. No adenopathy thyromegaly or neck vein distention. Cardiovascular examination reveals regular rhythm rate. S1-S2 normal. No S3 or S4. No discernible murmur noted. Heart sounds are distant. Lungs reveal mostly clear breath sounds. Scattered rhonchi are noted. No wheezes. No crackles. Breath sounds equal. Abdomen soft bowel sounds are heard. No masses or tenderness. Extremities are intact. No cyanosis clubbing or edema. Skin is without rash or lesion. Neurologic examination is brief but nonfocal. - Labs CBC & Chem 7: 09/03/24 02:44 09/05/24 03:00 Labs: Abnormal Lab Results - Last 24 Hours (Table) 09/05/24 Range/Units 03:00 Potassium 3.4 L (3.5-5.5) mmol/L Anion Gap 12.30 H (4.00-12.00) mmol/L BUN 8.5 L (9.0-27.0) mg/dL Assessment and Plan Plan: Acute unresponsiveness, of unclear etiology. Consider possibility of cardiac arrest. The patient has impaired LV function with an ejection fraction of 30 to 35%. No cardiac arrhythmias have been noted. Routine mechanical ventilator management, patient was intubated for airway protection in the ED, and extubated on September 01, 2024. Cardiac catheterization, August 31, showed only mild CAD. Bilateral small pulmonary emboli, unlikely to be cause of his unresponsiveness or arrest. Patient is currently on anticoagulation with Eliquis. Doppler of lower extremities been negative. Combined respiratory and metabolic acidosis. Acute febrile illness, of unknown origin. Altered mental status, under investigation. Acute leukocytosis. Poor dentition. Elevated troponin, serial troponins trending. Marijuana use. History of anxiety/depression/bipolar. Plan: Patient on room air oxygen Doppler of the lower extremities were negative Recommend 6 months of anticoagulation with Eliquis. I am not sure if the pulmonary embolism was the main reason for his unresponsiveness or respiratory failure. I believe this was an incidental finding and we will treat this patient with 6 months of anticoagulation with Eliquis. Hemodynamically stable LifeVest was offered Neurology follow-up Medication reviewed Labs are stable Will follow
--- NOTE | 2024-09-05 13:48 | P.PN ---
Progress Note - Text Progress Note Date: 09/05/24 IDENTIFYING DATA: Patient is a 44-year-old single male with history of mental illness, living with brother REASON FOR CONSULT: Delirium, hallucinations INTERVAL HISTORY: Patient seen and evaluated. Patient was standing next to his bed and appeared in distress. Patient was tearful and expresses his inability to control his urine and that he has been leaking urine onto his clothing in the bed. He states having a surgery for this months ago however he continues to have difficulties with urinating. He states that this is causing him to be more stressed with high anxiety however he vehemently denied any suicidal or homicidal ideations. He expresses never having suicidal thoughts however he does report a remote history of homicidal thoughts and aggression that led him to being hospitalized. He states he no longer sees a psychiatrist. He states being on Seroquel in the past however he is unable to notice any effects from it at the current dose. He reports no support system as his significant other of 20+ years and he has been having difficulties accepting this. Staff noted that patient has been exhibiting visual hallucinations described as seeing fluid leaking from his LifeVest and patient corroborated this. He was not internally preoccupied during interview however did appear anxious. MENTAL STATUS EXAM: General Appearance: Patient appears to be stated age. Patient appears to have fair hygiene and grooming wearing hospital gown with fair eye contact. Behavior: Patient is standing next to his bed, tearful and appeared anxious Speech: Normal rate, rhythm and volume Mood/Affect: Mood is "anxious" and affect is flat, tearful and mood congruent Suicidality/Homicidality: Patient denies any suicidal or homicidal ideations Perceptions: Patient reportedly had visual hallucinations however he denied any auditory hallucinations did not appear internally preoccupied during encounter Though content/process: Thought process is linear and logical, thought content devoid of any delusions or paranoia Judgment and insight: Poor IMPRESSIONS: Delirium, secondary to medical comorbidities including PE and SIRS History of bipolar disorder Cannabis use disorder PLAN: -At this time patient DOES NOT meet criteria for inpatient psychiatric admission. -Delirium precautions recommended with patient including - avoiding use of narcotics and STACKING MACHINE OPERATOR sedatives, limit anticholinergic medications when possible, frequent re-orientation, minimize use of restraints, open window shades during the day and close them at night -Would recommend the following medication changes/additions: Increase Seroquel to 50 mg twice daily and continue Depakene 250 mg 3 times daily. Valproic acid level ordered for tomorrow for monitoring -car worker helper to provide patient with outpatient mental health/psychiatry resources for appropriate follow up upon discharge -Communicated plan to patient's nurse -Will continue to follow along -Please contact with any questions.
[2024-09-05] MEDS: QUEtiapine 50 MG TAB PO SCH (13:53)
[2024-09-05 13:56] LABS: Appearance,Urine Cloudy (Clear); Bilirubin,Urine Negative (Negative); Blood,Urine Trace (Negative); Color,Urine Yellow; Glucose,Urine (UA) Negative (Negative); Ketones,Urine 1+ (Negative); Leukocyte Esterase,Urine Negative (Negative); Mucus,Urine Many /hpf; Nitrite,Urine Negative (Negative); Protein,Urine 1+ (Negative); RBC,Urine 16 /hpf (0-5); Specific Gravity,Urine 1.027 (1.001-1.035); Squamous Epithelial Cell,Urine <1 /hpf (0-4); Urobilinogen,Urine <2.0 mg/dL (<2.0); WBC,Urine 1 /hpf (0-5)
--- NOTE | 2024-09-05 17:08 | P.PN ---
Subjective Progress Note Date: 09/05/24 I am following-up with patient and he has life vest and he feels it continues to fire and he feels it is leaking. Then states he is having urinary incontinence. Per the nurse he is severely anxious. Objective - Vital Signs Vital signs: Vital Signs Temp 97.7 F 09/05/24 13:40 Pulse 107 H 09/05/24 13:40 Resp 17 09/05/24 01:25 BP 141/93 09/05/24 13:40 Pulse Ox 98 09/05/24 13:40 FiO2 40 09/01/24 08:00 Intake & Output 09/04/24 09/05/24 09/05/24 18:59 06:59 18:59 Intake Total 850 Output Total 3 16 Balance 847 -16 Weight 60 kg Intake: Oral 850 Output: Post Void Residual 16 Stool 3 Other: Voiding Method Toilet Toilet Toilet # Voids 3 - Exam General: Sitting up in a recliner chair and is not in acute distress. Neuro: Awake alert oriented to self place and time. Is following simple commands. No aphasia no neglect. Pupils are round equal reactive to light. Visual monroe are full to confrontation. No facial weakness no dysarthria Motor: Gait is not swaying one side or other side. Lifting all extremities above gravity equally. Reflex: 2+ throughout. - Labs CBC & Chem 7: 09/03/24 02:44 09/05/24 03:00 Labs: Abnormal Lab Results - Last 24 Hours (Table) 09/05/24 09/05/24 Range/Units 03:00 13:00 Potassium 3.4 L (3.5-5.5) mmol/L Anion Gap 12.30 H (4.00-12.00) mmol/L BUN 8.5 L (9.0-27.0) mg/dL Urine Protein 1+ H (Negative) Urine Ketones 1+ H (Negative) Urine Blood Trace H (Negative) Urine RBC 16 H (0-5) /hpf Urine Mucus Many H (None) /hpf Assessment and Plan Assessment: * Acute episode of unresponsiveness, probable due hypoxic encephalopathy from pulmonary embolism and ischemic cardiomyopathy. Rule out seizure, versus ar rhythmia, rule out drug overdose. Had three EEG which were negative for seizures CVA less likely, with normal CT head x 2. Current examination is nonfocal * Anxiety: Feels his life vest is firing and leaking then urinary incontinence. No focal deficit and has normal reflex. * Status post extubation 09/01/2024 * Acute febrile illness * Bilateral small pulmonary emboli * Elevated troponin, on heparin drip * Marijuana use * History of anxiety/depression/bipolar Plan: * Repeat EEG on 09/03/2024 is negative for seizure or discharges. Patient currently on Keppra 500 mg twice a day (Previously was on 1000 mg twice a day during this admission). I agree with Dr. Pompa of weaning the Keppra to 250mg bid since no clear seizure and by end of today will discontinue. * MRI of the brain: No acute intracranial process. * Lumbar puncture, with CSF WBCs are 3, RBC 15, glucose 124 and protein 68/60. Gram stain showed no polymorphonuclear leukocytes, no organisms seen. Comprehensive viral panel came negative for HSV-1, HSV-2 and other viruses checked. We will discontinue acyclovir. * Infectious disease on board suspecting SIRS. Patient currently on ceftriaxone. ID following. * Initial EEG was performed 08/29/2024, which was abnormal due to background slowing of moderate to severe degree. This is suggestive of generalized cerebral dysfunction as can be seen with toxic metabolic encephalopathy related to diffuse structural brain abnormality. Clinical correlation is rec ommended. There is presence of intermittent, low amplitude sharp appearing waves seen over the right temporal region, suggestive of focal cortical neuronal dysfunction with underlying cortical irritability. No electrographic seizure was recorded. Follow-up EEG recommended as clinically indicated. * Repeat prolonged EEG for 1 hour 08/30/2024 was abnormal due to background slowing, suggestive of mild to moderate encephalopathy. There were periods of relatively well-formed posterior dominant alpha rhythm seen, which was not seen in the EEG yesterday. No epileptiform activity was seen. Overall there is improvement in the background on today's EEG as compared to yesterday. Clinical correlation recommended. No electrographic seizure was recorded. * Repeat CT head 08/30/2024 revealed no acute intracranial process. I personally reviewed CT head, agree with the findings. * Patient has elevated cardiac enzymes. Patient underwent cardiac cath, which revealed mild CAD. Recommend medical management. Patient off heparin and to be started on aspirin and Plavix. * CT chest abdomen pelvis showed small bilateral pleural effusions with adjacent infiltrates could be related to atelectasis versus pneumonia. CT of the chest revealed small tertiary branch pulmonary emboli bilateral lung bases. * 2-D echo revealed ischemic cardiomyopathy with severe LV systolic dysfunction with EF 30-35%. Mild to moderate MR. Normal left atrial size. * Psychiatry is consulted and Seroquel was increased by them. * Other medical management as per IM, critical care team and other specialties on board. * Recommend the patient to follow-up with neurologist as outpatient within 2 weeks. The plan is discussed with patient, his nurse and primary team N.P. If MRI Brain is negative and further neurological issues then clear from neurological perspective. Time with Patient: Less than 30
--- NOTE | 2024-09-06 06:57 | P.PN ---
Subjective Progress Note Date: 09/05/24 Patient is one 44-year-old male was brought in unresponsive by his friends found in the bathroom. Patient has abrasion on the forehead. Patient is in respiratory failure because of which patient was intubated patient's ABG is showing 7.2 pH and pCO2 of 46 essentially metabolic acidosis with anion gap [facility] lactic acid was not obtained. Unknown whether patient is a smoker urine patient's urine drug screen is positive for marijuana. Patient also had a high- grade fever of 102. Other source of infection is not clear patient urine analysis is not consistent with UTI chest x-ray did not show any pneumonic infiltrate chest x-ray also showed mild pulmonary venous congestion. Patient is presently not on any pressor support patient urine output is going down because of which I will start him on lactated Ringer's as his repeat lactic acid came down to 1. Patient serum bicarbonate was low with anion gap probably secondary to lactic acidosis which resolved at this time. Patient's abdomen is soft without any evidence of acute abdomen at this time. Patient had a lumbar puncture which showed mild increase in protein, WBCs only 3. Glucose is elevated. Patient is on empiric antibiotic that is Rocephin infectious disease was consulted along with neurology. Patient also found to have elevated troponin without any significant acute ST-T wave changes in the EKG although there was sinus tachycardia secondary to possible sepsis unknown source which improved at this time. Cardiology evaluate the patient patient was started on IV heparin and considering cardiac catheterization. Patient is presently on propofol sedation. Patient is on ventilator support with FiO2 of 40% PEEP of 4.5 tidal volume of 450 set up respiratory of 18 and patient is breathing over the ventilator. 08/30/2024 Patient eval today in follow-up in the intensive care unit. He is on the mechanical ventilator. Procalcitonin level was significantly elevated at 45. He is continued on IV Rocephin/IV acyclovir. Additionally patient had troponin elevation he is continued on IV heparin with plans for cardiac catheterization. He is undergoing neurological evaluation to rule out an anoxic brain injury he will get an EEG and brain CT today. CT angiography did reveal bilateral small pulmonary embolism in the lung bases as well as small bilateral pleural effusions. His ejection fraction was found to be 30 to 35%. 08/31/2024 Patient is eval today in the intensive care unit. He remains intubated and sedated on mechanical ventilator he is receiving propofol. He remains on IV heparin with plans to undergo cardiac catheterization today. Patient continues on IV ceftriaxone as well as IV acyclovir. ID and neurology are following closely. Patient had a brain CT completed which shows no acute intracranial process. He was EEG done which shows mild to moderate encephalopathy periods of relatively well-formed posterior dominant alpha rhythm seen which was not seen in the EEG yesterday overall felt there was improvement in the background of today's EEG as compared to yesterday. Reveals a white blood cell count of 5.9, hemoglobin 12.9, level of 137, potassium 3.8, BUN of 11, creatinine of 0.74. Calcium of 8.1. Sputum Culture showing Shante tropicalis. 09/01/2024 Patient to the intensive care unit he has been extubated and currently on 5l of oxygen via nasal cannula. Patient is tearful today crying out. He is awake alert he is talking he states that he does not remember what happened leading up to him being hospitalized. He went for cardiac catheterization with no significant obstructive coronary artery disease found. Blood cell count today is 5.8, hemoglobin 11.3, sodium 137, potassium 3.5, BUN of 7, creatinine 0.61, glucose of 123. Sputum culture showing Shante tropicalis. Continues on IV ceftriaxone. IV heparin and IV acyclovir were discontinued. 09/02/2024 Patient is evaluated in follow-up in the intensive care unit. Patient was extubated yesterday and his been weaned to room air. He is awake alert oriented. He is off IV heparin at this time. Is also off of IV antibiotics. He was resumed on his valproic acid which is a home medication. His blood work today reveals a white blood cell count of 5.3, hemoglobin 12.9, sodium 135, chloride 108, BUN of 7, creatinine of 0.54, calcium of 8.7. He is afebrile, heart rate of 49, blood pressure 163/89 and he is 94% on room air. 09/03/2024 Patient is evaluated today in follow up on the medical floor. Patient remains on room air. Not having any shortness of breath today. Started on eliquis for the bilateral pulmonary embolism. venous doppler is negative. He is monitored off antibiotics. Got up and ambulated with physical therapy. 09/04/2024 Patient is evaluated in follow-up on the medical floor he is currently sitting up in the chair with no acute complaints overnight. He is not having any shortness of breath. His venous Doppler was negative for acute DVT and he has been started on Eliquis. His repeat echocardiogram is currently pending at this time. Cardiology to discuss a LifeVest with this patient secondary to his decreased ejection fraction. Will continue to advance diet as tolerated. 09/05/2024 Patient evaluted today sitting up in the chair. He has been frequently up to the bathroom. He is anxious about the lifevest and concerned he will be "shocked" if he gets up to the bathroom. He has been tearful today and anxious. Not having any chest pain or shortness of breath. The lifevest rep is coming back to speak with the patient. Brain MRI showing no acute/subacute stroke. Review of Systems Constitutional: Denied any fatigue denied any fever. Cardio vascular: denied any chest pain, palpitations Gastrointestinal: denied any nausea, vomiting, diarrhea Pulmonary: Denied any shortness of breath cough Neurologic denied any new focal deficits All inpatient medications were reviewed and appropriate changes in these medications as dictated in the interval history and assessment and plan. PHYSICAL EXAMINATION: GENERAL: The patient is alert and oriented x3, not in any acute distress. Well developed, well nourished. HEENT: Pupils are round and equally reacting to light. EOMI. No scleral icterus. No conjunctival pallor. Normocephalic, atraumatic. No pharyngeal erythema. No thyromegaly. CARDIOVASCULAR: S1 and S2 present. No murmurs, rubs, or gallops. PULMONARY: Chest is clear to auscultation, no wheezing or crackles. ABDOMEN: Soft, nontender, nondistended, normoactive bowel sounds. No palpable organomegaly. MUSCULOSKELETAL: No joint swelling or deformity. EXTREMITIES: No cyanosis, clubbing, or pedal edema. NEUROLOGICAL: Gross neurological examination did not reveal any focal deficits. SKIN: No rashes. Assessment and plan -Decreased responsiveness patient was intubated for airway protection he is currently extubated -Metabolic acidosis anion gap secondary to lactic acidosis which improved at this time -Bilateral pulmonary embolism, IV heparin drip was stopped postcardiac catheterization. Started on oral eliquis. -Fever and sepsis source of sepsis is not clear at this time -Acute coronary syndrome and ischemic cardiomyopathy with an EF of 30 to 35% felt due to a cardiac arrest with no significant occlusive coronary artery disease found on cardiac catheterization -Marijuana use -Bipolar depression and schizophrenia psychiatry was consulted. Resumed on valproic acid. DVT prophylaxis: On subcu heparin Full Code Requested reconsultation with psychiatry due to the increased anxiety agitation. He has been started on valproic acid already. Lifevest rep to come back in and speak with patient. Recommend to keep the patient one more night for close mo nitoring of his mood. If stable he can discharge home tomorrow. The impression and plan of care has been dictated by Danielle Montague, Nurse Practitioner as directed. Dr. Pratibha MD I have performed a history and physical examination and medical decision making of this patient, discussed the same with the dictator, and agree with the dictators assessment and plan as written, documented as a scribe. Based on total visit time, I have performed more than 50% of this visit. Objective - Vital Signs Vital signs: Vital Signs Temp 97.8 F 09/06/24 03:47 Pulse 79 09/06/24 03:47 Resp 20 09/06/24 03:47 BP 115/80 09/06/24 03:47 Pulse Ox 97 09/06/24 03:47 FiO2 40 09/01/24 08:00 Intake & Output 09/05/24 09/05/24 09/06/24 06:59 18:59 06:59 Intake Total 240 Output Total 16 Balance 224 Weight 60 kg 70.4 kg Intake: Oral 240 Output: Post Void Residual 16 Other: Voiding Method Toilet Toilet # Voids 3 2 - Labs CBC & Chem 7: 09/03/24 02:44 09/05/24 03:00 Labs: Abnormal Lab Results - Last 24 Hours (Table) 09/05/24 09/05/24 Range/Units 03:00 13:00 Potassium 3.4 L (3.5-5.5) mmol/L Anion Gap 12.30 H (4.00-12.00) mmol/L BUN 8.5 L (9.0-27.0) mg/dL Urine Protein 1+ H (Negative) Urine Ketones 1+ H (Negative) Urine Blood Trace H (Negative) Urine RBC 16 H (0-5) /hpf Urine Mucus Many H (None) /hpf Assessment and Plan Time with Patient: Less than 30
[2024-09-06 08:40] VITALS: BP 147/89; PULSE 101; RESP 16; TEMP 97.7
--- NOTE | 2024-09-06 12:19 | P.PN ---
Subjective HISTORY OF PRESENT ILLNESS: The patient is a 44-year-old gentleman who we requested to see in the intensive care unit for further evaluation of abnormal cardiac enzymes. The patient currently is intubated and he is on mechanical ventilation. The history was taken from the chart as well as from the nurse taking care of the patient. Apparently patient was brought to the hospital by friends who found the patient unresponsive at home by the bathroom with some bruises on the right side of the face. No indication that the patient was experiencing any symptoms of chest pain or chest discomfort or any other cardiovascular symptoms. No drug screen was performed. Currently patient is intubated on mechanical ventilation and he is not on any vasopressors at this point. He underwent further evaluation including troponin came in to be elevated at 5 and also EKG showed sinus mechanism and initially sinus tachycardia but subsequently only sinus mechanism with no significant ST or T wave abnormalities. Chest x-ray did not show any acute abnormalities. No prior cardiovascular history of CAD or heart failure or cardiac arrhythmia but the details on the past medical history is not available at this point giving that the patient is intubated on mechanical ventilation. The chest x-ray did not show any acute abnormalities. The rest of the blood work came in to be unremarkable except that there is no drug screen ordered. The physical examination is remarkable for regular rhythm with a systolic murmur at the right upper sternal border with clear breathing sounds bilaterally and no carotid bruit and no edema was noted. Please note that the CT scan of the brain did not show any acute abnormalities as well. August 29, 2024 The patient was seen and evaluated this morning. He continues to be intubated on mechanical ventilation. Hemodynamically he is stable. His heart rate has been in the 60s. Neurology was consulted and CT scan of the head to be performed later on today to rule out any anoxic encephalopathy. If that ruled out he need to undergo a heart catheterization but the echo showed cardiomyopathy with EF between 30 to 35% with wall motion abnormalities concerning for severe underlying coronary artery disease. Examination is remarkable for regular rhythm with a soft systolic murmur and clear breathing sounds bilaterally and no edema was noted in the lower extremities. CT scan of the chest was performed and showed possible small bilateral pulmonary embolism and elevated patient is on heparin IV August 2024 The patient was seen and evaluated this morning. He continues to be intubated on mechanical ventilation but he is following commands. He is on aspirin and statin and he continues to be on heparin IV. The examination is remarkable for regular rhythm with a soft systolic murmur and clear breathing sounds bilaterally and no edema was noted in the lower extremities. The plan is to pursue with a heart catheterization later on today. September 01, 2024 The patient was seen and evaluated this morning. He underwent a heart catheterization yesterday which showed less of occlusive CAD. He was seen and evaluated this morning. He is hemodynamically stable and he is in normal sinus mechanism. He is slightly agitated. He is on heparin for possible pulmonary embolism and that need to be addressed by the critical care team. From a cardiovascular standpoint of view he does not to be on any IV heparin at this point. He is on beta-jaime and aspirin and statin and I am going to add lisin opril to the current medical regimen. Examination is remarkable for regular rhythm with clear breathing sounds bilaterally and no edema was noted September 02, 2024 The patient was seen and evaluated this morning. He was extubated. The pressure remains elevated and consistent with stage II hypertension. I am going to increase the dose of lisinopril and also add Aldactone to the current medical regimen. Also I am going to add P2 Y12 inhibitor including Plavix to current medical regimen since he was diagnosed with non-STEMI. We are going to obtain a limited echo tomorrow morning to assess for improvement in the ejection fraction. The physical examination is remarkable for regular rhythm with a clear breathing sounds bilaterally and no edema was noted in the lower extremities 09/03/2024 Patient examined this morning at the bedside. Patient currently denies chest pain or pressure. He denies shortness of breath. Patient has been up ambulating and took a shower this morning. Vital signs are stable. 09/04/2024 Patient examined this morning at the bedside. He is sitting up in the chair. He denies chest pain or pressure. He denies shortness of breath. He is scheduled for MRI today. Vital signs are stable. Most recent blood pressures on the higher side with systolics in the [id number]. Repeat echocardiogram continues to reveal ejection fraction 3035%. 09/05/2024 Patient examined this morning at the bedside. Patient had his LifeVest delivered yesterday. Patient is very anxious this morning. He began to cry upon examination and states that he cannot take off his LifeVest to take a shower because he will . Explained to patient that he cannot shower with the LifeVest and that it needs to come off when showering and he can wear it at all other times during the day. Patient also expressing concerns that he does not know what to do with the LifeVest despite having the rep out yesterday who did a training session with the patient when his LifeVest was delivered. [employer] was contacted this morning and a healthcare representative came out this morning to do another training session with the patient. The patient is hallucinating and seeing water or Gel coming out of the LifeVest and apparently keeps telling the [employer] rep, "Its coming out of the vest. Cant you see it?". However, nothing is coming out of his Lifevest and is working appropriately. Patient was not having hallucinations yesterday. Additionally, patient's anxiety appears to be significantly increased today compared to yesterday. 09/06/2024 Patient examined this morning the bedside. Patient currently denies chest pain or pressure. He denies shortness of breath. Patient's mentation has improved today. His anxiety has significantly improved. He denies having any further hallucinations. Patient is currently wearing LifeVest and feels comfortable being discharged home with it. He has no concerns or questions regarding his LifeVest at this time. PHYSICAL EXAM: VITAL SIGNS: Reviewed. GENERAL: Well-developed in no acute distress. NECK: Supple. No JVD or thyromegaly LUNGS: Respirations even and unlabored. Lungs essentially clear to auscultation bilaterally. HEART: Regular rate and rhythm. S1 and S2 heard. EXTREMITIES: Normal range of motion. No clubbing or cyanosis. Peripheral pulses intact. No lower extremity edema ASSESSMENT: Episode of unresponsiveness Acute coronary syndrome, status post cardiac catheterization revealing mild CAD Cardiomyopathy, likely stress related/nonischemic Acute hypoxic respiratory failure requiring mechanical ventilation, since extubated Small bilateral pulmonary embolism Hypertension Hallucinations Anxiety PLAN: Continue current cardiac medications No beta-jaime at this time secondary to bradycardia with heart rates down into the 50s Continue Eliquis and Plavix. Aspirin discontinued Patient is stable for discharge home today from a cardiac standpoint He is to follow-up postdischarge on an outpatient basis Nurse practitioner note has been reviewed by physician. Signing provider agrees with the documented findings, assessment, and plan of care documented by [employer]ST[employer] as a scribe. Objective - Vital Signs Vital signs: Vital Signs Temp 97.7 F 09/06/24 08:02 Pulse 101 H 09/06/24 08:02 Resp 16 09/06/24 08:02 BP 147/89 09/06/24 08:02 Pulse Ox 96 09/06/24 08:02 FiO2 40 09/01/24 08:00 Intake & Output 09/05/24 09/06/24 09/06/24 18:59 06:59 18:59 Intake Total 240 Output Total 16 Balance 224 Weight 70.4 kg Intake: Oral 240 Output: Post Void Residual 16 Other: Voiding Method Toilet Toilet # Voids 2 - Labs CBC & Chem 7: 09/03/24 02:44 09/05/24 03:00 Labs: Abnormal Lab Results - Last 24 Hours (Table) 09/05/24 Range/Units 13:00 Urine Protein 1+ H (Negative) Urine Ketones 1+ H (Negative) Urine Blood Trace H (Negative) Urine RBC 16 H (0-5) /hpf Urine Mucus Many H (None) /hpf
--- NOTE | 2024-09-11 09:12 | P.DS ---
Providers Date of admission: 08/29/24 02:31 Attending physician: Lisbeth Crocker Consults: 08/29/24 02:27 Consult Physician Stat Consulting Provider: Shreyas Antunez Consult Reason/Comments: altered mental status Do you want consulting provider notified?: Yes Consult Physician Urgent Consulting Provider: Urbano Pompa Consult Reason/Comments: altered mental status Do you want consulting provider notified?: Yes 08/29/24 04:41 Consult Physician Urgent Consulting Provider: Lizzeth Barba Consult Reason/Comments: acute febrile illness Do you want consulting provider notified?: Yes 08/29/24 05:51 Consult Physician Stat Consulting Provider: Fam Garcia Consult Reason/Comments: ACS Do you want consulting provider notified?: Yes 09/01/24 11:43 Consult Physician Stat Consulting Provider: Marko Malloy Consult Reason/Comments: hx of bipolar/schizophrenia Do you want consulting provider notified?: Already Contacted 09/05/24 11:53 Consult Physician Urgent Consulting Provider: Marko Malloy Consult Reason/Comments: Delirium, hallucinations Do you want consulting provider notified?: Yes Primary care physician: Stated None Hospital Course: Final Diagnosis -Decreased responsiveness patient was intubated for airway protection he is currently extubated -Metabolic acidosis anion gap on admission. -Bilateral pulmonary embolism acute -Fever and sepsis source of sepsis is not clear at this time -Acute coronary syndrome and ischemic cardiomyopathy with an EF of 30 to 35% felt due to a cardiac arrest with no significant occlusive coronary artery disease found on cardiac catheterization -Marijuana use -Bipolar depression and schizophrenia psychiatry was consulted. Resumed on valproic acid. Discharge Disposition Patient is stable for discharge home. He will be staying with family. Has a lifevest and [facility] He will not require antibiotics on discharge. Started on eliquis for the acute pulmonary embolism; he will need to follow up with pulmonary in the office on discharge. Patient was also evaluated by psychiatry was started on valproic acid and seroquel. He is referred to [facility] mental health on discharge. On optimized medical therapy for the cardiomyopathy. Hospital Course Patient is a 44-year-old male was brought in unresponsive by his friends found in the bathroom, EMS was called and patient brought to the hospital. Suspected cardiac arrest. Patient was in respiratory failure because of which patient was intubated and admitted to the intensive care unit. Unknown whether patient is a smoker urine patient's urine drug screen is positive for marijuana. Patient also had a high-grade fever of 102. Other source of infection is not clear patient urine analysis is not consistent with UTI chest x-ray did not show any pneumonic infiltrate chest x-ray also showed mild pulmonary venous congestion. Patient had a lumbar puncture which showed mild increase in protein, WBCs only 3. Glucose is elevated. Patient is on empiric antibiotic that is Rocephin infectious disease was consulted along with neurology. Patient also found to have elevated troponin without any significant acute ST-T wave changes in the EKG although there was sinus tachycardia secondary to possible sepsis unknown source which improved at this time. Cardiology evaluate the patient patient was started on IV heparin and considering cardiac catheterization. Patient is presently on propofol sedation. He was started empirically on IV ceftriaxone and IV acyclovir. Procalcitonin was significant elevated. CT angiography did reveal bilateral small pulmonary embolism in the lung bases as well as small bilateral pleural effusions. His ejection fraction was found to be 30 to 35%. He went for cardiac catheterization with no significant obstructive coronary artery disease found. Blood cell count today is 5.8, hemoglobin 11.3, sodium 137, potassium 3.5, BUN of 7, creatinine 0.61, glucose of 123. Sputum culture showing Shante tropicalis. Continues on IV ceftriaxone. IV heparin and IV acyclovir were discontinued. He was moved out of the intensive care unit. He is now awake alert oriented x 3. white blood cell count normalized and antibiotics were discontinued. Received a lifevest due to his decreased ejection fraction. Optimized on medical therapy. Has been started on eliquis for the pulmonary embolisms. He has been up ambulating with physical therapy. No chest pain, no shortness of breath. He has been cleared by all consultations for discharge home. Please see medication reconciliation for a list of current medications. Thank alvaro prescott for allowing us to participate in the care of this patient. The impression and plan of care has been dictated by Danielle Montague, Nurse Practitioner as directed. Dr. Prtaibha MD I have performed a history and physical examination and medical decision making of this patient, discussed the same with the dictator, and agree with the dictators assessment and plan as written, documented as a scribe. Based on total visit time, I have performed more than 50% of this visit. Patient Condition at Discharge: Fair Plan - Discharge Summary Discharge Rx Participant: No New Discharge Prescriptions: New Valproic Acid Oral Soln [Depakene Syrup] 250 mg PO TID #450 ml Atorvastatin [Lipitor] 40 mg PO DAILY #30 tab Clopidogrel [Plavix] 75 mg PO DAILY #30 tab Spironolactone [Aldactone] 25 mg PO DAILY #30 tab Apixaban [Eliquis] 5 mg PO BID #30 tab Famotidine [Pepcid] 20 mg PO DAILY #30 tablet Cholestyramine (with Sugar) [Questran Packet] 4 gm PO BID@1000,1800 4 Days #8 packet lisinopriL [Zestril] 10 mg PO BID #60 tab QUEtiapine [SEROquel] 25 mg PO HS 30 Days #15 tab Continue Meclizine HCl [Dramamine] 25 mg PO QID PRN #30 tab PRN Reason: Vertigo Discharge Medication List Meclizine HCl [Dramamine] 25 mg PO QID PRN #30 tab 08/07/24 [Rx] Apixaban [Eliquis] 5 mg PO BID #30 tab 09/04/24 [Rx] Atorvastatin [Lipitor] 40 mg PO DAILY #30 tab 09/04/24 [Rx] Cholestyramine (with Sugar) [Questran Packet] 4 gm PO BID@1000,1800 4 Days #8 packet 09/04/24 [Rx] Clopidogrel [Plavix] 75 mg PO DAILY #30 tab 09/04/24 [Rx] Famotidine [Pepcid] 20 mg PO DAILY #30 tablet 09/04/24 [Rx] Spironolactone [Aldactone] 25 mg PO DAILY #30 tab 09/04/24 [Rx] Valproic Acid Oral Soln [Depakene Syrup] 250 mg PO TID #450 ml 09/04/24 [Rx] lisinopriL [Zestril] 10 mg PO BID #60 tab 09/04/24 [Rx] QUEtiapine [SEROquel] 25 mg PO HS 30 Days #15 tab 09/06/24 [Rx] Follow up Appointment(s)/Referral(s): Fam Garcia MD [STAFF PHYSICIAN] - 1 Week (Cardiology ) [facility], [NON-STAFF] - As Needed ([facility] care can not follow until you have been seen by the physician at the resident clinic. Please notify [facility] once you have your first appointment.) [facility] [NON-STAFF] - 1-2 Days Humberto Gant MD [STAFF PHYSICIAN] - 1 Week (Neurology ) [facility] [NON-STAFF] - 1 Week Samm Gonzalez MD [STAFF PHYSICIAN] - 1 Week (Pulmonary) Ambulatory/Diagnostic Orders: Basic Metabolic Panel [LAB.AMB] Time Frame: 3 Days, Location: None Selected Complete Blood Count w/diff [LAB.AMB] Location: None Selected Activity/Diet/Wound Care/Special Instructions: Sinew oral Eliquis 5 mg twice a day for the next 3 months at minimum for the pulmonary embolism and follow-up with your PCP Dr. Kuldeep Persaud as well as dry drug worker Dr. Quintana for further recommendations regarding this. You have been seen by psychiatry who did start you on Depakene syrup (valproic acid) mood stabilizer. Continue on the seroquel. Would recommend to continue to follow-up with psychiatric services at [facility] on discharge. Follow-up with Dr. Garcia in the cardiology office in 1 week on discharge. Important to maintain compliance with your cardiac medications on discharge. Discharge Disposition: HOME SELF-CARE
== END 2024-09-06 11:05 | disposition home or self-care (01) | DRG 720 ==
LOC: EC 21:55 → 2SICU 08-29 02:31 → 4SSUR 09-02 16:47
PROVIDERS: ADMIT Internal Medicine; ATTEND Internal Medicine
PROC: 0BH17EZ Insertion of Endotracheal Airway into Trachea, Via Natural or Artificial Opening (ICD-10-PCS; 2024-08-28)
PROC: 5A1945Z Respiratory Ventilation, 24-96 Consecutive Hours (ICD-10-PCS; 2024-08-28)
PROC: 009U3ZX Drainage of Spinal Canal, Percutaneous Approach, Diagnostic (ICD-10-PCS; 2024-08-28)
PROC: 0DH67UZ Insertion of Feeding Device into Stomach, Via Natural or Artificial Opening (ICD-10-PCS; 2024-08-29)
PROC: 3E0G76Z Introduction of Nutritional Substance into Upper GI, Via Natural or Artificial Opening (ICD-10-PCS; 2024-08-30)
PROC: 4A023N7 Measurement of Cardiac Sampling and Pressure, Left Heart, Percutaneous Approach (ICD-10-PCS; principal; 2024-08-31 07:30)
PROC: B2111ZZ Fluoroscopy of Multiple Coronary Arteries using Low Osmolar Contrast (ICD-10-PCS; principal; 2024-08-31 07:30)
DX: A41.9 Sepsis, unspecified organism (principal); E87.4 Mixed disorder of acid-base balance; F05 Delirium due to known physiological condition; F12.10 Cannabis abuse, uncomplicated; F17.200 Nicotine dependence, unspecified, uncomplicated; F20.9 Schizophrenia, unspecified; F31.9 Bipolar disorder, unspecified; F41.9 Anxiety disorder, unspecified; F60.89 Other specific personality disorders; G89.29 Other chronic pain; M54.9 Dorsalgia, unspecified; J96.01 Acute respiratory failure with hypoxia; I46.9 Cardiac arrest, cause unspecified; I26.93 Single subsegmental thrombotic pulmonary embolism without acute cor pulmonale; G93.1 Anoxic brain damage, not elsewhere classified; R40.20 Unspecified coma; R45.850 Homicidal ideations; R73.9 Hyperglycemia, unspecified; M19.90 Unspecified osteoarthritis, unspecified site; M25.519 Pain in unspecified shoulder; K21.9 Gastro-esophageal reflux disease without esophagitis; M54.2 Cervicalgia; I21.4 Non-ST elevation (NSTEMI) myocardial infarction; I10 Essential (primary) hypertension; K08.9 Disorder of teeth and supporting structures, unspecified; I25.10 Atherosclerotic heart disease of native coronary artery without angina pectoris; I25.5 Ischemic cardiomyopathy; T43.96XA Underdosing of unspecified psychotropic drug, initial encounter; R32 Unspecified urinary incontinence; S00.81XA Abrasion of other part of head, initial encounter; Z20.822 Contact with and (suspected) exposure to COVID-19; Z65.3 Problems related to other legal circumstances; Z79.82 Long term (current) use of aspirin; Z79.899 Other long term (current) drug therapy; Z91.128 Patient's intentional underdosing of medication regimen for other reason
CPT/HCPCS: 31500; 36415; 36600; 62328; 70450; 70551; 71045; 71275; 74177; 80048; 80053; 80164; 80306; 80320; 81001; 82272; 82550; 82803; 82805; 82945; 83605; 83735; 83880; 84132; 84145; 84157; 84484; 85025; 85027; 85379; 85610; 85730; 86140; 87040; 87070; 87205; 87496; 87498; 87529; 87636; 87798; 89050; 93005; 93306; 93308; 93458; 93970; 94002; 94003; 94760; 95813; 95816; 95822; 96365; 96366; 96367; 96375; 96376; 99291

== ENCOUNTER 2024-10-08 23:54 | Emergency (ER) | payer OTHER ==
[2024-10-09 00:02] VITALS: TEMP 98.7
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
[2024-10-09 00:34] VITALS: RESP 18
[2024-10-09 00:57] LABS: Basophils % (A) 0 %; Eosinophils # (A) 0.1 k/uL (0-0.7); Eosinophils % (A) 2 %; HCT 35.5 % (39.0-53.0); HGB 11.8 gm/dL (13.0-17.5); Lymphocytes # (A) 0.8 k/uL (1.0-4.8); Lymphocytes % (A) 18 %; MCH 30.6 pg (25.0-35.0); MCHC 33.2 g/dL (31.0-37.0); Mean Platelet Volume 7.5; Monocytes # (A) 0.3 k/uL (0-1.0); Monocytes % (A) 8 %; Neutrophils % (A) 68 %; Platelet Count 161 k/uL (150-450); RBC 3.85 m/uL (4.30-5.90); RDW 15.4 % (11.5-15.5); WBC 4.4 k/uL (3.8-10.6)
[2024-10-09 01:15] LABS: ALT 23 U/L (4-49); AST 27 U/L (17-59); African American GFR (CKD) >90 (>60 ml/min/1.73 sqM); Albumin 3.7 g/dL (3.5-5.0); Alkaline Phosphatase 57 U/L (38-126); Anion Gap 4 mmol/L; Blood Urea Nitrogen 20 mg/dL (9-20); Calcium 8.8 mg/dL (8.4-10.2); Carbon Dioxide 24 mmol/L (22-30); Chloride 106 mmol/L (98-107); Glucose 101 mg/dL (74-99); Magnesium 2.1 mg/dL (1.6-2.3); Non-African American GFR(CKD) >90 (>60 ml/min/1.73 sqM); Potassium 4.1 mmol/L (3.5-5.1); Sodium 134 mmol/L (137-145); Total Bilirubin 0.6 mg/dL (0.2-1.3)
[2024-10-09 01:26] VITALS: BP 116/67; PULSE 81
[2024-10-09 01:37] LABS: INR 0.9 (<1.2); Partial Thromboplastin Time 30.4 sec (22.0-30.0); Prothrombin Time 10.4 sec (10.0-12.5)
--- NOTE | 2024-10-09 02:06 | XR ---
EXAM: XR Chest, 2 Views CLINICAL HISTORY: ITS.REASON XR Reason: Chest Pain TECHNIQUE: Frontal and lateral views of the chest. COMPARISON: X-ray chest: 09/01/2024 FINDINGS: Endotracheal tube and a NG tube is removed. Wearable cardiac defibrillator with adhesive sensing electrodes/electronic battery packs. Lungs: Underexpanded lungs. In the upper lobes towards the apices patchy symmetrical groundglass opacities are seen. No consolidation. Bilateral mild bronchial wall thickening. Pleural space: No pleural effusion. No pneumothorax. Heart: No cardiomegaly. Mediastinum: Normal mediastinal contour. Bones/joints: Unremarkable. No acute fracture. IMPRESSION: In the upper lung lobes towards the apices paratracheal symmetrical groundglass opacities are seen. No consolidation. Bilateral bronchial wall and perihilar mild interstitial thickening. .
[2024-10-09] MEDS: KETOROLAC 15 MG/ML 1 ML VIAL IVP STA (02:24)
== END 2024-10-09 03:05 | disposition home or self-care (01) ==
LOC: EC 23:54
DX: U07.1 COVID-19 (principal); I42.9 Cardiomyopathy, unspecified; F17.200 Nicotine dependence, unspecified, uncomplicated
CPT/HCPCS: 36415; 93005; 80053; 83735; 84484; 85025; 85610; 85730; 87636; 71046; 99284; 96374; J1885

== ENCOUNTER 2024-12-27 11:40 | Observation (INO) | payer OTHER ==
[2024-12-27] MEDS: LORazepam 2 MG/ML INJ IV STA (12:15)
[2024-12-27 13:09] LABS: ALT 18 U/L (4-49); AST 26 U/L (17-59); African American GFR (CKD) >90 (>60 ml/min/1.73 sqM); Albumin 4.6 g/dL (3.5-5.0); Alcohol <10 mg/dL; Alkaline Phosphatase 81 U/L (38-126); Anion Gap 12 mmol/L; Blood Urea Nitrogen 20 mg/dL (9-20); Calcium 10.1 mg/dL (8.4-10.2); Carbon Dioxide 21 mmol/L (22-30); Chloride 105 mmol/L (98-107); Glucose 104 mg/dL (74-99); Magnesium 2.1 mg/dL (1.6-2.3); Non-African American GFR(CKD) >90 (>60 ml/min/1.73 sqM); Potassium 4.9 mmol/L (3.5-5.1); Sodium 138 mmol/L (137-145); Total Bilirubin 1.2 mg/dL (0.2-1.3); Total Protein 7.4 g/dL (6.3-8.2)
[2024-12-27 13:14] LABS: Valproic Acid (Depakene) <10.0 ug/mL
[2024-12-27 13:19] LABS: NT-Pro-B-Type Natriuretic Pept 181 pg/mL
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
--- NOTE | 2024-12-27 13:42 | XR ---
EXAMINATION TYPE: XR chest 2V DATE OF EXAM: 12/27/2024 1:34 PM COMPARISON: Chest x-ray October 09, 2024 CLINICAL INDICATION: Male, 44 years old with history of ams, TECHNIQUE: Frontal and lateral views of the chest are obtained. FINDINGS: There is no focal air space opacity, pleural effusion, or pneumothorax seen. The cardiac silhouette size is upper limits of normal. The osseous structures are intact. IMPRESSION: No acute process. [facility], , 12/27/2024 1:39 PM
[2024-12-27 13:46] LABS: Basophils % (A) 0 %; Eosinophils # (A) 0.1 k/uL (0-0.7); Eosinophils % (A) 1 %; HCT 52.8 % (39.0-53.0); HGB 16.4 gm/dL (13.0-17.5); Lymphocytes # (A) 0.7 k/uL (1.0-4.8); Lymphocytes % (A) 10 %; MCH 30.1 pg (25.0-35.0); MCHC 31.1 g/dL (31.0-37.0); MCV 96.9 fL (80.0-100.0); Mean Platelet Volume 8.8; Monocytes # (A) 0.3 k/uL (0-1.0); Monocytes % (A) 5 %; Neutrophils # (A) 5.7 k/uL (1.3-7.7); Neutrophils % (A) 82 %; Platelet Count 282 k/uL (150-450); RBC 5.45 m/uL (4.30-5.90)
--- NOTE | 2024-12-27 14:00 | CT ---
EXAMINATION TYPE: CT brain liv wo con DATE OF EXAM: 12/27/2024 COMPARISON: CT brain dated 08/30/2024 CLINICAL INDICATION: Male, 44 years old with history of ams; PHH, AMS, seizure TECHNIQUE: CT scan of the head and cervical spine are performed without contrast. CT DLP: 1542.[address] CTDI: mGy Automated exposure control for dose reduction was used. Findings: Head CT: Ventricles, basal cisterns and sulci over convexities within normal limits and there is no mass, mass effect or shift of midline structures. No abnormal density is seen throughout the brain parenchyma and there is no acute intra or extra-axia l hemorrhage. Posterior fossa including the brainstem, fourth ventricle and cerebellar pontine angles are grossly n ormal. The intraorbital contents appear normal and symmetric. There are mucous retention cysts or polyps in the maxillary sinuses maxillary sinusitis. CT cervical spine: Craniovertebral junction relationships and prevertebral soft tissues are normal. The cervical vertebral segments are normal in height and alignment and there is no fracture subluxati on. There is mild disc space narrowing and hypertrophic spurring at the C4-5 level. A posterior hypertro phic spur causes [id number] mass effect on the ventral aspect of thecal sac at the C4-5 level. There is mild to moderate osteoarthritis of the uncovertebral joints at C4-5. There is mild bony neural foraminal encroachment C4-5 bilaterally. The paraspinal soft tissues unremarkable. IMPRESSION: 1. Head CT: No acute bleed or mass effect. Chronic maxillary sinusitis. 2. CT cervical spine: No acute trauma. Degenerative disc disease and osteoarthritis at the C4-5 level as described above. [facility], , 12/27/2024 1:57 PM
[2024-12-27] MEDS: VALPROATE SODIUM 250 MG in SODIUM CHLORIDE 0.9% 100 ML IVPB ONE (14:46)
[2024-12-27] MEDS ORDERED: NALOXONE 0.4 MG/ML 1 ML VIAL IV PRN (14:56)
[2024-12-27] MEDS: VALPROATE SODIUM 250 MG in SODIUM CHLORIDE 0.9% 100 ML IVPB SCH (16:17)
[2024-12-27 17:20] LABS: Appearance,Urine Clear (Clear); Bilirubin,Urine Negative (Negative); Blood,Urine Negative (Negative); Color,Urine Light Yellow; Glucose,Urine (UA) Negative (Negative); Ketones,Urine Trace (Negative); Leukocyte Esterase,Urine Negative (Negative); Nitrite,Urine Negative (Negative); PH, Urine 6.5 (5.0-8.0); Protein,Urine Negative (Negative); Specific Gravity,Urine 1.026 (1.001-1.035); Urobilinogen,Urine <2.0 mg/dL (<2.0)
[2024-12-27 17:34] LABS: Amphetamine Screen,Urine Not Detected (NotDetected); Benzodiazepines Screen,Urine Detected (NotDetected); Cocaine Screen,Urine Not Detected (NotDetected); Methadone Screen, Urine Not Detected (NotDetected); Opiate Screen,Urine Not Detected (NotDetected); Phencyclidine Screen,Urine Not Detected (NotDetected); Tricyclic Antidepressant,Urine Not Detected (NotDetected); Urn Cannabinoid Scrn Detected (NotDetected)
[2024-12-27 17:35] LABS: Barbiturate Screen,Urine Not Detected (NotDetected); Oxycodone Screen, Urine Not Detected (NotDetected)
[2024-12-27] MEDS ORDERED: LORazepam 2 MG/ML INJ IV PRN (17:43)
[2024-12-27] MEDS: Lacosamide IV (ages 17+ yrs) 200 MG/20 ML ML IVP STA (18:16)
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
[2024-12-27] MEDS ORDERED: LACOSAMIDE 50 MG TABLET PO SCH (21:00)
[2024-12-27] MEDS: VALPROIC ACID ORAL SOLN 250 MG/5 ML CUP PO SCH (21:22)
[2024-12-28 03:02] LABS: Basophils % (A) 0 %; Eosinophils % (A) 0 %; HCT 46.7 % (39.0-53.0); HGB 14.4 gm/dL (13.0-17.5); Hypochromasia Slight; Lymphocytes # (A) 0.8 k/uL (1.0-4.8); Lymphocytes % (A) 11 %; MCH 29.7 pg (25.0-35.0); MCHC 30.9 g/dL (31.0-37.0); MCV 96.1 fL (80.0-100.0); Mean Platelet Volume 7.8; Monocytes # (A) 0.5 k/uL (0-1.0); Monocytes % (A) 7 %; Neutrophils # (A) 5.5 k/uL (1.3-7.7); Neutrophils % (A) 79 %; Platelet Count 281 k/uL (150-450); RBC 4.86 m/uL (4.30-5.90); RDW 14.9 % (11.5-15.5); WBC 6.9 k/uL (3.8-10.6)
[2024-12-28 03:20] LABS: African American GFR (CKD) >90 (>60 ml/min/1.73 sqM); Anion Gap 10 mmol/L; Blood Urea Nitrogen 20 mg/dL (9-20); Calcium 9.5 mg/dL (8.4-10.2); Carbon Dioxide 22 mmol/L (22-30); Chloride 102 mmol/L (98-107); Glucose 97 mg/dL (74-99); Non-African American GFR(CKD) >90 (>60 ml/min/1.73 sqM); Potassium 4.3 mmol/L (3.5-5.1); Sodium 134 mmol/L (137-145)
[2024-12-28 07:50] VITALS: BP 129/70; PULSE 59; RESP 17; TEMP 98
[2024-12-28] MEDS: LACOSAMIDE 50 MG TABLET PO SCH (08:13)
[2024-12-28] MEDS ORDERED: MECLIZINE 25 MG TAB PO PRN (09:25)
[2024-12-28] MEDS ORDERED: METOPROLOL TARTRATE 25 MG TAB PO SCH (09:30)
[2024-12-28] MEDS: CLOPIDOGREL 75 MG TAB PO SCH (10:03)
[2024-12-28] MEDS: hydrOXYzine pamoate 25 MG CAP PO PRN (10:04)
[2024-12-28] MEDS: APIXABAN 5 MG TAB PO SCH (10:04)
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
[2024-12-29] MEDS ORDERED: SPIRONOLACTONE 25 MG TAB PO SCH (09:00)
[2024-12-29] MEDS ORDERED: ATORVASTATIN 40 MG TAB PO SCH (09:00)
[2024-12-29] MEDS ORDERED: DAPAGLIFLOZIN PROPANEDIOL 5 MG TABLET PO SCH (09:00)
[2025-01-07] MEDS ORDERED: ARIPiprazole IM SYRINGE 400 MG (NO CHARGE) PHARMACY STOCK IM SCH (09:30)
== END 2024-12-28 13:51 | disposition home or self-care (01) ==
LOC: EC 11:40 → 1SOBS 14:59
PROVIDERS: ADMIT Internal Medicine; ATTEND Internal Medicine
DX: G40.909 Epilepsy, unspecified, not intractable, without status epilepticus (principal); F17.210 Nicotine dependence, cigarettes, uncomplicated; F12.10 Cannabis abuse, uncomplicated; F31.9 Bipolar disorder, unspecified; F20.9 Schizophrenia, unspecified; F41.9 Anxiety disorder, unspecified; I25.10 Atherosclerotic heart disease of native coronary artery without angina pectoris; I25.2 Old myocardial infarction; J32.0 Chronic maxillary sinusitis; M19.90 Unspecified osteoarthritis, unspecified site; M50.321 Other cervical disc degeneration at C4-C5 level; G89.29 Other chronic pain; K21.9 Gastro-esophageal reflux disease without esophagitis; Z79.01 Long term (current) use of anticoagulants; Z79.02 Long term (current) use of antithrombotics/antiplatelets; Z79.84 Long term (current) use of oral hypoglycemic drugs; Z79.899 Other long term (current) drug therapy; Z86.711 Personal history of pulmonary embolism; Z91.148 Patient's other noncompliance with medication regimen for other reason; Z87.19 Personal history of other diseases of the digestive system
CPT/HCPCS: 96365; 96366; 96375; 99285; 36415; 93005; 80164; 83880; 80053; 80048; 83735; 84484; 85025 ×2; 81003; 80306; 80320; 71046; 72125; 70450; G0378 ×2; J2060; C9254

== ENCOUNTER 2025-03-18 17:11 | Observation (INO) | payer OTHER ==
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
[2025-03-18 17:36] LABS: Basophils # (A) 0.02 10*3/uL (0.00-0.10); Basophils % (A) 0.4 %; Eosinophils # (A) 0.15 10*3/uL (0.04-0.35); Eosinophils % (A) 2.7 %; HCT 41.8 % (39.6-50.0); HGB 14.1 g/dL (13.0-17.0); Lymphocytes # (A) 1.19 10*3/uL (0.90-5.00); Lymphocytes % (A) 21.3 %; MCH 31.2 pg (27.0-32.0); MCHC 33.7 g/dL (32.0-37.0); MCV 92.5 fL (80.0-97.0); Monocytes # (A) 0.51 10*3/uL (0.20-1.00); Monocytes % (A) 9.1 %; Neutrophils # (A) 3.67 10*3/uL (1.80-7.70); Neutrophils % (A) 65.8 %; Platelet Count 241 10*3/uL (140-440); RBC 4.52 10*6/uL (4.40-5.60); RDW 16.1 % (11.5-14.5); WBC 5.58 10*3/uL (4.50-10.00)
[2025-03-18 17:46] LABS: Partial Thromboplastin Time 24.9 sec (22.0-30.0); Prothrombin Time 10.9 sec (10.0-12.5)
[2025-03-18 17:50] LABS: ALT 18 U/L (4-49); African American GFR (CKD) >90 (>60 ml/min/1.73 sqM); Albumin 3.9 g/dL (3.5-5.0); Anion Gap 8 mmol/L; Blood Urea Nitrogen 21 mg/dL (9-20); Calcium 9.6 mg/dL (8.4-10.2); Carbon Dioxide 21 mmol/L (22-30); Chloride 112 mmol/L (98-107); Glucose 104 mg/dL (74-99); Lipase 52 U/L (23-300); Non-African American GFR(CKD) >90 (>60 ml/min/1.73 sqM); Sodium 141 mmol/L (137-145); Total Protein 6.1 g/dL (6.3-8.2)
[2025-03-18 17:51] LABS: Potassium 4.1 mmol/L (3.5-5.1)
[2025-03-18 17:52] LABS: AST 26 U/L (17-59); Alkaline Phosphatase 50 U/L (38-126)
[2025-03-18 17:59] LABS: NT-Pro-B-Type Natriuretic Pept 196 pg/mL
[2025-03-18] MEDS: LORazepam 1 MG/0.5 ML VIAL IV STA (18:01)
--- NOTE | 2025-03-18 18:38 | XR ---
EXAMINATION TYPE: XR chest 2V DATE OF EXAM: 03/18/2025 6:34 PM COMPARISON: Chest radiographs from 12/27/2024 CLINICAL INDICATION: Male, 44 years old with history of Chest Pain; TECHNIQUE: XR chest 2V Frontal and lateral views of the chest. FINDINGS: Lungs/Pleura: There is no evidence of pleural effusion, focal consolidation, or pneumothorax. Pulmonary vascularity: Unremarkable. Heart/mediastinum: Cardiomediastinal silhouette is unremarkable. Musculoskeletal: No acute osseous pathology. IMPRESSION: No acute cardiopulmonary disease/process. [facility], , 03/18/2025 6:36 PM
[2025-03-18] MEDS ORDERED: NALOXONE 0.4 MG/ML 1 ML VIAL IV PRN (19:18)
[2025-03-18] MEDS ORDERED: HYDROmorphone 1 MG/ML 1 ML SYRINGE IVP PRN (19:18)
[2025-03-18] MEDS ORDERED: ONDANSETRON 4 MG/2 ML VIAL IVP PRN (19:18)
[2025-03-18] MEDS: SODIUM CHLORIDE 0.9% 1,000 ML IV SCH (20:24)
[2025-03-19 07:20] LABS: Basophils # (A) 0.03 10*3/uL (0.00-0.10); Basophils % (A) 0.7 %; Eosinophils % (A) 4.4 %; HCT 41.8 % (39.6-50.0); HGB 13.8 g/dL (13.0-17.0); Lymphocytes # (A) 1.05 10*3/uL (0.90-5.00); Lymphocytes % (A) 23.1 %; MCH 30.8 pg (27.0-32.0); MCV 93.3 fL (80.0-97.0); Mean Platelet Volume 10.5 fL (9.5-12.2); Monocytes # (A) 0.35 10*3/uL (0.20-1.00); Monocytes % (A) 7.7 %; Neutrophils % (A) 63.7 %; Platelet Count 248 10*3/uL (140-440); RBC 4.48 10*6/uL (4.40-5.60); RDW 16.2 % (11.5-14.5); WBC 4.55 10*3/uL (4.50-10.00)
[2025-03-19 07:36] LABS: ALT 17 U/L (4-49); AST 22 U/L (17-59); African American GFR (CKD) >90 (>60 ml/min/1.73 sqM); Albumin 3.4 g/dL (3.5-5.0); Alkaline Phosphatase 58 U/L (38-126); Anion Gap 6 mmol/L; Blood Urea Nitrogen 16 mg/dL (9-20); Calcium 9.4 mg/dL (8.4-10.2); Carbon Dioxide 23 mmol/L (22-30); Chloride 112 mmol/L (98-107); Glucose 93 mg/dL (74-99); Magnesium 2.1 mg/dL (1.6-2.3); Non-African American GFR(CKD) >90 (>60 ml/min/1.73 sqM); Phosphorus 3.7 mg/dL (2.5-4.5); Potassium 4.3 mmol/L (3.5-5.1); Sodium 141 mmol/L (137-145); Total Bilirubin 1.3 mg/dL (0.2-1.3); Total Protein 5.5 g/dL (6.3-8.2)
[2025-03-19] MEDS ORDERED: hydrOXYzine pamoate 25 MG CAP PO PRN (07:47)
[2025-03-19] MEDS ORDERED: MECLIZINE 25 MG TAB PO PRN (07:47)
[2025-03-19 09:22] VITALS: BP 113/69; PULSE 73; RESP 17; TEMP 99.1
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
[2025-03-19] MEDS: CLOPIDOGREL 75 MG TAB PO SCH (10:54)
[2025-03-19] MEDS: FAMOTIDINE 20 MG TAB PO SCH (10:54)
[2025-03-19] MEDS: DAPAGLIFLOZIN PROPANEDIOL 5 MG TABLET PO SCH (10:55)
[2025-03-19] MEDS: METOPROLOL SUCCINATE (ER) 50 MG TAB.ER.24H PO SCH (10:55)
[2025-03-19] MEDS: CHOLESTYRAMINE (WITH SUGAR) 4 GM PACKET PO SCH (10:55)
[2025-03-19] MEDS: APIXABAN 5 MG TAB PO SCH (10:55)
[2025-03-19] MEDS: ATORVASTATIN 40 MG TAB PO SCH (10:55)
[2025-03-19] MEDS: SPIRONOLACTONE 25 MG TAB PO SCH (10:55)
[2025-03-19] MEDS: VALPROIC ACID ORAL SOLN 250 MG/5 ML CUP PO SCH (11:00)
[2025-03-19] MEDS: NICOTINE 21MG/24HR PATCH TRANSDERM SCH (11:01)
--- NOTE | 2025-03-19 12:04 | CT ---
EXAMINATION TYPE: CT chest angio for PE DATE OF EXAM: 03/19/2025 COMPARISON: CTA chest August 29, 2024 CLINICAL INDICATION: Male, 44 years old with history of chest pain, SOB reports missed dosed of eliqu is, Chest pain, SOB reports missed dose of Eliquis, TECHNIQUE: CTA scan of the thorax is performed without and with IV Contrast, patient injected with 100 ml mL of Isovue 370, pulmonary embolism protocol. MIP Images are created on CT scanner and reviewed. CT DLP: 267.6 mGycm. Automated Exposure Control for Dose Reduction was Utilized. FINDINGS: LUNGS: The lungs are grossly clear, there is no concerning parenchymal mass or nodule identified. No focal consolidation. There is no pleural effusion or pneumothorax seen. The tracheobronchial tree i s patent. HEART: Size within normal limits. No significant coronary artery calcifications. MEDIASTINUM: There is satisfactory enhancement of the pulmonary artery and its branches, there is no CT evidence for pulmonary embolism. There are no greater than 1 cm hilar or mediastinal lymph nodes. No pericardial effusion is seen. There is a four-vessel aortic arch which is normal. OTHER: Calcification of right adrenal gland could reflect product of old trauma. IMPRESSION: No CTA evidence for acute pulmonary embolism. No suspicious acute pulmonary process. [facility], , 03/19/2025 12:02 PM
--- NOTE | 2025-03-19 15:06 | P.DS ---
Providers Date of admission: 03/18/25 19:19 Expected date of discharge: 03/19/25 Attending physician: Candace Yang MD Primary care physician: Stated None Hospital Course: Discharge Diagnosis: Atypical Chest pain, acute coronary event ruled out. Continue cardiac medication regimen with Eliquis 5 mg twice daily, atorvastatin 40 mg daily, cholestyramine 4 g twice daily, Farxiga 5 mg daily, metoprolol 50 mg twice daily, and Aldactone 25 mg daily. Nonocclusive CAD Ischemic cardiomyopathy with previously known EF of 30 to 35%. Paroxysmal atrial fibrillation. Continue Eliquis 5 mg twice daily and metopr olol 50 mg twice daily. Hypertension. Continue daily medication regimen with metoprolol 50 mg twice daily and Aldactone 25 mg daily. Hyperlipidemia. Continue atorvastatin 40 mg daily and cholestyramine 4 g twice daily. Seizure disorder. Continue Depakote 250 mg 3 times daily. Depakote level subtherapeutic at less than 10. Nicotine dependence. Recommend smoking cessation. Anxiety with depression. Continue to follow-up outpatient with [facility]. Continue medication regimen with Abilify 400 mg IM q. 28 days with next dose due 03/21/2025. Bipolar disorder. Continue to follow-up outpatient with [facility]. Continue medication regimen with Abilify 400 mg IM q. 28 days with next dose due 03/21/2025. Schizophrenia. Continue to follow-up outpatient with [facility]. Continue medication regimen with Abilify 400 mg IM q. 28 days with next dose due 03/21/2025 Hospital Course: Patient is a 44-year-old male with a past medical history of mild nonocclusive CAD, ischemic cardiomyopathy with previous EF of 30 to 35%, atrial fibrillation on anticoagulation with Eliquis 5 mg twice daily, hypertension, hyperlipidemia, seizure disorder on Depakote, anxiety with depression, bipolar disorder, schizophrenia, nicotine dependence, and cannabinoid use disorder with daily use. He presented to the emergency department with a chief complaint of chest pain. Patient reports pain to midsternal chest accompanied by shortness of breath and diaphoresis. He reports initially thought this was anxiety or smoking marijuana, but states pain has been persistent and accompanied by palpitations. He denies having any dizziness, lightheadedness, cough or congestion, abdominal pain, nausea, vomiting, or experiencing any numbness/tingling/weakness/swelling in his extremities. He reports that he takes his medication as prescribed and his heart doctor is Dr. Barlow. Patient reports he did have a LifeVest on for 11 months but his heart doctor removed this a couple months ago. Noted history of atrial fibrillation in the chart, states he has a history of atrial fibrillation the patient states, " yes that sounds familiar and I think that's why they put me on that blood thinner.". Upon arrival to our facility, patient underwent evaluation in the emergency department. Vital signs upon arrival show blood pressure 122/73, heart rate 95, respiratory rate 18, temp 98.7 F, and SpO2 of 97% on room air. EKG with mild interference but revealing sinus rhyrthm at 98 bpm with frequent PVCs. Chest x-ray negative for acute cardiopulmonary process. Labs completed and reviewed. CBC unremarkable. Coagulation profile normal findings. BMP showing non-anion gap metabolic acidosis with chloride of 112, bicarb of 21, and anion gap of 8. Blood glucose was 104. Calcium 9.6. Magnesium 2.0. Liver profile unremarkable. Troponin was negative at less than 0.012 and serum alcohol level was less than 10. Patient admitted for cardiac observation. Troponins were trended overnight all negative at less than 0.012 x 3 draws. Patient admitted to being noncompliant with some of his medications including Eliquis. Secondary to reports of chest pain and shortness of breath Wells score would be elevated for PE and order placed for CTA chest to rule out pulmonary emboli. CTA chest negative for acute process negative for pulmonary emboli. Patient has been cleared from cardiac perspective for discharge recommending outpatient follow-up in office with Dr. Garcia in 1-2 weeks. Patient medically optimized for discharge at this time. Physical exam: Vital signs reviewed and stable. General: Nontoxic, no distress and appears stated age. Derm: Skin warm and dry, normal coloration for ethnicity. Head: Atraumatic, normocephalic and symmetric. Eyes: EOM's intact, no lid lag, and anicteric sclera Mouth: no lip lesions, mucus membranes moist Cardiovascular: regular rate and rhythm with normal S1S2, nsoft systolic murmur, positive posterior tibial pulses bilaterally, and cap refill < 2 seconds. Lungs: Respirations even, regular, and unlabored on room air. Lungs CTA bilaterally, no rhonchi, no rales, no wheezing, and no accessory muscle usage. Abdominal: soft, nontender to palpation, no guarding, no appreciable organomegaly Ext: ROM intact. No gross muscle atrophy, no edema, no contractures Neuro: Speech clear, face symmetrical and CN II-XII grossly intact with no noted focal neuro deficits Psych: Alert and oriented to person, place, time, and situation. Appropriate and pleasant affect. A total of 35 minutes of time were spent preparing this complex discharge summary. Pt was discharged on 03/19/2025 at 2:57 PM. Patient was seen independently by Nurse Practitioner. This document was prepared using [employer] dictation software. Please allow for e rrors in tinner automatic while rare they do occur. Jarred Diane NP rendered care for this patient independently, reviewed the findings and plan as documented in the note above. I did not physically speak with or examine the patient on this date. Patient Condition at Discharge: Stable Plan - Discharge Summary Discharge Rx Participant: No New Discharge Prescriptions: Continue Atorvastatin [Lipitor] 40 mg PO DAILY #30 tab Clopidogrel [Plavix] 75 mg PO DAILY #30 tab Empagliflozin [Jardiance] 10 mg PO DAILY Famotidine [Pepcid] 20 mg PO BID Metoprolol Succinate (ER) [Toprol XL] 50 mg PO BID Meclizine HCl [Dramamine] 25 mg PO QID PRN PRN Reason: Dizziness Spironolactone [Aldactone] 25 mg PO DAILY #30 tab Apixaban [Eliquis] 5 mg PO BID #30 tab hydrOXYzine pamoate [Vistaril] 25 mg PO TID PRN PRN Reason: Anxiety ARIPiprazole IM SYRINGE [Abilify Maintena Syringe] 400 mg IM Q28D Valproic Acid Oral Soln [Depakene Syrup] 250 mg PO TID #450 ml Cholestyramine (with Sugar) [Questran Packet] 4 gm PO BID Discharge Medication List Apixaban [Eliquis] 5 mg PO BID #30 tab 09/04/24 [Rx] Atorvastatin [Lipitor] 40 mg PO DAILY #30 tab 09/04/24 [Rx] Clopidogrel [Plavix] 75 mg PO DAILY #30 tab 09/04/24 [Rx] Spironolactone [Aldactone] 25 mg PO DAILY #30 tab 09/04/24 [Rx] ARIPiprazole IM SYRINGE [Abilify Maintena Syringe] 400 mg IM Q28D 12/27/24 [History] Empagliflozin [Jardiance] 10 mg PO DAILY 12/27/24 [History] Famotidine [Pepcid] 20 mg PO BID 12/27/24 [History] hydrOXYzine pamoate [Vistaril] 25 mg PO TID PRN 12/27/24 [History] Valproic Acid Oral Soln [Depakene Syrup] 250 mg PO TID #450 ml 12/28/24 [Rx] Cholestyramine (with Sugar) [Questran Packet] 4 gm PO BID 03/18/25 [History] Meclizine HCl [Dramamine] 25 mg PO QID PRN 03/18/25 [History] Metoprolol Succinate (ER) [Toprol XL] 50 mg PO BID 03/18/25 [History] Follow up Appointment(s)/Referral(s): Fam Garcia MD [STAFF PHYSICIAN] - 1 Week [facility] [NON-STAFF] - 1 Week Patient Instructions/Handouts: Chest Pain (DC) Activity/Diet/Wound Care/Special Instructions: Activity: As tolerated. Take breaks as needed. Diet: Heart healthy and carb consistent diet. Special Instructions: Take all of your medications as directed and remember to keep all of your doctor's appointments and follow-up as needed. Thank you for allowing us to participate in your care, it was truly a pleasure having you for our patient!!! Discharge Disposition: HOME SELF-CARE
[2025-03-19] MEDS: DIVALPROEX 250 MG TABLET.DR PO SCH (16:02)
== END 2025-03-19 18:45 | disposition home or self-care (01) ==
LOC: EC 17:11 → 1SOBS 19:19
PROVIDERS: ADMIT Internal Medicine; ATTEND Internal Medicine
DX: R07.89 Other chest pain (principal); I10 Essential (primary) hypertension; I25.10 Atherosclerotic heart disease of native coronary artery without angina pectoris; I25.2 Old myocardial infarction; I25.5 Ischemic cardiomyopathy; I34.0 Nonrheumatic mitral (valve) insufficiency; I49.3 Ventricular premature depolarization; I48.0 Paroxysmal atrial fibrillation; E78.5 Hyperlipidemia, unspecified; E87.20 Acidosis, unspecified; F17.210 Nicotine dependence, cigarettes, uncomplicated; F20.9 Schizophrenia, unspecified; F31.9 Bipolar disorder, unspecified; F41.9 Anxiety disorder, unspecified; K21.9 Gastro-esophageal reflux disease without esophagitis; G40.909 Epilepsy, unspecified, not intractable, without status epilepticus; Z79.01 Long term (current) use of anticoagulants; Z79.02 Long term (current) use of antithrombotics/antiplatelets; Z79.84 Long term (current) use of oral hypoglycemic drugs; Z79.899 Other long term (current) drug therapy; Z86.711 Personal history of pulmonary embolism; Z91.148 Patient's other noncompliance with medication regimen for other reason
CPT/HCPCS: 96374; 99291; 36415; 93005; 80164; 83880; 80053 ×2; 83690; 83735 ×2; 84100; 84484 ×2; 85025 ×2; 85610; 85730; 80320; 71046; 71275; G0378 ×2; S4990; J2060; Q9967

== ENCOUNTER 2025-04-06 10:44 | Observation (INO) | payer OTHER ==
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
[2025-04-06] MEDS: NITROGLYCERIN SL TABS 0.4 MG TAB SUBLINGUAL STA ×3 (10:54→12:18)
[2025-04-06] MEDS: ASPIRIN 81 MG PO STA (10:54)
[2025-04-06 11:03] LABS: Basophils # (A) 0.02 10*3/uL (0.00-0.10); Basophils % (A) 0.5 %; Eosinophils # (A) 0.18 10*3/uL (0.04-0.35); Eosinophils % (A) 4.1 %; HCT 41.2 % (39.6-50.0); HGB 13.8 g/dL (13.0-17.0); Lymphocytes # (A) 0.75 10*3/uL (0.90-5.00); Lymphocytes % (A) 17.2 %; MCH 31.6 pg (27.0-32.0); MCHC 33.5 g/dL (32.0-37.0); MCV 94.3 fL (80.0-97.0); Mean Platelet Volume 9.6 fL (9.5-12.2); Monocytes # (A) 0.44 10*3/uL (0.20-1.00); Monocytes % (A) 10.1 %; Neutrophils # (A) 2.93 10*3/uL (1.80-7.70); Neutrophils % (A) 67.4 %; Platelet Count 219 10*3/uL (140-440); RBC 4.37 10*6/uL (4.40-5.60); RDW 16.2 % (11.5-14.5); WBC 4.35 10*3/uL (4.50-10.00)
[2025-04-06 11:15] LABS: ALT 48 U/L (4-49); AST 58 U/L (17-59); African American GFR (CKD) >90 (>60 ml/min/1.73 sqM); Albumin 3.9 g/dL (3.5-5.0); Alkaline Phosphatase 62 U/L (38-126); Amylase 52 U/L (30-110); Anion Gap 7 mmol/L; Blood Urea Nitrogen 21 mg/dL (9-20); Calcium 9.4 mg/dL (8.4-10.2); Carbon Dioxide 23 mmol/L (22-30); Chloride 109 mmol/L (98-107); Glucose 108 mg/dL (74-99); Lipase 45 U/L (23-300); Magnesium 2.1 mg/dL (1.6-2.3); Non-African American GFR(CKD) >90 (>60 ml/min/1.73 sqM); Potassium 4.5 mmol/L (3.5-5.1); Sodium 139 mmol/L (137-145); Total Protein 6.2 g/dL (6.3-8.2)
[2025-04-06 11:17] LABS: Partial Thromboplastin Time 24.1 sec (22.0-30.0); Prothrombin Time 10.7 sec (10.0-12.5)
--- NOTE | 2025-04-06 11:39 | XR ---
EXAMINATION TYPE: XR chest 2V DATE OF EXAM: 04/06/2025 11:29 AM COMPARISON: 03/18/2025 CLINICAL INDICATION: Male, 44 years old with history of Chest Pain, TECHNIQUE: XR chest 2V view(s) obtained. FINDINGS: The heart size is normal. The pulmonary vasculature is normal. The lungs are clear. IMPRESSION: 1. No acute pulmonary process. [facility], , 04/06/2025 11:37 AM
[2025-04-06] MEDS ORDERED: NITROGLYCERIN SL TABS 0.4 MG TAB SUBLINGUAL PRN (11:53)
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
[2025-04-06] MEDS ORDERED: MECLIZINE 25 MG TAB PO PRN (12:23)
[2025-04-06] MEDS ORDERED: hydrOXYzine HCL 25 MG TAB PO PRN (12:23)
[2025-04-06] MEDS: APIXABAN 5 MG TAB PO SCH (13:10)
[2025-04-06] MEDS: DAPAGLIFLOZIN PROPANEDIOL 5 MG TABLET PO SCH (13:11)
[2025-04-06] MEDS: NITROGLYCERIN OINT 1 INCH/GM PACKET TOPICAL SCH (13:11)
[2025-04-06] MEDS: METOPROLOL SUCCINATE (ER) 50 MG TAB.ER.24H PO SCH (13:11)
[2025-04-06] MEDS: CLOPIDOGREL 75 MG TAB PO SCH (13:11)
[2025-04-06] MEDS: ATORVASTATIN 40 MG TAB PO SCH (13:11)
[2025-04-06] MEDS: VALPROIC ACID ORAL SOLN 250 MG/5 ML CUP PO SCH (13:14)
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
[2025-04-06 17:43] LABS: C Reactive Protein <0.5 mg/dL (<1.0)
[2025-04-06 17:48] LABS: NT-Pro-B-Type Natriuretic Pept 126 pg/mL
[2025-04-06] MEDS: NICOTINE 21MG/24HR PATCH TRANSDERM SCH (18:23)
[2025-04-06] MEDS: LOSARTAN 25 MG TAB PO SCH (18:23)
[2025-04-06] MEDS: LIDOCAINE 4% PATCH TOPICAL SCH (18:26)
[2025-04-06] MEDS: FAMOTIDINE 20 MG TAB PO SCH (21:27)
[2025-04-06] MEDS: CHOLESTYRAMINE (WITH SUGAR) 4 GM PACKET PO SCH (21:28)
[2025-04-07 00:39] LABS: LDL Cholesterol,Calculated 85.1 mg/dL (0.0-131.0); VLDL Calculation 11.48 mg/dL (5.00-40.00)
[2025-04-07 07:21] VITALS: BP 106/64; PULSE 56; RESP 15; TEMP 98.8
--- NOTE | 2025-04-07 08:13 | P.PN ---
Subjective Progress Note Date: 04/07/25 HISTORY OF PRESENTING ILLNESS: 44-year-old presented to the ER because of substernal chest pressure. He d escribes it somewhat reproducible on palpation. Sharp in nature. Denies any relationship to activity or rest. He is still reporting to use marijuana on and off. Reports that he been compliant to all of his medication. Admission Labs: Hb 13.8 BUN 21, creatinine 0.7, troponin negative, Admission EKG: Normal sinus rhythm with no significant ST-T wave changes concerning for ischemia Imaging: Chest x-ray does not show any signs of significant pulmonary congestion or consolidation Echo from July 2024 shows an EF of 30 to 35%, mild to moderate MR, cath from August 2024 shows minimal CAD Progress note 04/07/2025 At the time of evaluation patient was sleeping comfortably. At this time he d enies any cardiovascular symptoms. He denies any substernal chest pressure symptoms PHYSICAL EXAMINATION: Neck: Brisk carotid upstroke, no jugular venous distention. Lungs: Clear to auscultation. Heart: Regular rate and rhythm, S1-S2, , no murmur or rub. Abdomen: Soft nontender, positive bowel sounds. Extremities: No edema, intact distal pulses. Neuro: Alert, oritented, no focal deficits. Detailed neuro exam was not performed. ASSESSMENT: # Atypical chest pain, less likely cardiogenic as per patient's description as it is reproducible. Rule out of ACS # History of nonischemic cardiomyopathy EF of 30 to 35% # Valvular heart disease moderate mitral regurgitation # Minimal CAD as per heart cath from 2023 # Essential hypertension, dyslipidemia # Anxiety and depression # Medication noncompliance # Currently in drug rehabilitation program Pertinent cardiac testing CRP levels were normal. TSH 1.1, LDL 85, TG 57, NT-proBNP 126, D-dimer was normal. PLAN: Consider urine drug screen Continue home medications Eliquis 5 twice daily, Lipitor 40, Plavix 75, Jardiance 10, metoprolol succinate 50, Aldactone 25 mg daily. It is unclear while patient is on Plavix. Will discontinue Plavix and add aspirin 81 mg. He is not on losartan for GDMT. Will start losartan 12.5 mg daily Patient had a second hospital admission with similar complaint in last 2 weeks. His symptoms less likely appears to be cardiogenic. His cardiac testing has been nonrevealing. Would recommend primary team to evaluate for noncardiac reasons of chest pain At this time patient is cleared from cardiovascular standpoint. Cardiology team will sign off. Objective - Vital Signs Vital signs: Vital Signs Temp 98.8 F 04/07/25 07:00 Pulse 56 L 04/07/25 07:00 Resp 15 04/07/25 07:00 BP 106/64 04/07/25 07:00 Pulse Ox 96 04/07/25 07:00 FiO2 Intake & Output 04/06/25 04/07/25 04/07/25 18:59 06:59 18:59 Weight 81.647 kg 81.647 kg Other: # Voids 2 - Labs CBC & Chem 7: 04/06/25 10:53 04/06/25 10:53 Labs: Abnormal Lab Results - Last 24 Hours (Table) 04/06/25 04/06/25 04/06/25 Range/Units 10:53 10:53 10:53 WBC 4.35 L (4.50-10.00) 10*3/uL RBC 4.37 L (4.40-5.60) 10*6/uL Lymphocytes # 0.75 L (0.90-5.00) 10*3/uL Chloride 109 H (98-107) mmol/L BUN 21 H (9-20) mg/dL Glucose 108 H (74-99) mg/dL Total Protein 6.2 L (6.3-8.2) g/dL HDL Cholesterol 60.40 H (40.00-60.00) mg/dL
[2025-04-07] MEDS: ASPIRIN 81 MG PO SCH (08:27)
[2025-04-07] MEDS: SPIRONOLACTONE 25 MG TAB PO SCH (08:28)
[2025-04-07] MEDS: DAPAGLIFLOZIN PROPANEDIOL 10 MG TABLET PO SCH (08:28)
[2025-04-07] MEDS ORDERED: ASPIRIN 325 MG TAB PO SCH (09:00)
[2025-04-07 10:18] LABS: Chol/HDL Ratio 2.77 Ratio; LDL Cholesterol,Calculated 92.2 mg/dL (0.0-131.0); VLDL Calculation 12.62 mg/dL (5.00-40.00)
--- NOTE | 2025-04-07 14:37 | P.DS ---
Providers Date of admission: 04/06/25 11:53 Expected date of discharge: 04/07/25 Attending physician: David Dumont Consults: 04/06/25 11:53 Consult Physician Urgent Consulting Provider: Fam Garcia Consult Reason/Comments: cp Do you want consulting provider notified?: Yes Primary care physician: [facility] Course: Discharge Diagnosis: Atypical Chest pain, acute coronary event ruled out. EKG showing normal sinus mechanism. Troponins negative at less than 0.012 x 3 draws. Chest x-ray negative for acute process. D-dimer also negative at 0.17. Continue cardiac medication regimen with Eliquis 5 mg twice daily, losartan 12.5 mg daily, atorvastatin 40 mg daily, Plavix 75 mg daily, cholestyramine 4 g twice daily, Farxiga 5 mg daily, metoprolol 50 mg twice daily, and Aldactone 25 mg daily. Nonocclusive CAD Ischemic cardiomyopathy with previously known EF of 30 to 35% Paroxysmal atrial fibrillation Hypertension Hyperlipidemia Seizure disorder. Depakote level subtherapeutic at less than 10. Patient educated on importance of medication compliance and to resume Depakote 250 mg 3 times daily. Nicotine dependence. Recommend smoking cessation. Order placed for nicotine patch 21 mg daily. Anxiety with depression. Continue to follow-up outpatient with [facility]. Continue medication regimen with Abilify 400 mg IM q. 28 days with next dose due 04/12/2025. Bipolar disorder. Continue to follow-up outpatient with [facility]. Continue medication regimen with Abilify 400 mg IM q. 28 days with next dose due 04/12/2025. Schizophrenia. Continue to follow-up outpatient with [facility]. Continue medication regimen with Abilify 400 mg IM q. 28 days with next dose due 04/12/2025. Hospital Course: Patient is a 44-year-old male with a past medical history of mild nonocclusive CAD, ischemic cardiomyopathy with previous EF of 30 to 35%, paroxysmal atrial fibrillation on anticoagulation with Eliquis 5 mg twice daily, hypertension, hyperlipidemia, seizure disorder on Depakote, anxiety with depression, bipolar disorder, schizophrenia, nicotine dependence, and cannabinoid use disorder with daily use. He presented to the emergency department with a chief complaint of chest pain. Patient reports awakening around 7 AM with pain to midsternal chest accompanied by shortness of breath, dizziness/lightheadedness and diaphoresis. Patient denies anything making this pain better or worse. He denies having any fevers, chills, headache, changes in vision or hearing, chest pain, palpitations, cough or congestion, nausea or vomiting, or experiencing any worsening swelling in his lower extremities. Upon arrival to our facility, patient underwent evaluation in the emergency department. Vital signs upon arri donna show blood pressure 128/81, heart rate 67, respiratory rate 18, temp 98.0 F, and SpO2 of 97% on room air. EKG showing normal sinus rhythm at 69 bpm with no significant T wave or ST abnormalities noted upon personal review and interpretation. Chest x-ray completed negative for acute cardiopulmonary process. Labs completed and reviewed. CBC showing leukopenia with WBC count of 4.35 otherwise normal findings. Coagulation profile normal findings. D-dimer was negative at less than 0.17. BMP showing hyperchloremia with chloride of 109 and mild prerenal azotemia with BUN of 21 otherwise normal findings. Blood glucose 108. Magnesium 2.1. Liver profile unremarkable. Troponin was negative at less than 0.012. Amylase and lipase normal findings. Patient admitted under our services with consultation to cardiology. Troponins were trended all negative at less than 0.012 x 3 draws. He was evaluated by cardiology and started on losartan 12.5 mg daily. Patient cleared from cardiac standpoint for discharge. Patient is medically optimized for discharge, he reports being homeless and having no place to go, patient provided with outpatient resources and area homeless snf information. Patient follows with [facility]. Physical exam: Vital signs reviewed and stable. General: Nontoxic, no distress and appears stated age. Derm: Skin warm and dry, normal coloration for ethnicity. Head: Atraumatic, normocephalic and symmetric. Eyes: EOM's intact, no lid lag, and anicteric sclera Mouth: no lip lesions, mucus membranes moist Cardiovascular: regular rate and rhythm with normal S1S2, systolic murmur, positive posterior tibial pulses bilaterally, and cap refill < 2 seconds. Lungs: Respirations even, regular, and unlabored on room air. Lungs CTA bila terally, no rhonchi, no rales, no wheezing, and no accessory muscle usage. Abdominal: soft, nontender to palpation, no guarding, no appreciable organomegaly Ext: ROM intact. No gross muscle atrophy, no edema, no contractures Neuro: Speech clear, face symmetrical and CN II-XII grossly intact with no noted focal neuro deficits Psych: Alert and oriented to person, place, time, and situation. Appropriate and pleasant affect. A total of 31 minutes of time were spent preparing this complex discharge summary. Pt was discharged on 04/07/2025 at 9:34 AM Patient was seen independently by Nurse Practitioner. This document was prepared using [employer] dictation software. Please allow for errors in field sales representative while rare they do occur. Jarred Diane NP rendered care for this patient independently, reviewed the findings and plan as documented in the note above. I did not physically speak with or examine the patient on this date. Patient Condition at Discharge: Stable Plan - Discharge Summary Discharge Rx Participant: No New Discharge Prescriptions: New Lidocaine 4% Patch 1 patch TOPICAL DAILY 30 Days #30 patch Losartan [Cozaar] 12.5 mg PO DAILY 30 Days #15 tab Nicotine 21Mg/24Hr Patch [Habitrol] 1 patch TRANSDERM DAILY 30 Days #30 patch Continue Atorvastatin [Lipitor] 40 mg PO DAILY #30 tab Clopidogrel [Plavix] 75 mg PO DAILY #30 tab Empagliflozin [Jardiance] 10 mg PO DAILY Famotidine [Pepcid] 20 mg PO BID Metoprolol Succinate (ER) [Toprol XL] 50 mg PO BID Meclizine HCl [Dramamine] 25 mg PO QID PRN PRN Reason: Dizziness Spironolactone [Aldactone] 25 mg PO DAILY #30 tab Apixaban [Eliquis] 5 mg PO BID #30 tab ARIPiprazole IM SYRINGE [Abilify Maintena Syringe] 400 mg IM Q28D Valproic Acid Oral Soln [Depakene Syrup] 250 mg PO TID #450 ml Cholestyramine (with Sugar) [Questran Packet] 4 gm PO BID hydrOXYzine HCL [Atarax] 50 mg PO Q8H PRN #20 tablet PRN Reason: Anxiety Discharge Medication List Apixaban [Eliquis] 5 mg PO BID #30 tab 09/04/24 [Rx] Atorvastatin [Lipitor] 40 mg PO DAILY #30 tab 09/04/24 [Rx] Clopidogrel [Plavix] 75 mg PO DAILY #30 tab 09/04/24 [Rx] Spironolactone [Aldactone] 25 mg PO DAILY #30 tab 09/04/24 [Rx] ARIPiprazole IM SYRINGE [Abilify Maintena Syringe] 400 mg IM Q28D 12/27/24 [History] Empagliflozin [Jardiance] 10 mg PO DAILY 12/27/24 [History] Famotidine [Pepcid] 20 mg PO BID 12/27/24 [History] Valproic Acid Oral Soln [Depakene Syrup] 250 mg PO TID #450 ml 12/28/24 [Rx] Cholestyramine (with Sugar) [Questran Packet] 4 gm PO BID 03/18/25 [History] Meclizine HCl [Dramamine] 25 mg PO QID PRN 03/18/25 [History] Metoprolol Succinate (ER) [Toprol XL] 50 mg PO BID 03/18/25 [History] hydrOXYzine HCL [Atarax] 50 mg PO Q8H PRN #20 tablet 03/19/25 [Rx] Lidocaine 4% Patch 1 patch TOPICAL DAILY 30 Days #30 patch 04/07/25 [Rx] Losartan [Cozaar] 12.5 mg PO DAILY 30 Days #15 tab 04/07/25 [Rx] Nicotine 21Mg/24Hr Patch [Habitrol] 1 patch TRANSDERM DAILY 30 Days #30 patch 04/07/25 [Rx] Follow up Appointment(s)/Referral(s): Keo Osborne DO [REFERRING] - 1 Week Sudheer Maurer MD [Medical Doctor] - 1 Week Patient Instructions/Handouts: Chest Pain (DC), How to Stop Smoking (DC) Activity/Diet/Wound Care/Special Instructions: Activity: As tolerated. Take breaks as needed. Diet: Heart healthy and carb consistent diet. Avoid salts, or foods with hidden salts such as canned or boxed foods and frozen dinners. Extra salt makes your heart work harder and traps the fluid in your body for longer. Special Instructions: Take all of your medications as directed and remember to keep all of your doctor's appointments and follow-up as needed. Thank you for allowing us to participate in your care, it was truly a pleasure having you for our patient!!! Discharge/Stand Alone Forms: Area PCPs, Outpatient Counseling, Community Resources Discharge Disposition: HOME SELF-CARE
== END 2025-04-07 10:18 | disposition home or self-care (01) ==
LOC: EC 10:44 → 6NMEDSUR 11:53
PROVIDERS: ADMIT Student in an Organized Health Care Education/Training Program; ATTEND Student in an Organized Health Care Education/Training Program
DX: R07.89 Other chest pain (principal); K21.9 Gastro-esophageal reflux disease without esophagitis; F20.9 Schizophrenia, unspecified; F31.9 Bipolar disorder, unspecified; F41.8 Other specified anxiety disorders; I10 Essential (primary) hypertension; E78.5 Hyperlipidemia, unspecified; I25.10 Atherosclerotic heart disease of native coronary artery without angina pectoris; I34.0 Nonrheumatic mitral (valve) insufficiency; I25.5 Ischemic cardiomyopathy; I48.0 Paroxysmal atrial fibrillation; G40.909 Epilepsy, unspecified, not intractable, without status epilepticus; F17.200 Nicotine dependence, unspecified, uncomplicated; I25.2 Old myocardial infarction; Z59.00 Homelessness unspecified; Z91.148 Patient's other noncompliance with medication regimen for other reason; Z79.01 Long term (current) use of anticoagulants; Z79.02 Long term (current) use of antithrombotics/antiplatelets; Z79.84 Long term (current) use of oral hypoglycemic drugs; Z79.899 Other long term (current) drug therapy
CPT/HCPCS: 99285; 36415; 94760; 93005; 85379; 80164; 83880; 80061; 80053; 85652; 84443; 82150; 83690; 83735; 84484; 85025; 85610; 85730; 86140; 83036; 71046; G0378 ×2; S4990 ×2